=== PATIENT | male | born 1965 | race Caucasian/White ===

== ENCOUNTER 2023-06-15 02:50 | Inpatient (IN) | payer OTHER ==
[2023-06-15] VITALS (54 sets, daily range): BP systolic 73–254; BP diastolic 46–136; PULSE 71–124; RESP 12–26; TEMP 98.2–100.5; O2SAT 92–99
[~2023-06-15] VITALS: Ht 180.3 cm; Wt 79.7 kg
[2023-06-15 03:13] LABS: BASOPHILS # (AUTO) 0.16 K/uL (0.00-0.20); BASOPHILS % (AUTO) 0.9 % (0.0-5.0); HEMATOCRIT 40.1 % (42-54); IMMATURE GRANULOCYTE ABSOLUTE 0.13 K/uL (0-1); LYMPHOCYTES # (AUTO) 2.4 K/uL (1.0-4.8); LYMPHOCYTES % (AUTO) 13.2 % (21.0-51.0); MEAN CORPUSCULAR HEMOGLOBIN 22.5 pg (27.0-33.0); MEAN CORPUSCULAR HGB CONC 29.2 g/dL (32.0-36.0); MONOCYTES # (AUTO) 0.9 K/uL (0.1-1.0); MONOCYTES % (AUTO) 4.8 % (3.0-13.0); NEUTROPHILS # (AUTO) 14.5 K/uL (1.8-7.7); NEUTROPHILS % (AUTO) 80.4 % (40.0-77.0); NUCLEATED RED BLOOD CELLS 0.3 % (0.0-0.19); PLATELET COUNT (AUTO) 311 K/uL (130-400); RED BLOOD CELL COUNT(AUTO) 5.21 MIL/uL (4.50-6.20); RED CELL DISTRIBUTION WIDTH 20.5 % (11.0-15.5); WHITE BLOOD COUNT (AUTO) 18.1 K/uL (4.8-10.8)
[2023-06-15 03:22] LABS: CREATININE 2.2 mg/dL (0.5-1.5)
[2023-06-15 03:28] LABS: ALBUMIN 3.1 g/dL (3.5-5.0); BILIRUBIN,TOTAL 0.8 mg/dL (0.2-1.0); TOTAL PROTEIN, SERUM 6.7 g/dL (6.0-8.3)
[2023-06-15] MEDS ORDERED: MORPHINE 2 MG SYG IVP ONE (03:30)
[2023-06-15] MEDS ORDERED: LACTATED RINGERS 1000ML 1,000 ML IV ONE (03:30)
[2023-06-15] MEDS ORDERED: ONDANSETRON 4MG INJ IVP ONE (03:30)
[2023-06-15] MEDS ORDERED: HALOPERIDOL INJ 5 MG/ML VIAL ONE (03:38)
[2023-06-15] MEDS ORDERED: HYDROMORPHONE 1 MG INJ ONE ×2 (03:44→03:49)
[2023-06-15] MEDS ORDERED: IOHEXOL 350 MG/ML 100ML INFUS..BTL IV ONE (03:55)
[2023-06-15] MEDS ORDERED: KETOROLAC 30MG VIAL (30MG/ML) IVP ONE (04:00)
[2023-06-15] MEDS ORDERED: HALOPERIDOL INJ 5 MG/ML VIAL IV SCH (04:00)
[2023-06-15] MEDS ORDERED: NITROGLYCERIN 50MG/D5W 250ML 250 BOT IV PRN (04:00)
[2023-06-15] MEDS ORDERED: ASPIRIN 81MG CHEW TAB PO ONE (04:00)
[2023-06-15] MEDS ORDERED: HYDROMORPHONE 1 MG INJ IVP ONE ×2 (04:00)
[2023-06-15] MEDS ORDERED: HEPARIN 25,000 UNITS/250ML D5W 250 ML IV PRN (04:00)
[2023-06-15] MEDS ORDERED: NOREPINEPHRIN 4MG/NS 250ML 250 ML IV SCH (04:30)
[2023-06-15] MEDS ORDERED: NOREPINEPHRIN 4MG/NS 250ML 250 ML IV ONE (04:31)
[2023-06-15] MEDS ORDERED: VANCOMYCIN 1G/250ML KIT 250 ML IV ONE (04:47)
[2023-06-15] MEDS ORDERED: ZOSYN 3.375GM+NS 50ML 50 ML IVPB ONE (04:47)
[2023-06-15] MEDS ORDERED: SODIUM BICARB 50MEQ 50ML VIAL 50 ML ONE ×3 (04:56→11:24)
[2023-06-15] MEDS ORDERED: VANCOMYCIN KIT 1 GM/250 ML IV.KIT IV ONE (05:00)
[2023-06-15] MEDS ORDERED: ZOSYN 3.375GM +NS 50ML IVPB ONE (05:00)
[2023-06-15] MEDS ORDERED: DIATR MEGLU/DIATRIZOATE SODIUM 30 ML BOTTLE ONE (05:05)
[2023-06-15] MEDS: SODIUM BICARB 8.4% 50ML SYRINGE IVP SCH ×2 (05:08→12:36)
[2023-06-15 05:10] LABS: INR 0.94 (0.85-1.15); PROTHROMBIN TIME 10.9 SEC (9.6-11.6)
[2023-06-15 05:11] LABS: PARTIAL THROMBOPLASTIN TIME 24.2 SEC (26.3-35.5)
[2023-06-15 05:28] LABS: ABG HCO3 11.6 mmol/L (21.0-28.0); ABG OXYGEN SATURATION 94.8 % (95.0-99.0); ABG PCO2 33 mmHg (35-48); ABG PH 7.158 (7.35-7.450); PO2, ARTERIAL BG 91.7 mmHg (83.0-108.0); VENT MODE, BG NC (ROOM AIR)
[2023-06-15] MEDS ORDERED: SODIUM BICARB 50MEQ 50ML VIAL 150 ML ONE (05:31)
[2023-06-15] MEDS ORDERED: ONDANSETRON 4MG INJ IV PRN ×2 (06:00→16:00)
[2023-06-15] MEDS ORDERED: VANCOMYCIN PROTOCOL PER PHARMACY IV SCH (06:00)
[2023-06-15] MEDS ORDERED: SODIUM BICARB 8.4% 50ML SYRING 150 MEQ in DEXTROSE 5%-WATER 1,000 ML IVP SCH (06:00)
[2023-06-15] MEDS: ZOSYN 3.375GM +NS 50ML IVPB SCH ×3 (06:00→20:21)
[2023-06-15] MEDS ORDERED: LACTATED RINGERS 1000ML 2,000 ML IV SCH (07:00)
[2023-06-15] MEDS ORDERED: SODIUM BICARB 8.4% 50ML SYRINGE IVP SCH (07:00)
[2023-06-15 07:23] LABS: ABG BASE EXCESS -3.8 mmol/L (-2.0-3.0); ABG OXYGEN SATURATION 95.5 % (95.0-99.0); ABG PCO2 38 mmHg (35-48); ABG PH 7.363 (7.35-7.450); PO2, ARTERIAL BG 80.1 mmHg (83.0-108.0); VENT MODE, BG NC (ROOM AIR)
[2023-06-15] MEDS ORDERED: DEXAMETHASONE SOD PHOSPHATE 10MG/ML 1ML VIAL ONE (07:45)
[2023-06-15] MEDS ORDERED: FENTANYL CITRATE PF 50 MCG/1 ML 2ML VIAL ONE (07:45)
[2023-06-15] MEDS ORDERED: SUCCINYLCHOLINE CHLORIDE 20 MG/ML 10 ML VIAL ONE (07:45)
[2023-06-15] MEDS ORDERED: GLYCOPYRROLATE 1 MG/5 ML SYRINGE ONE (07:45)
[2023-06-15] MEDS ORDERED: LIDOCAINE PF 100MG/5ML (2%) SYRINGE 5ML ONE (07:45)
[2023-06-15] MEDS ORDERED: PROPOFOL 10 MG/ML 20ML VIAL IV ONE (07:45)
[2023-06-15] MEDS ORDERED: ONDANSETRON 4MG INJ ONE (07:45)
[2023-06-15] MEDS ORDERED: MIDAZOLAM HCL 1 MG/ML 2ML VIAL ONE (07:46)
[2023-06-15] MEDS ORDERED: NEOSTIGMINE 5MG/5ML SYR IV ONE (07:46)
[2023-06-15] MEDS ORDERED: ROCURONIUM 10MG/1ML SYR 10 MG/ML ML ONE ×3 (07:46→10:43)
[2023-06-15] MEDS ORDERED: KETAMINE 50MG/ML SYRINGE 50 MG/ML DISP.SYRIN ONE ×2 (07:49→10:43)
[2023-06-15] MEDS ORDERED: 0.9%NACL 50ML IV SCH (09:00)
[2023-06-15] MEDS ORDERED: FENTANYL CITRATE PF 50 MCG/1 ML 5ML AMP IV ONE ×2 (09:00→10:43)
[2023-06-15] MEDS ORDERED: FAMOTIDINE 20MG VIAL IV SCH (09:00)
[2023-06-15 09:08] LABS: ABG BASE EXCESS -2.2 mmol/L (-2.0-3.0); ABG HCO3 23.8 mmol/L (21.0-28.0); ABG OXYGEN SATURATION 92.1 % (95.0-99.0); ABG PCO2 46 mmHg (35-48); CARBON MONOXIDE 0.3; HHb 7.9; PO2, ARTERIAL BG 72.1 mmHg (83.0-108.0); VENT MODE, BG ANT VENT (ROOM AIR)
[2023-06-15] MEDS ORDERED: ROCURONIUM BROMIDE 10MG/1ML 5ML VL IV ONE (09:13)
[2023-06-15] MEDS ORDERED: ETOMIDATE 20MG VIAL IVP ONE (09:13)
[2023-06-15] MEDS ORDERED: CEFAZOLIN SODIUM 1 GM VIAL ONE (10:13)
[2023-06-15 11:21] LABS: ABG BASE EXCESS -7.2 mmol/L (-2.0-3.0); ABG HCO3 19.2 mmol/L (21.0-28.0); ABG OXYGEN SATURATION 98.8 % (95.0-99.0); ABG PCO2 43 mmHg (35-48); ABG PH 7.273 (7.35-7.450); HHb 1.2; VENT MODE, BG SIMV PS10 (ROOM AIR)
[2023-06-15] MEDS ORDERED: DEXTROSE 50%-WATER 50 ML DISP.SYRIN IV ONE (11:43)
[2023-06-15 11:49] LABS: HEMATOCRIT 31.9 % (42-54); MEAN CORPUSCULAR HEMOGLOBIN 22.5 pg (27.0-33.0); MEAN CORPUSCULAR HGB CONC 29.5 g/dL (32.0-36.0); MEAN CORPUSCULAR VOLUME 76.3 fL (79-99); NUCLEATED RED BLOOD CELLS 0.3 % (0.0-0.19); PLATELET COUNT (AUTO) 236 K/uL (130-400); RED BLOOD CELL COUNT(AUTO) 4.18 MIL/uL (4.50-6.20); RED CELL DISTRIBUTION WIDTH 19.9 % (11.0-15.5); WHITE BLOOD COUNT (AUTO) 9.2 K/uL (4.8-10.8)
[2023-06-15 11:58] LABS: CREATININE 1.8 mg/dL (0.5-1.5); INR 1.04 (0.85-1.15); MAGNESIUM 1.1 mg/dL (1.80-2.40); POTASSIUM 3.8 mmol/L (3.5-5.1)
[2023-06-15 12:00] LABS: PARTIAL THROMBOPLASTIN TIME 26.5 SEC (26.3-35.5)
[2023-06-15] MEDS ORDERED: DEXMEDETOMIDINE 400MCG/NS100ML IV ONE (12:20)
[2023-06-15] MEDS: DEXMEDETOMIDINE 400MCG/NS100ML IV SCH ×3 (12:35→20:21)
[2023-06-15] MEDS ORDERED: THIAMINE HCL 100 MG/ML 2ML VIAL IVP ONE (12:48)
[2023-06-15 13:04] LABS: ABG BASE EXCESS 1.8 mmol/L (-2.0-3.0); ABG HCO3 25.2 mmol/L (21.0-28.0); ABG OXYGEN SATURATION 99.2 % (95.0-99.0); ABG PCO2 35 mmHg (35-48); ABG PH 7.471 (7.35-7.450); CARBON MONOXIDE 0.9; HHb 0.8; VENT MODE, BG SIMV (ROOM AIR)
[2023-06-15 13:26] LABS: BAND NEUTROPHILS % (MANUAL) 44 % (0-2); LYMPHOCYTES % (MANUAL) 11 % (22-44); SEGMENTED NEUTROPHILS % 45 % (40-70); TOTAL CELLS COUNTED 100
[2023-06-15 13:27] LABS: MAN.DIFF COMMENT-IMPRESSION MANUAL DIFFERENTIAL; PLATELET MORPHOLOGY COMMENT ADEQUATE; WBC MORPHOLOGY CONSISTENT W/DIFF
[2023-06-15] MEDS ORDERED: THIAMINE HCL 300 MG in 0.9%NACL 50ML 50 ML IV SCH (14:00)
[2023-06-15] MEDS ORDERED: THIAMINE HCL 100 MG/ML 2ML VIAL IVP SCH (14:00)
[2023-06-15 16:00] LABS: ABG BASE EXCESS 5.6 mmol/L (-2.0-3.0); ABG HCO3 29.2 mmol/L (21.0-28.0); ABG OXYGEN SATURATION 97.5 % (95.0-99.0); ABG PCO2 39 mmHg (35-48); ABG PH 7.496 (7.35-7.450); CARBON MONOXIDE 1.1; HHb 2.5; PO2, ARTERIAL BG 99.7 mmHg (83.0-108.0); VENT MODE, BG AC (ROOM AIR)
[2023-06-15] MEDS ORDERED: CHLORDIAZEPOXIDE HCL 25 MG CAP PO PRN ×2 (16:00)
[2023-06-15] MEDS ORDERED: PHARMACY COMMUNICATION MISC PRN (16:00)
[2023-06-15] MEDS ORDERED: DIAZEPAM 5 MG/ML 2 ML SYG IVP ONE (16:30)
[2023-06-15] MEDS: DEXTROSE 5 % AND 0.9 % NACL 1,000 ML IV SCH (16:42)
[2023-06-15] MEDS: MAGNESIUM 2GM PREMIX 50ML 50 ML IV PRN (18:40)
[2023-06-15] MEDS: IPRATROPIUM/ALBUTEROL SULFATE 3 ML SOLUTION IH SCH (18:51)
[2023-06-15] MEDS: LORAZEPAM 2 MG/ML 1 ML VIAL IVP PRN (19:57)
[2023-06-15] MEDS: PANTOPRAZOLE 40 MG/VIAL IVP SCH (20:21)
[2023-06-15] MEDS ORDERED: CALCIUM GLUC 1GM/10ML VIAL ONE (20:28)
[2023-06-15] MEDS: CALCIUM GLUC 1GM 1 GM in 0.9%NACL 100ML 100 ML IV SCH ×2 (20:30→20:32)
[2023-06-15] MEDS: DIAZEPAM 5 MG/ML 2 ML SYG IVP SCH (23:29)
[2023-06-16] VITALS (96 sets, daily range): BP systolic 83–146; BP diastolic 59–176; PULSE 66–78; RESP 6–49; TEMP 97.7–100.3; O2SAT 92–100
[2023-06-16] MEDS: IPRATROPIUM/ALBUTEROL SULFATE 3 ML SOLUTION IH SCH ×4 (00:33→18:18)
[2023-06-16] MEDS: LORAZEPAM 2 MG/ML 1 ML VIAL IVP PRN ×4 (00:50→20:32)
[2023-06-16] MEDS: DEXMEDETOMIDINE 400MCG/NS100ML IV SCH ×7 (00:57→23:24)
[2023-06-16] MEDS: DEXTROSE 5 % AND 0.9 % NACL 1,000 ML IV SCH (01:47)
[2023-06-16 05:00] LABS: ABG BASE EXCESS 7.5 mmol/L (-2.0-3.0); ABG OXYGEN SATURATION 95.1 % (95.0-99.0); ABG PCO2 39 mmHg (35-48); ABG PH 7.514 (7.35-7.450); PO2, ARTERIAL BG 67.5 mmHg (83.0-108.0); VENT MODE, BG AC (ROOM AIR)
[2023-06-16 05:02] LABS: BASOPHILS # (AUTO) 0.05 K/uL (0.00-0.20); BASOPHILS % (AUTO) 0.3 % (0.0-5.0); EOSINOPHILS # (AUTO) 0.04 K/uL (0.00-0.70); EOSINOPHILS % (AUTO) 0.3 % (0.0-8.0); HEMATOCRIT 27.7 % (42-54); IMMATURE GRANULOCYTE ABSOLUTE 0.13 K/uL (0-1); LYMPHOCYTES # (AUTO) 0.5 K/uL (1.0-4.8); MEAN CORPUSCULAR HEMOGLOBIN 22.6 pg (27.0-33.0); MEAN CORPUSCULAR HGB CONC 29.6 g/dL (32.0-36.0); MEAN CORPUSCULAR VOLUME 76.3 fL (79-99); MONOCYTES # (AUTO) 0.6 K/uL (0.1-1.0); MONOCYTES % (AUTO) 3.7 % (3.0-13.0); NEUTROPHILS # (AUTO) 13.6 K/uL (1.8-7.7); NEUTROPHILS % (AUTO) 91.8 % (40.0-77.0); PLATELET COUNT (AUTO) 132 K/uL (130-400); RED BLOOD CELL COUNT(AUTO) 3.63 MIL/uL (4.50-6.20); RED CELL DISTRIBUTION WIDTH 19.9 % (11.0-15.5); WHITE BLOOD COUNT (AUTO) 14.9 K/uL (4.8-10.8)
[2023-06-16] MEDS: ZOSYN 3.375GM +NS 50ML IVPB SCH ×3 (05:26→23:23)
[2023-06-16] MEDS: DIAZEPAM 5 MG/ML 2 ML SYG IVP SCH (05:41)
[2023-06-16 05:50] LABS: ALBUMIN 1.8 g/dL (3.5-5.0); BILIRUBIN,TOTAL 0.8 mg/dL (0.2-1.0); POTASSIUM 3.9 mmol/L (3.5-5.1); TOTAL PROTEIN, SERUM 4.7 g/dL (6.0-8.3)
[2023-06-16] MEDS: PANTOPRAZOLE 40 MG/VIAL IVP SCH ×2 (08:04→20:24)
[2023-06-16] MEDS: ENOXAPARIN SODIUM 80 MG/0.8 ML SQ SCH (08:08)
[2023-06-16] MEDS: MAGNESIUM 2GM PREMIX 50ML 50 ML IV PRN (08:10)
[2023-06-16 08:26] LABS: ABG BASE EXCESS 7.1 mmol/L (-2.0-3.0); ABG HCO3 30.2 mmol/L (21.0-28.0); ABG OXYGEN SATURATION 94.9 % (95.0-99.0); ABG PCO2 38 mmHg (35-48); ABG PH 7.521 (7.35-7.450); DEVICE COMMENT RR; PO2, ARTERIAL BG 66.1 mmHg (83.0-108.0); VENT MODE, BG AC (ROOM AIR)
[2023-06-16] MEDS ORDERED: M.V.I. 10 ML, FOLIC ACID 1 MG, THIAMINE HCL 100 MG in 0.9%NACL 1000ML IV SCH (09:00)
[2023-06-16] MEDS ORDERED: FUROSEMIDE 20MG VIAL IV SCH (09:30)
[2023-06-16] MEDS: VANCOMYCIN 1.25 GM/250 ML BAG 250 ML IV SCH (09:35)
[2023-06-16] MEDS ORDERED: COMPOUND IV REFRIGERATED 1 EACH IVSOLN MISC PRN (10:00)
[2023-06-16 12:56] LABS: CHOLESTEROL 123 mg/dL (<200); HDL CHOLESTEROL 84 mg/dL (29-71); LDL DIRECT 23 mg/dL (0-99); TRIGLYCERIDES 88 mg/dL (30-200)
[2023-06-16] MEDS ORDERED: M V I IV ONE (13:00)
[2023-06-16] MEDS ORDERED: THIAMINE HCL IV ONE (13:00)
[2023-06-16] MEDS ORDERED: [UNRECOGNIZED DRUG - OTHER] IV ONE (13:00)
[2023-06-16] MEDS ORDERED: CLINIMIX E 5% IV ONE (13:00)
[2023-06-16] MEDS: FAT EMULSIONS 20% 250ML 250 ML IV SCH (13:43)
[2023-06-16] MEDS: DIAZEPAM 5 MG/ML 2 ML SYG IVP PRN ×2 (13:56→19:16)
[2023-06-16] MEDS: FLUCONAZOLE 400 MG/NS 200 ML 200 ML IV SCH (16:57)
[2023-06-16] MEDS: FUROSEMIDE 40MG VIAL IV SCH (20:24)
[2023-06-16] MEDS: INSULIN HUMULIN R 100 UNIT/ML 3ML SQ SCH (23:52)
[2023-06-17] VITALS (82 sets, daily range): BP systolic 91–176; BP diastolic 53–106; PULSE 66–74; RESP 12–54; TEMP 98–99.1; O2SAT 95–100
[2023-06-17] MEDS: LORAZEPAM 2 MG/ML 1 ML VIAL IVP PRN ×4 (01:18→21:40)
[2023-06-17] MEDS: IPRATROPIUM/ALBUTEROL SULFATE 3 ML SOLUTION IH SCH ×5 (01:22→23:30)
[2023-06-17] MEDS: DIAZEPAM 5 MG/ML 2 ML SYG IVP PRN ×3 (02:32→20:25)
[2023-06-17] MEDS: DEXMEDETOMIDINE 400MCG/NS100ML IV SCH ×7 (03:10→22:52)
[2023-06-17] MEDS: INSULIN HUMULIN R 100 UNIT/ML 3ML SQ SCH ×4 (06:00→22:56)
[2023-06-17] MEDS: ZOSYN 3.375GM +NS 50ML IVPB SCH ×3 (06:09→21:12)
[2023-06-17 06:24] LABS: BASOPHILS # (AUTO) 0.04 K/uL (0.00-0.20); BASOPHILS % (AUTO) 0.2 % (0.0-5.0); HEMATOCRIT 27.7 % (42-54); IMMATURE GRANULOCYTE ABSOLUTE 0.29 K/uL (0-1); LYMPHOCYTES # (AUTO) 0.9 K/uL (1.0-4.8); LYMPHOCYTES % (AUTO) 4.9 % (21.0-51.0); MEAN CORPUSCULAR HEMOGLOBIN 22.7 pg (27.0-33.0); MEAN CORPUSCULAR HGB CONC 28.9 g/dL (32.0-36.0); MEAN CORPUSCULAR VOLUME 78.5 fL (79-99); MONOCYTES # (AUTO) 0.5 K/uL (0.1-1.0); MONOCYTES % (AUTO) 2.5 % (3.0-13.0); NEUTROPHILS # (AUTO) 17.3 K/uL (1.8-7.7); NEUTROPHILS % (AUTO) 90.9 % (40.0-77.0); PLATELET COUNT (AUTO) 115 K/uL (130-400); RED BLOOD CELL COUNT(AUTO) 3.53 MIL/uL (4.50-6.20); RED CELL DISTRIBUTION WIDTH 20.2 % (11.0-15.5); WHITE BLOOD COUNT (AUTO) 19.1 K/uL (4.8-10.8)
[2023-06-17] MEDS ORDERED: POTASSIUM CHLORIDE 10% ELIXIR 20 MEQ/15 ML UDCUP ONE (06:58)
[2023-06-17] MEDS: PANTOPRAZOLE 40 MG/VIAL IVP SCH ×2 (08:37→20:24)
[2023-06-17] MEDS: ENOXAPARIN SODIUM 80 MG/0.8 ML SQ SCH (08:37)
[2023-06-17] MEDS: FUROSEMIDE 40MG VIAL IV SCH ×2 (08:37→20:24)
[2023-06-17 08:41] LABS: ALBUMIN 1.8 g/dL (3.5-5.0); BILIRUBIN,TOTAL 0.5 mg/dL (0.2-1.0); CREATININE 1.8 mg/dL (0.5-1.5); MAGNESIUM 1.6 mg/dL (1.80-2.40); PHOSPHORUS 2.3 mg/dL (2.5-4.9); POTASSIUM 3.2 mmol/L (3.5-5.1); TOTAL PROTEIN, SERUM 5.3 g/dL (6.0-8.3)
[2023-06-17] MEDS: POTASSIUM CHLORIDE 10MEQ/100ML 100 ML IV PRN ×3 (09:00→20:32)
[2023-06-17 09:16] LABS: ABG BASE EXCESS 6.7 mmol/L (-2.0-3.0); ABG HCO3 29.9 mmol/L (21.0-28.0); ABG OXYGEN SATURATION 91.6 % (95.0-99.0); ABG PCO2 37 mmHg (35-48); ABG PH 7.524 (7.35-7.450); CARBON MONOXIDE 0.5; DEVICE COMMENT RR SERGIO RN; HHb 8.3; PO2, ARTERIAL BG 61.2 mmHg (83.0-108.0); VENT MODE, BG AC-VC (ROOM AIR)
[2023-06-17] MEDS ORDERED: CALCIUM GLUC 1GM/10ML VIAL ONE ×2 (10:04→19:50)
[2023-06-17] MEDS: CALCIUM GLUC 1GM 1 GM in 0.9%NACL 100ML 100 ML IV SCH ×2 (10:30→19:52)
[2023-06-17] MEDS: VANCOMYCIN 1.25 GM/250 ML BAG 250 ML IV SCH (11:03)
[2023-06-17] MEDS ORDERED: COMPOUND IV REFRIGERATED 1 EACH IVSOLN MISC PRN (12:30)
[2023-06-17 12:41] LABS: INR 0.94 (0.85-1.15)
[2023-06-17] MEDS: MAGNESIUM 2GM PREMIX 50ML 50 ML IV PRN (13:56)
[2023-06-17] MEDS ORDERED: FENTANYL CITRATE PF 50 MCG/1 ML 2ML VIAL ONE (15:46)
[2023-06-17] MEDS: FAT EMULSIONS 20% 250ML 250 ML IV SCH (16:27)
[2023-06-17] MEDS ORDERED: FENTANYL CITRATE PF 50 MCG/1 ML 2ML VIAL IVP ONE (16:30)
[2023-06-17] MEDS: FLUCONAZOLE 400 MG/NS 200 ML 200 ML IV SCH (18:32)
[2023-06-17 18:46] LABS: POTASSIUM 3.3 mmol/L (3.5-5.1)
[2023-06-17] MEDS ORDERED: CLINIMIX E 5% IV SCH (19:00)
[2023-06-17] MEDS ORDERED: M V I IV SCH (19:00)
[2023-06-17] MEDS ORDERED: THIAMINE HCL IV SCH (19:00)
[2023-06-17] MEDS ORDERED: [UNRECOGNIZED DRUG - OTHER] IV SCH (19:00)
[2023-06-17] MEDS: FUROSEMIDE 20MG VIAL IV SCH (20:38)
[2023-06-17] MEDS: 0.9%NACL 10ML VIAL IV SCH (20:41)
[2023-06-18] VITALS (63 sets, daily range): BP systolic 88–133; BP diastolic 53–96; PULSE 61–73; RESP 14–29; TEMP 97–101.8; O2SAT 94–100
[2023-06-18] MEDS: DEXMEDETOMIDINE 400MCG/NS100ML IV SCH ×6 (03:19→23:25)
[2023-06-18] MEDS: DIAZEPAM 5 MG/ML 2 ML SYG IVP PRN (03:19)
[2023-06-18] MEDS: ACETAMINOPHEN 650 MG SUPPOSITORY RC PRN ×2 (03:53→18:26)
[2023-06-18 03:58] LABS: APPEARANCE,URINE CLEAR (CLEAR); BILIRUBIN,URINE NEGATIVE (NEGATIVE); COLOR,URINE LIGHT-YELLOW (YELLOW); GLUCOSE, URINE (UA) NEGATIVE (NEGATIVE); KETONES,URINE NEGATIVE (NEGATIVE); LEUKOCYTE ESTERASE ,URINE NEGATIVE Leu/uL (NEGATIVE); NITRATE,URINE NEGATIVE (NEGATIVE); PH,URINE 7.5 (5.0-8.0); PROTEIN,URINE 20 mg/dL (NEGATIVE); UROBILINOGEN,URINE 0.2 mg/dL (0.2-1.0)
[2023-06-18 04:01] LABS: BASOPHILS # (AUTO) 0.04 K/uL (0.00-0.20); BASOPHILS % (AUTO) 0.2 % (0.0-5.0); EOSINOPHILS # (AUTO) 0.02 K/uL (0.00-0.70); EOSINOPHILS % (AUTO) 0.1 % (0.0-8.0); HEMATOCRIT 30.7 % (42-54); IMMATURE GRANULOCYTE ABSOLUTE 0.19 K/uL (0-1); LYMPHOCYTES # (AUTO) 1.4 K/uL (1.0-4.8); LYMPHOCYTES % (AUTO) 8.8 % (21.0-51.0); MEAN CORPUSCULAR HEMOGLOBIN 22.4 pg (27.0-33.0); MEAN CORPUSCULAR HGB CONC 28.7 g/dL (32.0-36.0); MEAN CORPUSCULAR VOLUME 78.1 fL (79-99); MONOCYTES # (AUTO) 0.8 K/uL (0.1-1.0); MONOCYTES % (AUTO) 5.1 % (3.0-13.0); NEUTROPHILS # (AUTO) 13.9 K/uL (1.8-7.7); NEUTROPHILS % (AUTO) 84.6 % (40.0-77.0); NUCLEATED RED BLOOD CELLS 0.4 % (0.0-0.19); PLATELET COUNT (AUTO) 93 K/uL (130-400); RED BLOOD CELL COUNT(AUTO) 3.93 MIL/uL (4.50-6.20); RED CELL DISTRIBUTION WIDTH 20.7 % (11.0-15.5); WHITE BLOOD COUNT (AUTO) 16.4 K/uL (4.8-10.8)
[2023-06-18 04:01] LABS: ADD UA MICROSCOPIC NO; OCCULT BLOOD,URINE NEGATIVE (NEGATIVE)
[2023-06-18 04:13] LABS: ALBUMIN 1.8 g/dL (3.5-5.0); BILIRUBIN,TOTAL 0.7 mg/dL (0.2-1.0); CREATININE 2.1 mg/dL (0.5-1.5); MAGNESIUM 1.7 mg/dL (1.80-2.40); PHOSPHORUS 2.5 mg/dL (2.5-4.9); POTASSIUM 3.1 mmol/L (3.5-5.1)
[2023-06-18] MEDS: MAGNESIUM 2GM PREMIX 50ML 50 ML IV PRN (04:39)
[2023-06-18] MEDS: POTASSIUM CHLORIDE 10MEQ/100ML 100 ML IV PRN ×8 (04:39→21:52)
[2023-06-18] MEDS: INSULIN HUMULIN R 100 UNIT/ML 3ML SQ SCH ×4 (05:28→23:22)
[2023-06-18] MEDS: ZOSYN 3.375GM +NS 50ML IVPB SCH (05:51)
[2023-06-18] MEDS: IPRATROPIUM/ALBUTEROL SULFATE 3 ML SOLUTION IH SCH ×4 (07:13→23:05)
[2023-06-18] MEDS: VANCOMYCIN 1.25 GM/250 ML BAG 250 ML IV SCH (07:14)
[2023-06-18 08:10] LABS: ABG BASE EXCESS 5.1 mmol/L (-2.0-3.0); ABG HCO3 28.3 mmol/L (21.0-28.0); ABG OXYGEN SATURATION 94.2 % (95.0-99.0); ABG PCO2 36 mmHg (35-48); ABG PH 7.514 (7.35-7.450); CARBON MONOXIDE 1.4; DEVICE COMMENT RR SERGIO RN; HHb 5.7; PO2, ARTERIAL BG 70.9 mmHg (83.0-108.0); VENT MODE, BG AC-VC (ROOM AIR)
[2023-06-18] MEDS: FUROSEMIDE 20MG VIAL IV SCH ×2 (09:00→20:32)
[2023-06-18] MEDS ORDERED: THIAMINE HCL 100 MG/ML 2ML VIAL IVP SCH (09:00)
[2023-06-18] MEDS: PANTOPRAZOLE 40 MG/VIAL IVP SCH ×2 (09:44→20:31)
[2023-06-18] MEDS: FUROSEMIDE 40MG VIAL IV SCH (09:44)
[2023-06-18] MEDS: 0.9%NACL 10ML VIAL IV SCH ×2 (09:45→20:20)
[2023-06-18] MEDS: ENOXAPARIN SODIUM 80 MG/0.8 ML SQ SCH (09:45)
[2023-06-18 10:06] LABS: MAGNESIUM 2.1 mg/dL (1.80-2.40); POTASSIUM 3.3 mmol/L (3.5-5.1)
[2023-06-18 10:51] LABS: ABG BASE EXCESS 5.7 mmol/L (-2.0-3.0); ABG HCO3 29.2 mmol/L (21.0-28.0); ABG OXYGEN SATURATION 92.9 % (95.0-99.0); ABG PCO2 38 mmHg (35-48); ABG PH 7.504 (7.35-7.450); CPAP, BG 5 cm H2O; DEVICE COMMENT RR SERGIO RN; PO2, ARTERIAL BG 66.3 mmHg (83.0-108.0); VENT MODE, BG CPAP-PSV 10 (ROOM AIR)
[2023-06-18] MEDS ORDERED: CALCIUM GLUC 1GM/10ML VIAL ONE ×2 (11:41→20:16)
[2023-06-18] MEDS: CALCIUM GLUC 1GM 1 GM in 0.9%NACL 100ML 100 ML IV SCH ×2 (11:48→20:18)
[2023-06-18] MEDS: CEFEPIME HCL 1 GM VIAL IVPB SCH (14:51)
[2023-06-18] MEDS: DOXYCYCLINE 100MG+NS 250ML IV SCH (14:51)
[2023-06-18] MEDS ORDERED: M V I IV ONE (16:00)
[2023-06-18] MEDS ORDERED: [UNRECOGNIZED DRUG - OTHER] IV ONE (16:00)
[2023-06-18] MEDS ORDERED: THIAMINE HCL IV ONE (16:00)
[2023-06-18] MEDS ORDERED: CLINIMIX E 5% IV ONE (16:00)
[2023-06-18 17:07] LABS: POTASSIUM 3.4 mmol/L (3.5-5.1)
[2023-06-18] MEDS: ACETAZOLAMIDE SODIUM 500 MG VIAL IV SCH ×2 (17:17→23:09)
[2023-06-18] MEDS: FLUCONAZOLE 400 MG/NS 200 ML 200 ML IV SCH (17:19)
[2023-06-18 19:32] LABS: POTASSIUM 3.2 mmol/L (3.5-5.1)
[2023-06-18] MEDS: FAT EMULSIONS 20% 250ML 250 ML IV SCH (19:33)
[2023-06-18] MEDS: METRONIDAZOLE 500MG/100ML BAG 100 ML IVPB SCH (21:27)
[2023-06-18 22:37] LABS: SARS-CoV-2, RNA, NAAT NEGATIVE SARS CoV-2 (NEGATIVE)
[2023-06-18] MEDS: DIAZEPAM 5 MG/ML 2 ML SYG IVP SCH (23:26)
[2023-06-19] VITALS (72 sets, daily range): BP systolic 90–133; BP diastolic 52–92; PULSE 57–74; RESP 14–37; TEMP 98.9–100.5; O2SAT 97–100
[2023-06-19] MEDS: CEFEPIME HCL 1 GM VIAL IVPB SCH ×2 (01:05→13:02)
[2023-06-19] MEDS: DOXYCYCLINE 100MG+NS 250ML IV SCH ×2 (01:30→13:02)
[2023-06-19 04:17] LABS: BASOPHILS # (AUTO) 0.06 K/uL (0.00-0.20); BASOPHILS % (AUTO) 0.4 % (0.0-5.0); EOSINOPHILS # (AUTO) 0.08 K/uL (0.00-0.70); EOSINOPHILS % (AUTO) 0.5 % (0.0-8.0); HEMATOCRIT 26.5 % (42-54); LYMPHOCYTES # (AUTO) 1.2 K/uL (1.0-4.8); LYMPHOCYTES % (AUTO) 7.3 % (21.0-51.0); MEAN CORPUSCULAR HEMOGLOBIN 22.7 pg (27.0-33.0); MEAN CORPUSCULAR HGB CONC 28.3 g/dL (32.0-36.0); MEAN CORPUSCULAR VOLUME 80.3 fL (79-99); MONOCYTES # (AUTO) 1.7 K/uL (0.1-1.0); MONOCYTES % (AUTO) 10.4 % (3.0-13.0); NEUTROPHILS # (AUTO) 13.3 K/uL (1.8-7.7); NEUTROPHILS % (AUTO) 80.2 % (40.0-77.0); NUCLEATED RED BLOOD CELLS 0.2 % (0.0-0.19); PLATELET COUNT (AUTO) 79 K/uL (130-400); WHITE BLOOD COUNT (AUTO) 16.5 K/uL (4.8-10.8)
[2023-06-19 04:31] LABS: ALBUMIN 1.5 g/dL (3.5-5.0); BILIRUBIN,TOTAL 0.4 mg/dL (0.2-1.0); CREATININE 2.1 mg/dL (0.5-1.5); MAGNESIUM 1.7 mg/dL (1.80-2.40); PHOSPHORUS 3.3 mg/dL (2.5-4.9); POTASSIUM 3.1 mmol/L (3.5-5.1); TOTAL PROTEIN, SERUM 5.6 g/dL (6.0-8.3)
[2023-06-19] MEDS: DEXMEDETOMIDINE 400MCG/NS100ML IV SCH ×4 (04:37→21:37)
[2023-06-19] MEDS: POTASSIUM CHLORIDE 10MEQ/100ML 100 ML IV PRN ×4 (04:44→11:05)
[2023-06-19] MEDS: MAGNESIUM 2GM PREMIX 50ML 50 ML IV PRN (04:44)
[2023-06-19] MEDS: METRONIDAZOLE 500MG/100ML BAG 100 ML IVPB SCH ×3 (05:44→21:38)
[2023-06-19] MEDS: INSULIN HUMULIN R 100 UNIT/ML 3ML SQ SCH ×3 (05:44→17:12)
[2023-06-19] MEDS: DIAZEPAM 5 MG/ML 2 ML SYG IVP SCH ×2 (05:45→11:06)
[2023-06-19] MEDS: IPRATROPIUM/ALBUTEROL SULFATE 3 ML SOLUTION IH SCH ×4 (06:59→23:11)
[2023-06-19] MEDS: PANTOPRAZOLE 40 MG/VIAL IVP SCH ×2 (08:05→20:15)
[2023-06-19] MEDS: FUROSEMIDE 20MG VIAL IV SCH ×2 (08:05→20:14)
[2023-06-19] MEDS: 0.9%NACL 10ML VIAL IV SCH ×2 (08:05→20:15)
[2023-06-19] MEDS: ENOXAPARIN SODIUM 80 MG/0.8 ML SQ SCH (08:20)
[2023-06-19 14:36] LABS: MAGNESIUM 2.3 mg/dL (1.80-2.40); POTASSIUM 3.9 mmol/L (3.5-5.1)
[2023-06-19] MEDS ORDERED: THIAMINE HCL IV ONE (16:00)
[2023-06-19] MEDS ORDERED: M V I IV ONE (16:00)
[2023-06-19] MEDS ORDERED: [UNRECOGNIZED DRUG - OTHER] IV ONE (16:00)
[2023-06-19] MEDS ORDERED: CLINIMIX E 5% IV ONE (16:00)
[2023-06-19] MEDS ORDERED: HEPARIN 5,000 UNIT VIAL SQ SCH (16:30)
[2023-06-19] MEDS: ACETAMINOPHEN 650 MG SUPPOSITORY RC PRN (16:38)
[2023-06-19] MEDS: LORAZEPAM 2 MG/ML 1 ML VIAL IVP PRN (17:09)
[2023-06-19] MEDS: FLUCONAZOLE 400 MG/NS 200 ML 200 ML IV SCH (17:10)
[2023-06-19] MEDS: MORPHINE 2 MG SYG IVP PRN ×2 (17:35→20:59)
[2023-06-20] VITALS (76 sets, daily range): BP systolic 92–172; BP diastolic 51–120; PULSE 53–115; RESP 7–53; O2SAT 98–100
[2023-06-20] MEDS ORDERED: DIAZEPAM 5 MG/ML 2 ML SYG IVP SCH
[2023-06-20] MEDS: INSULIN HUMULIN R 100 UNIT/ML 3ML SQ SCH ×5 (01:00→23:24)
[2023-06-20] MEDS: DOXYCYCLINE 100MG+NS 250ML IV SCH (02:07)
[2023-06-20] MEDS: CEFEPIME HCL 1 GM VIAL IVPB SCH ×2 (02:07→14:14)
[2023-06-20] MEDS: MORPHINE 2 MG SYG IVP PRN (02:31)
[2023-06-20] MEDS: METRONIDAZOLE 500MG/100ML BAG 100 ML IVPB SCH ×3 (05:13→21:05)
[2023-06-20] MEDS: LORAZEPAM 2 MG/ML 1 ML VIAL IVP PRN ×2 (05:13→15:47)
[2023-06-20 06:36] LABS: BASOPHILS # (AUTO) 0.04 K/uL (0.00-0.20); BASOPHILS % (AUTO) 0.4 % (0.0-5.0); EOSINOPHILS # (AUTO) 0.12 K/uL (0.00-0.70); EOSINOPHILS % (AUTO) 1.2 % (0.0-8.0); HEMATOCRIT 22.4 % (42-54); IMMATURE GRANULOCYTE ABSOLUTE 0.21 K/uL (0-1); LYMPHOCYTES # (AUTO) 1.3 K/uL (1.0-4.8); LYMPHOCYTES % (AUTO) 13.4 % (21.0-51.0); MEAN CORPUSCULAR HEMOGLOBIN 22.4 pg (27.0-33.0); MEAN CORPUSCULAR HGB CONC 28.1 g/dL (32.0-36.0); MEAN CORPUSCULAR VOLUME 79.7 fL (79-99); MONOCYTES % (AUTO) 20.3 % (3.0-13.0); NEUTROPHILS # (AUTO) 6.2 K/uL (1.8-7.7); NEUTROPHILS % (AUTO) 62.6 % (40.0-77.0); PLATELET COUNT (AUTO) 92 K/uL (130-400); RED BLOOD CELL COUNT(AUTO) 2.81 MIL/uL (4.50-6.20); RED CELL DISTRIBUTION WIDTH 21.1 % (11.0-15.5); WHITE BLOOD COUNT (AUTO) 9.9 K/uL (4.8-10.8)
[2023-06-20] MEDS: DEXMEDETOMIDINE 400MCG/NS100ML IV SCH ×3 (06:39→20:28)
[2023-06-20] MEDS: IPRATROPIUM/ALBUTEROL SULFATE 3 ML SOLUTION IH SCH ×4 (06:43→22:31)
[2023-06-20 07:35] LABS: ALBUMIN 1.5 g/dL (3.5-5.0); BILIRUBIN,TOTAL 0.4 mg/dL (0.2-1.0); CREATININE 2.1 mg/dL (0.5-1.5); MAGNESIUM 1.9 mg/dL (1.80-2.40); PHOSPHORUS 3.4 mg/dL (2.5-4.9); POTASSIUM 3.5 mmol/L (3.5-5.1); TOTAL PROTEIN, SERUM 5.7 g/dL (6.0-8.3)
[2023-06-20 07:59] LABS: TOTAL IRON BINDING CAPACITY 123 mcg/dL (250-450)
[2023-06-20] MEDS: PANTOPRAZOLE 40 MG/VIAL IVP SCH ×2 (08:00→20:29)
[2023-06-20] MEDS: 0.9%NACL 10ML VIAL IV SCH ×2 (08:05→20:29)
[2023-06-20] MEDS: FUROSEMIDE 20MG VIAL IV SCH ×2 (08:06→20:32)
[2023-06-20] MEDS: HEPARIN 5,000 UNIT VIAL SQ SCH ×2 (08:07→20:31)
[2023-06-20 08:12] LABS: IRON, SERUM < 5 mcg/dL (65-175)
[2023-06-20] MEDS: MAGNESIUM 2GM PREMIX 50ML 50 ML IV PRN (08:57)
[2023-06-20 09:07] LABS: ABG BASE EXCESS -2.3 mmol/L (-2.0-3.0); ABG HCO3 21.5 mmol/L (21.0-28.0); ABG OXYGEN SATURATION 97.6 % (95.0-99.0); ABG PCO2 34 mmHg (35-48); ABG PH 7.414 (7.35-7.450); CPAP, BG 5 cm H2O; PO2, ARTERIAL BG 98.3 mmHg (83.0-108.0); VENT MODE, BG CPAP PS 10 (ROOM AIR)
[2023-06-20] MEDS: METOCLOPRAMIDE 10 MG/2 ML VIAL IVP SCH ×2 (10:36→16:51)
[2023-06-20] MEDS ORDERED: SODIUM BICARB 50MEQ 50ML VIAL IV SCH (11:00)
[2023-06-20] MEDS ORDERED: FUROSEMIDE 40MG VIAL IV ONE (14:30)
[2023-06-20] MEDS: DIAZEPAM 5 MG/ML 2 ML SYG IVP SCH ×2 (15:08→23:19)
[2023-06-20] MEDS ORDERED: M.V.I. IV [ADULT] 10 ML in CLINIMIX-E 5%AA /D15%W 2000ML 2,000 ML IV ONE (16:00)
[2023-06-20] MEDS: FLUCONAZOLE 400 MG/NS 200 ML 200 ML IV SCH (17:16)
[2023-06-20 18:25] LABS: MAGNESIUM 2.2 mg/dL (1.80-2.40); POTASSIUM 3.2 mmol/L (3.5-5.1)
[2023-06-20] MEDS: POTASSIUM CHLORIDE 10MEQ/100ML 100 ML IV PRN (18:39)
[2023-06-20] MEDS: NYSTATIN 15 GM POWDER TP SCH (20:29)
[2023-06-21] VITALS (81 sets, daily range): BP systolic 94–178; BP diastolic 46–117; PULSE 68–122; RESP 15–48; O2SAT 96–98
[2023-06-21] MEDS: CEFEPIME HCL 1 GM VIAL IVPB SCH ×2 (02:27→14:42)
[2023-06-21] MEDS: MORPHINE 2 MG SYG IVP PRN ×3 (02:29→19:56)
[2023-06-21] MEDS: DEXMEDETOMIDINE 400MCG/NS100ML IV SCH ×5 (02:30→22:48)
[2023-06-21] MEDS: IPRATROPIUM/ALBUTEROL SULFATE 3 ML SOLUTION IH SCH ×6 (03:06→22:23)
[2023-06-21 04:11] LABS: BASOPHILS # (AUTO) 0.05 K/uL (0.00-0.20); BASOPHILS % (AUTO) 0.4 % (0.0-5.0); EOSINOPHILS # (AUTO) 0.04 K/uL (0.00-0.70); EOSINOPHILS % (AUTO) 0.3 % (0.0-8.0); HEMATOCRIT 26.2 % (42-54); IMMATURE GRANULOCYTE ABSOLUTE 0.46 K/uL (0-1); LYMPHOCYTES # (AUTO) 1.4 K/uL (1.0-4.8); LYMPHOCYTES % (AUTO) 10.6 % (21.0-51.0); MEAN CORPUSCULAR HEMOGLOBIN 22.7 pg (27.0-33.0); MEAN CORPUSCULAR VOLUME 78.2 fL (79-99); MONOCYTES # (AUTO) 2.9 K/uL (0.1-1.0); MONOCYTES % (AUTO) 21.9 % (3.0-13.0); NEUTROPHILS # (AUTO) 8.5 K/uL (1.8-7.7); NEUTROPHILS % (AUTO) 63.4 % (40.0-77.0); PLATELET COUNT (AUTO) 152 K/uL (130-400); RED BLOOD CELL COUNT(AUTO) 3.35 MIL/uL (4.50-6.20); RED CELL DISTRIBUTION WIDTH 20.9 % (11.0-15.5); WHITE BLOOD COUNT (AUTO) 13.4 K/uL (4.8-10.8)
[2023-06-21 04:27] LABS: ALBUMIN 1.6 g/dL (3.5-5.0); BILIRUBIN,TOTAL 0.3 mg/dL (0.2-1.0); CREATININE 1.9 mg/dL (0.5-1.5); POTASSIUM 3.3 mmol/L (3.5-5.1); TOTAL PROTEIN, SERUM 6.2 g/dL (6.0-8.3)
[2023-06-21] MEDS: METRONIDAZOLE 500MG/100ML BAG 100 ML IVPB SCH ×3 (05:19→21:11)
[2023-06-21] MEDS: INSULIN HUMULIN R 100 UNIT/ML 3ML SQ SCH ×3 (05:20→17:49)
[2023-06-21] MEDS: POTASSIUM CHLORIDE 10MEQ/100ML 100 ML IV PRN (06:29)
[2023-06-21] MEDS: METOCLOPRAMIDE 10 MG/2 ML VIAL IVP SCH ×3 (07:24→16:33)
[2023-06-21] MEDS: FOLIC ACID 5 MG/ML VIAL IV SCH (07:25)
[2023-06-21] MEDS: DIAZEPAM 5 MG/ML 2 ML SYG IVP SCH ×2 (07:33→15:24)
[2023-06-21] MEDS: THIAMINE HCL 100 MG/ML 2ML VIAL IVP SCH (07:59)
[2023-06-21] MEDS: PANTOPRAZOLE 40 MG/VIAL IVP SCH ×2 (07:59→19:59)
[2023-06-21] MEDS: HEPARIN 5,000 UNIT VIAL SQ SCH ×2 (08:01→20:01)
[2023-06-21] MEDS: FUROSEMIDE 20MG VIAL IV SCH ×2 (08:01→19:59)
[2023-06-21] MEDS: 0.9%NACL 10ML VIAL IV SCH ×2 (08:01→19:57)
[2023-06-21] MEDS: NYSTATIN 15 GM POWDER TP SCH ×2 (08:01→20:09)
[2023-06-21] MEDS ORDERED: ALTEPLASE 2MG VIAL 2 MG/VIAL VIAL IVCATH ONE ×2 (13:30→14:00)
[2023-06-21] MEDS: LORAZEPAM 2 MG/ML 1 ML VIAL IVP PRN ×2 (16:34→21:10)
[2023-06-21] MEDS: FLUCONAZOLE 400 MG/NS 200 ML 200 ML IV SCH (17:29)
[2023-06-21] MEDS ORDERED: M.V.I. IV [ADULT] 10 ML in CLINIMIX-E 5%AA /D15%W 2000ML 2,000 ML IV ONE (18:30)
[2023-06-21] MEDS ORDERED: IPRATROPIUM/ALBUTEROL SULFATE 3 ML SOLUTION IH ONE (22:15)
[2023-06-22] VITALS (57 sets, daily range): BP systolic 91–159; BP diastolic 51–115; PULSE 75–115; RESP 16–54; O2SAT 95–98
[2023-06-22] MEDS: DIAZEPAM 5 MG/ML 2 ML SYG IVP SCH ×4 (00:01→19:07)
[2023-06-22] MEDS: CEFEPIME HCL 1 GM VIAL IVPB SCH ×2 (01:34→13:49)
[2023-06-22] MEDS: MORPHINE 2 MG SYG IVP PRN ×2 (01:34→15:23)
[2023-06-22] MEDS: IPRATROPIUM/ALBUTEROL SULFATE 3 ML SOLUTION IH SCH ×6 (02:46→22:11)
[2023-06-22] MEDS: DEXMEDETOMIDINE 400MCG/NS100ML IV SCH ×4 (04:10→19:17)
[2023-06-22 04:33] LABS: BASOPHILS # (AUTO) 0.07 K/uL (0.00-0.20); BASOPHILS % (AUTO) 0.7 % (0.0-5.0); EOSINOPHILS # (AUTO) 0.05 K/uL (0.00-0.70); EOSINOPHILS % (AUTO) 0.5 % (0.0-8.0); HEMATOCRIT 25.1 % (42-54); IMMATURE GRANULOCYTE ABSOLUTE 0.39 K/uL (0-1); LYMPHOCYTES % (AUTO) 9.6 % (21.0-51.0); MEAN CORPUSCULAR HEMOGLOBIN 22.6 pg (27.0-33.0); MEAN CORPUSCULAR HGB CONC 28.7 g/dL (32.0-36.0); MEAN CORPUSCULAR VOLUME 78.9 fL (79-99); MONOCYTES % (AUTO) 19.8 % (3.0-13.0); NEUTROPHILS # (AUTO) 6.5 K/uL (1.8-7.7); NEUTROPHILS % (AUTO) 65.5 % (40.0-77.0); PLATELET COUNT (AUTO) 238 K/uL (130-400); RED BLOOD CELL COUNT(AUTO) 3.18 MIL/uL (4.50-6.20); RED CELL DISTRIBUTION WIDTH 21.1 % (11.0-15.5); WHITE BLOOD COUNT (AUTO) 9.9 K/uL (4.8-10.8)
[2023-06-22 04:52] LABS: ALBUMIN 1.6 g/dL (3.5-5.0); BILIRUBIN,TOTAL 0.2 mg/dL (0.2-1.0); CREATININE 1.8 mg/dL (0.5-1.5); POTASSIUM 3.7 mmol/L (3.5-5.1)
[2023-06-22] MEDS: INSULIN HUMULIN R 100 UNIT/ML 3ML SQ SCH ×4 (05:52→17:14)
[2023-06-22] MEDS: METRONIDAZOLE 500MG/100ML BAG 100 ML IVPB SCH ×3 (06:36→21:17)
[2023-06-22] MEDS: METOCLOPRAMIDE 10 MG/2 ML VIAL IVP SCH ×3 (06:36→17:00)
[2023-06-22] MEDS: POTASSIUM CHLORIDE 10MEQ/100ML 100 ML IV PRN (07:34)
[2023-06-22] MEDS: PANTOPRAZOLE 40 MG/VIAL IVP SCH ×2 (08:10→20:38)
[2023-06-22] MEDS: THIAMINE HCL 100 MG/ML 2ML VIAL IVP SCH (08:10)
[2023-06-22] MEDS: FUROSEMIDE 20MG VIAL IV SCH ×2 (08:10→20:38)
[2023-06-22] MEDS: NYSTATIN 15 GM POWDER TP SCH ×2 (08:11→20:42)
[2023-06-22] MEDS: HEPARIN 5,000 UNIT VIAL SQ SCH ×2 (08:11→20:37)
[2023-06-22] MEDS: 0.9%NACL 10ML VIAL IV SCH ×2 (08:18→20:38)
[2023-06-22] MEDS: FOLIC ACID 5 MG/ML VIAL IV SCH (09:00)
[2023-06-22] MEDS: FLUCONAZOLE 400 MG/NS 200 ML 200 ML IV SCH (17:17)
[2023-06-22] MEDS ORDERED: M.V.I. IV [ADULT] 10 ML, MULTITRACE-4 ADULT 10ML VIAL 3 ML in CLINIMIX-E 5%AA /D15%W 2... IV ONE (18:30)
[2023-06-23] VITALS (56 sets, daily range): BP systolic 104–197; BP diastolic 56–119; PULSE 74–149; RESP 19–53; O2SAT 95–100
[2023-06-23] MEDS: DEXMEDETOMIDINE 400MCG/NS100ML IV SCH ×3 (00:20→10:33)
[2023-06-23] MEDS: DIAZEPAM 5 MG/ML 2 ML SYG IVP SCH ×3 (00:49→13:19)
[2023-06-23] MEDS: CEFEPIME HCL 1 GM VIAL IVPB SCH ×2 (00:49→15:14)
[2023-06-23] MEDS: IPRATROPIUM/ALBUTEROL SULFATE 3 ML SOLUTION IH SCH ×6 (02:15→22:21)
[2023-06-23] MEDS: METRONIDAZOLE 500MG/100ML BAG 100 ML IVPB SCH ×3 (05:45→22:27)
[2023-06-23] MEDS: INSULIN HUMULIN R 100 UNIT/ML 3ML SQ SCH ×5 (05:54→23:50)
[2023-06-23] MEDS: METOCLOPRAMIDE 10 MG/2 ML VIAL IVP SCH ×3 (06:21→16:57)
[2023-06-23 08:15] LABS: BASOPHILS # (AUTO) 0.08 K/uL (0.00-0.20); BASOPHILS % (AUTO) 0.6 % (0.0-5.0); EOSINOPHILS # (AUTO) 0.06 K/uL (0.00-0.70); EOSINOPHILS % (AUTO) 0.4 % (0.0-8.0); HEMATOCRIT 26.3 % (42-54); IMMATURE GRANULOCYTE ABSOLUTE 0.36 K/uL (0-1); LYMPHOCYTES # (AUTO) 1.2 K/uL (1.0-4.8); LYMPHOCYTES % (AUTO) 8.6 % (21.0-51.0); MEAN CORPUSCULAR HEMOGLOBIN 22.3 pg (27.0-33.0); MEAN CORPUSCULAR HGB CONC 27.8 g/dL (32.0-36.0); MEAN CORPUSCULAR VOLUME 80.2 fL (79-99); MONOCYTES # (AUTO) 2.6 K/uL (0.1-1.0); MONOCYTES % (AUTO) 18.9 % (3.0-13.0); NEUTROPHILS # (AUTO) 9.4 K/uL (1.8-7.7); NEUTROPHILS % (AUTO) 68.9 % (40.0-77.0); PLATELET COUNT (AUTO) 331 K/uL (130-400); RED BLOOD CELL COUNT(AUTO) 3.28 MIL/uL (4.50-6.20); RED CELL DISTRIBUTION WIDTH 21.4 % (11.0-15.5); WHITE BLOOD COUNT (AUTO) 13.6 K/uL (4.8-10.8)
[2023-06-23 08:27] LABS: ALBUMIN 1.6 g/dL (3.5-5.0); BILIRUBIN,TOTAL 0.3 mg/dL (0.2-1.0); CREATININE 1.7 mg/dL (0.5-1.5); MAGNESIUM 1.9 mg/dL (1.80-2.40); POTASSIUM 4.1 mmol/L (3.5-5.1); TOTAL PROTEIN, SERUM 6.1 g/dL (6.0-8.3)
[2023-06-23] MEDS: FUROSEMIDE 20MG VIAL IV SCH ×3 (09:00→20:46)
[2023-06-23] MEDS: PANTOPRAZOLE 40 MG/VIAL IVP SCH ×2 (09:19→20:46)
[2023-06-23] MEDS: 0.9%NACL 10ML VIAL IV SCH ×2 (09:19→20:45)
[2023-06-23] MEDS: THIAMINE HCL 100 MG/ML 2ML VIAL IVP SCH (09:20)
[2023-06-23] MEDS: HEPARIN 5,000 UNIT VIAL SQ SCH ×2 (09:25→21:08)
[2023-06-23] MEDS: NYSTATIN 15 GM POWDER TP SCH ×2 (10:23→20:46)
[2023-06-23] MEDS: DEXTROSE 5%-WATER 1,000 ML IV SCH (10:32)
[2023-06-23] MEDS: IRON SUCROSE COMPLEX 300 MG in 0.9% NACL 250ML 250 ML IV SCH (10:33)
[2023-06-23] MEDS: FOLIC ACID 5 MG/ML VIAL IV SCH (10:45)
[2023-06-23] MEDS ORDERED: M.V.I. IV [ADULT] 10 ML, MULTITRACE-4 ADULT 10ML VIAL 3 ML in CLINIMIX-E 5%AA /D15%W 2... IV ONE (12:30)
[2023-06-23 15:35] LABS: ABG BASE EXCESS -2.1 mmol/L (-2.0-3.0); ABG HCO3 21.1 mmol/L (21.0-28.0); ABG PCO2 32 mmHg (35-48); ABG PH 7.435 (7.35-7.450); DEVICE COMMENT RN LEO; PO2, ARTERIAL BG 77.9 mmHg (83.0-108.0); VENT MODE, BG BIPAP12 (ROOM AIR)
[2023-06-23] MEDS: LORAZEPAM 2 MG/ML 1 ML VIAL IVP PRN ×2 (16:56→21:18)
[2023-06-23] MEDS: FLUCONAZOLE 400 MG/NS 200 ML 200 ML IV SCH (16:58)
[2023-06-23] MEDS ORDERED: METOPROLOL TARTRATE 1 MG/ML 5ML VIAL IV SCH (18:00)
[2023-06-23] MEDS: NICARDIPINE 25MG INJ 100 MG in 0.9%NACL 100ML 60 ML IV SCH (20:19)
[2023-06-23] MEDS: METOPROLOL TARTRATE 1 MG/ML 5ML VIAL IV PRN (20:25)
[2023-06-23] MEDS ORDERED: HYDRALAZINE 20MG/ML VIAL ONE (20:44)
[2023-06-24] VITALS (68 sets, daily range): BP systolic 103–170; BP diastolic 50–116; PULSE 92–147; RESP 20–75; O2SAT 97–100
[2023-06-24] MEDS: CEFEPIME HCL 1 GM VIAL IVPB SCH ×2 (00:54→13:01)
[2023-06-24] MEDS: LORAZEPAM 2 MG/ML 1 ML VIAL IVP PRN ×5 (00:54→16:59)
[2023-06-24] MEDS: METOPROLOL TARTRATE 1 MG/ML 5ML VIAL IV PRN ×4 (02:03→21:22)
[2023-06-24] MEDS: IPRATROPIUM/ALBUTEROL SULFATE 3 ML SOLUTION IH SCH ×6 (02:26→21:31)
[2023-06-24 04:26] LABS: INR 1.17 (0.85-1.15); PROTHROMBIN TIME 13.4 SEC (9.6-11.6)
[2023-06-24 04:30] LABS: BASOPHILS # (AUTO) 0.13 K/uL (0.00-0.20); BASOPHILS % (AUTO) 0.6 % (0.0-5.0); EOSINOPHILS # (AUTO) 0.01 K/uL (0.00-0.70); HEMATOCRIT 27.4 % (42-54); IMMATURE GRANULOCYTE ABSOLUTE 0.98 K/uL (0-1); LYMPHOCYTES # (AUTO) 1.6 K/uL (1.0-4.8); LYMPHOCYTES % (AUTO) 6.7 % (21.0-51.0); MEAN CORPUSCULAR HEMOGLOBIN 22.6 pg (27.0-33.0); MEAN CORPUSCULAR HGB CONC 28.5 g/dL (32.0-36.0); MEAN CORPUSCULAR VOLUME 79.4 fL (79-99); MONOCYTES # (AUTO) 3.7 K/uL (0.1-1.0); MONOCYTES % (AUTO) 15.8 % (3.0-13.0); NEUTROPHILS # (AUTO) 16.9 K/uL (1.8-7.7); NEUTROPHILS % (AUTO) 72.7 % (40.0-77.0); NUCLEATED RED BLOOD CELLS 0.1 % (0.0-0.19); PLATELET COUNT (AUTO) 483 K/uL (130-400); RED BLOOD CELL COUNT(AUTO) 3.45 MIL/uL (4.50-6.20); RED CELL DISTRIBUTION WIDTH 21.6 % (11.0-15.5); WHITE BLOOD COUNT (AUTO) 23.2 K/uL (4.8-10.8)
[2023-06-24 04:40] LABS: ALBUMIN 1.7 g/dL (3.5-5.0); BILIRUBIN,TOTAL 0.2 mg/dL (0.2-1.0); POTASSIUM 3.9 mmol/L (3.5-5.1); TOTAL PROTEIN, SERUM 6.6 g/dL (6.0-8.3)
[2023-06-24] MEDS: HYDRALAZINE 20MG/ML VIAL IV PRN ×4 (05:03→23:27)
[2023-06-24] MEDS: METRONIDAZOLE 500MG/100ML BAG 100 ML IVPB SCH ×3 (05:03→21:21)
[2023-06-24] MEDS: INSULIN HUMULIN R 100 UNIT/ML 3ML SQ SCH ×4 (06:00→23:33)
[2023-06-24] MEDS: NICARDIPINE 25MG INJ 100 MG in 0.9%NACL 100ML 60 ML IV SCH (06:37)
[2023-06-24] MEDS: DEXTROSE 5%-WATER 1,000 ML IV SCH (06:40)
[2023-06-24] MEDS: METOCLOPRAMIDE 10 MG/2 ML VIAL IVP SCH ×3 (06:41→16:09)
[2023-06-24] MEDS: FUROSEMIDE 20MG VIAL IV SCH ×2 (08:31→19:59)
[2023-06-24] MEDS: 0.9%NACL 10ML VIAL IV SCH ×2 (08:31→20:00)
[2023-06-24] MEDS: PANTOPRAZOLE 40 MG/VIAL IVP SCH ×2 (08:31→20:00)
[2023-06-24] MEDS: THIAMINE HCL 100 MG/ML 2ML VIAL IVP SCH (08:31)
[2023-06-24] MEDS: NYSTATIN 15 GM POWDER TP SCH ×2 (08:32→20:00)
[2023-06-24] MEDS: HEPARIN 5,000 UNIT VIAL SQ SCH ×2 (08:32→20:00)
[2023-06-24] MEDS: FOLIC ACID 5 MG/ML VIAL IV SCH (08:40)
[2023-06-24] MEDS ORDERED: ALTEPLASE 2MG VIAL 2 MG/VIAL VIAL IVCATH SCH (09:00)
[2023-06-24] MEDS: IRON SUCROSE COMPLEX 300 MG in 0.9% NACL 250ML 250 ML IV SCH (09:32)
[2023-06-24 11:54] LABS: BASOPHILS # (AUTO) 0.15 K/uL (0.00-0.20); BASOPHILS % (AUTO) 0.7 % (0.0-5.0); HEMATOCRIT 30.4 % (42-54); IMMATURE GRANULOCYTE ABSOLUTE 0.82 K/uL (0-1); LYMPHOCYTES % (AUTO) 4.8 % (21.0-51.0); MEAN CORPUSCULAR HEMOGLOBIN 22.7 pg (27.0-33.0); MEAN CORPUSCULAR HGB CONC 28.6 g/dL (32.0-36.0); MEAN CORPUSCULAR VOLUME 79.2 fL (79-99); MONOCYTES # (AUTO) 2.6 K/uL (0.1-1.0); NEUTROPHILS # (AUTO) 17.1 K/uL (1.8-7.7); NEUTROPHILS % (AUTO) 78.7 % (40.0-77.0); NUCLEATED RED BLOOD CELLS 0.1 % (0.0-0.19); PLATELET COUNT (AUTO) 517 K/uL (130-400); RED BLOOD CELL COUNT(AUTO) 3.84 MIL/uL (4.50-6.20); RED CELL DISTRIBUTION WIDTH 22.1 % (11.0-15.5); WHITE BLOOD COUNT (AUTO) 21.7 K/uL (4.8-10.8)
[2023-06-24 12:32] LABS: THYROID STIMULATING HORMONE 1.78 uIU/mL (0.36-3.74)
[2023-06-24] MEDS ORDERED: M.V.I. IV [ADULT] 10 ML in CLINIMIX-E 5%AA /D15%W 2000ML 2,000 ML IV ONE (14:00)
[2023-06-24] MEDS ORDERED: FAT EMULSIONS 20% 250ML 250 ML IV ONE (15:00)
[2023-06-24] MEDS: FLUCONAZOLE 400 MG/NS 200 ML 200 ML IV SCH (17:06)
[2023-06-25] VITALS (97 sets, daily range): BP systolic 119–173; BP diastolic 46–112; PULSE 82–127; RESP 16–42; O2SAT 95–100
[2023-06-25] MEDS: CEFEPIME HCL 1 GM VIAL IVPB SCH (01:39)
[2023-06-25] MEDS: IPRATROPIUM/ALBUTEROL SULFATE 3 ML SOLUTION IH SCH ×6 (02:06→22:27)
[2023-06-25 04:30] LABS: BASOPHILS # (AUTO) 0.19 K/uL (0.00-0.20); BASOPHILS % (AUTO) 0.7 % (0.0-5.0); EOSINOPHILS # (AUTO) 0.01 K/uL (0.00-0.70); HEMATOCRIT 27.7 % (42-54); IMMATURE GRANULOCYTE ABSOLUTE 1.06 K/uL (0-1); LYMPHOCYTES # (AUTO) 1.2 K/uL (1.0-4.8); LYMPHOCYTES % (AUTO) 4.7 % (21.0-51.0); MEAN CORPUSCULAR HEMOGLOBIN 22.4 pg (27.0-33.0); MEAN CORPUSCULAR HGB CONC 28.5 g/dL (32.0-36.0); MEAN CORPUSCULAR VOLUME 78.7 fL (79-99); MONOCYTES # (AUTO) 2.9 K/uL (0.1-1.0); MONOCYTES % (AUTO) 11.2 % (3.0-13.0); NEUTROPHILS # (AUTO) 20.2 K/uL (1.8-7.7); NEUTROPHILS % (AUTO) 79.2 % (40.0-77.0); NUCLEATED RED BLOOD CELLS 0.1 % (0.0-0.19); PLATELET COUNT (AUTO) 591 K/uL (130-400); RED BLOOD CELL COUNT(AUTO) 3.52 MIL/uL (4.50-6.20); RED CELL DISTRIBUTION WIDTH 22.5 % (11.0-15.5); WHITE BLOOD COUNT (AUTO) 25.5 K/uL (4.8-10.8)
[2023-06-25 04:48] LABS: CREATININE 1.9 mg/dL (0.5-1.5); MAGNESIUM 1.9 mg/dL (1.80-2.40); PHOSPHORUS 4.1 mg/dL (2.5-4.9); POTASSIUM 3.7 mmol/L (3.5-5.1)
[2023-06-25] MEDS: INSULIN HUMULIN R 100 UNIT/ML 3ML SQ SCH ×3 (06:00→18:00)
[2023-06-25] MEDS: METRONIDAZOLE 500MG/100ML BAG 100 ML IVPB SCH ×3 (06:19→20:38)
[2023-06-25] MEDS: METOCLOPRAMIDE 10 MG/2 ML VIAL IVP SCH ×3 (06:20→16:50)
[2023-06-25] MEDS: HEPARIN 5,000 UNIT VIAL SQ SCH ×2 (09:00→20:37)
[2023-06-25] MEDS: THIAMINE HCL 100 MG/ML 2ML VIAL IVP SCH (09:08)
[2023-06-25] MEDS: PANTOPRAZOLE 40 MG/VIAL IVP SCH ×2 (09:08→20:36)
[2023-06-25] MEDS: METOPROLOL TARTRATE 1 MG/ML 5ML VIAL IV PRN ×2 (09:09→15:13)
[2023-06-25] MEDS: FUROSEMIDE 20MG VIAL IV SCH ×2 (09:09→20:36)
[2023-06-25] MEDS: NYSTATIN 15 GM POWDER TP SCH ×2 (09:10→20:41)
[2023-06-25 09:11] LABS: ABG OXYGEN SATURATION 95.1 % (95.0-99.0); ABG PCO2 32 mmHg (35-48); ABG PH 7.412 (7.35-7.450); CARBON MONOXIDE 0.2; DEVICE COMMENT ISAAC RN; HHb 4.9; PO2, ARTERIAL BG 80.9 mmHg (83.0-108.0); VENT MODE, BG BIPAP12,5 (ROOM AIR)
[2023-06-25] MEDS: NICARDIPINE 25MG INJ 100 MG in 0.9%NACL 100ML 60 ML IV SCH (09:15)
[2023-06-25] MEDS: IRON SUCROSE COMPLEX 300 MG in 0.9% NACL 250ML 250 ML IV SCH (09:15)
[2023-06-25] MEDS: MAGNESIUM 2GM PREMIX 50ML 50 ML IV PRN (09:27)
[2023-06-25] MEDS ORDERED: SODIUM BICARB 50MEQ 50ML VIAL IV ONE (10:30)
[2023-06-25] MEDS ORDERED: DIATR MEGLU/DIATRIZOATE SODIUM 30 ML BOTTLE ONE ×4 (11:18→12:28)
[2023-06-25] MEDS: FLUCONAZOLE 400 MG/NS 200 ML 200 ML IV SCH (16:50)
[2023-06-25] MEDS ORDERED: M.V.I. IV [ADULT] 10 ML, MULTITRACE-4 ADULT 10ML VIAL 3 ML in CLINIMIX-E 5%AA /D15%W 2... IV ONE (17:00)
[2023-06-25] MEDS: FOLIC ACID 5 MG/ML VIAL IV SCH (17:41)
[2023-06-25] MEDS: HYDRALAZINE 20MG/ML VIAL IV PRN (19:02)
[2023-06-25] MEDS: 0.9%NACL 10ML VIAL IV SCH ×2 (20:31→20:36)
[2023-06-26] VITALS (94 sets, daily range): BP systolic 99–183; BP diastolic 62–140; PULSE 91–130; RESP 6–34; O2SAT 92–100
[2023-06-26] MEDS: INSULIN HUMULIN R 100 UNIT/ML 3ML SQ SCH ×4 (00:45→18:00)
[2023-06-26] MEDS: POTASSIUM CHLORIDE 20MEQ/100ML 100 ML IV PRN (00:46)
[2023-06-26] MEDS: IPRATROPIUM/ALBUTEROL SULFATE 3 ML SOLUTION IH SCH ×5 (00:46→22:51)
[2023-06-26] MEDS: METRONIDAZOLE 500MG/100ML BAG 100 ML IVPB SCH ×3 (05:23→20:41)
[2023-06-26 05:27] LABS: BASOPHILS # (AUTO) 0.13 K/uL (0.00-0.20); BASOPHILS % (AUTO) 0.6 % (0.0-5.0); EOSINOPHILS # (AUTO) 0.03 K/uL (0.00-0.70); EOSINOPHILS % (AUTO) 0.1 % (0.0-8.0); HEMATOCRIT 25.6 % (42-54); IMMATURE GRANULOCYTE ABSOLUTE 0.94 K/uL (0-1); LYMPHOCYTES # (AUTO) 1.2 K/uL (1.0-4.8); LYMPHOCYTES % (AUTO) 5.5 % (21.0-51.0); MEAN CORPUSCULAR HEMOGLOBIN 22.8 pg (27.0-33.0); MEAN CORPUSCULAR HGB CONC 28.9 g/dL (32.0-36.0); MEAN CORPUSCULAR VOLUME 78.8 fL (79-99); MONOCYTES # (AUTO) 2.4 K/uL (0.1-1.0); MONOCYTES % (AUTO) 10.8 % (3.0-13.0); NEUTROPHILS # (AUTO) 17.4 K/uL (1.8-7.7); NEUTROPHILS % (AUTO) 78.7 % (40.0-77.0); NUCLEATED RED BLOOD CELLS 0.3 % (0.0-0.19); PLATELET COUNT (AUTO) 670 K/uL (130-400); RED BLOOD CELL COUNT(AUTO) 3.25 MIL/uL (4.50-6.20); RED CELL DISTRIBUTION WIDTH 22.2 % (11.0-15.5); WHITE BLOOD COUNT (AUTO) 22.1 K/uL (4.8-10.8)
[2023-06-26 05:42] LABS: ALBUMIN 1.7 g/dL (3.5-5.0); BILIRUBIN,TOTAL 0.2 mg/dL (0.2-1.0); CREATININE 1.7 mg/dL (0.5-1.5); MAGNESIUM 2.1 mg/dL (1.80-2.40); PHOSPHORUS 3.8 mg/dL (2.5-4.9); POTASSIUM 3.9 mmol/L (3.5-5.1); TOTAL PROTEIN, SERUM 6.3 g/dL (6.0-8.3)
[2023-06-26] MEDS: METOCLOPRAMIDE 10 MG/2 ML VIAL IVP SCH ×3 (06:49→17:54)
[2023-06-26] MEDS: FUROSEMIDE 20MG VIAL IV SCH ×2 (07:55→20:39)
[2023-06-26] MEDS: THIAMINE HCL 100 MG/ML 2ML VIAL IVP SCH (07:56)
[2023-06-26] MEDS: PANTOPRAZOLE 40 MG/VIAL IVP SCH ×2 (07:57→20:39)
[2023-06-26] MEDS: NYSTATIN 15 GM POWDER TP SCH ×2 (07:57→20:39)
[2023-06-26] MEDS: IRON SUCROSE COMPLEX 300 MG in 0.9% NACL 250ML 250 ML IV SCH (07:58)
[2023-06-26] MEDS: 0.9%NACL 10ML VIAL IV SCH ×2 (09:00→20:41)
[2023-06-26] MEDS: FOLIC ACID 5 MG/ML VIAL IV SCH (10:10)
[2023-06-26] MEDS: AMLODIPINE 5 MG TAB PO SCH ×2 (11:23→20:41)
[2023-06-26] MEDS: FAT EMULSIONS 20% 250ML 250 ML IV SCH (11:27)
[2023-06-26] MEDS: METOPROLOL TARTRATE 1 MG/ML 5ML VIAL IV PRN (13:46)
[2023-06-26] MEDS: HYDRALAZINE 20MG/ML VIAL IV PRN (15:37)
[2023-06-26] MEDS ORDERED: [UNRECOGNIZED DRUG - NUTRITION] IV ONE (17:00)
[2023-06-26] MEDS: HEPARIN 5,000 UNIT VIAL SQ SCH ×2 (17:53→20:40)
[2023-06-26] MEDS: FLUCONAZOLE 400 MG/NS 200 ML 200 ML IV SCH (18:08)
[2023-06-27] VITALS (100 sets, daily range): BP systolic 119–190; BP diastolic 46–109; PULSE 87–134; RESP 13–40; O2SAT 92–100
[2023-06-27] MEDS: IPRATROPIUM/ALBUTEROL SULFATE 3 ML SOLUTION IH SCH ×6 (02:03→22:31)
[2023-06-27] MEDS ORDERED: NICARDIPINE 25MG INJ IV ONE (03:08)
[2023-06-27] MEDS: NICARDIPINE 25MG INJ 100 MG in 0.9%NACL 100ML 60 ML IV SCH ×2 (03:20→17:12)
[2023-06-27 04:27] LABS: BASOPHILS # (AUTO) 0.22 K/uL (0.00-0.20); BASOPHILS % (AUTO) 1.2 % (0.0-5.0); EOSINOPHILS # (AUTO) 0.03 K/uL (0.00-0.70); EOSINOPHILS % (AUTO) 0.2 % (0.0-8.0); HEMATOCRIT 28.6 % (42-54); IMMATURE GRANULOCYTE ABSOLUTE 1.25 K/uL (0-1); LYMPHOCYTES # (AUTO) 1.5 K/uL (1.0-4.8); LYMPHOCYTES % (AUTO) 8.1 % (21.0-51.0); MEAN CORPUSCULAR HEMOGLOBIN 22.7 pg (27.0-33.0); MEAN CORPUSCULAR HGB CONC 28.7 g/dL (32.0-36.0); MONOCYTES # (AUTO) 2.1 K/uL (0.1-1.0); MONOCYTES % (AUTO) 11.1 % (3.0-13.0); NEUTROPHILS # (AUTO) 13.9 K/uL (1.8-7.7); NEUTROPHILS % (AUTO) 72.8 % (40.0-77.0); NUCLEATED RED BLOOD CELLS 0.6 % (0.0-0.19); RED BLOOD CELL COUNT(AUTO) 3.62 MIL/uL (4.50-6.20); RED CELL DISTRIBUTION WIDTH 23.3 % (11.0-15.5)
[2023-06-27 04:33] LABS: ALBUMIN 1.7 g/dL (3.5-5.0); BILIRUBIN,TOTAL 0.1 mg/dL (0.2-1.0); CREATININE 1.6 mg/dL (0.5-1.5); MAGNESIUM 1.7 mg/dL (1.80-2.40); PHOSPHORUS 3.4 mg/dL (2.5-4.9); PLATELET COUNT (AUTO) 755 K/uL (130-400); POTASSIUM 4.1 mmol/L (3.5-5.1); TOTAL PROTEIN, SERUM 6.4 g/dL (6.0-8.3)
[2023-06-27] MEDS: INSULIN HUMULIN R 100 UNIT/ML 3ML SQ SCH ×4 (06:00→17:54)
[2023-06-27] MEDS: METRONIDAZOLE 500MG/100ML BAG 100 ML IVPB SCH ×3 (06:26→21:53)
[2023-06-27] MEDS: METOCLOPRAMIDE 10 MG/2 ML VIAL IVP SCH ×3 (06:26→17:02)
[2023-06-27] MEDS: FOLIC ACID 5 MG/ML VIAL IV SCH (08:27)
[2023-06-27] MEDS: PANTOPRAZOLE 40 MG/VIAL IVP SCH ×2 (08:27→20:44)
[2023-06-27] MEDS: THIAMINE HCL 100 MG/ML 2ML VIAL IVP SCH (08:29)
[2023-06-27] MEDS: FUROSEMIDE 20MG VIAL IV SCH ×2 (08:29→20:45)
[2023-06-27] MEDS: 0.9%NACL 10ML VIAL IV SCH ×2 (08:30→20:46)
[2023-06-27] MEDS: MAGNESIUM 2GM PREMIX 50ML 50 ML IV PRN (08:31)
[2023-06-27] MEDS: AMLODIPINE 5 MG TAB PO SCH ×2 (08:31→20:43)
[2023-06-27] MEDS: HEPARIN 5,000 UNIT VIAL SQ SCH ×2 (08:56→20:45)
[2023-06-27] MEDS: LIDOCAINE HCL 1% 20 ML VIAL INJ SCH (09:00)
[2023-06-27] MEDS: DEXTROSE 5%-WATER 1,000 ML IV SCH (11:19)
[2023-06-27] MEDS: NYSTATIN 15 GM POWDER TP SCH ×2 (11:19→20:46)
[2023-06-27 16:11] LABS: ROCKY MT SPOTTED FEVER IGG <1:64 (Neg:<1:64); ROCKY MT SPOTTED FEVER IGM <1:64 (Neg:<1:64); TYPHUS FEVER AB IGG <1:64 (Neg:<1:64); TYPHUS FEVER AB IGM <1:64 (Neg:<1:64)
[2023-06-27] MEDS: FLUCONAZOLE 400 MG/NS 200 ML 200 ML IV SCH (17:02)
[2023-06-27] MEDS: METOPROLOL TARTRATE 1 MG/ML 5ML VIAL IV PRN (17:46)
[2023-06-27] MEDS ORDERED: [UNRECOGNIZED DRUG - NUTRITION] IV ONE (18:30)
[2023-06-28] VITALS (89 sets, daily range): BP systolic 112–179; BP diastolic 66–109; PULSE 84–121; RESP 12–49; O2SAT 6–100
[2023-06-28] MEDS: METOPROLOL TARTRATE 1 MG/ML 5ML VIAL IV PRN ×2 (00:49→18:30)
[2023-06-28] MEDS: IPRATROPIUM/ALBUTEROL SULFATE 3 ML SOLUTION IH SCH ×6 (02:16→21:33)
[2023-06-28 04:12] LABS: BASOPHILS % (AUTO) 1.2 % (0.0-5.0); EOSINOPHILS # (AUTO) 0.02 K/uL (0.00-0.70); EOSINOPHILS % (AUTO) 0.1 % (0.0-8.0); HEMATOCRIT 27.8 % (42-54); IMMATURE GRANULOCYTE ABSOLUTE 1.22 K/uL (0-1); LYMPHOCYTES # (AUTO) 1.6 K/uL (1.0-4.8); LYMPHOCYTES % (AUTO) 9.5 % (21.0-51.0); MEAN CORPUSCULAR HEMOGLOBIN 22.9 pg (27.0-33.0); MEAN CORPUSCULAR HGB CONC 28.4 g/dL (32.0-36.0); MEAN CORPUSCULAR VOLUME 80.6 fL (79-99); MONOCYTES # (AUTO) 1.9 K/uL (0.1-1.0); MONOCYTES % (AUTO) 11.4 % (3.0-13.0); NEUTROPHILS # (AUTO) 11.5 K/uL (1.8-7.7); NEUTROPHILS % (AUTO) 70.3 % (40.0-77.0); NUCLEATED RED BLOOD CELLS 0.4 % (0.0-0.19); RED BLOOD CELL COUNT(AUTO) 3.45 MIL/uL (4.50-6.20); RED CELL DISTRIBUTION WIDTH 23.8 % (11.0-15.5); WHITE BLOOD COUNT (AUTO) 16.4 K/uL (4.8-10.8)
[2023-06-28 04:19] LABS: PLATELET COUNT (AUTO) 762 K/uL (130-400)
[2023-06-28 04:27] LABS: ALBUMIN 1.7 g/dL (3.5-5.0); BILIRUBIN,TOTAL 0.2 mg/dL (0.2-1.0); CREATININE 1.5 mg/dL (0.5-1.5); MAGNESIUM 1.9 mg/dL (1.80-2.40); PHOSPHORUS 3.6 mg/dL (2.5-4.9); POTASSIUM 4.2 mmol/L (3.5-5.1); TOTAL PROTEIN, SERUM 6.3 g/dL (6.0-8.3)
[2023-06-28] MEDS: METRONIDAZOLE 500MG/100ML BAG 100 ML IVPB SCH ×3 (05:22→21:26)
[2023-06-28] MEDS: MAGNESIUM 2GM PREMIX 50ML 50 ML IV PRN (05:42)
[2023-06-28] MEDS: INSULIN HUMULIN R 100 UNIT/ML 3ML SQ SCH ×5 (06:00→23:59)
[2023-06-28] MEDS: DEXTROSE 5%-WATER 1,000 ML IV SCH ×2 (06:02→12:55)
[2023-06-28] MEDS: METOCLOPRAMIDE 10 MG/2 ML VIAL IVP SCH ×3 (06:39→17:03)
[2023-06-28] MEDS: LIDOCAINE HCL 1% 20 ML VIAL INJ SCH (07:18)
[2023-06-28] MEDS: AMLODIPINE 5 MG TAB PO SCH ×2 (08:33→21:27)
[2023-06-28] MEDS: FUROSEMIDE 20MG VIAL IV SCH ×2 (08:33→21:24)
[2023-06-28] MEDS: PANTOPRAZOLE 40 MG/VIAL IVP SCH ×2 (08:33→21:24)
[2023-06-28] MEDS: THIAMINE HCL 100 MG/ML 2ML VIAL IVP SCH (08:33)
[2023-06-28] MEDS: 0.9%NACL 10ML VIAL IV SCH ×2 (08:34→21:26)
[2023-06-28] MEDS: NYSTATIN 15 GM POWDER TP SCH ×2 (08:34→21:26)
[2023-06-28] MEDS: FOLIC ACID 5 MG/ML VIAL IV SCH (08:34)
[2023-06-28] MEDS: HEPARIN 5,000 UNIT VIAL SQ SCH ×2 (08:36→21:43)
[2023-06-28] MEDS: FAT EMULSIONS 20% 250ML 250 ML IV SCH (12:54)
[2023-06-28] MEDS: FLUCONAZOLE 400 MG/NS 200 ML 200 ML IV SCH (17:02)
[2023-06-28] MEDS ORDERED: [UNRECOGNIZED DRUG - NUTRITION] IV ONE (20:00)
[2023-06-29] VITALS (82 sets, daily range): BP systolic 80–176; BP diastolic 53–103; PULSE 78–113; RESP 17–62; O2SAT 6–99
[2023-06-29] MEDS: DEXTROSE 5%-WATER 1,000 ML IV SCH (01:30)
[2023-06-29] MEDS: IPRATROPIUM/ALBUTEROL SULFATE 3 ML SOLUTION IH SCH ×6 (01:45→22:23)
[2023-06-29] MEDS ORDERED: NICARDIPINE 25MG INJ IV ONE (02:53)
[2023-06-29 03:30] LABS: BASOPHILS # (AUTO) 0.19 K/uL (0.00-0.20); EOSINOPHILS # (AUTO) 0.01 K/uL (0.00-0.70); EOSINOPHILS % (AUTO) 0.1 % (0.0-8.0); IMMATURE GRANULOCYTE ABSOLUTE 0.91 K/uL (0-1); LYMPHOCYTES # (AUTO) 0.9 K/uL (1.0-4.8); LYMPHOCYTES % (AUTO) 4.8 % (21.0-51.0); MEAN CORPUSCULAR HEMOGLOBIN 23.3 pg (27.0-33.0); MEAN CORPUSCULAR HGB CONC 29.3 g/dL (32.0-36.0); MEAN CORPUSCULAR VOLUME 79.5 fL (79-99); MONOCYTES # (AUTO) 1.3 K/uL (0.1-1.0); MONOCYTES % (AUTO) 7.3 % (3.0-13.0); NEUTROPHILS # (AUTO) 14.9 K/uL (1.8-7.7); NEUTROPHILS % (AUTO) 81.8 % (40.0-77.0); NUCLEATED RED BLOOD CELLS 0.2 % (0.0-0.19); RED BLOOD CELL COUNT(AUTO) 3.65 MIL/uL (4.50-6.20); RED CELL DISTRIBUTION WIDTH 24.6 % (11.0-15.5); WHITE BLOOD COUNT (AUTO) 18.2 K/uL (4.8-10.8)
[2023-06-29 03:38] LABS: PLATELET COUNT (AUTO) 750 K/uL (130-400)
[2023-06-29 03:56] LABS: ALBUMIN 1.8 g/dL (3.5-5.0); BILIRUBIN,TOTAL 0.2 mg/dL (0.2-1.0); CREATININE 1.6 mg/dL (0.5-1.5); MAGNESIUM 1.7 mg/dL (1.80-2.40); PHOSPHORUS 3.7 mg/dL (2.5-4.9); POTASSIUM 4.2 mmol/L (3.5-5.1); TOTAL PROTEIN, SERUM 6.5 g/dL (6.0-8.3)
[2023-06-29] MEDS: METRONIDAZOLE 500MG/100ML BAG 100 ML IVPB SCH (05:28)
[2023-06-29] MEDS: INSULIN HUMULIN R 100 UNIT/ML 3ML SQ SCH ×3 (05:32→18:00)
[2023-06-29] MEDS: MAGNESIUM 2GM PREMIX 50ML 50 ML IV PRN (06:43)
[2023-06-29] MEDS: 0.9%NACL 10ML VIAL IV SCH ×2 (09:00→20:12)
[2023-06-29 09:11] LABS: ABG BASE EXCESS -0.6 mmol/L (-2.0-3.0); ABG HCO3 24.6 mmol/L (21.0-28.0); ABG OXYGEN SATURATION 77.3 % (95.0-99.0); ABG PCO2 43 mmHg (35-48); ABG PH 7.378 (7.35-7.450); CARBON MONOXIDE 0.4; DEVICE COMMENT RR ROSIE RN; HHb 22.5; PO2, ARTERIAL BG 46.1 mmHg (83.0-108.0); VENT MODE, BG BIPAP 12-6 (ROOM AIR)
[2023-06-29 09:20] LABS: ABG BASE EXCESS 0.7 mmol/L (-2.0-3.0); ABG HCO3 25.9 mmol/L (21.0-28.0); ABG PCO2 44 mmHg (35-48); ABG PH 7.386 (7.35-7.450); CARBON MONOXIDE 0.3; DEVICE COMMENT RR; HHb 25.8; PO2, ARTERIAL BG < 45.0 mmHg (83.0-108.0); VENT MODE, BG BIPAP12-5 RR18 (ROOM AIR)
[2023-06-29] MEDS: PANTOPRAZOLE 40 MG/VIAL IVP SCH ×2 (09:33→20:12)
[2023-06-29] MEDS: AMLODIPINE 5 MG TAB PO SCH ×2 (09:34→20:11)
[2023-06-29] MEDS: FUROSEMIDE 20MG VIAL IV SCH ×3 (09:34→20:13)
[2023-06-29] MEDS: NYSTATIN 15 GM POWDER TP SCH ×2 (09:34→20:13)
[2023-06-29] MEDS: HEPARIN 5,000 UNIT VIAL SQ SCH ×2 (09:38→20:12)
[2023-06-29] MEDS ORDERED: FUROSEMIDE 20MG VIAL IV ONE (10:00)
[2023-06-29] MEDS ORDERED: VANCOMYCIN KIT 1 GM/250 ML IV.KIT IV ONE (10:00)
[2023-06-29] MEDS ORDERED: RENAL DOSE IV PRN (10:00)
[2023-06-29] MEDS: DEXMEDETOMIDINE 400MCG/NS100ML IV SCH ×3 (10:00→20:50)
[2023-06-29] MEDS: METOCLOPRAMIDE 10 MG/2 ML VIAL IVP SCH ×3 (10:20→16:17)
[2023-06-29] MEDS ORDERED: FUROSEMIDE 40MG VIAL IV ONE (10:30)
[2023-06-29] MEDS: FOLIC ACID 5 MG/ML VIAL IV SCH (10:31)
[2023-06-29] MEDS: MEROPENEM 1 GM in 0.9%NACL 100ML IV SCH ×2 (10:49→22:05)
[2023-06-29 10:51] LABS: ABG HCO3 24.5 mmol/L (21.0-28.0); ABG OXYGEN SATURATION 94.7 % (95.0-99.0); ABG PCO2 39 mmHg (35-48); ABG PH 7.414 (7.35-7.450); CARBON MONOXIDE 0.4; DEVICE COMMENT RR; HHb 5.3; PO2, ARTERIAL BG 76.6 mmHg (83.0-108.0)
[2023-06-29] MEDS: THIAMINE HCL 100 MG/ML 2ML VIAL IVP SCH (10:53)
[2023-06-29] MEDS: VANCOMYCIN 1.75 GM/250 ML BAG 250 ML IV SCH (12:51)
[2023-06-29] MEDS ORDERED: ALTEPLASE 2MG VIAL 2 MG/VIAL VIAL IVCATH SCH (17:00)
[2023-06-29 17:38] LABS: ABG BASE EXCESS -3.1 mmol/L (-2.0-3.0); ABG HCO3 22.6 mmol/L (21.0-28.0); ABG OXYGEN SATURATION 90.4 % (95.0-99.0); ABG PCO2 44 mmHg (35-48); ABG PH 7.334 (7.35-7.450); CARBON MONOXIDE 0.1; DEVICE COMMENT LR ROSIE RN; HHb 9.6; PO2, ARTERIAL BG 67.8 mmHg (83.0-108.0); VENT MODE, BG BIPAP 14-5 (ROOM AIR)
[2023-06-29] MEDS: FLUCONAZOLE 400 MG/NS 200 ML 200 ML IV SCH (18:53)
[2023-06-29] MEDS ORDERED: M.V.I. IV [ADULT] 10 ML in CLINIMIX-E 5%AA /D15%W 2000ML 2,000 ML IV ONE (19:00)
[2023-06-30] VITALS (61 sets, daily range): BP systolic 74–136; BP diastolic 36–92; PULSE 76–98; RESP 20–38; O2SAT 94–100
[2023-06-30] MEDS: DEXMEDETOMIDINE 400MCG/NS100ML IV SCH ×2 (03:00→20:08)
[2023-06-30] MEDS: IPRATROPIUM/ALBUTEROL SULFATE 3 ML SOLUTION IH SCH ×6 (03:21→21:12)
[2023-06-30] MEDS: INSULIN HUMULIN R 100 UNIT/ML 3ML SQ SCH ×4 (06:00→18:00)
[2023-06-30 06:08] LABS: BASOPHILS # (AUTO) 0.08 K/uL (0.00-0.20); BASOPHILS % (AUTO) 0.4 % (0.0-5.0); IMMATURE GRANULOCYTE ABSOLUTE 0.73 K/uL (0-1); LYMPHOCYTES # (AUTO) 0.8 K/uL (1.0-4.8); LYMPHOCYTES % (AUTO) 4.4 % (21.0-51.0); MEAN CORPUSCULAR HEMOGLOBIN 23.5 pg (27.0-33.0); MEAN CORPUSCULAR HGB CONC 28.8 g/dL (32.0-36.0); MEAN CORPUSCULAR VOLUME 81.4 fL (79-99); MONOCYTES # (AUTO) 1.3 K/uL (0.1-1.0); MONOCYTES % (AUTO) 6.8 % (3.0-13.0); NEUTROPHILS # (AUTO) 16.1 K/uL (1.8-7.7); NEUTROPHILS % (AUTO) 84.6 % (40.0-77.0); NUCLEATED RED BLOOD CELLS 0.6 % (0.0-0.19); PLATELET COUNT (AUTO) 555 K/uL (130-400); RED BLOOD CELL COUNT(AUTO) 3.07 MIL/uL (4.50-6.20); RED CELL DISTRIBUTION WIDTH 25.2 % (11.0-15.5); WHITE BLOOD COUNT (AUTO) 19.1 K/uL (4.8-10.8)
[2023-06-30 06:30] LABS: ALBUMIN 1.5 g/dL (3.5-5.0); BILIRUBIN,TOTAL 0.3 mg/dL (0.2-1.0); CREATININE 1.8 mg/dL (0.5-1.5); MAGNESIUM 2.1 mg/dL (1.80-2.40); PHOSPHORUS 3.6 mg/dL (2.5-4.9); POTASSIUM 4.8 mmol/L (3.5-5.1)
[2023-06-30] MEDS: METOCLOPRAMIDE 10 MG/2 ML VIAL IVP SCH ×3 (07:54→18:03)
[2023-06-30] MEDS: FOLIC ACID 5 MG/ML VIAL IV SCH (08:46)
[2023-06-30] MEDS: FUROSEMIDE 20MG VIAL IV SCH (08:47)
[2023-06-30] MEDS: 0.9%NACL 10ML VIAL IV SCH ×2 (08:47→21:29)
[2023-06-30] MEDS: THIAMINE HCL 100 MG/ML 2ML VIAL IVP SCH (08:47)
[2023-06-30] MEDS: PANTOPRAZOLE 40 MG/VIAL IVP SCH ×2 (08:47→21:29)
[2023-06-30] MEDS: HEPARIN 5,000 UNIT VIAL SQ SCH ×2 (08:49→09:00)
[2023-06-30] MEDS: NYSTATIN 15 GM POWDER TP SCH ×2 (08:49→21:29)
[2023-06-30] MEDS: AMLODIPINE 5 MG TAB PO SCH ×2 (08:51→21:30)
[2023-06-30 09:42] LABS: ABG HCO3 25.3 mmol/L (21.0-28.0); ABG OXYGEN SATURATION 93.1 % (95.0-99.0); ABG PCO2 36 mmHg (35-48); ABG PH 7.471 (7.35-7.450); PO2, ARTERIAL BG 61.5 mmHg (83.0-108.0); VENT MODE, BG BIPAP 14-5 (ROOM AIR)
[2023-06-30] MEDS: MEROPENEM 1 GM in 0.9%NACL 100ML IV SCH ×2 (12:24→21:29)
[2023-06-30] MEDS: VANCOMYCIN 1.75 GM/250 ML BAG 250 ML IV SCH (13:50)
[2023-06-30] MEDS: FLUCONAZOLE 400 MG/NS 200 ML 200 ML IV SCH (18:03)
[2023-06-30] MEDS: M.V.I. IV [ADULT] 10 ML in CLINIMIX-E 5%AA /D15%W 2000ML 2,000 ML IV SCH (20:14)
[2023-07-01] VITALS (45 sets, daily range): BP systolic 115–172; BP diastolic 69–109; PULSE 70–101; RESP 15–35; O2SAT 94–100
[2023-07-01] MEDS: INSULIN HUMULIN R 100 UNIT/ML 3ML SQ SCH ×4 (06:00→18:00)
[2023-07-01] MEDS: METOCLOPRAMIDE 10 MG/2 ML VIAL IVP SCH ×4 (07:30→22:38)
[2023-07-01] MEDS: NYSTATIN 15 GM POWDER TP SCH ×2 (09:00→20:21)
[2023-07-01] MEDS: AMLODIPINE 5 MG TAB PO SCH ×2 (09:00→20:08)
[2023-07-01] MEDS: PANTOPRAZOLE 40 MG/VIAL IVP SCH ×2 (09:00→20:07)
[2023-07-01] MEDS: 0.9%NACL 10ML VIAL IV SCH ×2 (09:00→20:07)
[2023-07-01] MEDS: THIAMINE HCL 100 MG/ML 2ML VIAL IVP SCH (09:00)
[2023-07-01] MEDS: IPRATROPIUM/ALBUTEROL SULFATE 3 ML SOLUTION IH SCH ×4 (10:40→22:04)
[2023-07-01] MEDS: MEROPENEM 1 GM in 0.9%NACL 100ML IV SCH ×2 (10:42→22:36)
[2023-07-01] MEDS: VANCOMYCIN 1.75 GM/250 ML BAG 250 ML IV SCH (12:56)
[2023-07-01] MEDS: FAT EMULSIONS 20% 250ML 250 ML IV SCH (12:56)
[2023-07-01] MEDS: FOLIC ACID 5 MG/ML VIAL IV SCH (12:56)
[2023-07-01] MEDS ORDERED: [UNRECOGNIZED DRUG - NUTRITION] IV ONE (17:00)
[2023-07-01] MEDS: M.V.I. IV [ADULT] 10 ML in CLINIMIX-E 5%AA /D15%W 2000ML 2,000 ML IV SCH (17:11)
[2023-07-01] MEDS: FLUCONAZOLE 400 MG/NS 200 ML 200 ML IV SCH (17:11)
[2023-07-01] MEDS: METOPROLOL TARTRATE 1 MG/ML 5ML VIAL IV PRN (20:08)
[2023-07-01] MEDS: PROMETHAZINE HCL 25 MG TABLET PO PRN (20:08)
[2023-07-01] MEDS: HYDRALAZINE 20MG/ML VIAL IV PRN (22:40)
[2023-07-02] VITALS (55 sets, daily range): BP systolic 134–184; BP diastolic 69–114; PULSE 78–116; RESP 10–31; O2SAT 97–100
[2023-07-02] MEDS: PROMETHAZINE HCL 25 MG TABLET PO PRN ×2 (01:47→19:44)
[2023-07-02] MEDS: IPRATROPIUM/ALBUTEROL SULFATE 3 ML SOLUTION IH SCH ×6 (02:24→22:49)
[2023-07-02 04:14] LABS: BASOPHILS # (AUTO) 0.07 K/uL (0.00-0.20); BASOPHILS % (AUTO) 0.4 % (0.0-5.0); EOSINOPHILS % (AUTO) 0.6 % (0.0-8.0); IMMATURE GRANULOCYTE ABSOLUTE 2.27 K/uL (0-1); LYMPHOCYTES # (AUTO) 1.6 K/uL (1.0-4.8); LYMPHOCYTES % (AUTO) 9.1 % (21.0-51.0); MEAN CORPUSCULAR HEMOGLOBIN 23.5 pg (27.0-33.0); MEAN CORPUSCULAR HGB CONC 28.8 g/dL (32.0-36.0); MEAN CORPUSCULAR VOLUME 81.7 fL (79-99); MONOCYTES # (AUTO) 1.9 K/uL (0.1-1.0); MONOCYTES % (AUTO) 10.9 % (3.0-13.0); NEUTROPHILS # (AUTO) 11.3 K/uL (1.8-7.7); NEUTROPHILS % (AUTO) 65.8 % (40.0-77.0); NUCLEATED RED BLOOD CELLS 0.3 % (0.0-0.19); PLATELET COUNT (AUTO) 453 K/uL (130-400); RED BLOOD CELL COUNT(AUTO) 3.06 MIL/uL (4.50-6.20); RED CELL DISTRIBUTION WIDTH 25.2 % (11.0-15.5); WHITE BLOOD COUNT (AUTO) 17.2 K/uL (4.8-10.8)
[2023-07-02 04:30] LABS: ALBUMIN 1.5 g/dL (3.5-5.0); BILIRUBIN,TOTAL 0.2 mg/dL (0.2-1.0); CREATININE 1.2 mg/dL (0.5-1.5); MAGNESIUM 1.6 mg/dL (1.80-2.40); PHOSPHORUS 2.5 mg/dL (2.5-4.9); TOTAL PROTEIN, SERUM 6.1 g/dL (6.0-8.3)
[2023-07-02 04:43] LABS: B-TYPE NATRIURETIC PEPTIDE 849 pg/mL (0-100)
[2023-07-02] MEDS: HYDRALAZINE 20MG/ML VIAL IV PRN ×3 (05:23→21:25)
[2023-07-02] MEDS: METOCLOPRAMIDE 10 MG/2 ML VIAL IVP SCH ×3 (05:23→17:32)
[2023-07-02] MEDS: MAGNESIUM 2GM PREMIX 50ML 50 ML IV PRN (05:35)
[2023-07-02] MEDS: INSULIN HUMULIN R 100 UNIT/ML 3ML SQ SCH ×4 (06:00→18:00)
[2023-07-02 07:57] LABS: ABG BASE EXCESS 0.2 mmol/L (-2.0-3.0); ABG HCO3 23.3 mmol/L (21.0-28.0); ABG OXYGEN SATURATION 89.2 % (95.0-99.0); ABG PCO2 34 mmHg (35-48); ABG PH 7.458 (7.35-7.450); PO2, ARTERIAL BG 52.5 mmHg (83.0-108.0); VENT MODE, BG HFNC (ROOM AIR)
[2023-07-02] MEDS: FOLIC ACID 5 MG/ML VIAL IV SCH (08:34)
[2023-07-02] MEDS: 0.9%NACL 10ML VIAL IV SCH ×2 (08:34→20:10)
[2023-07-02] MEDS: NYSTATIN 15 GM POWDER TP SCH ×2 (08:34→20:11)
[2023-07-02] MEDS: THIAMINE HCL 100 MG/ML 2ML VIAL IVP SCH (08:35)
[2023-07-02] MEDS: PANTOPRAZOLE 40 MG/VIAL IVP SCH ×2 (08:35→19:45)
[2023-07-02] MEDS: AMLODIPINE 5 MG TAB PO SCH ×2 (08:35→19:44)
[2023-07-02] MEDS ORDERED: [UNRECOGNIZED DRUG - NUTRITION] IV SCH (09:00)
[2023-07-02] MEDS: METOPROLOL TARTRATE 1 MG/ML 5ML VIAL IV PRN ×2 (11:13→16:44)
[2023-07-02] MEDS: MEROPENEM 1 GM in 0.9%NACL 100ML IV SCH ×2 (11:19→22:10)
[2023-07-02] MEDS: VANCOMYCIN 1.5 GM/250 ML BAG 250 ML IV SCH (13:02)
[2023-07-02] MEDS: FLUCONAZOLE 400 MG/NS 200 ML 200 ML IV SCH (16:44)
[2023-07-02] MEDS: ACETAMINOPHEN 650 MG SUPPOSITORY RC PRN (16:47)
[2023-07-02] MEDS ORDERED: [UNRECOGNIZED DRUG - OTHER] IV ONE (17:00)
[2023-07-02] MEDS ORDERED: M V I IV ONE (17:00)
[2023-07-02] MEDS ORDERED: CALCIUM IV ONE (17:00)
[2023-07-02] MEDS ORDERED: LYTES IV ONE (17:00)
[2023-07-02] MEDS ORDERED: DEXT IV ONE (17:00)
[2023-07-02] MEDS ORDERED: CHLORDIAZEPOXIDE HCL 25 MG CAP PO ONE (22:00)
[2023-07-02] MEDS: LORAZEPAM 2 MG/ML 1 ML VIAL IVP PRN (22:10)
[2023-07-03] VITALS (49 sets, daily range): BP systolic 114–169; BP diastolic 90–117; PULSE 82–114; RESP 4–33; TEMP 98.8–99.4; O2SAT 93–100
[2023-07-03] MEDS: METOPROLOL TARTRATE 1 MG/ML 5ML VIAL IV PRN ×2 (00:01→13:09)
[2023-07-03] MEDS: METOCLOPRAMIDE 10 MG/2 ML VIAL IVP SCH ×5 (00:12→22:49)
[2023-07-03] MEDS: IPRATROPIUM/ALBUTEROL SULFATE 3 ML SOLUTION IH SCH ×6 (02:13→22:31)
[2023-07-03] MEDS: LORAZEPAM 2 MG/ML 1 ML VIAL IVP PRN (03:15)
[2023-07-03] MEDS: HYDRALAZINE 20MG/ML VIAL IV PRN ×3 (03:22→20:18)
[2023-07-03] MEDS: INSULIN HUMULIN R 100 UNIT/ML 3ML SQ SCH ×4 (05:07→18:00)
[2023-07-03] MEDS: THIAMINE HCL 100 MG/ML 2ML VIAL IVP SCH (08:44)
[2023-07-03] MEDS: AMLODIPINE 5 MG TAB PO SCH ×2 (08:44→20:18)
[2023-07-03] MEDS: PANTOPRAZOLE 40 MG/VIAL IVP SCH ×2 (08:44→20:17)
[2023-07-03] MEDS: 0.9%NACL 10ML VIAL IV SCH ×2 (08:44→20:00)
[2023-07-03] MEDS: FOLIC ACID 5 MG/ML VIAL IV SCH (08:45)
[2023-07-03] MEDS: FAT EMULSIONS 20% 250ML 250 ML IV SCH (08:45)
[2023-07-03] MEDS: NYSTATIN 15 GM POWDER TP SCH ×2 (09:11→21:14)
[2023-07-03] MEDS: MEROPENEM 1 GM in 0.9%NACL 100ML IV SCH ×2 (09:11→22:49)
[2023-07-03] MEDS: VANCOMYCIN 1.5 GM/250 ML BAG 250 ML IV SCH (11:52)
[2023-07-03] MEDS ORDERED: [UNRECOGNIZED DRUG - NUTRITION] IV ONE (17:00)
[2023-07-03] MEDS: FLUCONAZOLE 400 MG/NS 200 ML 200 ML IV SCH (18:46)
[2023-07-03] MEDS: PROMETHAZINE HCL 25 MG TABLET PO PRN (22:56)
[2023-07-04] VITALS (63 sets, daily range): BP systolic 91–178; BP diastolic 41–111; PULSE 75–111; RESP 17–33; O2SAT 96–100
[2023-07-04] MEDS: IPRATROPIUM/ALBUTEROL SULFATE 3 ML SOLUTION IH SCH ×6 (02:11→21:26)
[2023-07-04 04:00] LABS: BASOPHILS # (AUTO) 0.07 K/uL (0.00-0.20); BASOPHILS % (AUTO) 0.4 % (0.0-5.0); EOSINOPHILS # (AUTO) 0.16 K/uL (0.00-0.70); HEMATOCRIT 28.3 % (42-54); IMMATURE GRANULOCYTE ABSOLUTE 1.89 K/uL (0-1); LYMPHOCYTES # (AUTO) 1.6 K/uL (1.0-4.8); MEAN CORPUSCULAR HEMOGLOBIN 23.5 pg (27.0-33.0); MEAN CORPUSCULAR HGB CONC 28.6 g/dL (32.0-36.0); MEAN CORPUSCULAR VOLUME 82.3 fL (79-99); MONOCYTES % (AUTO) 12.1 % (3.0-13.0); NEUTROPHILS # (AUTO) 10.6 K/uL (1.8-7.7); NEUTROPHILS % (AUTO) 64.9 % (40.0-77.0); PLATELET COUNT (AUTO) 408 K/uL (130-400); RED BLOOD CELL COUNT(AUTO) 3.44 MIL/uL (4.50-6.20); RED CELL DISTRIBUTION WIDTH 24.7 % (11.0-15.5); WHITE BLOOD COUNT (AUTO) 16.3 K/uL (4.8-10.8)
[2023-07-04] MEDS: HYDRALAZINE 20MG/ML VIAL IV PRN ×2 (04:07→23:11)
[2023-07-04 04:16] LABS: CREATININE 1.1 mg/dL (0.5-1.5); MAGNESIUM 1.6 mg/dL (1.80-2.40); POTASSIUM 4.3 mmol/L (3.5-5.1)
[2023-07-04] MEDS: METOPROLOL TARTRATE 1 MG/ML 5ML VIAL IV PRN (04:54)
[2023-07-04] MEDS: INSULIN HUMULIN R 100 UNIT/ML 3ML SQ SCH ×5 (05:50→23:38)
[2023-07-04] MEDS: MAGNESIUM 2GM PREMIX 50ML 50 ML IV PRN (05:54)
[2023-07-04] MEDS: METOCLOPRAMIDE 10 MG/2 ML VIAL IVP SCH ×4 (05:54→23:11)
[2023-07-04] MEDS: FOLIC ACID 5 MG/ML VIAL IV SCH (08:29)
[2023-07-04] MEDS: THIAMINE HCL 100 MG/ML 2ML VIAL IVP SCH (08:29)
[2023-07-04] MEDS: PANTOPRAZOLE 40 MG/VIAL IVP SCH ×2 (08:29→19:57)
[2023-07-04] MEDS: 0.9%NACL 10ML VIAL IV SCH ×2 (08:30→19:57)
[2023-07-04] MEDS: AMLODIPINE 5 MG TAB PO SCH ×2 (08:30→19:57)
[2023-07-04] MEDS: NYSTATIN 15 GM POWDER TP SCH ×2 (08:30→19:58)
[2023-07-04] MEDS ORDERED: PHARMACY COMMUNICATION MISC SCH (08:30)
[2023-07-04] MEDS: MEROPENEM 1 GM in 0.9%NACL 100ML IV SCH ×2 (09:19→21:51)
[2023-07-04] MEDS: LOSARTAN 50 MG TABLET PO SCH (09:20)
[2023-07-04] MEDS: VANCOMYCIN 1.5 GM/250 ML BAG 250 ML IV SCH (12:06)
[2023-07-04] MEDS ORDERED: LACTULOSE 20 GM/30 ML UDCUP ONE (16:57)
[2023-07-04] MEDS ORDERED: POLYETHYLENE GLYCOL 3350 17 GM POWD.PACK GT PRN (17:00)
[2023-07-04] MEDS ORDERED: [UNRECOGNIZED DRUG - NUTRITION] IV SCH (17:00)
[2023-07-04] MEDS: FLUCONAZOLE 400 MG/NS 200 ML 200 ML IV SCH (17:00)
[2023-07-05] VITALS (57 sets, daily range): BP systolic 115–160; BP diastolic 55–109; PULSE 83–110; RESP 12–30; O2SAT 95–99
[2023-07-05] MEDS: IPRATROPIUM/ALBUTEROL SULFATE 3 ML SOLUTION IH SCH ×6 (03:30→23:45)
[2023-07-05 04:39] LABS: BASOPHILS # (AUTO) 0.19 K/uL (0.00-0.20); BASOPHILS % (AUTO) 1.2 % (0.0-5.0); EOSINOPHILS # (AUTO) 0.16 K/uL (0.00-0.70); IMMATURE GRANULOCYTE ABSOLUTE 1.55 K/uL (0-1); LYMPHOCYTES # (AUTO) 1.8 K/uL (1.0-4.8); LYMPHOCYTES % (AUTO) 11.5 % (21.0-51.0); MEAN CORPUSCULAR HEMOGLOBIN 23.4 pg (27.0-33.0); MEAN CORPUSCULAR HGB CONC 28.6 g/dL (32.0-36.0); MEAN CORPUSCULAR VOLUME 81.9 fL (79-99); MONOCYTES # (AUTO) 1.8 K/uL (0.1-1.0); MONOCYTES % (AUTO) 11.7 % (3.0-13.0); NEUTROPHILS # (AUTO) 9.8 K/uL (1.8-7.7); NEUTROPHILS % (AUTO) 64.4 % (40.0-77.0); PLATELET COUNT (AUTO) 339 K/uL (130-400); RED BLOOD CELL COUNT(AUTO) 3.42 MIL/uL (4.50-6.20); RED CELL DISTRIBUTION WIDTH 24.8 % (11.0-15.5); WHITE BLOOD COUNT (AUTO) 15.2 K/uL (4.8-10.8)
[2023-07-05 04:46] LABS: CREATININE 1.2 mg/dL (0.5-1.5); POTASSIUM 4.4 mmol/L (3.5-5.1)
[2023-07-05] MEDS: METOCLOPRAMIDE 10 MG/2 ML VIAL IVP SCH ×3 (05:43→17:00)
[2023-07-05] MEDS: INSULIN HUMULIN R 100 UNIT/ML 3ML SQ SCH ×3 (05:51→18:00)
[2023-07-05] MEDS: MAGNESIUM 2GM PREMIX 50ML 50 ML IV PRN (06:24)
[2023-07-05] MEDS: AMLODIPINE 5 MG TAB PO SCH ×2 (07:52→21:00)
[2023-07-05] MEDS: LOSARTAN 50 MG TABLET PO SCH (07:52)
[2023-07-05] MEDS: 0.9%NACL 10ML VIAL IV SCH ×2 (08:35→21:25)
[2023-07-05] MEDS: THIAMINE HCL 100 MG/ML 2ML VIAL IVP SCH (08:35)
[2023-07-05] MEDS: PANTOPRAZOLE 40 MG/VIAL IVP SCH ×2 (08:35→21:25)
[2023-07-05] MEDS: NYSTATIN 15 GM POWDER TP SCH ×2 (08:35→21:44)
[2023-07-05] MEDS: FOLIC ACID 5 MG/ML VIAL IV SCH (11:17)
[2023-07-05] MEDS: MEROPENEM 1 GM in 0.9%NACL 100ML IV SCH ×2 (11:17→22:00)
[2023-07-05 11:56] LABS: SARS-CoV-2, RNA, NAAT NEGATIVE SARS CoV-2 (NEGATIVE)
[2023-07-05] MEDS ORDERED: FAT EMULSIONS 20% 250ML 250 ML IV SCH (12:00)
[2023-07-05] MEDS ORDERED: BUPIVACAINE/PF 0.25% 30ML VIAL IJ ONE ×2 (15:17→17:15)
[2023-07-05] MEDS ORDERED: KETAMINE 50MG/ML SYRINGE 50 MG/ML DISP.SYRIN ONE (15:56)
[2023-07-05] MEDS ORDERED: LIDOCAINE PF 100MG/5ML (2%) SYRINGE 5ML ONE (16:02)
[2023-07-05] MEDS ORDERED: PROPOFOL 10 MG/ML 20ML VIAL IV ONE (16:02)
[2023-07-05] MEDS ORDERED: SUCCINYLCHOLINE CHLORIDE 20 MG/ML 10 ML VIAL ONE (16:02)
[2023-07-05] MEDS ORDERED: EPHEDRINE SULFATE 50 MG/ML AMPULE ONE ×2 (16:22→16:28)
[2023-07-05] MEDS ORDERED: ROCURONIUM 10MG/1ML SYR 10 MG/ML ML ONE (16:25)
[2023-07-05] MEDS ORDERED: VASOPRESSIN 20 UNITS/ML 1ML VIAL ONE (16:29)
[2023-07-05] MEDS ORDERED: NOREPINEPHRINE BITARTRATE 1 MG/1 ML ML IV ONE (16:33)
[2023-07-05] MEDS ORDERED: [UNRECOGNIZED DRUG - NUTRITION] IV SCH (17:00)
[2023-07-05 17:15] LABS: ABG BASE EXCESS -0.7 mmol/L (-2.0-3.0); ABG HCO3 25.3 mmol/L (21.0-28.0); ABG OXYGEN SATURATION 99.4 % (95.0-99.0); ABG PCO2 48 mmHg (35-48); ABG PH 7.336 (7.35-7.450); CARBON MONOXIDE 0.3; HHb 0.6; PO2, ARTERIAL BG 251.7 mmHg (83.0-108.0); VENT MODE, BG VENT (ROOM AIR)
[2023-07-05] MEDS ORDERED: GLYCOPYRROLATE 1 MG/5 ML SYRINGE ONE (17:18)
[2023-07-05] MEDS ORDERED: ONDANSETRON 4MG INJ ONE (17:18)
[2023-07-05] MEDS ORDERED: NEOSTIGMINE 5MG/5ML SYR IV ONE (17:18)
[2023-07-05] MEDS ORDERED: FENTANYL CITRATE PF 50 MCG/1 ML 2ML VIAL ONE (17:31)
[2023-07-05] MEDS ORDERED: SUGAMMADEX SODIUM 200 MG/2 ML VIAL IV ONE (17:35)
[2023-07-05] MEDS: FLUCONAZOLE 400 MG/NS 200 ML 200 ML IV SCH (21:25)
[2023-07-05] MEDS: ACETAMINOPHEN 650 MG SUPPOSITORY RC PRN (21:48)
[2023-07-05] MEDS: HYDRALAZINE 20MG/ML VIAL IV PRN (21:55)
[2023-07-06] VITALS (14 sets, daily range): BP systolic 137–149; BP diastolic 93–106; PULSE 92–110; RESP 17–20; O2SAT 97–98
[2023-07-06] MEDS: METOCLOPRAMIDE 10 MG/2 ML VIAL IVP SCH ×5 (00:50→23:11)
[2023-07-06] MEDS: ACETAMINOPHEN 650 MG SUPPOSITORY RC PRN (02:05)
[2023-07-06] MEDS: IPRATROPIUM/ALBUTEROL SULFATE 3 ML SOLUTION IH SCH ×6 (02:21→21:56)
[2023-07-06 03:54] LABS: BASOPHILS # (AUTO) 0.12 K/uL (0.00-0.20); BASOPHILS % (AUTO) 0.6 % (0.0-5.0); EOSINOPHILS # (AUTO) 0.12 K/uL (0.00-0.70); EOSINOPHILS % (AUTO) 0.6 % (0.0-8.0); HEMATOCRIT 27.1 % (42-54); IMMATURE GRANULOCYTE ABSOLUTE 1.11 K/uL (0-1); LYMPHOCYTES # (AUTO) 1.2 K/uL (1.0-4.8); LYMPHOCYTES % (AUTO) 6.2 % (21.0-51.0); MEAN CORPUSCULAR HEMOGLOBIN 23.3 pg (27.0-33.0); MEAN CORPUSCULAR HGB CONC 28.4 g/dL (32.0-36.0); MEAN CORPUSCULAR VOLUME 81.9 fL (79-99); MONOCYTES # (AUTO) 1.7 K/uL (0.1-1.0); MONOCYTES % (AUTO) 8.8 % (3.0-13.0); PLATELET COUNT (AUTO) 325 K/uL (130-400); RED BLOOD CELL COUNT(AUTO) 3.31 MIL/uL (4.50-6.20); RED CELL DISTRIBUTION WIDTH 24.6 % (11.0-15.5); WHITE BLOOD COUNT (AUTO) 19.3 K/uL (4.8-10.8)
[2023-07-06 04:04] LABS: CREATININE 1.5 mg/dL (0.5-1.5); POTASSIUM 4.7 mmol/L (3.5-5.1)
[2023-07-06] MEDS: INSULIN HUMULIN R 100 UNIT/ML 3ML SQ SCH ×4 (06:00→17:15)
[2023-07-06] MEDS: PANTOPRAZOLE 40 MG/VIAL IVP SCH ×2 (08:52→20:15)
[2023-07-06] MEDS: THIAMINE HCL 100 MG/ML 2ML VIAL IVP SCH (08:52)
[2023-07-06] MEDS: 0.9%NACL 10ML VIAL IV SCH ×2 (08:52→20:15)
[2023-07-06] MEDS: LOSARTAN 50 MG TABLET PO SCH (09:00)
[2023-07-06] MEDS: AMLODIPINE 5 MG TAB PO SCH ×2 (09:00→20:15)
[2023-07-06] MEDS: FOLIC ACID 5 MG/ML VIAL IV SCH (09:10)
[2023-07-06] MEDS: NYSTATIN 15 GM POWDER TP SCH ×2 (09:34→20:17)
[2023-07-06] MEDS: MEROPENEM 1 GM in 0.9%NACL 100ML IV SCH ×2 (10:08→21:00)
[2023-07-06] MEDS ORDERED: COMPOUND IV MISC 1 EACH IVSOLN MISC PRN (10:30)
[2023-07-06] MEDS: FLUCONAZOLE 400 MG/NS 200 ML 200 ML IV SCH (17:14)
[2023-07-07] VITALS (8 sets, daily range): BP systolic 151; BP diastolic 106; PULSE 74–114; RESP 16–22; O2SAT 97
[2023-07-07] MEDS: INSULIN HUMULIN R 100 UNIT/ML 3ML SQ SCH
[2023-07-07] MEDS: IPRATROPIUM/ALBUTEROL SULFATE 3 ML SOLUTION IH SCH (01:42)
[2023-07-07] MEDS: THIAMINE HCL 100 MG/ML 2ML VIAL IVP SCH (09:00)
[2023-07-07] MEDS: FOLIC ACID 5 MG/ML VIAL IV SCH (09:00)
[2023-07-07] MEDS: LOSARTAN 50 MG TABLET PO SCH (09:00)
[2023-07-07] MEDS: FLUCONAZOLE 400 MG/NS 200 ML 200 ML IV SCH (18:00)
[2023-07-07] MEDS: NYSTATIN 15 GM POWDER TP SCH (21:00)
[2023-07-07] MEDS: AMLODIPINE 5 MG TAB PO SCH (21:00)
[2023-07-07] MEDS: 0.9%NACL 10ML VIAL IV SCH (21:00)
[2023-07-07] MEDS: PANTOPRAZOLE 40 MG/VIAL IVP SCH (21:00)
[2023-07-07] MEDS: MEROPENEM 1 GM in 0.9%NACL 100ML IV SCH (22:00)
[2023-07-07] MEDS: METOCLOPRAMIDE 10 MG/2 ML VIAL IVP SCH (23:00)
[2023-07-08] VITALS (14 sets, daily range): BP systolic 109–132; BP diastolic 78–96; PULSE 100–116; RESP 16–28; O2SAT 94
[2023-07-08 00:35] LABS: CREATININE 1.8 mg/dL (0.5-1.5); POTASSIUM 4.6 mmol/L (3.5-5.1)
[2023-07-08] MEDS: IPRATROPIUM/ALBUTEROL SULFATE 3 ML SOLUTION IH SCH ×6 (02:22→23:58)
[2023-07-08] MEDS: ACETAMINOPHEN 650 MG SUPPOSITORY RC PRN (03:57)
[2023-07-08] MEDS: BISACODYL 10 MG SUPP.RECT RC PRN (05:39)
[2023-07-08] MEDS: METOCLOPRAMIDE 10 MG/2 ML VIAL IVP SCH ×4 (05:39→21:55)
[2023-07-08] MEDS: INSULIN HUMULIN R 100 UNIT/ML 3ML SQ SCH ×4 (05:49→17:02)
[2023-07-08 05:57] LABS: BASOPHILS # (AUTO) 0.15 K/uL (0.00-0.20); BASOPHILS % (AUTO) 1.3 % (0.0-5.0); EOSINOPHILS # (AUTO) 0.47 K/uL (0.00-0.70); EOSINOPHILS % (AUTO) 4.2 % (0.0-8.0); HEMATOCRIT 32.9 % (42-54); IMMATURE GRANULOCYTE ABSOLUTE 0.51 K/uL (0-1); LYMPHOCYTES % (AUTO) 17.6 % (21.0-51.0); MEAN CORPUSCULAR HEMOGLOBIN 23.8 pg (27.0-33.0); MEAN CORPUSCULAR HGB CONC 29.2 g/dL (32.0-36.0); MEAN CORPUSCULAR VOLUME 81.4 fL (79-99); MONOCYTES # (AUTO) 1.4 K/uL (0.1-1.0); MONOCYTES % (AUTO) 12.8 % (3.0-13.0); NEUTROPHILS # (AUTO) 6.7 K/uL (1.8-7.7); NEUTROPHILS % (AUTO) 59.6 % (40.0-77.0); NUCLEATED RED BLOOD CELLS 0.2 % (0.0-0.19); PLATELET COUNT (AUTO) 335 K/uL (130-400); RED BLOOD CELL COUNT(AUTO) 4.04 MIL/uL (4.50-6.20); RED CELL DISTRIBUTION WIDTH 24.4 % (11.0-15.5); WHITE BLOOD COUNT (AUTO) 11.2 K/uL (4.8-10.8)
[2023-07-08 06:12] LABS: ALBUMIN 1.9 g/dL (3.5-5.0); BILIRUBIN,TOTAL 0.4 mg/dL (0.2-1.0); CREATININE 2.7 mg/dL (0.5-1.5); MAGNESIUM 1.9 mg/dL (1.80-2.40); PHOSPHORUS 5.1 mg/dL (2.5-4.9); POTASSIUM 4.6 mmol/L (3.5-5.1); TOTAL PROTEIN, SERUM 7.3 g/dL (6.0-8.3)
[2023-07-08] MEDS: METOPROLOL TARTRATE 1 MG/ML 5ML VIAL IV PRN (07:28)
[2023-07-08] MEDS: AMLODIPINE 5 MG TAB PO SCH ×2 (09:42→21:49)
[2023-07-08] MEDS: LACTULOSE 20 GM/30 ML UDCUP NG PRN (09:42)
[2023-07-08] MEDS: PANTOPRAZOLE 40 MG/VIAL IVP SCH ×2 (09:42→21:35)
[2023-07-08] MEDS: LOSARTAN 50 MG TABLET PO SCH (09:43)
[2023-07-08] MEDS: THIAMINE HCL 100 MG/ML 2ML VIAL IVP SCH (09:44)
[2023-07-08] MEDS: NYSTATIN 15 GM POWDER TP SCH ×2 (09:44→21:50)
[2023-07-08] MEDS: 0.9%NACL 10ML VIAL IV SCH ×2 (09:44→21:35)
[2023-07-08] MEDS: MAGNESIUM 2GM PREMIX 50ML 50 ML IV PRN (10:49)
[2023-07-08] MEDS: MEROPENEM 1 GM in 0.9%NACL 100ML IV SCH ×2 (11:42→21:55)
[2023-07-08] MEDS: FLUCONAZOLE 400 MG/NS 200 ML 200 ML IV SCH (16:52)
[2023-07-08] MEDS: FOLIC ACID 5 MG/ML VIAL IV SCH (18:51)
[2023-07-08] MEDS ORDERED: LACTATED RINGERS 1000ML IV SCH (21:00)
[2023-07-08] MEDS: DEXTROSE 5%-WATER 1,000 ML IV SCH (21:33)
[2023-07-09] VITALS (12 sets, daily range): BP systolic 123–155; BP diastolic 92–105; PULSE 88–105; RESP 16–22; O2SAT 99
[2023-07-09] MEDS: IPRATROPIUM/ALBUTEROL SULFATE 3 ML SOLUTION IH SCH ×3 (02:37→18:10)
[2023-07-09] MEDS: LACTULOSE 20 GM/30 ML UDCUP NG PRN ×3 (03:17→13:26)
[2023-07-09 03:48] LABS: HEMATOCRIT 28.9 % (42-54); MEAN CORPUSCULAR HEMOGLOBIN 23.6 pg (27.0-33.0); MEAN CORPUSCULAR HGB CONC 29.1 g/dL (32.0-36.0); MEAN CORPUSCULAR VOLUME 81.2 fL (79-99); RED BLOOD CELL COUNT(AUTO) 3.56 MIL/uL (4.50-6.20); RED CELL DISTRIBUTION WIDTH 23.9 % (11.0-15.5); WHITE BLOOD COUNT (AUTO) 10.9 K/uL (4.8-10.8)
[2023-07-09 04:07] LABS: BILIRUBIN,TOTAL 0.3 mg/dL (0.2-1.0); CREATININE 2.7 mg/dL (0.5-1.5); MAGNESIUM 2.4 mg/dL (1.80-2.40); TOTAL PROTEIN, SERUM 7.6 g/dL (6.0-8.3)
[2023-07-09] MEDS: METOCLOPRAMIDE 10 MG/2 ML VIAL IVP SCH ×4 (04:51→22:21)
[2023-07-09] MEDS: INSULIN HUMULIN R 100 UNIT/ML 3ML SQ SCH ×4 (06:00→18:00)
[2023-07-09 07:44] LABS: HEMATOCRIT 29.8 % (42-54); MEAN CORPUSCULAR HEMOGLOBIN 23.4 pg (27.0-33.0); MEAN CORPUSCULAR HGB CONC 28.9 g/dL (32.0-36.0); RED BLOOD CELL COUNT(AUTO) 3.68 MIL/uL (4.50-6.20); WHITE BLOOD COUNT (AUTO) 12.9 K/uL (4.8-10.8)
[2023-07-09 07:45] LABS: BASOPHILS % (AUTO) 0.7 % (0.0-5.0); EOSINOPHILS # (AUTO) 0.09 K/uL (0.00-0.70); EOSINOPHILS % (AUTO) 0.7 % (0.0-8.0); IMMATURE GRANULOCYTE ABSOLUTE 0.62 K/uL (0-1); LYMPHOCYTES # (AUTO) 1.9 K/uL (1.0-4.8); MONOCYTES # (AUTO) 1.7 K/uL (0.1-1.0); MONOCYTES % (AUTO) 13.5 % (3.0-13.0); NEUTROPHILS # (AUTO) 8.4 K/uL (1.8-7.7); NEUTROPHILS % (AUTO) 65.3 % (40.0-77.0); PLATELET COUNT (AUTO) 311 K/uL (130-400); RED CELL DISTRIBUTION WIDTH 24.8 % (11.0-15.5)
[2023-07-09 07:46] LABS: BASOPHILS # (AUTO) 0.09 K/uL (0.00-0.20); NUCLEATED RED BLOOD CELLS 0.6 % (0.0-0.19)
[2023-07-09] MEDS: 0.9%NACL 10ML VIAL IV SCH ×2 (09:46→21:36)
[2023-07-09] MEDS: FOLIC ACID 5 MG/ML VIAL IV SCH (09:46)
[2023-07-09] MEDS: DEXTROSE 5%-WATER 1,000 ML IV SCH ×2 (09:47→17:47)
[2023-07-09] MEDS: PANTOPRAZOLE 40 MG/VIAL IVP SCH ×2 (09:47→21:35)
[2023-07-09] MEDS: THIAMINE HCL 100 MG/ML 2ML VIAL IVP SCH (09:47)
[2023-07-09] MEDS: AMLODIPINE 5 MG TAB PO SCH ×2 (09:49→21:34)
[2023-07-09] MEDS: NYSTATIN 15 GM POWDER TP SCH ×2 (09:49→21:51)
[2023-07-09] MEDS: LOSARTAN 50 MG TABLET PO SCH (09:49)
[2023-07-09] MEDS: MEROPENEM 1 GM in 0.9%NACL 100ML IV SCH ×2 (09:52→21:50)
[2023-07-09] MEDS ORDERED: IPRATROPIUM/ALBUTEROL SULFATE 3 ML SOLUTION IH ONE (10:54)
[2023-07-09] MEDS: HEPARIN 5,000 UNIT VIAL SQ SCH ×2 (10:57→21:34)
[2023-07-09] MEDS: FLUCONAZOLE 400 MG/NS 200 ML 200 ML IV SCH (17:47)
[2023-07-10] VITALS (11 sets, daily range): BP systolic 109–136; BP diastolic 72–95; PULSE 82–93; RESP 18–20; O2SAT 96–97
[2023-07-10 04:04] LABS: BASOPHILS # (AUTO) 0.08 K/uL (0.00-0.20); BASOPHILS % (AUTO) 0.9 % (0.0-5.0); EOSINOPHILS # (AUTO) 0.84 K/uL (0.00-0.70); EOSINOPHILS % (AUTO) 9.5 % (0.0-8.0); HEMATOCRIT 29.8 % (42-54); IMMATURE GRANULOCYTE ABSOLUTE 0.14 K/uL (0-1); LYMPHOCYTES # (AUTO) 1.7 K/uL (1.0-4.8); LYMPHOCYTES % (AUTO) 19.3 % (21.0-51.0); MEAN CORPUSCULAR HEMOGLOBIN 23.4 pg (27.0-33.0); MEAN CORPUSCULAR HGB CONC 28.9 g/dL (32.0-36.0); MEAN CORPUSCULAR VOLUME 81.2 fL (79-99); NEUTROPHILS # (AUTO) 5.1 K/uL (1.8-7.7); NEUTROPHILS % (AUTO) 57.7 % (40.0-77.0); PLATELET COUNT (AUTO) 271 K/uL (130-400); RED BLOOD CELL COUNT(AUTO) 3.67 MIL/uL (4.50-6.20); RED CELL DISTRIBUTION WIDTH 23.4 % (11.0-15.5); WHITE BLOOD COUNT (AUTO) 8.8 K/uL (4.8-10.8)
[2023-07-10 04:29] LABS: ALBUMIN 1.8 g/dL (3.5-5.0); BILIRUBIN,TOTAL 0.2 mg/dL (0.2-1.0); CREATININE 2.4 mg/dL (0.5-1.5); MAGNESIUM 1.7 mg/dL (1.80-2.40); POTASSIUM 3.7 mmol/L (3.5-5.1); TOTAL PROTEIN, SERUM 6.9 g/dL (6.0-8.3)
[2023-07-10] MEDS: METOCLOPRAMIDE 10 MG/2 ML VIAL IVP SCH ×3 (05:27→17:21)
[2023-07-10] MEDS: POTASSIUM CHLORIDE 20MEQ/100ML 100 ML IV PRN (05:27)
[2023-07-10] MEDS: MAGNESIUM 2GM PREMIX 50ML 50 ML IV PRN (05:27)
[2023-07-10] MEDS: INSULIN HUMULIN R 100 UNIT/ML 3ML SQ SCH ×4 (06:00→18:00)
[2023-07-10] MEDS: IPRATROPIUM/ALBUTEROL SULFATE 3 ML SOLUTION IH SCH ×3 (06:38→18:24)
[2023-07-10] MEDS ORDERED: PHARMACY COMMUNICATION MISC SCH (10:00)
[2023-07-10] MEDS: PANTOPRAZOLE 40 MG/VIAL IVP SCH ×2 (10:04→21:11)
[2023-07-10] MEDS: FOLIC ACID 5 MG/ML VIAL IV SCH (10:05)
[2023-07-10] MEDS: LOSARTAN 50 MG TABLET PO SCH (10:05)
[2023-07-10] MEDS: POLYETHYLENE GLYCOL 3350 17 GM POWD.PACK GT SCH (10:05)
[2023-07-10] MEDS: 0.9%NACL 10ML VIAL IV SCH ×2 (10:05→21:14)
[2023-07-10] MEDS: THIAMINE HCL 100 MG/ML 2ML VIAL IVP SCH (10:05)
[2023-07-10] MEDS: AMLODIPINE 5 MG TAB PO SCH ×2 (10:05→21:12)
[2023-07-10] MEDS: HEPARIN 5,000 UNIT VIAL SQ SCH ×2 (10:06→21:13)
[2023-07-10] MEDS: NYSTATIN 15 GM POWDER TP SCH ×2 (10:06→21:21)
[2023-07-10] MEDS ORDERED: PEG 3350/NA SULF,BICARB,CL/KCL 4000 ML SOLN PEG ONE (10:30)
[2023-07-10] MEDS: MEROPENEM 1 GM in 0.9%NACL 100ML IV SCH (10:40)
[2023-07-10] MEDS: DEXTROSE 5%-WATER 1,000 ML IV SCH (17:23)
[2023-07-11] VITALS (12 sets, daily range): BP systolic 115–146; BP diastolic 84–101; PULSE 75–95; RESP 18; O2SAT 94
[2023-07-11] MEDS: METOCLOPRAMIDE 10 MG/2 ML VIAL IVP SCH ×3 (02:03→16:53)
[2023-07-11] MEDS: DEXTROSE 5%-WATER 1,000 ML IV SCH ×2 (02:37→11:31)
[2023-07-11 04:04] LABS: HEMATOCRIT 30.4 % (42-54); MEAN CORPUSCULAR HEMOGLOBIN 23.6 pg (27.0-33.0); MEAN CORPUSCULAR HGB CONC 29.6 g/dL (32.0-36.0); MEAN CORPUSCULAR VOLUME 79.8 fL (79-99); RED BLOOD CELL COUNT(AUTO) 3.81 MIL/uL (4.50-6.20); RED CELL DISTRIBUTION WIDTH 22.9 % (11.0-15.5); WHITE BLOOD COUNT (AUTO) 6.4 K/uL (4.8-10.8)
[2023-07-11 04:27] LABS: ALBUMIN 1.7 g/dL (3.5-5.0); BILIRUBIN,TOTAL 0.3 mg/dL (0.2-1.0); CREATININE 2.2 mg/dL (0.5-1.5); MAGNESIUM 1.6 mg/dL (1.80-2.40); POTASSIUM 3.7 mmol/L (3.5-5.1); TOTAL PROTEIN, SERUM 6.4 g/dL (6.0-8.3)
[2023-07-11] MEDS: INSULIN HUMULIN R 100 UNIT/ML 3ML SQ SCH ×5 (06:00→23:45)
[2023-07-11] MEDS: IPRATROPIUM/ALBUTEROL SULFATE 3 ML SOLUTION IH SCH ×3 (06:39→18:32)
[2023-07-11] MEDS: MAGNESIUM 2GM PREMIX 50ML 50 ML IV PRN (07:20)
[2023-07-11] MEDS ORDERED: MAGNESIUM 2GM PREMIX 50ML 50 ML IV SCH (08:30)
[2023-07-11] MEDS: PANTOPRAZOLE 40 MG/VIAL IVP SCH ×2 (08:55→20:27)
[2023-07-11] MEDS: 0.9%NACL 10ML VIAL IV SCH ×2 (08:55→20:28)
[2023-07-11] MEDS: HEPARIN 5,000 UNIT VIAL SQ SCH ×2 (08:56→20:28)
[2023-07-11] MEDS: THIAMINE HCL 100 MG/ML 2ML VIAL IVP SCH (08:56)
[2023-07-11] MEDS: LOSARTAN 50 MG TABLET PO SCH (08:57)
[2023-07-11] MEDS: AMLODIPINE 5 MG TAB PO SCH ×2 (08:57→20:27)
[2023-07-11] MEDS: POLYETHYLENE GLYCOL 3350 17 GM POWD.PACK GT SCH (08:57)
[2023-07-11] MEDS: NYSTATIN 15 GM POWDER TP SCH ×2 (08:58→20:55)
[2023-07-11] MEDS: FOLIC ACID 5 MG/ML VIAL IV SCH (10:03)
[2023-07-11] MEDS: ACETAMINOPHEN 500 MG TABLET PO PRN (10:03)
[2023-07-11] MEDS: BISACODYL 10 MG SUPP.RECT RC PRN (16:53)
[2023-07-12] VITALS (10 sets, daily range): BP systolic 122–144; BP diastolic 37–108; PULSE 91–101; RESP 18–21; O2SAT 92–95
[2023-07-12] MEDS: METOCLOPRAMIDE 10 MG/2 ML VIAL IVP SCH ×3 (01:51→18:03)
[2023-07-12 05:35] LABS: MEAN CORPUSCULAR HEMOGLOBIN 23.8 pg (27.0-33.0); MEAN CORPUSCULAR VOLUME 79.4 fL (79-99); PLATELET COUNT (AUTO) 299 K/uL (130-400); RED BLOOD CELL COUNT(AUTO) 3.78 MIL/uL (4.50-6.20); RED CELL DISTRIBUTION WIDTH 22.6 % (11.0-15.5); WHITE BLOOD COUNT (AUTO) 8.1 K/uL (4.8-10.8)
[2023-07-12 05:57] LABS: BILIRUBIN,TOTAL 0.3 mg/dL (0.2-1.0); CREATININE 2.1 mg/dL (0.5-1.5); MAGNESIUM 1.9 mg/dL (1.80-2.40); TOTAL PROTEIN, SERUM 7.2 g/dL (6.0-8.3)
[2023-07-12] MEDS: INSULIN HUMULIN R 100 UNIT/ML 3ML SQ SCH ×3 (06:00→18:00)
[2023-07-12] MEDS: IPRATROPIUM/ALBUTEROL SULFATE 3 ML SOLUTION IH SCH ×3 (06:27→18:18)
[2023-07-12] MEDS: PANTOPRAZOLE 40 MG/VIAL IVP SCH ×2 (08:36→20:20)
[2023-07-12] MEDS: 0.9%NACL 10ML VIAL IV SCH ×2 (08:36→20:20)
[2023-07-12] MEDS: HEPARIN 5,000 UNIT VIAL SQ SCH ×2 (08:37→20:23)
[2023-07-12] MEDS: THIAMINE HCL 100 MG/ML 2ML VIAL IVP SCH (08:38)
[2023-07-12] MEDS: POLYETHYLENE GLYCOL 3350 17 GM POWD.PACK GT SCH (08:38)
[2023-07-12] MEDS: FOLIC ACID 5 MG/ML VIAL IV SCH (08:38)
[2023-07-12] MEDS: AMLODIPINE 5 MG TAB PO SCH ×2 (08:38→20:20)
[2023-07-12] MEDS: LOSARTAN 50 MG TABLET PO SCH (08:38)
[2023-07-12] MEDS: NYSTATIN 15 GM POWDER TP SCH ×2 (08:39→20:27)
[2023-07-12] MEDS: LACTATED RINGERS 1000ML 1,000 ML IV SCH ×2 (09:03→20:25)
[2023-07-12] MEDS ORDERED: MAGNESIUM HYDROXIDE 30 ML/UDCUP PO ONE (11:56)
[2023-07-12] MEDS: MAGNESIUM HYDROXIDE 30 ML/UDCUP PO SCH (20:22)
[2023-07-13] VITALS (11 sets, daily range): BP systolic 125–153; BP diastolic 78–110; PULSE 95–107; RESP 17–24; O2SAT 95–96
[2023-07-13] MEDS: METOCLOPRAMIDE 10 MG/2 ML VIAL IVP SCH ×3 (02:18→17:57)
[2023-07-13 04:45] LABS: HEMATOCRIT 32.3 % (42-54); MEAN CORPUSCULAR HEMOGLOBIN 23.6 pg (27.0-33.0); MEAN CORPUSCULAR HGB CONC 29.7 g/dL (32.0-36.0); MEAN CORPUSCULAR VOLUME 79.6 fL (79-99); RED BLOOD CELL COUNT(AUTO) 4.06 MIL/uL (4.50-6.20); RED CELL DISTRIBUTION WIDTH 22.4 % (11.0-15.5); WHITE BLOOD COUNT (AUTO) 10.1 K/uL (4.8-10.8)
[2023-07-13 05:04] LABS: ALBUMIN 2.1 g/dL (3.5-5.0); BILIRUBIN,TOTAL 0.4 mg/dL (0.2-1.0); CREATININE 1.7 mg/dL (0.5-1.5); MAGNESIUM 1.5 mg/dL (1.80-2.40); POTASSIUM 4.3 mmol/L (3.5-5.1); TOTAL PROTEIN, SERUM 7.4 g/dL (6.0-8.3)
[2023-07-13] MEDS: INSULIN HUMULIN R 100 UNIT/ML 3ML SQ SCH ×5 (06:00→23:32)
[2023-07-13] MEDS: IPRATROPIUM/ALBUTEROL SULFATE 3 ML SOLUTION IH SCH ×2 (07:42→18:37)
[2023-07-13] MEDS: THIAMINE HCL 100 MG/ML 2ML VIAL IVP SCH ×2 (08:18→08:46)
[2023-07-13] MEDS: PANTOPRAZOLE 40 MG/VIAL IVP SCH ×3 (08:18→21:27)
[2023-07-13] MEDS: 0.9%NACL 10ML VIAL IV SCH ×2 (08:18→21:00)
[2023-07-13] MEDS: HEPARIN 5,000 UNIT VIAL SQ SCH ×2 (08:19→21:30)
[2023-07-13] MEDS: LOSARTAN 50 MG TABLET PO SCH (08:20)
[2023-07-13] MEDS: MAGNESIUM HYDROXIDE 30 ML/UDCUP PO SCH (08:20)
[2023-07-13] MEDS: AMLODIPINE 5 MG TAB PO SCH ×2 (08:20→21:27)
[2023-07-13] MEDS: NYSTATIN 15 GM POWDER TP SCH ×2 (08:21→21:31)
[2023-07-13] MEDS: POLYETHYLENE GLYCOL 3350 17 GM POWD.PACK GT SCH (08:21)
[2023-07-13] MEDS: FOLIC ACID 5 MG/ML VIAL IV SCH ×2 (08:21→08:46)
[2023-07-13] MEDS ORDERED: MAGNESIUM HYDROXIDE 30 ML/UDCUP PO PRN (11:30)
[2023-07-13] MEDS ORDERED: MAGNESIUM 2GM PREMIX 50ML 50 ML IV SCH (12:00)
[2023-07-13] MEDS: MAGNESIUM 2GM PREMIX 50ML 50 ML IV PRN (12:07)
[2023-07-13] MEDS: ACETAMINOPHEN 500 MG TABLET PO PRN (21:58)
[2023-07-13] MEDS: LACTATED RINGERS 1000ML 1,000 ML IV SCH ×2 (23:10→23:29)
[2023-07-14] VITALS (11 sets, daily range): BP systolic 122–141; BP diastolic 83–116; PULSE 82–100; RESP 18–20; O2SAT 96–98
[2023-07-14] MEDS: METOCLOPRAMIDE 10 MG/2 ML VIAL IVP SCH ×3 (02:58→17:43)
[2023-07-14 04:57] LABS: BASOPHILS # (AUTO) 0.11 K/uL (0.00-0.20); EOSINOPHILS # (AUTO) 0.08 K/uL (0.00-0.70); EOSINOPHILS % (AUTO) 0.8 % (0.0-8.0); HEMATOCRIT 33.4 % (42-54); LYMPHOCYTES # (AUTO) 1.3 K/uL (1.0-4.8); LYMPHOCYTES % (AUTO) 11.7 % (21.0-51.0); MEAN CORPUSCULAR HEMOGLOBIN 23.8 pg (27.0-33.0); MEAN CORPUSCULAR HGB CONC 29.6 g/dL (32.0-36.0); MEAN CORPUSCULAR VOLUME 80.3 fL (79-99); MONOCYTES # (AUTO) 1.2 K/uL (0.1-1.0); MONOCYTES % (AUTO) 11.2 % (3.0-13.0); NEUTROPHILS # (AUTO) 7.9 K/uL (1.8-7.7); NEUTROPHILS % (AUTO) 74.4 % (40.0-77.0); PLATELET COUNT (AUTO) 289 K/uL (130-400); RED BLOOD CELL COUNT(AUTO) 4.16 MIL/uL (4.50-6.20); RED CELL DISTRIBUTION WIDTH 22.8 % (11.0-15.5); WHITE BLOOD COUNT (AUTO) 10.7 K/uL (4.8-10.8)
[2023-07-14 05:12] LABS: ALBUMIN 2.2 g/dL (3.5-5.0); BILIRUBIN,TOTAL 0.4 mg/dL (0.2-1.0); POTASSIUM 4.4 mmol/L (3.5-5.1); TOTAL PROTEIN, SERUM 7.6 g/dL (6.0-8.3)
[2023-07-14] MEDS: IPRATROPIUM/ALBUTEROL SULFATE 3 ML SOLUTION IH SCH ×4 (05:23→18:48)
[2023-07-14] MEDS: INSULIN HUMULIN R 100 UNIT/ML 3ML SQ SCH ×4 (06:00→21:51)
[2023-07-14] MEDS: 0.9%NACL 10ML VIAL IV SCH ×2 (09:00→20:31)
[2023-07-14] MEDS: THIAMINE HCL 100 MG/ML 2ML VIAL IVP SCH (09:33)
[2023-07-14] MEDS: AMLODIPINE 5 MG TAB PO SCH ×2 (09:33→20:31)
[2023-07-14] MEDS: POLYETHYLENE GLYCOL 3350 17 GM POWD.PACK GT SCH (09:33)
[2023-07-14] MEDS: PANTOPRAZOLE 40 MG/VIAL IVP SCH ×2 (09:33→20:31)
[2023-07-14] MEDS: LOSARTAN 50 MG TABLET PO SCH (09:33)
[2023-07-14] MEDS: HEPARIN 5,000 UNIT VIAL SQ SCH ×2 (09:38→20:35)
[2023-07-14] MEDS: FOLIC ACID 5 MG/ML VIAL IV SCH (09:39)
[2023-07-14] MEDS: NYSTATIN 15 GM POWDER TP SCH ×2 (09:39→20:32)
[2023-07-14] MEDS: PROMETHAZINE HCL 25 MG TABLET PO PRN (20:31)
[2023-07-14] MEDS: LACTATED RINGERS 1000ML 1,000 ML IV SCH (21:00)
[2023-07-15] VITALS (12 sets, daily range): BP systolic 114–141; BP diastolic 70–96; PULSE 83–115; RESP 18–20; O2SAT 92–96
[2023-07-15] MEDS: METOCLOPRAMIDE 10 MG/2 ML VIAL IVP SCH ×3 (01:22→16:11)
[2023-07-15 04:16] LABS: HEMATOCRIT 32.6 % (42-54); MEAN CORPUSCULAR HEMOGLOBIN 23.8 pg (27.0-33.0); MEAN CORPUSCULAR HGB CONC 29.8 g/dL (32.0-36.0); MEAN CORPUSCULAR VOLUME 79.9 fL (79-99); RED BLOOD CELL COUNT(AUTO) 4.08 MIL/uL (4.50-6.20); RED CELL DISTRIBUTION WIDTH 22.7 % (11.0-15.5); WHITE BLOOD COUNT (AUTO) 13.6 K/uL (4.8-10.8)
[2023-07-15 04:39] LABS: ALBUMIN 2.2 g/dL (3.5-5.0); BILIRUBIN,TOTAL 0.3 mg/dL (0.2-1.0); CREATININE 1.9 mg/dL (0.5-1.5); MAGNESIUM 1.8 mg/dL (1.80-2.40); POTASSIUM 4.4 mmol/L (3.5-5.1); TOTAL PROTEIN, SERUM 7.3 g/dL (6.0-8.3)
[2023-07-15] MEDS: INSULIN HUMULIN R 100 UNIT/ML 3ML SQ SCH ×3 (05:21→16:50)
[2023-07-15] MEDS: IPRATROPIUM/ALBUTEROL SULFATE 3 ML SOLUTION IH SCH ×3 (06:44→17:25)
[2023-07-15] MEDS: FOLIC ACID 5 MG/ML VIAL IV SCH (07:51)
[2023-07-15] MEDS: THIAMINE HCL 100 MG/ML 2ML VIAL IVP SCH (07:51)
[2023-07-15] MEDS: PANTOPRAZOLE 40 MG/VIAL IVP SCH (07:51)
[2023-07-15] MEDS: 0.9%NACL 10ML VIAL IV SCH ×2 (07:51→21:21)
[2023-07-15] MEDS: AMLODIPINE 5 MG TAB PO SCH ×2 (07:52→21:21)
[2023-07-15] MEDS: POLYETHYLENE GLYCOL 3350 17 GM POWD.PACK GT SCH (07:52)
[2023-07-15] MEDS: HEPARIN 5,000 UNIT VIAL SQ SCH ×2 (07:52→21:20)
[2023-07-15] MEDS: LOSARTAN 50 MG TABLET PO SCH (07:53)
[2023-07-15] MEDS: NYSTATIN 15 GM POWDER TP SCH ×2 (07:53→21:21)
[2023-07-15] MEDS: ACETAMINOPHEN 500 MG TABLET PO PRN (12:52)
[2023-07-15] MEDS: LACTATED RINGERS 1000ML 1,000 ML IV SCH (16:17)
[2023-07-16] VITALS (10 sets, daily range): BP systolic 111–134; BP diastolic 76–87; PULSE 86–97; RESP 18–20; O2SAT 93–98
[2023-07-16] MEDS: METOCLOPRAMIDE 10 MG/2 ML VIAL IVP SCH ×3 (02:28→18:13)
[2023-07-16 03:55] LABS: BILIRUBIN,TOTAL 0.3 mg/dL (0.2-1.0); CREATININE 2.2 mg/dL (0.5-1.5); POTASSIUM 4.5 mmol/L (3.5-5.1)
[2023-07-16] MEDS: INSULIN HUMULIN R 100 UNIT/ML 3ML SQ SCH ×4 (05:34→17:15)
[2023-07-16] MEDS: IPRATROPIUM/ALBUTEROL SULFATE 3 ML SOLUTION IH SCH ×3 (06:49→18:19)
[2023-07-16] MEDS: POLYETHYLENE GLYCOL 3350 17 GM POWD.PACK GT SCH (08:37)
[2023-07-16] MEDS: 0.9%NACL 10ML VIAL IV SCH ×2 (08:37→20:23)
[2023-07-16] MEDS: LOSARTAN 50 MG TABLET PO SCH (08:37)
[2023-07-16] MEDS: THIAMINE HCL 100 MG/ML 2ML VIAL IVP SCH (08:37)
[2023-07-16] MEDS: AMLODIPINE 5 MG TAB PO SCH ×2 (08:38→20:23)
[2023-07-16] MEDS: FOLIC ACID 5 MG/ML VIAL IV SCH (08:38)
[2023-07-16] MEDS: HEPARIN 5,000 UNIT VIAL SQ SCH ×2 (08:39→20:24)
[2023-07-16] MEDS: NYSTATIN 15 GM POWDER TP SCH ×2 (08:39→20:23)
[2023-07-16] MEDS: LACTATED RINGERS 1000ML 1,000 ML IV SCH (13:00)
[2023-07-16] MEDS: TRAMADOL HCL 50 MG TABLET PO PRN (20:24)
[2023-07-16] MEDS: ONDANSETRON 4MG INJ IVP PRN (23:25)
[2023-07-17] VITALS (16 sets, daily range): BP systolic 96–128; BP diastolic 58–88; PULSE 76–97; RESP 16–21; O2SAT 93–98
[2023-07-17] MEDS: INSULIN HUMULIN R 100 UNIT/ML 3ML SQ SCH
[2023-07-17 00:21] LABS: APPEARANCE,URINE CLEAR (CLEAR); BILIRUBIN,URINE NEGATIVE (NEGATIVE); COLOR,URINE LIGHT-YELLOW (YELLOW); GLUCOSE, URINE (UA) NEGATIVE (NEGATIVE); KETONES,URINE NEGATIVE (NEGATIVE); LEUKOCYTE ESTERASE ,URINE 75 Leu/uL (NEGATIVE); NITRATE,URINE NEGATIVE (NEGATIVE); OCCULT BLOOD,URINE NEGATIVE (NEGATIVE); PH,URINE 5.5 (5.0-8.0); PROTEIN,URINE NEGATIVE (NEGATIVE); UROBILINOGEN,URINE 0.2 mg/dL (0.2-1.0)
[2023-07-17 00:23] LABS: ADD UA MICROSCOPIC YES
[2023-07-17 00:26] LABS: RBC,URINE 0-1 /HPF (0-1); SQUAMOUS EPITHELIAL CELL,UR RARE /HPF (0-2)
[2023-07-17] MEDS: METOCLOPRAMIDE 10 MG/2 ML VIAL IVP SCH ×3 (01:47→18:08)
[2023-07-17 05:29] LABS: BASOPHILS # (AUTO) 0.11 K/uL (0.00-0.20); EOSINOPHILS # (AUTO) 0.04 K/uL (0.00-0.70); EOSINOPHILS % (AUTO) 0.4 % (0.0-8.0); HEMATOCRIT 29.4 % (42-54); LYMPHOCYTES # (AUTO) 1.5 K/uL (1.0-4.8); LYMPHOCYTES % (AUTO) 13.9 % (21.0-51.0); MEAN CORPUSCULAR HEMOGLOBIN 24.4 pg (27.0-33.0); MEAN CORPUSCULAR HGB CONC 29.9 g/dL (32.0-36.0); MEAN CORPUSCULAR VOLUME 81.4 fL (79-99); MONOCYTES # (AUTO) 1.2 K/uL (0.1-1.0); MONOCYTES % (AUTO) 11.1 % (3.0-13.0); NEUTROPHILS # (AUTO) 7.7 K/uL (1.8-7.7); NEUTROPHILS % (AUTO) 72.7 % (40.0-77.0); PLATELET COUNT (AUTO) 331 K/uL (130-400); RED BLOOD CELL COUNT(AUTO) 3.61 MIL/uL (4.50-6.20); RED CELL DISTRIBUTION WIDTH 22.9 % (11.0-15.5); WHITE BLOOD COUNT (AUTO) 10.6 K/uL (4.8-10.8)
[2023-07-17 06:01] LABS: ALBUMIN 2.2 g/dL (3.5-5.0); PHOSPHORUS 2.9 mg/dL (2.5-4.9); POTASSIUM 4.3 mmol/L (3.5-5.1)
[2023-07-17 06:03] LABS: BILIRUBIN,TOTAL 0.3 mg/dL (0.2-1.0); MAGNESIUM 1.5 mg/dL (1.80-2.40); TOTAL PROTEIN, SERUM 6.8 g/dL (6.0-8.3)
[2023-07-17] MEDS: IPRATROPIUM/ALBUTEROL SULFATE 3 ML SOLUTION IH SCH ×2 (06:36→11:29)
[2023-07-17] MEDS: LOSARTAN 50 MG TABLET PO SCH (09:00)
[2023-07-17] MEDS: AMLODIPINE 5 MG TAB PO SCH ×2 (09:00→20:30)
[2023-07-17] MEDS: LACTATED RINGERS 1000ML 1,000 ML IV SCH (09:00)
[2023-07-17] MEDS: POLYETHYLENE GLYCOL 3350 17 GM POWD.PACK GT SCH (09:05)
[2023-07-17] MEDS: Vitamin B Complex/Vit C/Folic Acid PO SCH (09:07)
[2023-07-17] MEDS: 0.9%NACL 10ML VIAL IV SCH (09:08)
[2023-07-17] MEDS: THIAMINE HCL 100 MG/ML 2ML VIAL IVP SCH (09:08)
[2023-07-17] MEDS: HEPARIN 5,000 UNIT VIAL SQ SCH ×2 (09:27→20:31)
[2023-07-17] MEDS: NYSTATIN 15 GM POWDER TP SCH ×2 (09:28→21:00)
[2023-07-17] MEDS: FOLIC ACID 5 MG/ML VIAL IV SCH (10:01)
[2023-07-17] MEDS: MAGNESIUM 2GM PREMIX 50ML 50 ML IV SCH (18:08)
[2023-07-17] MEDS: IPRATROPIUM/ALBUTEROL SULFATE 3 ML SOLUTION IH PRN ×2 (18:17→23:48)
[2023-07-17] MEDS: ONDANSETRON 4MG INJ IVP PRN (20:03)
[2023-07-18] VITALS (12 sets, daily range): BP systolic 96–129; BP diastolic 69–82; PULSE 91–110; RESP 16–20; O2SAT 94–95
[2023-07-18] MEDS: METOCLOPRAMIDE 10 MG/2 ML VIAL IVP SCH ×3 (02:45→17:20)
[2023-07-18 05:39] LABS: BASOPHILS # (AUTO) 0.11 K/uL (0.00-0.20); BASOPHILS % (AUTO) 0.8 % (0.0-5.0); EOSINOPHILS # (AUTO) 0.02 K/uL (0.00-0.70); EOSINOPHILS % (AUTO) 0.1 % (0.0-8.0); HEMATOCRIT 30.1 % (42-54); IMMATURE GRANULOCYTE ABSOLUTE 0.13 K/uL (0-1); LYMPHOCYTES # (AUTO) 0.8 K/uL (1.0-4.8); LYMPHOCYTES % (AUTO) 5.6 % (21.0-51.0); MEAN CORPUSCULAR HEMOGLOBIN 24.4 pg (27.0-33.0); MEAN CORPUSCULAR HGB CONC 29.9 g/dL (32.0-36.0); MEAN CORPUSCULAR VOLUME 81.6 fL (79-99); MONOCYTES # (AUTO) 1.5 K/uL (0.1-1.0); MONOCYTES % (AUTO) 11.2 % (3.0-13.0); NEUTROPHILS # (AUTO) 10.8 K/uL (1.8-7.7); NEUTROPHILS % (AUTO) 81.3 % (40.0-77.0); PLATELET COUNT (AUTO) 384 K/uL (130-400); RED BLOOD CELL COUNT(AUTO) 3.69 MIL/uL (4.50-6.20); RED CELL DISTRIBUTION WIDTH 22.9 % (11.0-15.5); WHITE BLOOD COUNT (AUTO) 13.4 K/uL (4.8-10.8)
[2023-07-18 06:05] LABS: CREATININE 2.3 mg/dL (0.5-1.5); PHOSPHORUS 2.9 mg/dL (2.5-4.9); POTASSIUM 4.1 mmol/L (3.5-5.1)
[2023-07-18] MEDS: IPRATROPIUM/ALBUTEROL SULFATE 3 ML SOLUTION IH PRN ×2 (06:14→11:23)
[2023-07-18] MEDS: POLYETHYLENE GLYCOL 3350 17 GM POWD.PACK GT SCH (08:29)
[2023-07-18] MEDS: AMLODIPINE 5 MG TAB PO SCH ×2 (08:30→22:10)
[2023-07-18] MEDS: Vitamin B Complex/Vit C/Folic Acid PO SCH (08:30)
[2023-07-18] MEDS: LOSARTAN 50 MG TABLET PO SCH (08:30)
[2023-07-18] MEDS: THIAMINE HCL 100 MG/ML 2ML VIAL IVP SCH (08:30)
[2023-07-18] MEDS: NYSTATIN 15 GM POWDER TP SCH ×2 (08:32→21:00)
[2023-07-18] MEDS: HEPARIN 5,000 UNIT VIAL SQ SCH ×2 (08:32→22:11)
[2023-07-18] MEDS ORDERED: COMPOUND IV REFRIGERATED 1 EACH IVSOLN MISC PRN (10:00)
[2023-07-18] MEDS: FOLIC ACID 5 MG/ML VIAL IV SCH (10:28)
[2023-07-18 12:41] LABS: OCCULT BLOOD,GASTRIC FLUID POSITIVE (NEGATIVE); PH, GASTRIC 4
[2023-07-18 14:01] LABS: HEMATOCRIT 27.5 % (42-54)
[2023-07-18] MEDS: SUCRALFATE 1 GM TABLET PO SCH ×2 (14:46→22:09)
[2023-07-18] MEDS ORDERED: 0.9%NACL 1000ML 1,000 ML IV SCH (15:30)
[2023-07-18] MEDS: 0.9%NACL 1000ML 1,000 ML IV SCH (16:55)
[2023-07-18] MEDS: PANTOPRAZOLE 40 MG/VIAL IVP SCH (22:09)
[2023-07-19] VITALS (9 sets, daily range): BP systolic 97–121; BP diastolic 68–83; PULSE 61–95; RESP 16–20; O2SAT 94–96
[2023-07-19] MEDS: 0.9%NACL 1000ML 1,000 ML IV SCH ×2 (00:53→19:29)
[2023-07-19 01:45] LABS: HEMATOCRIT 27.8 % (42-54)
[2023-07-19] MEDS: ONDANSETRON 4MG INJ IVP PRN (02:23)
[2023-07-19] MEDS: METOCLOPRAMIDE 10 MG/2 ML VIAL IVP SCH ×3 (02:23→19:22)
[2023-07-19 06:07] LABS: HEMATOCRIT 30.1 % (42-54); MEAN CORPUSCULAR HEMOGLOBIN 24.4 pg (27.0-33.0); MEAN CORPUSCULAR HGB CONC 29.9 g/dL (32.0-36.0); MEAN CORPUSCULAR VOLUME 81.6 fL (79-99); PLATELET COUNT (AUTO) 410 K/uL (130-400); RED BLOOD CELL COUNT(AUTO) 3.69 MIL/uL (4.50-6.20); RED CELL DISTRIBUTION WIDTH 22.8 % (11.0-15.5); WHITE BLOOD COUNT (AUTO) 9.5 K/uL (4.8-10.8)
[2023-07-19 06:29] LABS: BILIRUBIN,TOTAL 0.4 mg/dL (0.2-1.0); CREATININE 2.6 mg/dL (0.5-1.5); MAGNESIUM 1.9 mg/dL (1.80-2.40); PHOSPHORUS 3.9 mg/dL (2.5-4.9); POTASSIUM 4.2 mmol/L (3.5-5.1); TOTAL PROTEIN, SERUM 6.7 g/dL (6.0-8.3)
[2023-07-19] MEDS: SUCRALFATE 1 GM TABLET PO SCH ×4 (06:45→20:00)
[2023-07-19 07:00] LABS: BAND NEUTROPHILS % (MANUAL) 1 % (0-2); BASOPHILS % (MANUAL) 2 % (0-2); LYMPHOCYTES % (MANUAL) 21 % (22-44); MAN.DIFF COMMENT-IMPRESSION MANUAL DIFFERENTIAL; MONOCYTES % (MANUAL) 4 % (2-9); PLATELET MORPHOLOGY COMMENT ADEQUATE; SEGMENTED NEUTROPHILS % 72 % (40-70); TOTAL CELLS COUNTED 100; WBC MORPHOLOGY SLIDE REVIEWED
[2023-07-19] MEDS: IPRATROPIUM/ALBUTEROL SULFATE 3 ML SOLUTION IH PRN (07:24)
[2023-07-19] MEDS: POLYETHYLENE GLYCOL 3350 17 GM POWD.PACK GT SCH (08:08)
[2023-07-19] MEDS: AMLODIPINE 5 MG TAB PO SCH ×2 (08:09→20:34)
[2023-07-19] MEDS: Vitamin B Complex/Vit C/Folic Acid PO SCH (08:09)
[2023-07-19] MEDS: LOSARTAN 50 MG TABLET PO SCH (08:09)
[2023-07-19] MEDS: PANTOPRAZOLE 40 MG/VIAL IVP SCH ×2 (09:48→20:32)
[2023-07-19] MEDS: NYSTATIN 15 GM POWDER TP SCH ×2 (09:49→20:33)
[2023-07-19] MEDS: THIAMINE HCL 100 MG/ML 2ML VIAL IVP SCH (09:49)
[2023-07-19] MEDS: HEPARIN 5,000 UNIT VIAL SQ SCH ×2 (10:08→20:33)
[2023-07-19] MEDS: FOLIC ACID 5 MG/ML VIAL IV SCH (10:47)
[2023-07-19] MEDS: TRAMADOL HCL 50 MG TABLET PO PRN (10:48)
[2023-07-20] VITALS (12 sets, daily range): BP systolic 120–134; BP diastolic 81–95; PULSE 75–92; RESP 16–20; O2SAT 94–97
[2023-07-20] MEDS: ACETAMINOPHEN 650 MG SUPPOSITORY RC PRN (01:08)
[2023-07-20] MEDS: METOCLOPRAMIDE 10 MG/2 ML VIAL IVP SCH ×3 (01:08→18:52)
[2023-07-20 01:11] LABS: HEMATOCRIT 26.1 % (42-54)
[2023-07-20] MEDS: SUCRALFATE 1 GM TABLET PO SCH ×4 (01:31→21:26)
[2023-07-20] MEDS: IPRATROPIUM/ALBUTEROL SULFATE 3 ML SOLUTION IH PRN ×3 (04:02→21:11)
[2023-07-20 05:29] LABS: BASOPHILS # (AUTO) 0.08 K/uL (0.00-0.20); EOSINOPHILS # (AUTO) 0.05 K/uL (0.00-0.70); EOSINOPHILS % (AUTO) 0.6 % (0.0-8.0); HEMATOCRIT 27.5 % (42-54); IMMATURE GRANULOCYTE ABSOLUTE 0.18 K/uL (0-1); LYMPHOCYTES # (AUTO) 1.3 K/uL (1.0-4.8); LYMPHOCYTES % (AUTO) 15.8 % (21.0-51.0); MEAN CORPUSCULAR HEMOGLOBIN 24.2 pg (27.0-33.0); MEAN CORPUSCULAR HGB CONC 29.5 g/dL (32.0-36.0); MEAN CORPUSCULAR VOLUME 82.1 fL (79-99); MONOCYTES # (AUTO) 1.1 K/uL (0.1-1.0); MONOCYTES % (AUTO) 13.4 % (3.0-13.0); NEUTROPHILS # (AUTO) 5.6 K/uL (1.8-7.7); PLATELET COUNT (AUTO) 437 K/uL (130-400); RED BLOOD CELL COUNT(AUTO) 3.35 MIL/uL (4.50-6.20); RED CELL DISTRIBUTION WIDTH 22.6 % (11.0-15.5); WHITE BLOOD COUNT (AUTO) 8.3 K/uL (4.8-10.8)
[2023-07-20 05:45] LABS: CREATININE 2.3 mg/dL (0.5-1.5); MAGNESIUM 1.7 mg/dL (1.80-2.40); POTASSIUM 3.5 mmol/L (3.5-5.1)
[2023-07-20] MEDS: POLYETHYLENE GLYCOL 3350 17 GM POWD.PACK GT SCH (08:30)
[2023-07-20] MEDS: LOSARTAN 50 MG TABLET PO SCH (08:31)
[2023-07-20] MEDS: Vitamin B Complex/Vit C/Folic Acid PO SCH (08:31)
[2023-07-20] MEDS: AMLODIPINE 5 MG TAB PO SCH ×2 (08:31→21:26)
[2023-07-20] MEDS: THIAMINE HCL 100 MG/ML 2ML VIAL IVP SCH (09:00)
[2023-07-20] MEDS: FOLIC ACID 5 MG/ML VIAL IV SCH (09:00)
[2023-07-20] MEDS: PANTOPRAZOLE 40 MG/VIAL IVP SCH ×2 (09:00→21:27)
[2023-07-20] MEDS: NYSTATIN 15 GM POWDER TP SCH (10:44)
[2023-07-20] MEDS: TRAMADOL HCL 50 MG TABLET PO PRN ×2 (10:47→21:26)
[2023-07-20 17:08] LABS: HEMATOCRIT 24.5 % (42-54)
[2023-07-20] MEDS: ACETAMINOPHEN 325 MG TAB PO PRN (17:59)
[2023-07-21] VITALS (12 sets, daily range): BP systolic 115–136; BP diastolic 78–91; PULSE 84–110; RESP 16–19; O2SAT 95–96
[2023-07-21] MEDS: METOCLOPRAMIDE 10 MG/2 ML VIAL IVP SCH ×3 (02:12→18:00)
[2023-07-21] MEDS: SUCRALFATE 1 GM TABLET PO SCH ×4 (03:00→22:35)
[2023-07-21] MEDS: IPRATROPIUM/ALBUTEROL SULFATE 3 ML SOLUTION IH PRN ×3 (03:44→18:11)
[2023-07-21 05:47] LABS: BASOPHILS # (AUTO) 0.08 K/uL (0.00-0.20); BASOPHILS % (AUTO) 0.9 % (0.0-5.0); EOSINOPHILS # (AUTO) 0.09 K/uL (0.00-0.70); IMMATURE GRANULOCYTE ABSOLUTE 0.21 K/uL (0-1); LYMPHOCYTES % (AUTO) 11.1 % (21.0-51.0); MEAN CORPUSCULAR HEMOGLOBIN 24.2 pg (27.0-33.0); MEAN CORPUSCULAR HGB CONC 29.6 g/dL (32.0-36.0); MEAN CORPUSCULAR VOLUME 81.6 fL (79-99); MONOCYTES # (AUTO) 1.5 K/uL (0.1-1.0); MONOCYTES % (AUTO) 16.4 % (3.0-13.0); NEUTROPHILS % (AUTO) 68.2 % (40.0-77.0); PLATELET COUNT (AUTO) 420 K/uL (130-400); RED BLOOD CELL COUNT(AUTO) 3.43 MIL/uL (4.50-6.20); RED CELL DISTRIBUTION WIDTH 22.2 % (11.0-15.5); WHITE BLOOD COUNT (AUTO) 8.8 K/uL (4.8-10.8)
[2023-07-21 06:01] LABS: ALBUMIN 1.9 g/dL (3.5-5.0); BILIRUBIN,TOTAL 0.2 mg/dL (0.2-1.0); POTASSIUM 3.2 mmol/L (3.5-5.1); TOTAL PROTEIN, SERUM 6.2 g/dL (6.0-8.3)
[2023-07-21] MEDS ORDERED: POTASSIUM CHLORIDE 10% ELIXIR 20 MEQ/15 ML UDCUP PO PRN (08:30)
[2023-07-21] MEDS: AMLODIPINE 5 MG TAB PO SCH ×2 (08:32→22:35)
[2023-07-21] MEDS: Vitamin B Complex/Vit C/Folic Acid PO SCH (08:32)
[2023-07-21] MEDS: THIAMINE HCL 100 MG/ML 2ML VIAL IVP SCH (08:33)
[2023-07-21] MEDS: PANTOPRAZOLE 40 MG/VIAL IVP SCH ×2 (08:33→22:36)
[2023-07-21] MEDS: POLYETHYLENE GLYCOL 3350 17 GM POWD.PACK GT SCH (08:33)
[2023-07-21] MEDS: LOSARTAN 50 MG TABLET PO SCH (08:33)
[2023-07-21] MEDS: KCL 20 MEQ ERTAB PO PRN ×2 (08:33→12:03)
[2023-07-21] MEDS: FOLIC ACID 5 MG/ML VIAL IV SCH (08:34)
[2023-07-21] MEDS: TRAMADOL HCL 50 MG TABLET PO PRN (10:29)
[2023-07-21] MEDS: ACETAMINOPHEN 325 MG TAB PO PRN (22:36)
[2023-07-22] VITALS (14 sets, daily range): BP systolic 97–139; BP diastolic 62–92; PULSE 72–113; RESP 16–24; O2SAT 90–96
[2023-07-22] MEDS: IPRATROPIUM/ALBUTEROL SULFATE 3 ML SOLUTION IH PRN ×5 (00:26→23:32)
[2023-07-22] MEDS: SUCRALFATE 1 GM TABLET PO SCH ×4 (03:31→21:59)
[2023-07-22] MEDS: METOCLOPRAMIDE 10 MG/2 ML VIAL IVP SCH ×3 (03:31→18:37)
[2023-07-22 06:04] LABS: BASOPHILS # (AUTO) 0.07 K/uL (0.00-0.20); BASOPHILS % (AUTO) 0.6 % (0.0-5.0); EOSINOPHILS # (AUTO) 0.01 K/uL (0.00-0.70); EOSINOPHILS % (AUTO) 0.1 % (0.0-8.0); IMMATURE GRANULOCYTE ABSOLUTE 0.19 K/uL (0-1); LYMPHOCYTES # (AUTO) 0.8 K/uL (1.0-4.8); LYMPHOCYTES % (AUTO) 6.5 % (21.0-51.0); MEAN CORPUSCULAR HEMOGLOBIN 24.6 pg (27.0-33.0); MEAN CORPUSCULAR VOLUME 82.1 fL (79-99); MONOCYTES # (AUTO) 1.7 K/uL (0.1-1.0); MONOCYTES % (AUTO) 13.3 % (3.0-13.0); NEUTROPHILS # (AUTO) 9.9 K/uL (1.8-7.7); PLATELET COUNT (AUTO) 444 K/uL (130-400); RED BLOOD CELL COUNT(AUTO) 3.29 MIL/uL (4.50-6.20); RED CELL DISTRIBUTION WIDTH 22.2 % (11.0-15.5); WHITE BLOOD COUNT (AUTO) 12.6 K/uL (4.8-10.8)
[2023-07-22 06:24] LABS: BILIRUBIN,TOTAL 0.2 mg/dL (0.2-1.0); CREATININE 1.8 mg/dL (0.5-1.5); POTASSIUM 3.8 mmol/L (3.5-5.1); TOTAL PROTEIN, SERUM 5.9 g/dL (6.0-8.3)
[2023-07-22] MEDS ORDERED: POTASSIUM CHLORIDE 20 MEQ/100 ML BAG IV SCH (08:00)
[2023-07-22] MEDS: Vitamin B Complex/Vit C/Folic Acid PO SCH (09:00)
[2023-07-22] MEDS ORDERED: MAGNESIUM 2GM PREMIX 50ML 50 ML IV SCH (10:00)
[2023-07-22] MEDS: AMLODIPINE 5 MG TAB PO SCH ×2 (11:22→21:58)
[2023-07-22] MEDS: LOSARTAN 50 MG TABLET PO SCH (11:22)
[2023-07-22] MEDS: POLYETHYLENE GLYCOL 3350 17 GM POWD.PACK GT SCH (11:22)
[2023-07-22] MEDS: PANTOPRAZOLE 40 MG/VIAL IVP SCH ×2 (11:22→21:58)
[2023-07-22] MEDS: ZOSYN 3.375GM +NS 50ML IVPB SCH ×2 (11:27→18:38)
[2023-07-23] VITALS (15 sets, daily range): BP systolic 79–116; BP diastolic 51–79; PULSE 76–95; RESP 16–20; O2SAT 95–97
[2023-07-23] MEDS: ZOSYN 3.375GM +NS 50ML IVPB SCH ×4 (00:41→23:35)
[2023-07-23] MEDS: SUCRALFATE 1 GM TABLET PO SCH ×4 (02:13→20:25)
[2023-07-23] MEDS: METOCLOPRAMIDE 10 MG/2 ML VIAL IVP SCH ×3 (02:13→18:07)
[2023-07-23 06:35] LABS: BASOPHILS # (AUTO) 0.06 K/uL (0.00-0.20); BASOPHILS % (AUTO) 0.5 % (0.0-5.0); EOSINOPHILS % (AUTO) 0.9 % (0.0-8.0); HEMATOCRIT 25.6 % (42-54); IMMATURE GRANULOCYTE ABSOLUTE 0.29 K/uL (0-1); LYMPHOCYTES # (AUTO) 1.4 K/uL (1.0-4.8); LYMPHOCYTES % (AUTO) 11.8 % (21.0-51.0); MEAN CORPUSCULAR HEMOGLOBIN 24.4 pg (27.0-33.0); MEAN CORPUSCULAR HGB CONC 29.3 g/dL (32.0-36.0); MEAN CORPUSCULAR VOLUME 83.1 fL (79-99); MONOCYTES # (AUTO) 1.7 K/uL (0.1-1.0); MONOCYTES % (AUTO) 14.3 % (3.0-13.0); NEUTROPHILS # (AUTO) 8.1 K/uL (1.8-7.7); PLATELET COUNT (AUTO) 390 K/uL (130-400); RED BLOOD CELL COUNT(AUTO) 3.08 MIL/uL (4.50-6.20); WHITE BLOOD COUNT (AUTO) 11.5 K/uL (4.8-10.8)
[2023-07-23 07:00] LABS: ALBUMIN 1.8 g/dL (3.5-5.0); BILIRUBIN,TOTAL 0.2 mg/dL (0.2-1.0); MAGNESIUM 1.4 mg/dL (1.80-2.40); PHOSPHORUS 2.1 mg/dL (2.5-4.9); POTASSIUM 3.7 mmol/L (3.5-5.1); TOTAL PROTEIN, SERUM 5.8 g/dL (6.0-8.3)
[2023-07-23] MEDS: IPRATROPIUM/ALBUTEROL SULFATE 3 ML SOLUTION IH PRN ×4 (07:04→23:16)
[2023-07-23] MEDS ORDERED: MAGNESIUM 2GM PREMIX 50ML 50 ML IV SCH (08:30)
[2023-07-23] MEDS: Vitamin B Complex/Vit C/Folic Acid PO SCH (08:44)
[2023-07-23] MEDS: PANTOPRAZOLE 40 MG/VIAL IVP SCH ×2 (08:44→20:26)
[2023-07-23] MEDS: LOSARTAN 50 MG TABLET PO SCH (08:44)
[2023-07-23] MEDS: AMLODIPINE 5 MG TAB PO SCH ×2 (08:44→19:32)
[2023-07-23] MEDS: MAGNESIUM 2GM PREMIX 50ML 50 ML IV SCH (08:45)
[2023-07-23] MEDS: POLYETHYLENE GLYCOL 3350 17 GM POWD.PACK GT SCH (08:45)
[2023-07-23] MEDS: ACETAMINOPHEN 325 MG TAB PO PRN (16:20)
[2023-07-23] MEDS ORDERED: 0.9%NACL 100ML IV ONE (20:00)
[2023-07-24] VITALS (13 sets, daily range): BP systolic 97–120; BP diastolic 65–82; PULSE 81–105; RESP 18–20; O2SAT 97–100
[2023-07-24] MEDS: METOCLOPRAMIDE 10 MG/2 ML VIAL IVP SCH ×3 (01:19→19:45)
[2023-07-24] MEDS: SUCRALFATE 1 GM TABLET PO SCH ×4 (01:19→19:45)
[2023-07-24] MEDS: ACETAMINOPHEN 325 MG TAB PO PRN ×2 (01:26→16:15)
[2023-07-24 06:07] LABS: HEMATOCRIT 22.4 % (42-54); MEAN CORPUSCULAR HEMOGLOBIN 24.4 pg (27.0-33.0); MEAN CORPUSCULAR HGB CONC 29.5 g/dL (32.0-36.0); MEAN CORPUSCULAR VOLUME 82.7 fL (79-99); PLATELET COUNT (AUTO) 354 K/uL (130-400); RED BLOOD CELL COUNT(AUTO) 2.71 MIL/uL (4.50-6.20); RED CELL DISTRIBUTION WIDTH 21.9 % (11.0-15.5); WHITE BLOOD COUNT (AUTO) 9.1 K/uL (4.8-10.8)
[2023-07-24 06:29] LABS: BAND NEUTROPHILS % (MANUAL) 8 % (0-2); LYMPHOCYTES % (MANUAL) 18 % (22-44); MAN.DIFF COMMENT-IMPRESSION MANUAL DIFFERENTIAL; MONOCYTES % (MANUAL) 8 % (2-9); SEGMENTED NEUTROPHILS % 66 % (40-70); TOTAL CELLS COUNTED 50
[2023-07-24 06:30] LABS: PLATELET MORPHOLOGY COMMENT ADEQUATE; WBC MORPHOLOGY CONSISTENT W/DIFF
[2023-07-24 06:34] LABS: ALBUMIN 1.7 g/dL (3.5-5.0); BILIRUBIN,TOTAL 0.1 mg/dL (0.2-1.0); MAGNESIUM 1.7 mg/dL (1.80-2.40); PHOSPHORUS 1.5 mg/dL (2.5-4.9); POTASSIUM 3.7 mmol/L (3.5-5.1); TOTAL PROTEIN, SERUM 5.2 g/dL (6.0-8.3)
[2023-07-24] MEDS: IPRATROPIUM/ALBUTEROL SULFATE 3 ML SOLUTION IH PRN ×4 (06:41→23:26)
[2023-07-24] MEDS: ZOSYN 3.375GM +NS 50ML IVPB SCH ×2 (08:51→16:00)
[2023-07-24] MEDS: PANTOPRAZOLE 40 MG/VIAL IVP SCH ×2 (08:52→19:45)
[2023-07-24] MEDS: POLYETHYLENE GLYCOL 3350 17 GM POWD.PACK GT SCH (08:54)
[2023-07-24] MEDS: Vitamin B Complex/Vit C/Folic Acid PO SCH (08:58)
[2023-07-24] MEDS: AMLODIPINE 5 MG TAB PO SCH ×2 (08:58→19:46)
[2023-07-24] MEDS: LOSARTAN 50 MG TABLET PO SCH (08:59)
[2023-07-24] MEDS ORDERED: MAGNESIUM 2GM PREMIX 50ML 50 ML IV SCH (12:00)
[2023-07-25] VITALS (13 sets, daily range): BP systolic 108–133; BP diastolic 68–96; PULSE 88–100; RESP 18–20; O2SAT 97–99
[2023-07-25] MEDS: ZOSYN 3.375GM +NS 50ML IVPB SCH ×3 (00:11→16:00)
[2023-07-25] MEDS: SUCRALFATE 1 GM TABLET PO SCH ×4 (01:43→20:05)
[2023-07-25] MEDS: METOCLOPRAMIDE 10 MG/2 ML VIAL IVP SCH ×3 (01:43→18:00)
[2023-07-25] MEDS: IPRATROPIUM/ALBUTEROL SULFATE 3 ML SOLUTION IH PRN ×2 (04:56→11:18)
[2023-07-25 06:50] LABS: MEAN CORPUSCULAR HEMOGLOBIN 24.7 pg (27.0-33.0); MEAN CORPUSCULAR VOLUME 82.3 fL (79-99); RED BLOOD CELL COUNT(AUTO) 3.28 MIL/uL (4.50-6.20); RED CELL DISTRIBUTION WIDTH 20.8 % (11.0-15.5); WHITE BLOOD COUNT (AUTO) 10.3 K/uL (4.8-10.8)
[2023-07-25 07:03] LABS: ALBUMIN 1.9 g/dL (3.5-5.0); BILIRUBIN,TOTAL 0.2 mg/dL (0.2-1.0); CREATININE 1.9 mg/dL (0.5-1.5); MAGNESIUM 1.4 mg/dL (1.80-2.40); POTASSIUM 4.1 mmol/L (3.5-5.1); TOTAL PROTEIN, SERUM 5.9 g/dL (6.0-8.3)
[2023-07-25] MEDS: POLYETHYLENE GLYCOL 3350 17 GM POWD.PACK GT SCH (09:00)
[2023-07-25] MEDS: AMLODIPINE 5 MG TAB PO SCH ×2 (09:57→20:05)
[2023-07-25] MEDS: Vitamin B Complex/Vit C/Folic Acid PO SCH (09:57)
[2023-07-25] MEDS: LOSARTAN 50 MG TABLET PO SCH (09:58)
[2023-07-25] MEDS: PANTOPRAZOLE 40 MG/VIAL IVP SCH ×2 (09:58→20:05)
[2023-07-25] MEDS ORDERED: MAGNESIUM 2GM PREMIX 50ML 50 ML IV SCH (15:00)
[2023-07-26] VITALS (16 sets, daily range): BP systolic 123–136; BP diastolic 82–100; PULSE 86–109; RESP 17–20; TEMP 98.2; O2SAT 95–98
[2023-07-26] MEDS: METOCLOPRAMIDE 10 MG/2 ML VIAL IVP SCH ×2 (00:34→09:36)
[2023-07-26] MEDS: SUCRALFATE 1 GM TABLET PO SCH ×4 (02:00→20:00)
[2023-07-26 05:56] LABS: HEMATOCRIT 29.7 % (42-54); MEAN CORPUSCULAR HEMOGLOBIN 24.9 pg (27.0-33.0); MEAN CORPUSCULAR HGB CONC 30.3 g/dL (32.0-36.0); MEAN CORPUSCULAR VOLUME 82.3 fL (79-99); RED BLOOD CELL COUNT(AUTO) 3.61 MIL/uL (4.50-6.20); RED CELL DISTRIBUTION WIDTH 20.7 % (11.0-15.5); WHITE BLOOD COUNT (AUTO) 11.1 K/uL (4.8-10.8)
[2023-07-26 06:16] LABS: ALBUMIN 2.1 g/dL (3.5-5.0); BILIRUBIN,TOTAL 0.2 mg/dL (0.2-1.0); CREATININE 1.5 mg/dL (0.5-1.5); MAGNESIUM 1.2 mg/dL (1.80-2.40); TOTAL PROTEIN, SERUM 6.4 g/dL (6.0-8.3)
[2023-07-26] MEDS: IPRATROPIUM/ALBUTEROL SULFATE 3 ML SOLUTION IH PRN ×5 (06:30→23:43)
[2023-07-26] MEDS ORDERED: MAGNESIUM 2GM PREMIX 50ML 50 ML IV SCH (08:00)
[2023-07-26] MEDS: ZOSYN 3.375GM +NS 50ML IVPB SCH ×2 (08:00)
[2023-07-26] MEDS: POLYETHYLENE GLYCOL 3350 17 GM POWD.PACK GT SCH (09:00)
[2023-07-26] MEDS ORDERED: MAGNESIUM OXIDE 400 MG TABLET PO SCH (09:00)
[2023-07-26] MEDS: ONDANSETRON 4MG INJ IVP PRN ×2 (09:26→15:05)
[2023-07-26] MEDS: PANTOPRAZOLE 40 MG/VIAL IVP SCH (09:28)
[2023-07-26] MEDS: LOSARTAN 50 MG TABLET PO SCH (09:33)
[2023-07-26] MEDS: Vitamin B Complex/Vit C/Folic Acid PO SCH (09:33)
[2023-07-26] MEDS: AMLODIPINE 5 MG TAB PO SCH (09:33)
[2023-07-26] MEDS: AMOX/CLAV 875/125MG TAB PO SCH ×2 (15:08→23:01)
[2023-07-26] MEDS: ACETAMINOPHEN 325 MG TAB PO PRN ×2 (15:15→23:02)
[2023-07-26] MEDS ORDERED: MAGNESIUM 2GM PREMIX 50ML 50 ML IV PRN (17:30)
[2023-07-26] MEDS ORDERED: MAGNESIUM 4GM PREMIX 100ML 100 ML IV PRN (19:00)
[2023-07-27] VITALS (9 sets, daily range): BP systolic 120–138; BP diastolic 80–97; PULSE 82–98; RESP 18–20; O2SAT 96–98
[2023-07-27] MEDS: SUCRALFATE 1 GM TABLET PO SCH ×3 (02:00→13:49)
[2023-07-27] MEDS: IPRATROPIUM/ALBUTEROL SULFATE 3 ML SOLUTION IH PRN ×3 (06:52→18:23)
[2023-07-27 07:00] LABS: HEMATOCRIT 29.3 % (42-54); MEAN CORPUSCULAR HEMOGLOBIN 24.7 pg (27.0-33.0); MEAN CORPUSCULAR HGB CONC 30.4 g/dL (32.0-36.0); MEAN CORPUSCULAR VOLUME 81.4 fL (79-99); RED BLOOD CELL COUNT(AUTO) 3.6 MIL/uL (4.50-6.20); RED CELL DISTRIBUTION WIDTH 20.6 % (11.0-15.5); WHITE BLOOD COUNT (AUTO) 13.4 K/uL (4.8-10.8)
[2023-07-27 07:29] LABS: ALBUMIN 2.2 g/dL (3.5-5.0); BILIRUBIN,TOTAL 0.2 mg/dL (0.2-1.0); CREATININE 1.5 mg/dL (0.5-1.5); MAGNESIUM 2.1 mg/dL (1.80-2.40); POTASSIUM 3.6 mmol/L (3.5-5.1); TOTAL PROTEIN, SERUM 6.5 g/dL (6.0-8.3)
[2023-07-27] MEDS ORDERED: PANTOPRAZOLE 40 MG TAB DR PO SCH (09:00)
[2023-07-27] MEDS: POLYETHYLENE GLYCOL 3350 17 GM POWD.PACK GT SCH (09:49)
[2023-07-27] MEDS: Vitamin B Complex/Vit C/Folic Acid PO SCH (09:49)
[2023-07-27] MEDS: LOSARTAN 50 MG TABLET PO SCH (09:49)
[2023-07-27] MEDS ORDERED: LOSA-418 PO (10:58)
[2023-07-27] MEDS ORDERED: AMOX1TAB16 PO (10:58)
[2023-07-27] MEDS: AMOX/CLAV 875/125MG TAB PO SCH (11:24)
== END 2023-07-27 19:00 | disposition home or self-care (01) | DRG 853 ==
LOC: EDH 02:50 → EDHIP 02:51 → 2CV 11:40 → 2BH 06-20 15:07 → 2AH 07-05 17:49 → 3AH 07-16 10:25
PROVIDERS: ADMIT Hospitalist; ATTEND Hospitalist
PROC: 5A1955Z Respiratory Ventilation, Greater than 96 Consecutive Hours (ICD-10-PCS; 2023-06-15)
PROC: 0BH17EZ Insertion of Endotracheal Airway into Trachea, Via Natural or Artificial Opening (ICD-10-PCS; 2023-06-15)
PROC: 0DQ30ZZ Repair Lower Esophagus, Open Approach (ICD-10-PCS; principal; 2023-06-15 07:52)
PROC: 02HV33Z Insertion of Infusion Device into Superior Vena Cava, Percutaneous Approach (ICD-10-PCS; 2023-06-17)
PROC: 0B21XEZ Change Endotracheal Airway in Trachea, External Approach (ICD-10-PCS; 2023-06-17)
PROC: 5A09357 Assistance with Respiratory Ventilation, Less than 24 Consecutive Hours, Continuous Positive Airway Pressure (ICD-10-PCS; 2023-06-20)
PROC: 5A09357 Assistance with Respiratory Ventilation, Less than 24 Consecutive Hours, Continuous Positive Airway Pressure (ICD-10-PCS; 2023-06-23)
PROC: 5A09357 Assistance with Respiratory Ventilation, Less than 24 Consecutive Hours, Continuous Positive Airway Pressure (ICD-10-PCS; 2023-06-25)
PROC: 5A09357 Assistance with Respiratory Ventilation, Less than 24 Consecutive Hours, Continuous Positive Airway Pressure (ICD-10-PCS; 2023-06-26)
PROC: 5A09357 Assistance with Respiratory Ventilation, Less than 24 Consecutive Hours, Continuous Positive Airway Pressure (ICD-10-PCS; 2023-06-27)
PROC: 5A09357 Assistance with Respiratory Ventilation, Less than 24 Consecutive Hours, Continuous Positive Airway Pressure (ICD-10-PCS; 2023-06-28)
PROC: 5A09357 Assistance with Respiratory Ventilation, Less than 24 Consecutive Hours, Continuous Positive Airway Pressure (ICD-10-PCS; 2023-06-29)
PROC: 5A09357 Assistance with Respiratory Ventilation, Less than 24 Consecutive Hours, Continuous Positive Airway Pressure (ICD-10-PCS; 2023-06-30)
PROC: 5A09357 Assistance with Respiratory Ventilation, Less than 24 Consecutive Hours, Continuous Positive Airway Pressure (ICD-10-PCS; 2023-07-01)
PROC: 0DH60UZ Insertion of Feeding Device into Stomach, Open Approach (ICD-10-PCS; 2023-07-05)
PROC: 30233N1 Transfusion of Nonautologous Red Blood Cells into Peripheral Vein, Percutaneous Approach (ICD-10-PCS; 2023-07-24)
PROC: 5A09357 Assistance with Respiratory Ventilation, Less than 24 Consecutive Hours, Continuous Positive Airway Pressure (ICD-10-PCS; 2023-07-25)
DX: A41.9 Sepsis, unspecified organism (principal); G93.41 Metabolic encephalopathy; I21.4 Non-ST elevation (NSTEMI) myocardial infarction; K22.3 Perforation of esophagus; R65.21 Severe sepsis with septic shock; J69.0 Pneumonitis due to inhalation of food and vomit; J96.01 Acute respiratory failure with hypoxia; J95.1 Acute pulmonary insufficiency following thoracic surgery; J98.51 Mediastinitis; Z20.822 Contact with and (suspected) exposure to COVID-19; N17.9 Acute kidney failure, unspecified; E87.4 Mixed disorder of acid-base balance; F10.231 Alcohol dependence with withdrawal delirium; G72.81 Critical illness myopathy; I13.0 Hypertensive heart and chronic kidney disease with heart failure and stage 1 through stage 4 chronic kidney disease, or unspecified chronic kidney disease; I50.20 Unspecified systolic (congestive) heart failure; R64 Cachexia; D50.9 Iron deficiency anemia, unspecified; D69.6 Thrombocytopenia, unspecified; E78.00 Pure hypercholesterolemia, unspecified; E83.52 Hypercalcemia; E86.9 Volume depletion, unspecified; F10.229 Alcohol dependence with intoxication, unspecified; K44.9 Diaphragmatic hernia without obstruction or gangrene; K57.30 Diverticulosis of large intestine without perforation or abscess without bleeding; N18.9 Chronic kidney disease, unspecified; R62.7 Adult failure to thrive; Z53.20 Procedure and treatment not carried out because of patient's decision for unspecified reasons; Z79.899 Other long term (current) drug therapy; Z68.24 Body mass index [BMI] 24.0-24.9, adult
CPT/HCPCS: 31500; 31720; 36415; 36430; 36600; 70450; 71045; 71250; 71275; 74018; 74174; 74176; 74220; 76604; 76770; 80048; 80053; 80061; 80202; 81001; 81003; 82140; 82150; 82271; 82306; 82330; 82435; 82803; 82947; 82948; 83540; 83550; 83605; 83690; 83735; 83880; 83970; 84100; 84132; 84145; 84207; 84295; 84443; 84484; 85014; 85018; 85025; 85027; 85610; 85730; 86334; 86757; 86850; 86900; 86901; 86923; 87040; 87070; 87071; 87076; 87077; 87088; 87116; 87186; 87205; 87206; 87635; 87641; 92610; 93005; 93306; 93356; 94002; 94003; 94640; 94660; 94664; 94667; 94668; 97039; 99291; 99292; A4357; A6250; A7048; C1729; C1751; C1894; C9113; G0378; J0330; J0360; J0610; J0690; J0692; J1100; J1120; J1170; J1450; J1630; J1644; J1650; J1756; J1815; J1885; J1940; J2001; J2060; J2185; J2250; J2270; J2405; J2543; J2704; J2710; J2765; J2997; J3010; J3360; J3370; J3411; J3475; J3480; J3490; J7030; J7042; J7050; J7070; J7120; P9016; Q0169; Q9963; Q9967; 3370; A4222; A4223; A4452; A4649; A4657; A5113; A6213; A6219; A7040; A9900; B4088; C1713

== ENCOUNTER 2023-11-14 12:01 | Inpatient (IN) | payer OTHER ==
[~2023-11-14] VITALS: Ht 177.8 cm; Wt 75.4 kg
[~2023-11-14 12:01] MED LIST: CEPH500B PO; LOSA-418 PO
[2023-11-14] MEDS ORDERED: ONDANSETRON 4MG INJ IVP ONE (12:30)
[2023-11-14 12:46] LABS: HEMATOCRIT 25.1 % (42-54); MEAN CORPUSCULAR HEMOGLOBIN 22.7 pg (27.0-33.0); MEAN CORPUSCULAR HGB CONC 29.9 g/dL (32.0-36.0); MEAN CORPUSCULAR VOLUME 76.1 fL (79-99); PLATELET COUNT (AUTO) 373 K/uL (130-400); RED CELL DISTRIBUTION WIDTH 17.9 % (11.0-15.5); WHITE BLOOD COUNT (AUTO) 10.3 K/uL (4.8-10.8)
[2023-11-14 12:59] LABS: ALBUMIN 2.4 g/dL (3.5-5.0); BILIRUBIN,TOTAL 0.3 mg/dL (0.2-1.0); CREATININE 1.5 mg/dL (0.5-1.5); POTASSIUM 3.3 mmol/L (3.5-5.1); TOTAL PROTEIN, SERUM 6.4 g/dL (6.0-8.3)
[2023-11-14] MEDS ORDERED: PANTOPRAZOLE 40 MG/VIAL IVP ONE (13:00)
[2023-11-14] MEDS ORDERED: MAG/ALUM/SIMETH 30 ML UDCUP PO ONE (14:30)
[2023-11-14] MEDS ORDERED: LIDOCAINE HCL 2% VISCOUS 15 ML UDCUP PO ONE (14:30)
[2023-11-14] MEDS ORDERED: DICYCLOMINE HCL 10 MG/5 ML ML PO ONE (14:30)
[2023-11-14] MEDS ORDERED: DEXTROSE 5 % AND 0.9 % NACL 1,000 ML IV SCH (17:30)
[2023-11-14] MEDS ORDERED: 0.9%NACL 1000ML 1,000 ML IV SCH ×2 (17:30)
[2023-11-14] MEDS ORDERED: ACETAMINOPHEN 325 MG TAB PO PRN ×2 (17:30)
[2023-11-14] MEDS: MORPHINE 2 MG SYG IV PRN ×2 (17:33→21:34)
[2023-11-14 17:43] LABS: APPEARANCE,URINE CLEAR (CLEAR); BILIRUBIN,URINE NEGATIVE (NEGATIVE); COLOR,URINE LIGHT-YELLOW (YELLOW); GLUCOSE, URINE (UA) NEGATIVE (NEGATIVE); KETONES,URINE NEGATIVE (NEGATIVE); LEUKOCYTE ESTERASE ,URINE NEGATIVE Leu/uL (NEGATIVE); NITRATE,URINE NEGATIVE (NEGATIVE); OCCULT BLOOD,URINE NEGATIVE (NEGATIVE); PH,URINE 7.5 (5.0-8.0); PROTEIN,URINE NEGATIVE (NEGATIVE); UROBILINOGEN,URINE 0.2 mg/dL (0.2-1.0)
[2023-11-14 17:49] LABS: AMPHET/METH SCREEN,URINE NEGATIVE (NEGATIVE); BARBITURATE SCREEN, URINE NEGATIVE (NEGATIVE); BENZODIAZEPINES SCREEN,URINE POSITIVE (NEGATIVE); CANNABINOID SCREEN,URINE NEGATIVE (NEGATIVE); COCAINE SCREEN,URINE NEGATIVE (NEGATIVE); OPIATE SCREEN,URINE NEGATIVE (NEGATIVE); PHENCYCLIDINE SCREEN,URINE NEGATIVE (NEGATIVE)
[2023-11-14 18:04] LABS: ADD UA MICROSCOPIC YES
[2023-11-14 18:09] LABS: RBC,URINE 0-1 /HPF (0-1); SQUAMOUS EPITHELIAL CELL,UR RARE /HPF (0-2)
[2023-11-14] MEDS: CEFTRIAXONE 1G VIAL IVPB SCH ×2 (18:42→21:34)
[2023-11-14] MEDS: PANTOPRAZOLE 40MG INJ 80 MG in 0.9%NACL 100ML 100 ML IV SCH (20:21)
[2023-11-14] MEDS: ONDANSETRON 4MG INJ IV PRN (20:23)
[2023-11-14 21:20] VITALS: BP 129/85; PULSE 73; RESP 18; O2SAT 97
[2023-11-14] MEDS ORDERED: POTASSIUM CHLORIDE 10MEQ/100ML 100 ML IV PRN (23:00)
[2023-11-14] MEDS ORDERED: KCL 20 MEQ ERTAB PO PRN (23:00)
[2023-11-14] MEDS ORDERED: POTASSIUM CHLORIDE 10% ELIXIR 20 MEQ/15 ML UDCUP PO PRN (23:00)
[2023-11-15] VITALS (13 sets, daily range): BP systolic 129–154; BP diastolic 82–96; PULSE 61–87; RESP 15–18; O2SAT 100
[2023-11-15] MEDS ORDERED: MAGNESIUM 2GM PREMIX 50ML 50 ML IV PRN (01:00)
[2023-11-15] MEDS: MORPHINE 2 MG SYG IV PRN ×3 (01:46→11:02)
[2023-11-15] MEDS: ONDANSETRON 4MG INJ IV PRN (02:40)
[2023-11-15 04:53] LABS: BASOPHILS # (AUTO) 0.06 K/uL (0.00-0.20); EOSINOPHILS # (AUTO) 0.11 K/uL (0.00-0.70); EOSINOPHILS % (AUTO) 1.7 % (0.0-8.0); HEMATOCRIT 22.3 % (42-54); IMMATURE GRANULOCYTE ABSOLUTE 0.04 K/uL (0-1); LYMPHOCYTES # (AUTO) 1.3 K/uL (1.0-4.8); LYMPHOCYTES % (AUTO) 21.3 % (21.0-51.0); MEAN CORPUSCULAR HEMOGLOBIN 22.8 pg (27.0-33.0); MEAN CORPUSCULAR VOLUME 75.9 fL (79-99); NEUTROPHILS # (AUTO) 3.7 K/uL (1.8-7.7); NEUTROPHILS % (AUTO) 59.4 % (40.0-77.0); PLATELET COUNT (AUTO) 291 K/uL (130-400); RED BLOOD CELL COUNT(AUTO) 2.94 MIL/uL (4.50-6.20); WHITE BLOOD COUNT (AUTO) 6.3 K/uL (4.8-10.8)
[2023-11-15 05:10] LABS: INR 1.51 (0.85-1.15); PROTHROMBIN TIME 17.1 SEC (9.6-11.6)
[2023-11-15 05:12] LABS: PARTIAL THROMBOPLASTIN TIME 49.2 SEC (26.3-35.5)
[2023-11-15 05:19] LABS: ALBUMIN 2.2 g/dL (3.5-5.0); BILIRUBIN,TOTAL 0.2 mg/dL (0.2-1.0); CREATININE 1.6 mg/dL (0.5-1.5); MAGNESIUM 1.8 mg/dL (1.80-2.40); POTASSIUM 3.8 mmol/L (3.5-5.1); TOTAL PROTEIN, SERUM 5.7 g/dL (6.0-8.3)
[2023-11-15 05:30] LABS: WBC MORPHOLOGY CONSISTENT W/DIFF
[2023-11-15] MEDS: PANTOPRAZOLE 40MG INJ 80 MG in 0.9%NACL 100ML 100 ML IV SCH (09:26)
[2023-11-15 09:54] LABS: BASOPHILS # (AUTO) 0.05 K/uL (0.00-0.20); BASOPHILS % (AUTO) 0.8 % (0.0-5.0); EOSINOPHILS # (AUTO) 0.07 K/uL (0.00-0.70); EOSINOPHILS % (AUTO) 1.1 % (0.0-8.0); HEMATOCRIT 27.1 % (42-54); IMMATURE GRANULOCYTE ABSOLUTE 0.04 K/uL (0-1); LYMPHOCYTES # (AUTO) 0.9 K/uL (1.0-4.8); LYMPHOCYTES % (AUTO) 13.6 % (21.0-51.0); MEAN CORPUSCULAR HEMOGLOBIN 23.7 pg (27.0-33.0); MEAN CORPUSCULAR HGB CONC 29.9 g/dL (32.0-36.0); MEAN CORPUSCULAR VOLUME 79.2 fL (79-99); MONOCYTES # (AUTO) 1.1 K/uL (0.1-1.0); MONOCYTES % (AUTO) 17.2 % (3.0-13.0); NEUTROPHILS # (AUTO) 4.2 K/uL (1.8-7.7); NEUTROPHILS % (AUTO) 66.7 % (40.0-77.0); PLATELET COUNT (AUTO) 264 K/uL (130-400); RED BLOOD CELL COUNT(AUTO) 3.42 MIL/uL (4.50-6.20); WHITE BLOOD COUNT (AUTO) 6.3 K/uL (4.8-10.8)
[2023-11-15] MEDS ORDERED: COMPOUND IV REFRIGERATED 1 EACH IVSOLN MISC PRN (11:30)
[2023-11-15] MEDS ORDERED: SUCCINYLCHOLINE CHLORIDE 20 MG/ML 10 ML VIAL ONE (11:39)
[2023-11-15] MEDS ORDERED: CHLORDIAZEPOXIDE HCL 25 MG CAP PO PRN (13:00)
[2023-11-15] MEDS ORDERED: PHARMACY COMMUNICATION MISC PRN (13:00)
[2023-11-15] MEDS ORDERED: LORAZEPAM 2 MG/ML 1 ML VIAL IVP PRN (13:00)
[2023-11-15] MEDS ORDERED: THIAMINE HCL 100 MG, FOLIC ACID 1 MG, M.V.I. IV [ADULT] 10 ML in 0.9%NACL 1000ML 1,000 ML IV SCH (13:00)
[2023-11-15] MEDS ORDERED: LIDOCAINE PF 100MG/5ML (2%) SYRINGE 5ML ONE (13:25)
[2023-11-15] MEDS ORDERED: PROPOFOL 10 MG/ML 20ML VIAL IV ONE (13:25)
[2023-11-15] MEDS ORDERED: MIDAZOLAM HCL 1 MG/ML 2ML VIAL ONE (13:28)
[2023-11-15] MEDS ORDERED: FENTANYL CITRATE PF 50 MCG/1 ML 2ML VIAL ONE (13:28)
[2023-11-15] MEDS ORDERED: PANTOPRAZOLE 40 MG/VIAL IVP SCH (21:00)
[2023-11-16] MEDS ORDERED: LOSARTAN 50 MG TABLET PO SCH (09:00)
== END 2023-11-15 16:00 | disposition left against medical advice (07) | DRG 369 ==
LOC: EDH 12:01 → EDHIP 12:02 → UNDOADMIN 12:03 → EDHIP 17:06 → UNDOADMIN 17:06 → EDHIP 19:50 → 3DH 19:50
PROVIDERS: ADMIT Internal Medicine; ATTEND Internal Medicine
PROC: 0DB58ZX Excision of Esophagus, Via Natural or Artificial Opening Endoscopic, Diagnostic (ICD-10-PCS; principal; 2023-11-15)
PROC: 0DB68ZX Excision of Stomach, Via Natural or Artificial Opening Endoscopic, Diagnostic (ICD-10-PCS; 2023-11-15)
PROC: 30233N1 Transfusion of Nonautologous Red Blood Cells into Peripheral Vein, Percutaneous Approach (ICD-10-PCS; 2023-11-15)
DX: K21.01 Gastro-esophageal reflux disease with esophagitis, with bleeding (principal); D62 Acute posthemorrhagic anemia; N17.9 Acute kidney failure, unspecified; F10.10 Alcohol abuse, uncomplicated; E16.2 Hypoglycemia, unspecified; E87.6 Hypokalemia; I10 Essential (primary) hypertension; K31.89 Other diseases of stomach and duodenum
CPT/HCPCS: 36415; 43239; 71045; 74176; 80053; 80305; 81001; 82948; 83690; 83735; 84145; 85025; 85027; 85610; 85651; 85730; 86850; 86900; 86901; 86923; C9113; G0378; J0330; J0696; J2001; J2250; J2270; J2405; J2704; J3010; J3411; J3490; J7030; P9016; A4215; A4216; A4222; A4223; A4620; A7002

== ENCOUNTER 2023-11-20 19:29 | Emergency (ER) | payer OTHER ==
[~2023-11-20] VITALS: Ht 177.8 cm; Wt 76.2 kg
[~2023-11-20 19:29] MED LIST changes: -CEPH500B PO
[2023-11-20 19:37] VITALS: BP 128/82; PULSE 77; RESP 18; O2SAT 100
[2023-11-20 20:20] LABS: BASOPHILS % (AUTO) 1.7 % (0.0-5.0); EOSINOPHILS # (AUTO) 0.04 K/uL (0.00-0.70); EOSINOPHILS % (AUTO) 0.7 % (0.0-8.0); IMMATURE GRANULOCYTE ABSOLUTE 0.03 K/uL (0-1); LYMPHOCYTES # (AUTO) 2.2 K/uL (1.0-4.8); LYMPHOCYTES % (AUTO) 37.7 % (21.0-51.0); MEAN CORPUSCULAR HEMOGLOBIN 23.1 pg (27.0-33.0); MEAN CORPUSCULAR HGB CONC 30.6 g/dL (32.0-36.0); MEAN CORPUSCULAR VOLUME 75.4 fL (79-99); MONOCYTES # (AUTO) 0.8 K/uL (0.1-1.0); MONOCYTES % (AUTO) 13.7 % (3.0-13.0); NEUTROPHILS # (AUTO) 2.7 K/uL (1.8-7.7); NEUTROPHILS % (AUTO) 45.7 % (40.0-77.0); PLATELET COUNT (AUTO) 365 K/uL (130-400); RED BLOOD CELL COUNT(AUTO) 4.11 MIL/uL (4.50-6.20); RED CELL DISTRIBUTION WIDTH 18.9 % (11.0-15.5); WHITE BLOOD COUNT (AUTO) 5.8 K/uL (4.8-10.8)
[2023-11-20] MEDS ORDERED: MAG/ALUM/SIMETH 30 ML UDCUP PO ONE (20:30)
[2023-11-20] MEDS ORDERED: HALOPERIDOL INJ 5 MG/ML VIAL IV SCH (20:30)
[2023-11-20 20:47] LABS: ALBUMIN 2.5 g/dL (3.5-5.0); BILIRUBIN,TOTAL 0.2 mg/dL (0.2-1.0); CREATININE 1.3 mg/dL (0.5-1.5); TOTAL PROTEIN, SERUM 6.6 g/dL (6.0-8.3)
[2023-11-20] MEDS ORDERED: POTASSIUM BICARB/CIT AC 25 MEQ TABLET.EFF PO ONE (21:30)
[2023-11-20] MEDS ORDERED: OMEP40CA21 PO (21:31)
[2023-11-20] MEDS ORDERED: ONDANSETRON 4MG INJ ONE (23:50)
[2023-11-21] MEDS ORDERED: ONDANSETRON 4MG INJ IVP ONE
== END 2023-11-21 00:16 | disposition home or self-care (01) ==
LOC: EDH 19:29
DX: F10.129 Alcohol abuse with intoxication, unspecified (principal); E87.6 Hypokalemia; D64.9 Anemia, unspecified; I10 Essential (primary) hypertension; Z79.899 Other long term (current) drug therapy; Z98.890 Other specified postprocedural states
CPT/HCPCS: 99284; 96374; 71045; 84484; 80053; 85025; 83605 ×2; 36415; 96375; J1630; J2405

== ENCOUNTER 2023-11-21 01:08 | Inpatient (IN) | payer OTHER ==
[2023-11-21] VITALS (8 sets, daily range): BP systolic 154–179; BP diastolic 94–114; PULSE 66–95; RESP 16–20; O2SAT 97–99
[~2023-11-21] VITALS: Ht 177.8 cm; Wt 74.4 kg
[~2023-11-21 01:08] MED LIST changes: +OMEP40CA21 PO
[2023-11-21] MEDS ORDERED: ONDANSETRON 4MG INJ IVP ONE (02:00)
[2023-11-21] MEDS ORDERED: PANTOPRAZOLE 40 MG/VIAL IVP ONE (02:00)
[2023-11-21 02:14] LABS: BASOPHILS # (AUTO) 0.11 K/uL (0.00-0.20); BASOPHILS % (AUTO) 1.5 % (0.0-5.0); EOSINOPHILS # (AUTO) 0.04 K/uL (0.00-0.70); EOSINOPHILS % (AUTO) 0.5 % (0.0-8.0); HEMATOCRIT 29.5 % (42-54); IMMATURE GRANULOCYTE ABSOLUTE 0.03 K/uL (0-1); LYMPHOCYTES # (AUTO) 2.1 K/uL (1.0-4.8); LYMPHOCYTES % (AUTO) 28.2 % (21.0-51.0); MEAN CORPUSCULAR HEMOGLOBIN 22.8 pg (27.0-33.0); MEAN CORPUSCULAR HGB CONC 30.8 g/dL (32.0-36.0); MEAN CORPUSCULAR VOLUME 73.9 fL (79-99); MONOCYTES # (AUTO) 1.2 K/uL (0.1-1.0); MONOCYTES % (AUTO) 16.3 % (3.0-13.0); NEUTROPHILS # (AUTO) 3.9 K/uL (1.8-7.7); NEUTROPHILS % (AUTO) 53.1 % (40.0-77.0); PLATELET COUNT (AUTO) 326 K/uL (130-400); RED BLOOD CELL COUNT(AUTO) 3.99 MIL/uL (4.50-6.20); WHITE BLOOD COUNT (AUTO) 7.3 K/uL (4.8-10.8)
[2023-11-21 02:26] LABS: ALBUMIN 2.5 g/dL (3.5-5.0); BILIRUBIN,TOTAL 0.2 mg/dL (0.2-1.0); CREATININE 1.3 mg/dL (0.5-1.5); POTASSIUM 3.1 mmol/L (3.5-5.1); TOTAL PROTEIN, SERUM 6.4 g/dL (6.0-8.3)
[2023-11-21] MEDS ORDERED: ACETAMINOPHEN 325 MG TAB PO PRN ×2 (02:30)
[2023-11-21] MEDS ORDERED: [UNRECOGNIZED DRUG - OTHER] IV PRN (02:30)
[2023-11-21] MEDS ORDERED: OCTREOTIDE ACETATE 100 MCG/ML AMP IV ONE (02:30)
[2023-11-21] MEDS ORDERED: OCTREOTIDE ACETATE 1,250 MCG in 0.9% NACL 250ML 250 ML IV PRN (02:30)
[2023-11-21] MEDS ORDERED: POTASSIUM CHLORIDE 10% ELIXIR 20 MEQ/15 ML UDCUP PO PRN (02:30)
[2023-11-21] MEDS ORDERED: OCTREOTIDE ACETATE IV PRN (02:30)
[2023-11-21] MEDS ORDERED: THIAMINE HCL 100 MG, FOLIC ACID 1 MG, M.V.I. IV [ADULT] 10 ML in 0.9%NACL 1000ML 1,000 ML IV SCH ×2 (02:30→06:00)
[2023-11-21] MEDS ORDERED: OCTREOTIDE ACETATE 1,250 MCG in 0.9% NACL 250ML 250 ML IV SCH (02:30)
[2023-11-21] MEDS ORDERED: PHARMACY COMMUNICATION MISC PRN (02:30)
[2023-11-21] MEDS ORDERED: LORAZEPAM 2 MG/ML 1 ML VIAL IVP PRN (02:30)
[2023-11-21] MEDS: CHLORDIAZEPOXIDE HCL 25 MG CAP PO SCH ×3 (02:36→17:04)
[2023-11-21 02:42] LABS: MAGNESIUM 1.8 mg/dL (1.80-2.40); PHOSPHORUS 4.1 mg/dL (2.5-4.9)
[2023-11-21 02:43] LABS: PROTHROMBIN TIME 11.6 SEC (9.6-11.6)
[2023-11-21 02:44] LABS: PARTIAL THROMBOPLASTIN TIME 23.1 SEC (26.3-35.5)
[2023-11-21 02:47] LABS: RETICULOCYTE % (AUTO) 1.25 % (0.42-2.23)
[2023-11-21 03:01] LABS: % IRON SATURATION 4.1 % (30-44)
[2023-11-21] MEDS ORDERED: IOHEXOL 350 MG/ML 100ML INFUS..BTL IV ONE (03:03)
[2023-11-21] MEDS: MAGNESIUM 2GM PREMIX 50ML 50 ML IV PRN (04:09)
[2023-11-21] MEDS: KCL 20 MEQ ERTAB PO PRN ×2 (04:09→09:45)
[2023-11-21] MEDS: POTASSIUM CHLORIDE 20MEQ/100ML 100 ML IV PRN ×2 (06:07→08:20)
[2023-11-21] MEDS ORDERED: M.V.I. IV [ADULT] 10 ML, FOLIC ACID 1 MG, THIAMINE HCL 100 MG in 0.9%NACL 1000ML 1,000 ML IV SCH (06:30)
[2023-11-21 06:34] LABS: HEMATOCRIT 28.7 % (42-54)
[2023-11-21] MEDS: ONDANSETRON 4MG INJ IV PRN ×2 (08:13→22:23)
[2023-11-21] MEDS ORDERED: PANTOPRAZOLE 40 MG/VIAL IVP SCH (09:00)
[2023-11-21] MEDS: MORPHINE 2 MG SYG IVP PRN ×4 (09:45→22:24)
[2023-11-21] MEDS: SUCRALFATE 1 GM TABLET PO SCH ×3 (11:26→22:23)
[2023-11-21 16:17] LABS: HEMATOCRIT 26.5 % (42-54)
[2023-11-21] MEDS: PANTOPRAZOLE 40 MG TAB DR PO SCH (20:01)
[2023-11-21] MEDS: HYDRALAZINE 20MG/ML VIAL IV PRN (21:29)
[2023-11-21 22:48] LABS: HEMATOCRIT 26.5 % (42-54)
[2023-11-22] VITALS (11 sets, daily range): BP systolic 131–161; BP diastolic 93–105; PULSE 66–103; RESP 16–20; O2SAT 95–98
[2023-11-22] MEDS: CHLORDIAZEPOXIDE HCL 25 MG CAP PO SCH ×3 (02:15→18:04)
[2023-11-22] MEDS: MORPHINE 2 MG SYG IVP PRN ×6 (02:31→22:04)
[2023-11-22] MEDS: SUCRALFATE 1 GM TABLET PO SCH ×4 (04:35→22:02)
[2023-11-22 06:19] LABS: BASOPHILS # (AUTO) 0.08 K/uL (0.00-0.20); BASOPHILS % (AUTO) 1.4 % (0.0-5.0); EOSINOPHILS # (AUTO) 0.07 K/uL (0.00-0.70); EOSINOPHILS % (AUTO) 1.2 % (0.0-8.0); HEMATOCRIT 25.6 % (42-54); IMMATURE GRANULOCYTE ABSOLUTE 0.03 K/uL (0-1); LYMPHOCYTES # (AUTO) 1.3 K/uL (1.0-4.8); LYMPHOCYTES % (AUTO) 22.5 % (21.0-51.0); MEAN CORPUSCULAR HEMOGLOBIN 23.7 pg (27.0-33.0); MEAN CORPUSCULAR HGB CONC 30.9 g/dL (32.0-36.0); MEAN CORPUSCULAR VOLUME 76.9 fL (79-99); MONOCYTES # (AUTO) 0.8 K/uL (0.1-1.0); MONOCYTES % (AUTO) 14.1 % (3.0-13.0); NEUTROPHILS # (AUTO) 3.5 K/uL (1.8-7.7); NEUTROPHILS % (AUTO) 60.3 % (40.0-77.0); PLATELET COUNT (AUTO) 311 K/uL (130-400); RED BLOOD CELL COUNT(AUTO) 3.33 MIL/uL (4.50-6.20); RED CELL DISTRIBUTION WIDTH 19.8 % (11.0-15.5); WHITE BLOOD COUNT (AUTO) 5.8 K/uL (4.8-10.8)
[2023-11-22] MEDS: ONDANSETRON 4MG INJ IV PRN ×2 (06:32→19:07)
[2023-11-22 06:36] LABS: ALBUMIN 2.2 g/dL (3.5-5.0); BILIRUBIN,DIRECT 0.1 mg/dL (0.0-0.3); BILIRUBIN,TOTAL 0.5 mg/dL (0.2-1.0); CREATININE 1.6 mg/dL (0.5-1.5); MAGNESIUM 1.9 mg/dL (1.80-2.40); POTASSIUM 4.8 mmol/L (3.5-5.1); TOTAL PROTEIN, SERUM 5.6 g/dL (6.0-8.3)
[2023-11-22] MEDS: MAGNESIUM 2GM PREMIX 50ML 50 ML IV PRN (06:41)
[2023-11-22] MEDS: PANTOPRAZOLE 40 MG TAB DR PO SCH ×2 (08:15→21:54)
[2023-11-22] MEDS: M.V.I. IV [ADULT] 10 ML, FOLIC ACID 1 MG, THIAMINE HCL 100 MG in 0.9%NACL 1000ML 1,000 ML IV SCH (09:09)
[2023-11-22 12:24] LABS: HEMATOCRIT 28.5 % (42-54)
[2023-11-22] MEDS: HYDRALAZINE 20MG/ML VIAL IV PRN (16:00)
[2023-11-22 18:08] LABS: HEMATOCRIT 28.2 % (42-54)
[2023-11-23] VITALS (7 sets, daily range): BP systolic 133–146; BP diastolic 90–100; PULSE 76–91; RESP 18–20; O2SAT 98
[2023-11-23] MEDS: ONDANSETRON 4MG INJ IV PRN (01:39)
[2023-11-23] MEDS: CHLORDIAZEPOXIDE HCL 25 MG CAP PO SCH ×3 (01:39→17:58)
[2023-11-23] MEDS: MORPHINE 2 MG SYG IVP PRN ×2 (03:01→06:54)
[2023-11-23] MEDS: SUCRALFATE 1 GM TABLET PO SCH ×4 (05:12→23:07)
[2023-11-23 06:04] LABS: BASOPHILS # (AUTO) 0.07 K/uL (0.00-0.20); BASOPHILS % (AUTO) 0.8 % (0.0-5.0); EOSINOPHILS # (AUTO) 0.05 K/uL (0.00-0.70); EOSINOPHILS % (AUTO) 0.6 % (0.0-8.0); IMMATURE GRANULOCYTE ABSOLUTE 0.06 K/uL (0-1); LYMPHOCYTES # (AUTO) 0.9 K/uL (1.0-4.8); MEAN CORPUSCULAR HEMOGLOBIN 22.8 pg (27.0-33.0); MEAN CORPUSCULAR VOLUME 76.1 fL (79-99); MONOCYTES # (AUTO) 0.9 K/uL (0.1-1.0); NEUTROPHILS % (AUTO) 77.9 % (40.0-77.0); PLATELET COUNT (AUTO) 332 K/uL (130-400); RED BLOOD CELL COUNT(AUTO) 3.68 MIL/uL (4.50-6.20); RED CELL DISTRIBUTION WIDTH 19.9 % (11.0-15.5)
[2023-11-23 06:39] LABS: ALBUMIN 2.5 g/dL (3.5-5.0); BILIRUBIN,TOTAL 0.4 mg/dL (0.2-1.0); CREATININE 1.8 mg/dL (0.5-1.5); POTASSIUM 4.1 mmol/L (3.5-5.1); TOTAL PROTEIN, SERUM 6.3 g/dL (6.0-8.3)
[2023-11-23] MEDS ORDERED: SUCR1TAB PO (08:25)
[2023-11-23] MEDS ORDERED: AMLO5TAB4 PO (08:25)
[2023-11-23] MEDS ORDERED: PANT40TA PO (08:25)
[2023-11-23] MEDS: PANTOPRAZOLE 40 MG TAB DR PO SCH ×2 (09:05→20:17)
[2023-11-23] MEDS: AMLODIPINE 5 MG TAB PO SCH (09:05)
[2023-11-23] MEDS: 0.9% NACL 500ML IV.SOLN 500 ML IV SCH ×3 (09:57→20:22)
[2023-11-23] MEDS ORDERED: PREDNISONE 20 MG TABLET PO ONE (11:30)
[2023-11-23] MEDS: HYDROCODONE/ACETAMINOPHEN 5/325 MG TAB PO PRN ×3 (12:05→20:18)
[2023-11-23] MEDS: M.V.I. IV [ADULT] 10 ML, FOLIC ACID 1 MG, THIAMINE HCL 100 MG in 0.9%NACL 1000ML 1,000 ML IV SCH (12:10)
[2023-11-24] VITALS: BP 148/95; PULSE 84; RESP 20
[2023-11-24] MEDS: ONDANSETRON 4MG INJ IV PRN (00:47)
[2023-11-24] MEDS: HYDROCODONE/ACETAMINOPHEN 5/325 MG TAB PO PRN ×3 (00:47→09:05)
[2023-11-24 01:34] LABS: AMPHET/METH SCREEN,URINE NEGATIVE (NEGATIVE); BARBITURATE SCREEN, URINE NEGATIVE (NEGATIVE); BENZODIAZEPINES SCREEN,URINE POSITIVE (NEGATIVE); CANNABINOID SCREEN,URINE NEGATIVE (NEGATIVE); COCAINE SCREEN,URINE NEGATIVE (NEGATIVE); OPIATE SCREEN,URINE POSITIVE (NEGATIVE); PHENCYCLIDINE SCREEN,URINE NEGATIVE (NEGATIVE)
[2023-11-24] MEDS: CHLORDIAZEPOXIDE HCL 25 MG CAP PO SCH ×2 (02:29→10:30)
[2023-11-24 04:00] VITALS: BP 135/99; PULSE 82; RESP 18
[2023-11-24] MEDS: 0.9% NACL 500ML IV.SOLN 500 ML IV SCH (04:30)
[2023-11-24] MEDS: SUCRALFATE 1 GM TABLET PO SCH ×2 (04:57→12:42)
[2023-11-24 05:25] LABS: BASOPHILS # (AUTO) 0.05 K/uL (0.00-0.20); BASOPHILS % (AUTO) 0.4 % (0.0-5.0); EOSINOPHILS # (AUTO) 0.01 K/uL (0.00-0.70); EOSINOPHILS % (AUTO) 0.1 % (0.0-8.0); IMMATURE GRANULOCYTE ABSOLUTE 0.09 K/uL (0-1); LYMPHOCYTES % (AUTO) 7.4 % (21.0-51.0); MEAN CORPUSCULAR HEMOGLOBIN 23.1 pg (27.0-33.0); MEAN CORPUSCULAR HGB CONC 29.6 g/dL (32.0-36.0); MONOCYTES # (AUTO) 1.2 K/uL (0.1-1.0); MONOCYTES % (AUTO) 9.4 % (3.0-13.0); NEUTROPHILS # (AUTO) 10.7 K/uL (1.8-7.7); PLATELET COUNT (AUTO) 300 K/uL (130-400); RED BLOOD CELL COUNT(AUTO) 3.46 MIL/uL (4.50-6.20); RED CELL DISTRIBUTION WIDTH 19.9 % (11.0-15.5)
[2023-11-24 05:53] LABS: ALBUMIN 2.5 g/dL (3.5-5.0); BILIRUBIN,TOTAL 0.3 mg/dL (0.2-1.0); CREATININE 1.7 mg/dL (0.5-1.5); POTASSIUM 4.7 mmol/L (3.5-5.1); TOTAL PROTEIN, SERUM 6.4 g/dL (6.0-8.3)
[2023-11-24 08:00] VITALS: BP 141/95; PULSE 77; RESP 18
[2023-11-24 08:03] VITALS: O2SAT 99
[2023-11-24] MEDS: AMLODIPINE 5 MG TAB PO SCH (09:05)
[2023-11-24] MEDS: PANTOPRAZOLE 40 MG TAB DR PO SCH (09:05)
[2023-11-24 12:00] VITALS: BP 153/103; PULSE 66; RESP 20
== END 2023-11-24 13:55 | disposition home or self-care (01) | DRG 379 ==
LOC: EDH 01:08 → EDHIP 01:09 → 3CH 03:48
PROVIDERS: ADMIT Internal Medicine; ATTEND Internal Medicine
DX: K29.21 Alcoholic gastritis with bleeding (principal); F10.229 Alcohol dependence with intoxication, unspecified; E87.6 Hypokalemia; D50.9 Iron deficiency anemia, unspecified; I10 Essential (primary) hypertension; F39 Unspecified mood [affective] disorder; F41.1 Generalized anxiety disorder; F43.20 Adjustment disorder, unspecified; K20.90 Esophagitis, unspecified without bleeding; E11.9 Type 2 diabetes mellitus without complications; Z51.5 Encounter for palliative care; Z75.3 Unavailability and inaccessibility of health-care facilities; Z79.899 Other long term (current) drug therapy; Z86.718 Personal history of other venous thrombosis and embolism; Z87.11 Personal history of peptic ulcer disease; Z59.7 Insufficient social insurance and welfare support; Z91.199 Patient's noncompliance with other medical treatment and regimen due to unspecified reason
CPT/HCPCS: 36415; 74177; 80048; 80053; 80076; 80305; 83540; 83550; 83735; 83880; 84100; 84132; 84484; 84550; 85014; 85018; 85025; 85045; 85610; 85730; 86850; 86900; 86901; 93005; 99291; C9113; G0378; J0360; J2270; J2354; J2405; J3411; J3475; J3480; J3490; J7030; J7040; Q9967

== ENCOUNTER 2024-03-12 10:41 | Emergency (ER) | payer OTHER ==
[~2024-03-12] VITALS: Ht 180.3 cm; Wt 83.9 kg
[~2024-03-12 10:41] MED LIST changes: +AMLO5TAB4 PO; -LOSA-418 PO; -OMEP40CA21 PO; +PANT40TA PO; +SUCR1TAB PO
[2024-03-12 10:43] VITALS: BP 139/87; PULSE 85; RESP 18
== END 2024-03-12 12:09 | disposition home or self-care (01) ==
LOC: EDH 10:41
DX: S01.511D Laceration without foreign body of lip, subsequent encounter (principal); I10 Essential (primary) hypertension; Z79.899 Other long term (current) drug therapy; Z98.890 Other specified postprocedural states; Z88.8 Allergy status to other drugs, medicaments and biological substances; X58.XXXD Exposure to other specified factors, subsequent encounter
CPT/HCPCS: 99281

== ENCOUNTER 2024-03-15 08:18 | Inpatient (IN) | payer OTHER ==
[~2024-03-15] VITALS: Ht 180.3 cm; Wt 72.1 kg
[2024-03-15] MEDS: ONDANSETRON 4MG INJ IVP ONE (08:54)
[2024-03-15] MEDS: LABETALOL 20MG VIAL IV ONE (08:54)
[2024-03-15] MEDS ORDERED: OCTREOTIDE ACETATE 1,000 MCG in DEXTROSE 5%-WATER 195 ML IV SCH (09:00)
[2024-03-15] MEDS: PANTOPRAZOLE 40MG INJ 80 MG in 0.9%NACL 100ML 100 ML IV SCH (09:00)
[2024-03-15 09:10] LABS: BASOPHILS # (AUTO) 0.08 K/uL (0.00-0.20); BASOPHILS % (AUTO) 0.8 % (0.0-5.0); HEMATOCRIT 29.2 % (42-54); IMMATURE GRANULOCYTE ABSOLUTE 0.06 K/uL (0-1); LYMPHOCYTES # (AUTO) 0.7 K/uL (1.0-4.8); LYMPHOCYTES % (AUTO) 7.1 % (21.0-51.0); MEAN CORPUSCULAR HEMOGLOBIN 22.2 pg (27.0-33.0); MEAN CORPUSCULAR HGB CONC 30.8 g/dL (32.0-36.0); MEAN CORPUSCULAR VOLUME 72.1 fL (79-99); MONOCYTES # (AUTO) 1.5 K/uL (0.1-1.0); MONOCYTES % (AUTO) 14.5 % (3.0-13.0); PLATELET COUNT (AUTO) 266 K/uL (130-400); RED BLOOD CELL COUNT(AUTO) 4.05 MIL/uL (4.50-6.20); RED CELL DISTRIBUTION WIDTH 18.1 % (11.0-15.5); WHITE BLOOD COUNT (AUTO) 10.4 K/uL (4.8-10.8)
[2024-03-15] MEDS: PANTOPRAZOLE 40 MG/VIAL IVP ONE (09:17)
[2024-03-15] MEDS: OCTREOTIDE ACETATE 100 MCG/ML AMP IVP ONE (09:17)
[2024-03-15] MEDS: MORPHINE 4 MG SYG IVP ONE ×2 (09:17→11:11)
[2024-03-15 09:21] LABS: CREATININE 1.6 mg/dL (0.5-1.3); INR 0.99 (0.85-1.15); POTASSIUM 3.8 mmol/L (3.5-5.1); PROTHROMBIN TIME 11.7 SEC (9.6-11.6)
[2024-03-15 09:22] LABS: PARTIAL THROMBOPLASTIN TIME 21.9 SEC (26.3-35.5)
[2024-03-15 09:26] LABS: ALBUMIN 2.5 g/dL (3.5-5.0); BILIRUBIN,TOTAL 0.5 mg/dL (0.2-1.0); TOTAL PROTEIN, SERUM 6.4 g/dL (6.0-8.3)
[2024-03-15] MEDS: OCTREOTIDE 1,250 MCG /NS 250ML (DRIP) IV SCH (09:46)
[2024-03-15] MEDS ORDERED: LORAZEPAM 2 MG/ML 1 ML VIAL IVP PRN (12:00)
[2024-03-15] MEDS ORDERED: PHARMACY COMMUNICATION MISC PRN (12:00)
[2024-03-15] MEDS ORDERED: CHLORDIAZEPOXIDE HCL 25 MG CAP PO PRN (12:00)
[2024-03-15] MEDS ORDERED: ACETAMINOPHEN 500 MG TABLET PO PRN (12:00)
[2024-03-15 12:22] LABS: HEMATOCRIT 28.3 % (42-54)
[2024-03-15] MEDS ORDERED: HYDRALAZINE 20MG/ML VIAL IV PRN (12:30)
[2024-03-15] MEDS: 0.9%NACL 1000ML 1,000 ML IV SCH (12:56)
[2024-03-15] MEDS ORDERED: 0.9%NACL 50ML IV SCH (13:05)
[2024-03-15] MEDS: AMLODIPINE 5 MG TAB PO ONE (13:24)
[2024-03-15] MEDS: ZOSYN 3.375GM +NS 50ML IVPB SCH (13:24)
[2024-03-15 13:45] VITALS: BP 155/114; PULSE 69; RESP 20
[2024-03-15] MEDS: SUCRALFATE 1 GM TABLET PO SCH (14:39)
[2024-03-15 14:53] VITALS: O2SAT 97
[2024-03-15 15:50] LABS: APPEARANCE,URINE CLEAR (CLEAR); BILIRUBIN,URINE NEGATIVE (NEGATIVE); COLOR,URINE LIGHT-YELLOW (YELLOW); GLUCOSE, URINE (UA) NEGATIVE (NEGATIVE); KETONES,URINE NEGATIVE (NEGATIVE); LEUKOCYTE ESTERASE ,URINE NEGATIVE Leu/uL (NEGATIVE); NITRATE,URINE NEGATIVE (NEGATIVE); OCCULT BLOOD,URINE NEGATIVE (NEGATIVE); PH,URINE 7.5 (5.0-8.0); PROTEIN,URINE 30 mg/dL (NEGATIVE); UROBILINOGEN,URINE 0.2 mg/dL (0.2-1.0)
[2024-03-15 15:51] LABS: ADD UA MICROSCOPIC YES
[2024-03-15 15:53] LABS: CREATININE,URINE RANDOM 82.11 mg/dL (30-135); RBC,URINE 0-1 /HPF (0-1); WBC,URINE 0-1 /HPF (0-1)
[2024-03-15 16:00] VITALS: BP 156/109; PULSE 73; RESP 20
[2024-03-15] MEDS: MORPHINE 2 MG SYG IVP PRN (17:00)
[2024-03-15] MEDS: ONDANSETRON 4MG INJ IVP PRN (17:08)
[2024-03-15 19:49] VITALS: BP 153/98; PULSE 62; RESP 18
[2024-03-15 20:00] VITALS: O2SAT 97
[2024-03-15 21:11] LABS: HEMATOCRIT 25.7 % (42-54)
[2024-03-15 23:14] LABS: AMPHET/METH SCREEN,URINE NEGATIVE (NEGATIVE); BARBITURATE SCREEN, URINE NEGATIVE (NEGATIVE); BENZODIAZEPINES SCREEN,URINE NEGATIVE (NEGATIVE); CANNABINOID SCREEN,URINE NEGATIVE (NEGATIVE); COCAINE SCREEN,URINE POSITIVE (NEGATIVE); OPIATE SCREEN,URINE POSITIVE (NEGATIVE); PHENCYCLIDINE SCREEN,URINE NEGATIVE (NEGATIVE)
[2024-03-15 23:19] VITALS: BP 142/97; PULSE 66; RESP 18
[2024-03-16] VITALS (8 sets, daily range): BP systolic 146–173; BP diastolic 93–109; PULSE 52–68; RESP 14–20; O2SAT 97
[2024-03-16 03:47] LABS: BASOPHILS # (AUTO) 0.06 K/uL (0.00-0.20); EOSINOPHILS # (AUTO) 0.03 K/uL (0.00-0.70); EOSINOPHILS % (AUTO) 0.5 % (0.0-8.0); HEMATOCRIT 25.3 % (42-54); IMMATURE GRANULOCYTE ABSOLUTE 0.03 K/uL (0-1); LYMPHOCYTES # (AUTO) 1.2 K/uL (1.0-4.8); LYMPHOCYTES % (AUTO) 20.7 % (21.0-51.0); MEAN CORPUSCULAR HEMOGLOBIN 22.6 pg (27.0-33.0); MEAN CORPUSCULAR VOLUME 75.1 fL (79-99); MONOCYTES % (AUTO) 17.6 % (3.0-13.0); NEUTROPHILS # (AUTO) 3.5 K/uL (1.8-7.7); NEUTROPHILS % (AUTO) 59.7 % (40.0-77.0); PLATELET COUNT (AUTO) 211 K/uL (130-400); RED BLOOD CELL COUNT(AUTO) 3.37 MIL/uL (4.50-6.20); RED CELL DISTRIBUTION WIDTH 17.7 % (11.0-15.5); WHITE BLOOD COUNT (AUTO) 5.9 K/uL (4.8-10.8)
[2024-03-16 04:13] LABS: ALBUMIN 2.1 g/dL (3.5-5.0); BILIRUBIN,TOTAL 0.4 mg/dL (0.2-1.0); CREATININE 1.7 mg/dL (0.5-1.3); POTASSIUM 3.9 mmol/L (3.5-5.1); TOTAL PROTEIN, SERUM 5.5 g/dL (6.0-8.3)
[2024-03-16] MEDS ORDERED: PROPOFOL 10 MG/ML 20ML VIAL IV ONE ×2 (07:57)
[2024-03-16] MEDS: FOLIC ACID 5 MG/ML VIAL IV SCH ×2 (09:00→09:37)
[2024-03-16] MEDS ORDERED: AMLODIPINE 5 MG TAB PO SCH (09:00)
[2024-03-16] MEDS: THIAMINE HCL 100 MG/ML 2ML VIAL IVP SCH (09:37)
[2024-03-16] MEDS: AMLODIPINE 5 MG TAB PO SCH (09:37)
[2024-03-16 09:51] LABS: HEMATOCRIT 27.9 % (42-54)
[2024-03-16] MEDS: BENZOCAINE/MENTH/CETYLPYRD CL 1 EACH LOZENGE MM PRN (14:08)
[2024-03-16 15:33] LABS: HEMATOCRIT 25.4 % (42-54)
[2024-03-16] MEDS ORDERED: PANTOPRAZOLE 40MG INJ 80 MG in 0.9%NACL 100ML 100 ML IVP SCH (16:00)
[2024-03-16] MEDS ORDERED: OCTREOTIDE ACETATE 1,250 MCG in 0.9% NACL 250ML 250 ML IV SCH (16:00)
[2024-03-16] MEDS ORDERED: COMPOUND IV REFRIGERATED 1 EACH IVSOLN MISC PRN (16:30)
[2024-03-16] MEDS: PEG 3350/NA SULF,BICARB,CL/KCL 4000 ML SOLN PO ONE (18:09)
[2024-03-16] MEDS: PANTOPRAZOLE 40 MG/VIAL IVP SCH (21:58)
[2024-03-17] VITALS (15 sets, daily range): BP systolic 134–160; BP diastolic 89–114; PULSE 50–83; RESP 15–22; O2SAT 96
[2024-03-17 01:30] LABS: BASOPHILS # (AUTO) 0.05 K/uL (0.00-0.20); BASOPHILS % (AUTO) 0.7 % (0.0-5.0); EOSINOPHILS # (AUTO) 0.06 K/uL (0.00-0.70); EOSINOPHILS % (AUTO) 0.8 % (0.0-8.0); HEMATOCRIT 25.6 % (42-54); IMMATURE GRANULOCYTE ABSOLUTE 0.04 K/uL (0-1); LYMPHOCYTES # (AUTO) 1.1 K/uL (1.0-4.8); LYMPHOCYTES % (AUTO) 14.7 % (21.0-51.0); MEAN CORPUSCULAR HEMOGLOBIN 22.3 pg (27.0-33.0); MEAN CORPUSCULAR HGB CONC 30.5 g/dL (32.0-36.0); MEAN CORPUSCULAR VOLUME 73.4 fL (79-99); MONOCYTES % (AUTO) 13.9 % (3.0-13.0); NEUTROPHILS % (AUTO) 69.3 % (40.0-77.0); PLATELET COUNT (AUTO) 201 K/uL (130-400); RED BLOOD CELL COUNT(AUTO) 3.49 MIL/uL (4.50-6.20); RED CELL DISTRIBUTION WIDTH 17.7 % (11.0-15.5); WHITE BLOOD COUNT (AUTO) 7.1 K/uL (4.8-10.8)
[2024-03-17 01:47] LABS: ALBUMIN 2.2 g/dL (3.5-5.0); BILIRUBIN,TOTAL 0.4 mg/dL (0.2-1.0); CREATININE 1.5 mg/dL (0.5-1.3); POTASSIUM 3.9 mmol/L (3.5-5.1); TOTAL PROTEIN, SERUM 5.6 g/dL (6.0-8.3)
[2024-03-17 08:20] LABS: HEMATOCRIT 26.8 % (42-54)
[2024-03-17] MEDS: MORPHINE 2 MG SYG IVP PRN (11:19)
[2024-03-17] MEDS ORDERED: PROPOFOL 10 MG/ML 20ML VIAL IV ONE (12:24)
[2024-03-17] MEDS ORDERED: LIDOCAINE HCL 1% 20 ML VIAL ONE (12:24)
[2024-03-17] MEDS: PEG 3350/NA SULF,BICARB,CL/KCL 4000 ML SOLN PO ONE (14:50)
[2024-03-18] VITALS (19 sets, daily range): BP systolic 126–163; BP diastolic 84–105; PULSE 51–81; RESP 14–20; O2SAT 95–96
[2024-03-18 03:56] LABS: BASOPHILS # (AUTO) 0.04 K/uL (0.00-0.20); BASOPHILS % (AUTO) 0.6 % (0.0-5.0); EOSINOPHILS # (AUTO) 0.05 K/uL (0.00-0.70); EOSINOPHILS % (AUTO) 0.8 % (0.0-8.0); HEMATOCRIT 27.5 % (42-54); IMMATURE GRANULOCYTE ABSOLUTE 0.05 K/uL (0-1); LYMPHOCYTES # (AUTO) 1.1 K/uL (1.0-4.8); MEAN CORPUSCULAR HEMOGLOBIN 22.5 pg (27.0-33.0); MEAN CORPUSCULAR HGB CONC 30.2 g/dL (32.0-36.0); MEAN CORPUSCULAR VOLUME 74.5 fL (79-99); MONOCYTES # (AUTO) 0.8 K/uL (0.1-1.0); MONOCYTES % (AUTO) 13.1 % (3.0-13.0); NEUTROPHILS # (AUTO) 4.4 K/uL (1.8-7.7); NEUTROPHILS % (AUTO) 67.7 % (40.0-77.0); PLATELET COUNT (AUTO) 208 K/uL (130-400); RED BLOOD CELL COUNT(AUTO) 3.69 MIL/uL (4.50-6.20); RED CELL DISTRIBUTION WIDTH 17.4 % (11.0-15.5); WHITE BLOOD COUNT (AUTO) 6.4 K/uL (4.8-10.8)
[2024-03-18 04:25] LABS: ALBUMIN 2.2 g/dL (3.5-5.0); BILIRUBIN,TOTAL 1.2 mg/dL (0.2-1.0); CREATININE 1.4 mg/dL (0.5-1.3); MAGNESIUM 1.4 mg/dL (1.80-2.40); POTASSIUM 3.5 mmol/L (3.5-5.1); TOTAL PROTEIN, SERUM 5.8 g/dL (6.0-8.3)
[2024-03-18] MEDS ORDERED: POTASSIUM CHLORIDE 20MEQ/100ML 100 ML IV PRN (05:00)
[2024-03-18] MEDS: MAGNESIUM 2GM PREMIX 50ML 50 ML IV ONE (05:04)
[2024-03-18] MEDS: POTASSIUM CHLORIDE 10% ELIXIR 20 MEQ/15 ML UDCUP PO PRN (05:07)
[2024-03-18] MEDS: POTASSIUM CHLORIDE 20MEQ/100ML 0 ML IV ONE (05:08)
[2024-03-18] MEDS: MAGNESIUM 2GM PREMIX 50ML 50 ML IV PRN (05:09)
[2024-03-18] MEDS ORDERED: LIDOCAINE HCL 1% 20 ML VIAL ONE (11:45)
[2024-03-18] MEDS ORDERED: PROPOFOL 10 MG/ML 20ML VIAL IV ONE (11:45)
[2024-03-18] MEDS ORDERED: SIMETHICONE 40 MG/0.6 ML ML ONE (12:01)
[2024-03-18] MEDS: ONDANSETRON 4MG INJ ONE (12:30)
[2024-03-18 17:02] LABS: MAGNESIUM 1.7 mg/dL (1.80-2.40); POTASSIUM 3.3 mmol/L (3.5-5.1)
[2024-03-18] MEDS: MAGNESIUM 2GM PREMIX 50ML 50 ML IV SCH (17:09)
[2024-03-18] MEDS: KCL 20 MEQ ERTAB PO PRN (17:09)
[2024-03-18] MEDS: POTASSIUM CHLORIDE 20MEQ/100ML 100 ML IV ONE (17:12)
[2024-03-19] VITALS (8 sets, daily range): BP systolic 115–157; BP diastolic 73–96; PULSE 60–71; RESP 16–20; O2SAT 94–98
[2024-03-19 03:55] LABS: HEMATOCRIT 27.2 % (42-54); MEAN CORPUSCULAR HEMOGLOBIN 22.8 pg (27.0-33.0); MEAN CORPUSCULAR HGB CONC 31.3 g/dL (32.0-36.0); MEAN CORPUSCULAR VOLUME 72.9 fL (79-99); RED BLOOD CELL COUNT(AUTO) 3.73 MIL/uL (4.50-6.20); RED CELL DISTRIBUTION WIDTH 17.5 % (11.0-15.5); WHITE BLOOD COUNT (AUTO) 19.6 K/uL (4.8-10.8)
[2024-03-19 04:32] LABS: ALBUMIN 2.1 g/dL (3.5-5.0); BILIRUBIN,TOTAL 1.3 mg/dL (0.2-1.0); CREATININE 1.4 mg/dL (0.5-1.3); POTASSIUM 3.7 mmol/L (3.5-5.1); TOTAL PROTEIN, SERUM 5.7 g/dL (6.0-8.3)
[2024-03-20] VITALS (8 sets, daily range): BP systolic 138–153; BP diastolic 89–100; PULSE 60–76; RESP 16–19; O2SAT 97–100
[2024-03-20 05:05] LABS: HEMATOCRIT 26.2 % (42-54); MEAN CORPUSCULAR HEMOGLOBIN 22.3 pg (27.0-33.0); MEAN CORPUSCULAR HGB CONC 30.5 g/dL (32.0-36.0); MEAN CORPUSCULAR VOLUME 73.2 fL (79-99); RED BLOOD CELL COUNT(AUTO) 3.58 MIL/uL (4.50-6.20); RED CELL DISTRIBUTION WIDTH 17.5 % (11.0-15.5)
[2024-03-20 05:34] LABS: ALBUMIN 2.1 g/dL (3.5-5.0); BILIRUBIN,TOTAL 0.6 mg/dL (0.2-1.0); CREATININE 1.3 mg/dL (0.5-1.3); MAGNESIUM 1.6 mg/dL (1.80-2.40); TOTAL PROTEIN, SERUM 5.9 g/dL (6.0-8.3)
[2024-03-20] MEDS: PANTOPRAZOLE 40 MG TAB DR PO SCH (09:00)
[2024-03-20] MEDS ORDERED: FOLI0.4T6 PO (15:09)
[2024-03-20] MEDS ORDERED: THIA100T91 PO (15:09)
[2024-03-20] MEDS ORDERED: METR-172 PO (15:09)
[2024-03-20] MEDS ORDERED: CIPR-278 PO (15:09)
[2024-03-20] MEDS ORDERED: MAGNESIUM 2GM PREMIX 50ML 50 ML IV SCH (15:30)
[2024-03-21 00:06] VITALS: BP 132/84; PULSE 76; RESP 18
[2024-03-21 04:25] VITALS: BP 158/71; PULSE 71; RESP 17
[2024-03-21 08:00] VITALS: BP 146/92; PULSE 73; RESP 18; O2SAT 99
[2024-03-21 12:00] VITALS: BP 122/82; PULSE 78; RESP 18
[2024-03-21 16:00] VITALS: BP_SYST 124; BP_SYST 143; BP_DIAS 84; BP_DIAS 88; PULSE 18; PULSE 62; RESP 18
== END 2024-03-21 16:40 | disposition home or self-care (01) | DRG 377 ==
LOC: EDH 08:18 → EDHIP 11:54 → 2DH 12:56 → 4AH 03-19 16:10
PROVIDERS: ADMIT Internal Medicine; ATTEND Internal Medicine
PROC: 0DB58ZX Excision of Esophagus, Via Natural or Artificial Opening Endoscopic, Diagnostic (ICD-10-PCS; principal; 2024-03-16)
PROC: 0DJD8ZZ Inspection of Lower Intestinal Tract, Via Natural or Artificial Opening Endoscopic (ICD-10-PCS; 2024-03-17)
DX: K92.0 Hematemesis (principal); K20.91 Esophagitis, unspecified with bleeding; K35.80 Unspecified acute appendicitis; D62 Acute posthemorrhagic anemia; N17.9 Acute kidney failure, unspecified; K57.31 Diverticulosis of large intestine without perforation or abscess with bleeding; I85.00 Esophageal varices without bleeding; K63.5 Polyp of colon; N18.9 Chronic kidney disease, unspecified; I12.9 Hypertensive chronic kidney disease with stage 1 through stage 4 chronic kidney disease, or unspecified chronic kidney disease; D50.9 Iron deficiency anemia, unspecified; F10.10 Alcohol abuse, uncomplicated; Z91.199 Patient's noncompliance with other medical treatment and regimen due to unspecified reason; Z79.899 Other long term (current) drug therapy; Z86.718 Personal history of other venous thrombosis and embolism; Z93.1 Gastrostomy status
CPT/HCPCS: 36415; 43239; 45378; 45385; 71045; 74176; 76770; 80053; 80305; 81001; 82570; 82948; 83690; 83735; 84132; 84300; 85014; 85018; 85025; 85027; 85610; 85730; 86850; 86900; 86901; 86923; A4606; C9113; G0378; J2270; J2354; J2405; J2543; J2704; J3411; J3475; J3480; J3490; J7030; J7050; A4215; A4221; A4222; A4223; A4620; A4657; A4663; A7002

== ENCOUNTER 2024-03-30 15:27 | Emergency (ER) | payer OTHER ==
[~2024-03-30] VITALS: Ht 177.8 cm; Wt 77.1 kg
[~2024-03-30 15:27] MED LIST changes: +CIPR-278 PO; +FOLI0.4T6 PO; +METR-172 PO; +THIA100T91 PO
[2024-03-30] MEDS: ONDANSETRON 4MG INJ IVP ONE ×2 (16:22→20:20)
[2024-03-30] MEDS: 0.9%NACL 1000ML 1,000 ML IV ONE (16:22)
[2024-03-30 16:25] LABS: BASOPHILS # (AUTO) 0.13 K/uL (0.00-0.20); BASOPHILS % (AUTO) 1.2 % (0.0-5.0); EOSINOPHILS # (AUTO) 0.03 K/uL (0.00-0.70); EOSINOPHILS % (AUTO) 0.3 % (0.0-8.0); HEMATOCRIT 35.3 % (42-54); IMMATURE GRANULOCYTE ABSOLUTE 0.07 K/uL (0-1); LYMPHOCYTES # (AUTO) 1.8 K/uL (1.0-4.8); LYMPHOCYTES % (AUTO) 16.7 % (21.0-51.0); MEAN CORPUSCULAR HEMOGLOBIN 22.1 pg (27.0-33.0); MEAN CORPUSCULAR HGB CONC 30.3 g/dL (32.0-36.0); MEAN CORPUSCULAR VOLUME 72.8 fL (79-99); MONOCYTES # (AUTO) 0.7 K/uL (0.1-1.0); MONOCYTES % (AUTO) 6.8 % (3.0-13.0); NEUTROPHILS % (AUTO) 74.4 % (40.0-77.0); PLATELET COUNT (AUTO) 511 K/uL (130-400); RED BLOOD CELL COUNT(AUTO) 4.85 MIL/uL (4.50-6.20); WHITE BLOOD COUNT (AUTO) 10.8 K/uL (4.8-10.8)
[2024-03-30 16:45] LABS: ALBUMIN 3.3 g/dL (3.5-5.0); BILIRUBIN,DIRECT 0.1 mg/dL (0.0-0.3); BILIRUBIN,TOTAL 0.4 mg/dL (0.2-1.0); CREATININE 2.3 mg/dL (0.5-1.3); TOTAL PROTEIN, SERUM 8.2 g/dL (6.0-8.3)
[2024-03-30 16:47] LABS: POTASSIUM 2.9 mmol/L (3.5-5.1)
[2024-03-30 18:14] VITALS: PULSE 80; O2SAT 98
[2024-03-30] MEDS: NAPROXEN 500 MG TABLET PO ONE (20:20)
[2024-03-30] MEDS: LACTATED RINGERS 1000ML 1,000 ML IV ONE (20:21)
[2024-03-30] MEDS: POTASSIUM BICARB/CIT AC 25 MEQ TABLET.EFF PO ONE ×2 (20:21→23:10)
[2024-03-30 20:53] LABS: CREATININE 2.3 mg/dL (0.5-1.3)
[2024-03-30 20:58] LABS: POTASSIUM 2.7 mmol/L (3.5-5.1)
[2024-03-30 21:02] LABS: APPEARANCE,URINE CLEAR (CLEAR); BILIRUBIN,URINE NEGATIVE (NEGATIVE); COLOR,URINE YELLOW (YELLOW); GLUCOSE, URINE (UA) NEGATIVE (NEGATIVE); KETONES,URINE NEGATIVE (NEGATIVE); LEUKOCYTE ESTERASE ,URINE NEGATIVE Leu/uL (NEGATIVE); NITRATE,URINE NEGATIVE (NEGATIVE); OCCULT BLOOD,URINE NEGATIVE (NEGATIVE); PH,URINE 8.5 (5.0-8.0); PROTEIN,URINE NEGATIVE (NEGATIVE); UROBILINOGEN,URINE 0.2 mg/dL (0.2-1.0)
[2024-03-30 21:06] LABS: ADD UA MICROSCOPIC NO
[2024-03-30 21:20] VITALS: BP 129/83; RESP 18
[2024-03-30 22:38] LABS: MAGNESIUM 1.7 mg/dL (1.80-2.40); POTASSIUM 3.2 mmol/L (3.5-5.1)
[2024-03-30] MEDS ORDERED: POTA-187 PO (22:42)
[2024-03-30] MEDS: MAGNESIUM OXIDE 400 MG TABLET PO ONE (23:11)
== END 2024-03-30 23:25 | disposition home or self-care (01) ==
LOC: EDH 15:27
DX: I12.9 Hypertensive chronic kidney disease with stage 1 through stage 4 chronic kidney disease, or unspecified chronic kidney disease (principal); N18.9 Chronic kidney disease, unspecified; E87.6 Hypokalemia
CPT/HCPCS: 99285; 70450; 96374; 96361; 80076; 83735; 84484; 80048 ×2; 85025; 81003; 36415; 74150; 72125; 96376; 93005; 84132; J7120; J7030; J2405 ×2

== ENCOUNTER 2024-04-20 07:58 | Inpatient (IN) | payer OTHER ==
[~2024-04-20] VITALS: Ht 180.3 cm; Wt 66.8 kg
[~2024-04-20 07:58] MED LIST changes: +POTA-187 PO
[2024-04-20 08:33] LABS: BASOPHILS # (AUTO) 0.08 K/uL (0.00-0.20); BASOPHILS % (AUTO) 0.6 % (0.0-5.0); EOSINOPHILS # (AUTO) 0.06 K/uL (0.00-0.70); EOSINOPHILS % (AUTO) 0.4 % (0.0-8.0); HEMATOCRIT 30.6 % (42-54); IMMATURE GRANULOCYTE ABSOLUTE 0.06 K/uL (0-1); LYMPHOCYTES % (AUTO) 7.7 % (21.0-51.0); MEAN CORPUSCULAR HGB CONC 30.1 g/dL (32.0-36.0); MEAN CORPUSCULAR VOLUME 66.7 fL (79-99); MONOCYTES # (AUTO) 1.5 K/uL (0.1-1.0); MONOCYTES % (AUTO) 11.3 % (3.0-13.0); NEUTROPHILS # (AUTO) 10.7 K/uL (1.8-7.7); NEUTROPHILS % (AUTO) 79.6 % (40.0-77.0); PLATELET COUNT (AUTO) 396 K/uL (130-400); RED BLOOD CELL COUNT(AUTO) 4.59 MIL/uL (4.50-6.20); RED CELL DISTRIBUTION WIDTH 17.3 % (11.0-15.5); WHITE BLOOD COUNT (AUTO) 13.5 K/uL (4.8-10.8)
[2024-04-20 08:42] LABS: CREATININE 5.1 mg/dL (0.5-1.3); MAGNESIUM 3.4 mg/dL (1.80-2.40)
[2024-04-20 08:44] LABS: POTASSIUM 2.5 mmol/L (3.5-5.1)
[2024-04-20] MEDS: 0.9%NACL 1000ML 1,000 ML IV ONE (09:09)
[2024-04-20] MEDS: ONDANSETRON 4MG INJ IVP ONE (09:10)
[2024-04-20] MEDS: POTASSIUM CHLORIDE 10MEQ/100ML 100 ML IV ONE (09:10)
[2024-04-20] MEDS: POTASSIUM BICARB/CIT AC 25 MEQ TABLET.EFF PO ONE (09:10)
[2024-04-20] MEDS: FAMOTIDINE 20MG VIAL IV ONE (09:53)
[2024-04-20 10:30] VITALS: O2SAT 95
[2024-04-20 10:42] VITALS: BP 153/98; PULSE 71; RESP 18
[2024-04-20] MEDS: ACETAMINOPHEN 325 MG TAB PO PRN (11:47)
[2024-04-20 11:55] LABS: CHLORIDE,URINE RANDOM 39 mmol/L (110-250); POTASSIUM,URINE RANDOM 23 mmol/L (25-125); SODIUM,URINE RANDOM 57 mmol/l (40-220)
[2024-04-20] MEDS ORDERED: 0.9%NACL 1000ML 1,000 ML IV SCH ×2 (12:30→14:30)
[2024-04-20 12:45] LABS: INR 0.95 (0.85-1.15); PROTHROMBIN TIME 11.2 SEC (9.6-11.6)
[2024-04-20 14:54] LABS: ADD UA MICROSCOPIC YES; APPEARANCE,URINE CLEAR (CLEAR); BILIRUBIN,URINE NEGATIVE (NEGATIVE); COLOR,URINE COLORLESS (YELLOW); GLUCOSE, URINE (UA) NEGATIVE (NEGATIVE); KETONES,URINE NEGATIVE (NEGATIVE); LEUKOCYTE ESTERASE ,URINE NEGATIVE Leu/uL (NEGATIVE); NITRATE,URINE NEGATIVE (NEGATIVE); OCCULT BLOOD,URINE NEGATIVE (NEGATIVE); PROTEIN,URINE 20 mg/dL (NEGATIVE); UROBILINOGEN,URINE 0.2 mg/dL (0.2-1.0)
[2024-04-20 14:55] LABS: RBC,URINE 0-1 /HPF (0-1)
[2024-04-20] MEDS: 0.9%NACL 1000ML 1,000 ML IV SCH (16:14)
[2024-04-20] MEDS: CEFTRIAXONE 1G VIAL IVPB SCH (16:14)
[2024-04-20 16:28] VITALS: BP 147/79; PULSE 75; RESP 18
[2024-04-20] MEDS: ONDANSETRON 4MG INJ IVP PRN (17:45)
[2024-04-20] MEDS: POTASSIUM CHLORIDE 20MEQ/100ML 100 ML IV PRN (18:13)
[2024-04-20] MEDS: KCL 20 MEQ ERTAB PO PRN (18:13)
[2024-04-20 20:00] VITALS: BP 150/75; PULSE 69; RESP 20
[2024-04-20 20:20] VITALS: O2SAT 93
[2024-04-20] MEDS: FAMOTIDINE 20MG VIAL IV SCH (20:20)
[2024-04-20] MEDS ORDERED: FAMOTIDINE 20MG VIAL IV SCH (21:00)
[2024-04-21] VITALS (12 sets, daily range): BP systolic 135–151; BP diastolic 64–101; PULSE 60–81; RESP 16–20; O2SAT 98–100
[2024-04-21] MEDS: 0.9%NACL 1000ML 1,000 ML IV SCH (03:44)
[2024-04-21 05:21] LABS: BASOPHILS # (AUTO) 0.05 K/uL (0.00-0.20); BASOPHILS % (AUTO) 0.5 % (0.0-5.0); EOSINOPHILS # (AUTO) 0.08 K/uL (0.00-0.70); EOSINOPHILS % (AUTO) 0.8 % (0.0-8.0); HEMATOCRIT 26.5 % (42-54); IMMATURE GRANULOCYTE ABSOLUTE 0.06 K/uL (0-1); LYMPHOCYTES # (AUTO) 0.6 K/uL (1.0-4.8); LYMPHOCYTES % (AUTO) 5.7 % (21.0-51.0); MEAN CORPUSCULAR HEMOGLOBIN 20.5 pg (27.0-33.0); MEAN CORPUSCULAR HGB CONC 29.8 g/dL (32.0-36.0); MEAN CORPUSCULAR VOLUME 68.8 fL (79-99); MONOCYTES # (AUTO) 1.1 K/uL (0.1-1.0); MONOCYTES % (AUTO) 11.3 % (3.0-13.0); NEUTROPHILS # (AUTO) 7.9 K/uL (1.8-7.7); NEUTROPHILS % (AUTO) 81.1 % (40.0-77.0); PLATELET COUNT (AUTO) 305 K/uL (130-400); RED BLOOD CELL COUNT(AUTO) 3.85 MIL/uL (4.50-6.20); RED CELL DISTRIBUTION WIDTH 16.9 % (11.0-15.5); WHITE BLOOD COUNT (AUTO) 9.7 K/uL (4.8-10.8)
[2024-04-21 05:35] LABS: CREATININE 4.6 mg/dL (0.5-1.3); POTASSIUM 3.1 mmol/L (3.5-5.1)
[2024-04-21 05:48] LABS: % IRON SATURATION 4.6 % (30-44)
[2024-04-21] MEDS ORDERED: FOLIC ACID 5 MG/ML VIAL IV SCH (09:00)
[2024-04-21] MEDS ORDERED: THIAMINE HCL 100 MG/ML 2ML VIAL IM SCH (09:00)
[2024-04-21] MEDS: FOLIC ACID 1 MG TABLET PO SCH (09:03)
[2024-04-21] MEDS: THIAMINE HCL 100 MG TABLET PO SCH (09:03)
[2024-04-21] MEDS ORDERED: COMPOUND IV MISC 1 EACH IVSOLN MISC PRN (09:30)
[2024-04-21] MEDS: IRON SUCROSE COMPLEX 300 MG in 0.9% NACL 250ML IV ONE (10:37)
[2024-04-21 10:50] LABS: RETICULOCYTE % (AUTO) 1.16 % (0.42-2.23)
[2024-04-21 11:14] LABS: % IRON SATURATION 3.9 % (30-44)
[2024-04-21] MEDS ORDERED: COMPOUND IV REFRIGERATED 1 EACH IVSOLN MISC PRN (12:00)
[2024-04-21] MEDS: MORPHINE 2 MG SYG IVP PRN (12:03)
[2024-04-21] MEDS: PANTOPRAZOLE 40 MG/VIAL IVP SCH ×2 (12:12→20:12)
[2024-04-21] MEDS: POTASSIUM CHLORIDE 10% ELIXIR 20 MEQ/15 ML UDCUP PO PRN (17:59)
[2024-04-22] VITALS (13 sets, daily range): BP systolic 111–147; BP diastolic 67–101; PULSE 56–100; RESP 16–20; O2SAT 94–100
[2024-04-22 10:44] LABS: BASOPHILS # (AUTO) 0.06 K/uL (0.00-0.20); BASOPHILS % (AUTO) 0.6 % (0.0-5.0); EOSINOPHILS # (AUTO) 0.23 K/uL (0.00-0.70); EOSINOPHILS % (AUTO) 2.5 % (0.0-8.0); HEMATOCRIT 27.4 % (42-54); IMMATURE GRANULOCYTE ABSOLUTE 0.05 K/uL (0-1); LYMPHOCYTES % (AUTO) 10.3 % (21.0-51.0); MEAN CORPUSCULAR HEMOGLOBIN 20.7 pg (27.0-33.0); MEAN CORPUSCULAR HGB CONC 29.2 g/dL (32.0-36.0); MEAN CORPUSCULAR VOLUME 70.8 fL (79-99); MONOCYTES # (AUTO) 1.4 K/uL (0.1-1.0); MONOCYTES % (AUTO) 14.4 % (3.0-13.0); NEUTROPHILS # (AUTO) 6.7 K/uL (1.8-7.7); NEUTROPHILS % (AUTO) 71.7 % (40.0-77.0); PLATELET COUNT (AUTO) 334 K/uL (130-400); RED BLOOD CELL COUNT(AUTO) 3.87 MIL/uL (4.50-6.20); RED CELL DISTRIBUTION WIDTH 17.7 % (11.0-15.5); WHITE BLOOD COUNT (AUTO) 9.4 K/uL (4.8-10.8)
[2024-04-22 10:59] LABS: CREATININE 3.2 mg/dL (0.5-1.3); POTASSIUM 3.6 mmol/L (3.5-5.1)
[2024-04-22 11:55] LABS: INR 0.97 (0.85-1.15); PROTHROMBIN TIME 11.5 SEC (9.6-11.6)
[2024-04-22 11:56] LABS: PARTIAL THROMBOPLASTIN TIME 27.6 SEC (26.3-35.5)
[2024-04-22] MEDS ORDERED: COMPOUND IV MISC 1 EACH IVSOLN MISC PRN (12:30)
[2024-04-22] MEDS: IRON SUCROSE COMPLEX 300 MG in 0.9% NACL 250ML IV ONE (20:41)
[2024-04-23 03:40] VITALS: BP 128/81; PULSE 74; RESP 16
[2024-04-23 04:34] LABS: CREATININE 2.5 mg/dL (0.5-1.3); POTASSIUM 3.5 mmol/L (3.5-5.1)
[2024-04-23 08:30] VITALS: O2SAT 95
[2024-04-23 08:50] VITALS: BP 143/79; PULSE 61; RESP 17
[2024-04-23 11:49] VITALS: BP 141/94; PULSE 61; RESP 17
[2024-04-23 16:36] VITALS: BP 152/99; PULSE 62; RESP 17
[2024-04-23 20:00] VITALS: BP 157/97; PULSE 65; RESP 19; O2SAT 100
[2024-04-23] MEDS: IRON SUCROSE COMPLEX 300 MG in 0.9% NACL 250ML 250 ML IV ONE (20:12)
[2024-04-24] VITALS (8 sets, daily range): BP systolic 132–152; BP diastolic 77–95; PULSE 55–63; RESP 15–18; O2SAT 100
[2024-04-24 03:52] LABS: BASOPHILS # (AUTO) 0.05 K/uL (0.00-0.20); BASOPHILS % (AUTO) 0.6 % (0.0-5.0); EOSINOPHILS # (AUTO) 0.37 K/uL (0.00-0.70); EOSINOPHILS % (AUTO) 4.6 % (0.0-8.0); HEMATOCRIT 24.9 % (42-54); IMMATURE GRANULOCYTE ABSOLUTE 0.08 K/uL (0-1); LYMPHOCYTES # (AUTO) 1.2 K/uL (1.0-4.8); LYMPHOCYTES % (AUTO) 15.3 % (21.0-51.0); MEAN CORPUSCULAR HEMOGLOBIN 19.8 pg (27.0-33.0); MEAN CORPUSCULAR HGB CONC 29.3 g/dL (32.0-36.0); MEAN CORPUSCULAR VOLUME 67.7 fL (79-99); MONOCYTES # (AUTO) 1.2 K/uL (0.1-1.0); MONOCYTES % (AUTO) 14.8 % (3.0-13.0); NEUTROPHILS # (AUTO) 5.1 K/uL (1.8-7.7); NEUTROPHILS % (AUTO) 63.7 % (40.0-77.0); PLATELET COUNT (AUTO) 278 K/uL (130-400); RED BLOOD CELL COUNT(AUTO) 3.68 MIL/uL (4.50-6.20); RED CELL DISTRIBUTION WIDTH 17.7 % (11.0-15.5)
[2024-04-24 04:17] LABS: POTASSIUM 3.9 mmol/L (3.5-5.1)
[2024-04-25] VITALS (7 sets, daily range): BP systolic 139–149; BP diastolic 86–102; PULSE 58–78; RESP 17–18; O2SAT 100
[2024-04-25 11:08] LABS: BASOPHILS # (AUTO) 0.06 K/uL (0.00-0.20); BASOPHILS % (AUTO) 0.6 % (0.0-5.0); EOSINOPHILS # (AUTO) 0.27 K/uL (0.00-0.70); EOSINOPHILS % (AUTO) 2.7 % (0.0-8.0); HEMATOCRIT 27.4 % (42-54); IMMATURE GRANULOCYTE ABSOLUTE 0.13 K/uL (0-1); LYMPHOCYTES # (AUTO) 1.1 K/uL (1.0-4.8); MEAN CORPUSCULAR HEMOGLOBIN 20.5 pg (27.0-33.0); MEAN CORPUSCULAR HGB CONC 29.2 g/dL (32.0-36.0); MEAN CORPUSCULAR VOLUME 70.3 fL (79-99); MONOCYTES % (AUTO) 9.9 % (3.0-13.0); NEUTROPHILS # (AUTO) 7.5 K/uL (1.8-7.7); NEUTROPHILS % (AUTO) 74.5 % (40.0-77.0); PLATELET COUNT (AUTO) 297 K/uL (130-400); RED CELL DISTRIBUTION WIDTH 18.6 % (11.0-15.5); WHITE BLOOD COUNT (AUTO) 10.1 K/uL (4.8-10.8)
[2024-04-25] MEDS: LACTULOSE 20 GM/30 ML UDCUP PO ONE (13:14)
[2024-04-25] MEDS: ONDANSETRON 4MG INJ IVP ONE (14:22)
[2024-04-25] MEDS: BISACODYL 10 MG SUPP.RECT RC PRN (20:14)
[2024-04-26] VITALS (9 sets, daily range): BP systolic 137–151; BP diastolic 79–95; PULSE 58–70; RESP 16–19; O2SAT 98–100
[2024-04-26 04:41] LABS: HEMATOCRIT 23.7 % (42-54); MEAN CORPUSCULAR HEMOGLOBIN 20.6 pg (27.0-33.0); MEAN CORPUSCULAR VOLUME 68.9 fL (79-99); RED BLOOD CELL COUNT(AUTO) 3.44 MIL/uL (4.50-6.20); RED CELL DISTRIBUTION WIDTH 18.8 % (11.0-15.5); WHITE BLOOD COUNT (AUTO) 7.3 K/uL (4.8-10.8)
[2024-04-26 05:10] LABS: ALBUMIN 2.2 g/dL (3.5-5.0); ASPARTATE AMINOTRANSFERASE 10 U/L (10-37); BILIRUBIN,TOTAL 0.2 mg/dL (0.2-1.0); CARBON DIOXIDE 22 mmol/L (21-32); CHLORIDE 108 mmol/L (101-111); CREATININE 1.6 mg/dL (0.5-1.3); GLOMERULAR FILTR. RATE CALC 50 mL/min (>90); GLUCOSE,RANDOM 90 mg/dL (70-105); POTASSIUM 3.9 mmol/L (3.5-5.1); SODIUM SERUM 138 mmol/L (136-145); TOTAL PROTEIN, SERUM 5.8 g/dL (6.0-8.3); UREA NITROGEN, BLOOD 13 mg/dL (7-18)
[2024-04-26 05:15] LABS: ALANINE AMINOTRANSFERASE < 6 U/L (12-78)
[2024-04-26 10:58] LABS: HEMATOCRIT 24.6 % (42-54); MEAN CORPUSCULAR HEMOGLOBIN 20.6 pg (27.0-33.0); MEAN CORPUSCULAR HGB CONC 29.7 g/dL (32.0-36.0); MEAN CORPUSCULAR VOLUME 69.3 fL (79-99); RED BLOOD CELL COUNT(AUTO) 3.55 MIL/uL (4.50-6.20); RED CELL DISTRIBUTION WIDTH 19.2 % (11.0-15.5); WHITE BLOOD COUNT (AUTO) 7.8 K/uL (4.8-10.8)
[2024-04-26] MEDS: MORPHINE 2 MG SYG IVP PRN (15:46)
[2024-04-26] MEDS: MAGNESIUM 2GM PREMIX 50ML 50 ML IV SCH (20:30)
[2024-04-27] VITALS (7 sets, daily range): BP systolic 136–153; BP diastolic 79–97; PULSE 51–68; RESP 16–20; O2SAT 99–100
[2024-04-27 04:01] LABS: MEAN CORPUSCULAR VOLUME 73.4 fL (79-99); RED BLOOD CELL COUNT(AUTO) 3.68 MIL/uL (4.50-6.20); RED CELL DISTRIBUTION WIDTH 20.2 % (11.0-15.5); WHITE BLOOD COUNT (AUTO) 9.5 K/uL (4.8-10.8)
[2024-04-27 04:25] LABS: ALBUMIN 2.1 g/dL (3.5-5.0); BILIRUBIN,TOTAL 0.2 mg/dL (0.2-1.0); CREATININE 1.5 mg/dL (0.5-1.3); MAGNESIUM 1.8 mg/dL (1.80-2.40); POTASSIUM 4.3 mmol/L (3.5-5.1); TOTAL PROTEIN, SERUM 5.8 g/dL (6.0-8.3)
[2024-04-28] VITALS (20 sets, daily range): BP systolic 122–161; BP diastolic 66–105; PULSE 51–71; RESP 14–20; O2SAT 99
[2024-04-28 05:25] LABS: HEMATOCRIT 25.7 % (42-54); MEAN CORPUSCULAR HEMOGLOBIN 21.7 pg (27.0-33.0); MEAN CORPUSCULAR HGB CONC 29.6 g/dL (32.0-36.0); MEAN CORPUSCULAR VOLUME 73.4 fL (79-99); PLATELET COUNT (AUTO) 271 K/uL (130-400); RED CELL DISTRIBUTION WIDTH 21.2 % (11.0-15.5); WHITE BLOOD COUNT (AUTO) 8.6 K/uL (4.8-10.8)
[2024-04-28 06:04] LABS: BILIRUBIN,TOTAL 0.2 mg/dL (0.2-1.0); CREATININE 1.3 mg/dL (0.5-1.3); POTASSIUM 4.1 mmol/L (3.5-5.1); TOTAL PROTEIN, SERUM 5.3 g/dL (6.0-8.3)
[2024-04-28] MEDS ORDERED: PROPOFOL 10 MG/ML 20ML VIAL IV ONE (11:40)
[2024-04-29] VITALS (9 sets, daily range): BP systolic 118–159; BP diastolic 71–95; PULSE 47–93; RESP 18–19; O2SAT 97–100
[2024-04-29 04:54] LABS: BASOPHILS # (AUTO) 0.09 K/uL (0.00-0.20); BASOPHILS % (AUTO) 1.4 % (0.0-5.0); EOSINOPHILS % (AUTO) 4.6 % (0.0-8.0); IMMATURE GRANULOCYTE ABSOLUTE 0.13 K/uL (0-1); LYMPHOCYTES # (AUTO) 1.6 K/uL (1.0-4.8); LYMPHOCYTES % (AUTO) 24.6 % (21.0-51.0); MEAN CORPUSCULAR HEMOGLOBIN 21.4 pg (27.0-33.0); MEAN CORPUSCULAR VOLUME 71.4 fL (79-99); MONOCYTES # (AUTO) 0.7 K/uL (0.1-1.0); MONOCYTES % (AUTO) 10.2 % (3.0-13.0); NEUTROPHILS # (AUTO) 3.7 K/uL (1.8-7.7); NEUTROPHILS % (AUTO) 57.2 % (40.0-77.0); PLATELET COUNT (AUTO) 308 K/uL (130-400); RED BLOOD CELL COUNT(AUTO) 3.78 MIL/uL (4.50-6.20); RED CELL DISTRIBUTION WIDTH 22.5 % (11.0-15.5); WHITE BLOOD COUNT (AUTO) 6.5 K/uL (4.8-10.8)
[2024-04-29 05:24] LABS: ALBUMIN 2.3 g/dL (3.5-5.0); BILIRUBIN,TOTAL 0.1 mg/dL (0.2-1.0); CREATININE 1.2 mg/dL (0.5-1.3); MAGNESIUM 1.4 mg/dL (1.80-2.40); POTASSIUM 4.3 mmol/L (3.5-5.1); TOTAL PROTEIN, SERUM 5.9 g/dL (6.0-8.3)
[2024-04-29] MEDS ORDERED: MAGNESIUM 2GM PREMIX 50ML 50 ML IV PRN ×2 (11:30→16:00)
[2024-04-30] VITALS (7 sets, daily range): BP systolic 138–160; BP diastolic 77–116; PULSE 48–100; RESP 16–19; O2SAT 97–100
[2024-04-30 04:19] LABS: BASOPHILS # (AUTO) 0.09 K/uL (0.00-0.20); BASOPHILS % (AUTO) 1.4 % (0.0-5.0); EOSINOPHILS # (AUTO) 0.23 K/uL (0.00-0.70); EOSINOPHILS % (AUTO) 3.6 % (0.0-8.0); HEMATOCRIT 28.8 % (42-54); IMMATURE GRANULOCYTE ABSOLUTE 0.11 K/uL (0-1); LYMPHOCYTES # (AUTO) 1.5 K/uL (1.0-4.8); LYMPHOCYTES % (AUTO) 23.9 % (21.0-51.0); MEAN CORPUSCULAR HEMOGLOBIN 22.1 pg (27.0-33.0); MEAN CORPUSCULAR HGB CONC 29.9 g/dL (32.0-36.0); MEAN CORPUSCULAR VOLUME 73.8 fL (79-99); MONOCYTES # (AUTO) 0.7 K/uL (0.1-1.0); MONOCYTES % (AUTO) 10.3 % (3.0-13.0); NEUTROPHILS # (AUTO) 3.8 K/uL (1.8-7.7); NEUTROPHILS % (AUTO) 59.1 % (40.0-77.0); PLATELET COUNT (AUTO) 320 K/uL (130-400); RED CELL DISTRIBUTION WIDTH 23.3 % (11.0-15.5); WHITE BLOOD COUNT (AUTO) 6.4 K/uL (4.8-10.8)
[2024-04-30 04:33] LABS: ALBUMIN 2.4 g/dL (3.5-5.0); BILIRUBIN,TOTAL 0.2 mg/dL (0.2-1.0); MAGNESIUM 1.8 mg/dL (1.80-2.40); POTASSIUM 4.1 mmol/L (3.5-5.1); TOTAL PROTEIN, SERUM 6.1 g/dL (6.0-8.3)
[2024-04-30 04:43] LABS: CREATININE 1.1 mg/dL (0.5-1.3)
[2024-05-01] VITALS (25 sets, daily range): BP systolic 126–173; BP diastolic 79–102; PULSE 45–72; RESP 11–20; O2SAT 97–100
[2024-05-01 05:25] LABS: BASOPHILS % (AUTO) 1.8 % (0.0-5.0); EOSINOPHILS # (AUTO) 0.16 K/uL (0.00-0.70); EOSINOPHILS % (AUTO) 2.9 % (0.0-8.0); IMMATURE GRANULOCYTE ABSOLUTE 0.07 K/uL (0-1); LYMPHOCYTES # (AUTO) 1.2 K/uL (1.0-4.8); LYMPHOCYTES % (AUTO) 20.8 % (21.0-51.0); MEAN CORPUSCULAR HEMOGLOBIN 22.2 pg (27.0-33.0); MONOCYTES # (AUTO) 0.6 K/uL (0.1-1.0); MONOCYTES % (AUTO) 10.5 % (3.0-13.0); NEUTROPHILS # (AUTO) 3.5 K/uL (1.8-7.7); NEUTROPHILS % (AUTO) 62.7 % (40.0-77.0); PLATELET COUNT (AUTO) 320 K/uL (130-400); RED BLOOD CELL COUNT(AUTO) 3.65 MIL/uL (4.50-6.20); RED CELL DISTRIBUTION WIDTH 24.3 % (11.0-15.5); WHITE BLOOD COUNT (AUTO) 5.5 K/uL (4.8-10.8)
[2024-05-01 05:54] LABS: ALBUMIN 2.3 g/dL (3.5-5.0); BILIRUBIN,TOTAL 0.2 mg/dL (0.2-1.0); CREATININE 1.2 mg/dL (0.5-1.3); MAGNESIUM 1.9 mg/dL (1.80-2.40); TOTAL PROTEIN, SERUM 5.5 g/dL (6.0-8.3)
[2024-05-01] MEDS ORDERED: MIDAZOLAM HCL 1 MG/ML 2ML VIAL ONE (11:54)
[2024-05-01] MEDS ORDERED: PROPOFOL 10 MG/ML 20ML VIAL IV ONE (11:54)
[2024-05-01] MEDS ORDERED: LIDOCAINE PF 100MG/5ML (2%) SYRINGE 5ML ONE (11:54)
[2024-05-01] MEDS ORDERED: GLYCOPYRROLATE 0.2 MG/ML 5 ML VIAL ONE (11:56)
[2024-05-01] MEDS: IPRATROPIUM/ALBUTEROL SULFATE 3 ML SOLUTION IH ONE ×2 (12:37)
[2024-05-02] VITALS (8 sets, daily range): BP systolic 115–142; BP diastolic 73–88; PULSE 51–76; RESP 18–20; O2SAT 96
[2024-05-02 04:18] LABS: BASOPHILS # (AUTO) 0.12 K/uL (0.00-0.20); BASOPHILS % (AUTO) 0.6 % (0.0-5.0); EOSINOPHILS # (AUTO) 0.02 K/uL (0.00-0.70); EOSINOPHILS % (AUTO) 0.1 % (0.0-8.0); HEMATOCRIT 27.9 % (42-54); LYMPHOCYTES # (AUTO) 1.2 K/uL (1.0-4.8); LYMPHOCYTES % (AUTO) 5.9 % (21.0-51.0); MEAN CORPUSCULAR HEMOGLOBIN 22.8 pg (27.0-33.0); MEAN CORPUSCULAR HGB CONC 30.8 g/dL (32.0-36.0); MEAN CORPUSCULAR VOLUME 73.8 fL (79-99); MONOCYTES # (AUTO) 1.1 K/uL (0.1-1.0); MONOCYTES % (AUTO) 5.1 % (3.0-13.0); NEUTROPHILS % (AUTO) 87.8 % (40.0-77.0); PLATELET COUNT (AUTO) 309 K/uL (130-400); RED BLOOD CELL COUNT(AUTO) 3.78 MIL/uL (4.50-6.20); RED CELL DISTRIBUTION WIDTH 24.9 % (11.0-15.5); WHITE BLOOD COUNT (AUTO) 20.5 K/uL (4.8-10.8)
[2024-05-02 04:39] LABS: ALBUMIN 2.2 g/dL (3.5-5.0); BILIRUBIN,TOTAL 0.5 mg/dL (0.2-1.0); CREATININE 1.2 mg/dL (0.5-1.3); MAGNESIUM 1.5 mg/dL (1.80-2.40); POTASSIUM 4.1 mmol/L (3.5-5.1); TOTAL PROTEIN, SERUM 5.4 g/dL (6.0-8.3); WBC MORPHOLOGY CONSISTENT W/DIFF
[2024-05-02] MEDS ORDERED: MAGNESIUM 2GM PREMIX 50ML 50 ML IV SCH (10:30)
[2024-05-03] VITALS (9 sets, daily range): BP systolic 140–152; BP diastolic 69–94; PULSE 48–56; RESP 17–19; O2SAT 98–99
[2024-05-03 04:34] LABS: HEMATOCRIT 28.3 % (42-54); MEAN CORPUSCULAR HEMOGLOBIN 22.9 pg (27.0-33.0); MEAN CORPUSCULAR HGB CONC 30.7 g/dL (32.0-36.0); MEAN CORPUSCULAR VOLUME 74.5 fL (79-99); RED BLOOD CELL COUNT(AUTO) 3.8 MIL/uL (4.50-6.20); RED CELL DISTRIBUTION WIDTH 25.6 % (11.0-15.5); WHITE BLOOD COUNT (AUTO) 9.3 K/uL (4.8-10.8)
[2024-05-03 04:58] LABS: ALBUMIN 2.3 g/dL (3.5-5.0); BILIRUBIN,TOTAL 0.3 mg/dL (0.2-1.0); CREATININE 1.2 mg/dL (0.5-1.3); MAGNESIUM 1.5 mg/dL (1.80-2.40); POTASSIUM 4.3 mmol/L (3.5-5.1); TOTAL PROTEIN, SERUM 5.7 g/dL (6.0-8.3)
[2024-05-03] MEDS ORDERED: MAGNESIUM 2GM PREMIX 50ML 50 ML IV SCH (12:30)
[2024-05-03] MEDS: MORPHINE 2 MG SYG IVP PRN (17:42)
[2024-05-04] VITALS (8 sets, daily range): BP systolic 140–152; BP diastolic 81–108; PULSE 50–62; RESP 17–18; O2SAT 99
[2024-05-04 04:46] LABS: HEMATOCRIT 29.2 % (42-54); MEAN CORPUSCULAR HEMOGLOBIN 22.6 pg (27.0-33.0); MEAN CORPUSCULAR HGB CONC 30.8 g/dL (32.0-36.0); MEAN CORPUSCULAR VOLUME 73.4 fL (79-99); RED BLOOD CELL COUNT(AUTO) 3.98 MIL/uL (4.50-6.20); RED CELL DISTRIBUTION WIDTH 26.2 % (11.0-15.5); WHITE BLOOD COUNT (AUTO) 8.1 K/uL (4.8-10.8)
[2024-05-04 05:04] LABS: ALBUMIN 2.5 g/dL (3.5-5.0); BILIRUBIN,TOTAL 0.3 mg/dL (0.2-1.0); CREATININE 1.2 mg/dL (0.5-1.3); MAGNESIUM 1.4 mg/dL (1.80-2.40); POTASSIUM 4.3 mmol/L (3.5-5.1); TOTAL PROTEIN, SERUM 6.3 g/dL (6.0-8.3)
[2024-05-05] VITALS (44 sets, daily range): BP systolic 115–175; BP diastolic 75–117; PULSE 54–128; RESP 18–41; TEMP 101; O2SAT 90–97
[2024-05-05 05:25] LABS: HEMATOCRIT 29.5 % (42-54); MEAN CORPUSCULAR HEMOGLOBIN 22.9 pg (27.0-33.0); MEAN CORPUSCULAR HGB CONC 30.5 g/dL (32.0-36.0); MEAN CORPUSCULAR VOLUME 75.1 fL (79-99); PLATELET COUNT (AUTO) 327 K/uL (130-400); RED BLOOD CELL COUNT(AUTO) 3.93 MIL/uL (4.50-6.20); RED CELL DISTRIBUTION WIDTH 25.8 % (11.0-15.5); WHITE BLOOD COUNT (AUTO) 7.3 K/uL (4.8-10.8)
[2024-05-05 05:26] LABS: POTASSIUM 3.9 mmol/L (3.5-5.1)
[2024-05-05] MEDS ORDERED: PROPOFOL 10 MG/ML 20ML VIAL IV ONE (09:45)
[2024-05-05] MEDS: ONDANSETRON 4MG INJ ONE (11:14)
[2024-05-05] MEDS: PROMETHAZINE HCL 25 MG/ML 1ML AMPULE IM ONE ×2 (11:15→14:08)
[2024-05-05] MEDS: ZOSYN 3.375GM +NS 50ML IV SCH (11:15)
[2024-05-05] MEDS: IPRATROPIUM/ALBUTEROL SULFATE 3 ML SOLUTION IH ONE ×2 (12:32→14:16)
[2024-05-05] MEDS: SOLU-MEDROL 125MG VIAL IVP ONE (12:36)
[2024-05-05 12:43] LABS: ABG HCO3 20.2 mmol/L (21.0-28.0); ABG OXYGEN SATURATION 85.4 % (95.0-99.0); ABG PCO2 38 mmHg (35-48); ABG PH 7.346 (7.35-7.450); CARBON MONOXIDE 0.8; HHb 14.5; PO2, ARTERIAL BG 52.8 mmHg (83.0-108.0); VENT MODE, BG HFNC (ROOM AIR)
[2024-05-05] MEDS ORDERED: DEXMEDETOMIDINE 400MCG/NS100ML IV SCH (13:30)
[2024-05-05] MEDS ORDERED: METRONIDAZOLE 500MG/100ML BAG 100 ML IVPB SCH (14:00)
[2024-05-05] MEDS: FUROSEMIDE 20MG VIAL IV ONE (14:04)
[2024-05-05] MEDS: METOCLOPRAMIDE 10 MG/2 ML VIAL IM ONE (14:05)
[2024-05-05] MEDS: ONDANSETRON 4MG INJ IVP ONE (14:06)
[2024-05-05] MEDS: ZOSYN 3.375GM+NS 50ML 50 ML ONE (14:08)
[2024-05-05 14:20] LABS: HEMATOCRIT 39.3 % (42-54)
[2024-05-05 15:27] LABS: ABG BASE EXCESS -3.7 mmol/L (-2.0-3.0); ABG HCO3 19.6 mmol/L (21.0-28.0); ABG PCO2 30 mmHg (35-48); ABG PH 7.435 (7.35-7.450); CARBON MONOXIDE 0.6; HHb 4.9; PO2, ARTERIAL BG 70.2 mmHg (83.0-108.0)
[2024-05-05] MEDS ORDERED: LORAZEPAM 2 MG/ML 1 ML VIAL IVP PRN (16:00)
[2024-05-05] MEDS ORDERED: PHARMACY COMMUNICATION MISC PRN (16:00)
[2024-05-05] MEDS ORDERED: IOHEXOL-350 75 ML VIAL IV ONE (16:27)
[2024-05-05] MEDS: DEXTROSE 5 % AND 0.9 % NACL 1,000 ML IV SCH (17:09)
[2024-05-05] MEDS ORDERED: MAGNESIUM 2GM PREMIX 50ML 50 ML IV PRN (18:00)
[2024-05-05 18:56] LABS: HEMATOCRIT 34.5 % (42-54)
[2024-05-05] MEDS: LORAZEPAM 2 MG/ML 1 ML VIAL IVP PRN (20:48)
[2024-05-06] VITALS (27 sets, daily range): BP systolic 100–138; BP diastolic 60–92; PULSE 62–83; RESP 22–40; O2SAT 95–98
[2024-05-06 01:20] LABS: COVID19 (SARS ANTIGEN RAPID) PRESUMPTIVE NEGATIVE (NEGATIVE); INFLUENZA TYPE A Negative For Type A (NEGATIVE); INFLUENZA TYPE B Negative For Type B (NEGATIVE)
[2024-05-06 04:05] LABS: BASOPHILS # (AUTO) 0.06 K/uL (0.00-0.20); BASOPHILS % (AUTO) 0.3 % (0.0-5.0); EOSINOPHILS # (AUTO) 0.09 K/uL (0.00-0.70); EOSINOPHILS % (AUTO) 0.5 % (0.0-8.0); HEMATOCRIT 30.7 % (42-54); IMMATURE GRANULOCYTE ABSOLUTE 0.22 K/uL (0-1); LYMPHOCYTES # (AUTO) 0.3 K/uL (1.0-4.8); LYMPHOCYTES % (AUTO) 1.4 % (21.0-51.0); MEAN CORPUSCULAR HEMOGLOBIN 22.6 pg (27.0-33.0); MEAN CORPUSCULAR HGB CONC 30.9 g/dL (32.0-36.0); MEAN CORPUSCULAR VOLUME 73.1 fL (79-99); MONOCYTES # (AUTO) 0.8 K/uL (0.1-1.0); MONOCYTES % (AUTO) 4.3 % (3.0-13.0); NEUTROPHILS # (AUTO) 17.8 K/uL (1.8-7.7); NEUTROPHILS % (AUTO) 92.4 % (40.0-77.0); PLATELET COUNT (AUTO) 315 K/uL (130-400); RED CELL DISTRIBUTION WIDTH 25.7 % (11.0-15.5); WHITE BLOOD COUNT (AUTO) 19.2 K/uL (4.8-10.8)
[2024-05-06 04:24] LABS: CREATININE 1.5 mg/dL (0.5-1.3); PHOSPHORUS 3.8 mg/dL (2.5-4.9); POTASSIUM 4.2 mmol/L (3.5-5.1)
[2024-05-06 07:47] LABS: ABG BASE EXCESS -1.5 mmol/L (-2.0-3.0); ABG HCO3 21.8 mmol/L (21.0-28.0); ABG OXYGEN SATURATION 93.2 % (95.0-99.0); ABG PCO2 33 mmHg (35-48); ABG PH 7.436 (7.35-7.450); PO2, ARTERIAL BG 63.4 mmHg (83.0-108.0); VENT MODE, BG NC (ROOM AIR)
[2024-05-06] MEDS: CEFEPIME HCL 2 GM VIAL IVPB SCH (08:21)
[2024-05-06] MEDS ORDERED: VANCOMYCIN PROTOCOL PER PHARMACY IV SCH (08:30)
[2024-05-06] MEDS: VANCOMYCIN 1.75 GM/250 ML BAG 250 ML IV ONE (09:19)
[2024-05-06] MEDS: LACTATED RINGERS 500 ML IV ONE (09:29)
[2024-05-06] MEDS: VANCOMYCIN 750MG VIAL IVPB SCH (20:58)
[2024-05-06] MEDS ORDERED: ACETAMINOPHEN 650 MG SUPPOSITORY RC PRN (22:00)
[2024-05-06] MEDS: ACETAMINOPHEN 650 MG SUPPOSITORY RC PRN (22:07)
[2024-05-07] VITALS (16 sets, daily range): BP systolic 125–180; BP diastolic 78–109; PULSE 45–72; RESP 18–37; O2SAT 96–99
[2024-05-07 03:46] LABS: BASOPHILS # (AUTO) 0.09 K/uL (0.00-0.20); BASOPHILS % (AUTO) 0.5 % (0.0-5.0); EOSINOPHILS # (AUTO) 0.03 K/uL (0.00-0.70); EOSINOPHILS % (AUTO) 0.2 % (0.0-8.0); HEMATOCRIT 31.4 % (42-54); IMMATURE GRANULOCYTE ABSOLUTE 0.57 K/uL (0-1); LYMPHOCYTES # (AUTO) 0.6 K/uL (1.0-4.8); LYMPHOCYTES % (AUTO) 3.2 % (21.0-51.0); MEAN CORPUSCULAR HEMOGLOBIN 22.9 pg (27.0-33.0); MEAN CORPUSCULAR HGB CONC 30.6 g/dL (32.0-36.0); MEAN CORPUSCULAR VOLUME 74.8 fL (79-99); MONOCYTES # (AUTO) 0.7 K/uL (0.1-1.0); MONOCYTES % (AUTO) 3.9 % (3.0-13.0); NEUTROPHILS # (AUTO) 16.9 K/uL (1.8-7.7); NEUTROPHILS % (AUTO) 89.2 % (40.0-77.0); PLATELET COUNT (AUTO) 268 K/uL (130-400); RED CELL DISTRIBUTION WIDTH 26.3 % (11.0-15.5); WHITE BLOOD COUNT (AUTO) 18.9 K/uL (4.8-10.8)
[2024-05-07 03:58] LABS: CREATININE 1.4 mg/dL (0.5-1.3); POTASSIUM 4.2 mmol/L (3.5-5.1)
[2024-05-07 07:56] LABS: ABG BASE EXCESS -3.5 mmol/L (-2.0-3.0); ABG HCO3 19.9 mmol/L (21.0-28.0); ABG OXYGEN SATURATION 91.8 % (95.0-99.0); ABG PCO2 31 mmHg (35-48); ABG PH 7.419 (7.35-7.450); PO2, ARTERIAL BG 60.2 mmHg (83.0-108.0); VENT MODE, BG NC (ROOM AIR)
[2024-05-07] MEDS: DEXAMETHASONE SOD PHOSPHATE 4 MG/ML 1ML VIAL IVP SCH (08:12)
[2024-05-07] MEDS: ACETAMINOPHEN 1,000 MG/100 ML VIAL IV PRN (11:19)
[2024-05-08] VITALS (25 sets, daily range): BP systolic 133–176; BP diastolic 75–96; PULSE 38–97; RESP 14–26; O2SAT 96–99
[2024-05-08] MEDS: HYDRALAZINE 20MG/ML VIAL IV ONE (00:19)
[2024-05-08 04:40] LABS: BASOPHILS # (AUTO) 0.01 K/uL (0.00-0.20); BASOPHILS % (AUTO) 0.1 % (0.0-5.0); HEMATOCRIT 30.1 % (42-54); IMMATURE GRANULOCYTE ABSOLUTE 0.48 K/uL (0-1); LYMPHOCYTES # (AUTO) 0.4 K/uL (1.0-4.8); LYMPHOCYTES % (AUTO) 3.1 % (21.0-51.0); MEAN CORPUSCULAR HEMOGLOBIN 22.5 pg (27.0-33.0); MEAN CORPUSCULAR HGB CONC 30.9 g/dL (32.0-36.0); MEAN CORPUSCULAR VOLUME 72.9 fL (79-99); MONOCYTES # (AUTO) 0.2 K/uL (0.1-1.0); MONOCYTES % (AUTO) 1.5 % (3.0-13.0); NEUTROPHILS # (AUTO) 10.8 K/uL (1.8-7.7); NEUTROPHILS % (AUTO) 91.3 % (40.0-77.0); PLATELET COUNT (AUTO) 290 K/uL (130-400); RED BLOOD CELL COUNT(AUTO) 4.13 MIL/uL (4.50-6.20); RED CELL DISTRIBUTION WIDTH 25.7 % (11.0-15.5); WHITE BLOOD COUNT (AUTO) 11.9 K/uL (4.8-10.8)
[2024-05-08 05:06] LABS: CREATININE 1.2 mg/dL (0.5-1.3); POTASSIUM 4.6 mmol/L (3.5-5.1)
[2024-05-08] MEDS: LIDOCAINE 5% TOPICAL PATCH TP ONE (05:24)
[2024-05-08] MEDS: ATROPINE 1MG SYG IVP ONE (10:02)
[2024-05-08] MEDS ORDERED: FENTANYL CITRATE PF 50 MCG/1 ML 2ML VIAL ONE ×3 (13:53→15:31)
[2024-05-08] MEDS ORDERED: PROPOFOL 10 MG/ML 20ML VIAL IV ONE (13:53)
[2024-05-08] MEDS ORDERED: LIDOCAINE PF 100MG/5ML (2%) SYRINGE 5ML ONE (13:53)
[2024-05-08] MEDS ORDERED: ROCURONIUM BROMIDE 10MG/1ML 5ML VL ONE (13:54)
[2024-05-08] MEDS ORDERED: MIDAZOLAM HCL 1 MG/ML 2ML VIAL ONE (13:54)
[2024-05-08] MEDS ORDERED: GLYCOPYRROLATE 0.2 MG/ML 5 ML VIAL ONE (13:54)
[2024-05-08] MEDS ORDERED: NEOSTIGMINE METHYLSULFATE 1MG/ML IV ONE (13:54)
[2024-05-08] MEDS: LACTATED RINGERS 1000ML 1,000 ML IV ONE (13:55)
[2024-05-08] MEDS: METOCLOPRAMIDE 10 MG/2 ML VIAL ONE (13:55)
[2024-05-08] MEDS ORDERED: DEXAMETHASONE SOD PHOSPHATE 10MG/ML 1ML VIAL ONE (13:56)
[2024-05-08] MEDS ORDERED: ONDANSETRON 4MG INJ ONE (13:56)
[2024-05-08] MEDS ORDERED: SUCCINYLCHOLINE CHLORIDE 20 MG/ML 10 ML VIAL ONE (14:03)
[2024-05-08] MEDS ORDERED: BUPIVACAINE/PF 0.25% 30ML VIAL IJ ONE (14:35)
[2024-05-08] MEDS ORDERED: EPHEDRINE SULFATE 50 MG/ML AMPULE ONE (14:42)
[2024-05-08] MEDS: BUPIVACAINE/PF 0.25% 30ML VIAL IJ ONE (15:27)
[2024-05-08] MEDS ORDERED: DIATR MEGLU/DIATRIZOATE SODIUM 30 ML BOTTLE ONE (16:20)
[2024-05-08] MEDS: SOLU-MEDROL 40MG VIAL IVP SCH (17:42)
[2024-05-08] MEDS: MORPHINE 2 MG SYG IVP PRN (21:24)
[2024-05-08] MEDS ORDERED: KETOROLAC 15MG/ML VIAL (15MG/ML) IM PRN (21:30)
[2024-05-09] VITALS (70 sets, daily range): BP systolic 127–178; BP diastolic 69–118; PULSE 36–64; RESP 14–86; O2SAT 94–98
[2024-05-09 05:22] LABS: BASOPHILS # (AUTO) 0.03 K/uL (0.00-0.20); BASOPHILS % (AUTO) 0.1 % (0.0-5.0); HEMATOCRIT 31.4 % (42-54); IMMATURE GRANULOCYTE ABSOLUTE 0.14 K/uL (0-1); LYMPHOCYTES # (AUTO) 0.5 K/uL (1.0-4.8); LYMPHOCYTES % (AUTO) 2.1 % (21.0-51.0); MEAN CORPUSCULAR HEMOGLOBIN 22.7 pg (27.0-33.0); MEAN CORPUSCULAR HGB CONC 30.9 g/dL (32.0-36.0); MEAN CORPUSCULAR VOLUME 73.5 fL (79-99); MONOCYTES # (AUTO) 0.7 K/uL (0.1-1.0); MONOCYTES % (AUTO) 3.1 % (3.0-13.0); NEUTROPHILS # (AUTO) 20.6 K/uL (1.8-7.7); NEUTROPHILS % (AUTO) 94.1 % (40.0-77.0); PLATELET COUNT (AUTO) 297 K/uL (130-400); RED BLOOD CELL COUNT(AUTO) 4.27 MIL/uL (4.50-6.20); RED CELL DISTRIBUTION WIDTH 25.7 % (11.0-15.5); WHITE BLOOD COUNT (AUTO) 21.9 K/uL (4.8-10.8)
[2024-05-09 05:39] LABS: CREATININE 1.2 mg/dL (0.5-1.3); POTASSIUM 5.2 mmol/L (3.5-5.1)
[2024-05-09] MEDS: DIAZEPAM 5 MG/ML 2 ML SYG IV PRN (09:55)
[2024-05-09] MEDS: VANCOMYCIN 500MG+NS 100ML 100 ML IV SCH (21:33)
[2024-05-09] MEDS: HYDRALAZINE 20MG/ML VIAL IV PRN (22:35)
[2024-05-10] VITALS (56 sets, daily range): BP systolic 118–182; BP diastolic 55–112; PULSE 32–67; RESP 13–60; O2SAT 96–100
[2024-05-10 04:59] LABS: BASOPHILS # (AUTO) 0.02 K/uL (0.00-0.20); BASOPHILS % (AUTO) 0.1 % (0.0-5.0); HEMATOCRIT 30.4 % (42-54); IMMATURE GRANULOCYTE ABSOLUTE 0.19 K/uL (0-1); LYMPHOCYTES # (AUTO) 0.7 K/uL (1.0-4.8); LYMPHOCYTES % (AUTO) 5.2 % (21.0-51.0); MEAN CORPUSCULAR HEMOGLOBIN 22.7 pg (27.0-33.0); MEAN CORPUSCULAR HGB CONC 30.6 g/dL (32.0-36.0); MEAN CORPUSCULAR VOLUME 74.1 fL (79-99); MONOCYTES # (AUTO) 0.9 K/uL (0.1-1.0); MONOCYTES % (AUTO) 6.7 % (3.0-13.0); NEUTROPHILS % (AUTO) 86.6 % (40.0-77.0); PLATELET COUNT (AUTO) 282 K/uL (130-400); RED CELL DISTRIBUTION WIDTH 25.3 % (11.0-15.5); WHITE BLOOD COUNT (AUTO) 13.8 K/uL (4.8-10.8)
[2024-05-10] MEDS ORDERED: POTASSIUM CHLORIDE 10MEQ/100ML 100 ML IV PRN (06:00)
[2024-05-10] MEDS ORDERED: SODIUM ZIRCONIUM CYCLOSILICATE 5 GM POWD.PACK PO ONE (06:00)
[2024-05-10] MEDS ORDERED: POTASSIUM CHLORIDE 10% ELIXIR 20 MEQ/15 ML UDCUP PO PRN (06:00)
[2024-05-10] MEDS ORDERED: POTASSIUM CHLORIDE 10MEQ SR TAB PO PRN (06:00)
[2024-05-10] MEDS: ALBUTEROL 0.083% 2.5 MG/3 ML INH IH SCH (06:21)
[2024-05-10] MEDS ORDERED: NA ZIRCON CYCLOSIL(LOKELMA 10GM) PO ONE (06:30)
[2024-05-10 06:54] LABS: POTASSIUM 4.2 mmol/L (3.5-5.1)
[2024-05-10] MEDS: MORPHINE 2 MG SYG IVP PRN (08:01)
[2024-05-10] MEDS: SOLU-MEDROL 40MG VIAL IVP SCH (08:16)
[2024-05-10] MEDS ORDERED: LORAZEPAM 2 MG/ML 1 ML VIAL IVP PRN (09:00)
[2024-05-10] MEDS: KETOROLAC 15MG/ML VIAL (15MG/ML) IV PRN (11:44)
[2024-05-11] VITALS (30 sets, daily range): BP systolic 109–158; BP diastolic 61–96; PULSE 43–90; RESP 12–25; O2SAT 96–99
[2024-05-11 03:42] LABS: BASOPHILS # (AUTO) 0.02 K/uL (0.00-0.20); BASOPHILS % (AUTO) 0.2 % (0.0-5.0); HEMATOCRIT 30.4 % (42-54); IMMATURE GRANULOCYTE ABSOLUTE 0.38 K/uL (0-1); LYMPHOCYTES # (AUTO) 0.6 K/uL (1.0-4.8); LYMPHOCYTES % (AUTO) 5.7 % (21.0-51.0); MEAN CORPUSCULAR HEMOGLOBIN 22.4 pg (27.0-33.0); MEAN CORPUSCULAR HGB CONC 30.3 g/dL (32.0-36.0); MEAN CORPUSCULAR VOLUME 74.1 fL (79-99); MONOCYTES # (AUTO) 0.9 K/uL (0.1-1.0); MONOCYTES % (AUTO) 8.2 % (3.0-13.0); NEUTROPHILS # (AUTO) 9.3 K/uL (1.8-7.7); NEUTROPHILS % (AUTO) 82.5 % (40.0-77.0); PLATELET COUNT (AUTO) 273 K/uL (130-400); RED CELL DISTRIBUTION WIDTH 25.6 % (11.0-15.5); WHITE BLOOD COUNT (AUTO) 11.2 K/uL (4.8-10.8)
[2024-05-11 04:18] LABS: CREATININE 1.1 mg/dL (0.5-1.3); POTASSIUM 3.8 mmol/L (3.5-5.1); THYROID STIMULATING HORMONE 1.43 uIU/mL (0.36-3.74)
[2024-05-11] MEDS: POTASSIUM CHLORIDE 10MEQ/100ML 100 ML IV PRN (06:49)
[2024-05-12] VITALS (13 sets, daily range): BP systolic 141–160; BP diastolic 72–110; PULSE 53–72; RESP 18; O2SAT 98–100
[2024-05-12 07:52] LABS: BASOPHILS # (AUTO) 0.04 K/uL (0.00-0.20); BASOPHILS % (AUTO) 0.3 % (0.0-5.0); EOSINOPHILS # (AUTO) 0.06 K/uL (0.00-0.70); EOSINOPHILS % (AUTO) 0.5 % (0.0-8.0); HEMATOCRIT 35.6 % (42-54); IMMATURE GRANULOCYTE ABSOLUTE 0.76 K/uL (0-1); LYMPHOCYTES # (AUTO) 0.9 K/uL (1.0-4.8); LYMPHOCYTES % (AUTO) 7.4 % (21.0-51.0); MEAN CORPUSCULAR HEMOGLOBIN 23.2 pg (27.0-33.0); MEAN CORPUSCULAR HGB CONC 30.9 g/dL (32.0-36.0); MEAN CORPUSCULAR VOLUME 75.1 fL (79-99); MONOCYTES # (AUTO) 1.1 K/uL (0.1-1.0); MONOCYTES % (AUTO) 9.4 % (3.0-13.0); PLATELET COUNT (AUTO) 290 K/uL (130-400); RED BLOOD CELL COUNT(AUTO) 4.74 MIL/uL (4.50-6.20); RED CELL DISTRIBUTION WIDTH 26.1 % (11.0-15.5); WHITE BLOOD COUNT (AUTO) 11.8 K/uL (4.8-10.8)
[2024-05-12 08:16] LABS: ALBUMIN 2.9 g/dL (3.5-5.0); BILIRUBIN,TOTAL 0.4 mg/dL (0.2-1.0); CREATININE 1.3 mg/dL (0.5-1.3); MAGNESIUM 1.6 mg/dL (1.80-2.40); POTASSIUM 3.7 mmol/L (3.5-5.1); TOTAL PROTEIN, SERUM 6.8 g/dL (6.0-8.3); VANCOMYCIN TROUGH 14.6 UG/ML (10.0-20.0)
[2024-05-12] MEDS ORDERED: DEXAMETHASONE SOD PHOSPHATE 4 MG/ML 1ML VIAL IVP SCH (09:00)
== END 2024-05-12 19:50 | disposition left against medical advice (07) | DRG 682 ==
LOC: EDH 07:58 → EDHIP 07:59 → UNDOADMIN 09:23 → EDHIP 09:23 → 4BH 10:11 → 4CH 04-25 20:50 → 2CH 05-05 14:20 → 2AH 05-07 13:23 → 2CH 05-08 14:45 → 3CH 05-11 11:50
PROVIDERS: ADMIT Hospitalist; ATTEND Hospitalist
PROC: 30233N1 Transfusion of Nonautologous Red Blood Cells into Peripheral Vein, Percutaneous Approach (ICD-10-PCS; 2024-04-26)
PROC: 0DB58ZX Excision of Esophagus, Via Natural or Artificial Opening Endoscopic, Diagnostic (ICD-10-PCS; 2024-04-28)
PROC: 0DJ08ZZ Inspection of Upper Intestinal Tract, Via Natural or Artificial Opening Endoscopic (ICD-10-PCS; 2024-05-01)
PROC: 0DJ08ZZ Inspection of Upper Intestinal Tract, Via Natural or Artificial Opening Endoscopic (ICD-10-PCS; 2024-05-05)
PROC: 5A0935A Assistance with Respiratory Ventilation, Less than 24 Consecutive Hours, High Flow/Velocity Cannula (ICD-10-PCS; 2024-05-05)
PROC: 0DHA0UZ Insertion of Feeding Device into Jejunum, Open Approach (ICD-10-PCS; principal; 2024-05-08 15:30)
DX: N17.9 Acute kidney failure, unspecified (principal); A41.9 Sepsis, unspecified organism; E43 Unspecified severe protein-calorie malnutrition; K85.90 Acute pancreatitis without necrosis or infection, unspecified; I50.31 Acute diastolic (congestive) heart failure; J96.01 Acute respiratory failure with hypoxia; J69.0 Pneumonitis due to inhalation of food and vomit; J15.9 Unspecified bacterial pneumonia; K22.3 Perforation of esophagus; R65.20 Severe sepsis without septic shock; I13.0 Hypertensive heart and chronic kidney disease with heart failure and stage 1 through stage 4 chronic kidney disease, or unspecified chronic kidney disease; K56.50 Intestinal adhesions [bands], unspecified as to partial versus complete obstruction; Z20.822 Contact with and (suspected) exposure to COVID-19; E86.0 Dehydration; F31.9 Bipolar disorder, unspecified; F10.20 Alcohol dependence, uncomplicated; E87.8 Other disorders of electrolyte and fluid balance, not elsewhere classified; D64.9 Anemia, unspecified; K21.00 Gastro-esophageal reflux disease with esophagitis, without bleeding; E11.22 Type 2 diabetes mellitus with diabetic chronic kidney disease; E83.42 Hypomagnesemia; I25.10 Atherosclerotic heart disease of native coronary artery without angina pectoris; K22.2 Esophageal obstruction; K40.90 Unilateral inguinal hernia, without obstruction or gangrene, not specified as recurrent; K57.30 Diverticulosis of large intestine without perforation or abscess without bleeding; N18.9 Chronic kidney disease, unspecified; N28.1 Cyst of kidney, acquired; R62.7 Adult failure to thrive; Z87.19 Personal history of other diseases of the digestive system; Z87.11 Personal history of peptic ulcer disease; Z68.20 Body mass index [BMI] 20.0-20.9, adult
CPT/HCPCS: 36415; 36600; 43200; 43202; 43235; 43752; 70450; 71045; 71270; 73565; 74176; 74240; 76770; 80048; 80051; 80053; 80202; 81001; 82270; 82306; 82435; 82607; 82728; 82803; 82947; 82948; 83540; 83550; 83605; 83690; 83735; 83880; 84100; 84132; 84145; 84295; 84439; 84443; 84481; 84484; 85014; 85018; 85025; 85027; 85378; 85610; 85730; 86850; 86900; 86901; 86923; 87040; 87071; 87077; 87088; 87186; 87205; 87426; 87641; 87804; 88305; 93005; 93306; 93970; 94640; 94664; 99291; A4344; A4606; C1894; C9113; G0378; J0330; J0360; J0461; J0692; J0696; J1100; J1756; J1885; J1940; J2001; J2060; J2250; J2270; J2405; J2543; J2550; J2704; J2710; J2765; J2919; J2920; J3010; J3360; J3370; J3475; J3480; J3490; J7030; J7050; J7120; P9016; Q9963; Q9967; 73560; A4215; A4216; A4222; A4223; A4452; A4600; A4620; A4649; A4657; B4087; C1750; J0665

== ENCOUNTER 2024-05-13 16:44 | Inpatient (IN) | payer OTHER ==
[~2024-05-13] VITALS: Ht 180.3 cm; Wt 69.7 kg
[2024-05-13] MEDS: ONDANSETRON 4MG INJ IVP ONE ×2 (17:07→17:10)
[2024-05-13] MEDS: KETOROLAC 30MG VIAL (30MG/ML) IVP ONE (17:10)
[2024-05-13 17:24] LABS: BASOPHILS # (AUTO) 0.05 K/uL (0.00-0.20); BASOPHILS % (AUTO) 0.3 % (0.0-5.0); EOSINOPHILS # (AUTO) 0.51 K/uL (0.00-0.70); EOSINOPHILS % (AUTO) 3.4 % (0.0-8.0); IMMATURE GRANULOCYTE ABSOLUTE 0.73 K/uL (0-1); LYMPHOCYTES # (AUTO) 1.2 K/uL (1.0-4.8); LYMPHOCYTES % (AUTO) 8.4 % (21.0-51.0); MEAN CORPUSCULAR HEMOGLOBIN 22.7 pg (27.0-33.0); MEAN CORPUSCULAR HGB CONC 30.8 g/dL (32.0-36.0); MEAN CORPUSCULAR VOLUME 73.9 fL (79-99); MONOCYTES # (AUTO) 1.4 K/uL (0.1-1.0); MONOCYTES % (AUTO) 9.3 % (3.0-13.0); NEUTROPHILS # (AUTO) 10.9 K/uL (1.8-7.7); NEUTROPHILS % (AUTO) 73.7 % (40.0-77.0); PLATELET COUNT (AUTO) 412 K/uL (130-400); RED BLOOD CELL COUNT(AUTO) 5.28 MIL/uL (4.50-6.20); RED CELL DISTRIBUTION WIDTH 26.9 % (11.0-15.5); WHITE BLOOD COUNT (AUTO) 14.8 K/uL (4.8-10.8)
[2024-05-13 17:38] LABS: ALBUMIN 3.1 g/dL (3.5-5.0); BILIRUBIN,TOTAL 0.4 mg/dL (0.2-1.0); CREATININE 1.4 mg/dL (0.5-1.3); POTASSIUM 3.8 mmol/L (3.5-5.1); TOTAL PROTEIN, SERUM 6.7 g/dL (6.0-8.3)
[2024-05-13] MEDS: DEXTROSE 50%-WATER 50 ML DISP.SYRIN IV ONE ×2 (17:41→17:42)
[2024-05-13] MEDS: 0.9%NACL 1000ML 1,000 ML IV ONE ×2 (17:41→19:28)
[2024-05-13] MEDS ORDERED: IOHEXOL 350 MG/ML 100ML INFUS..BTL IV ONE (17:49)
[2024-05-13] MEDS: MORPHINE 2 MG SYG IVP ONE (18:34)
[2024-05-13] MEDS: HALOPERIDOL INJ 5 MG/ML VIAL IV SCH (19:52)
[2024-05-13 21:59] LABS: APPEARANCE,URINE CLEAR (CLEAR); BILIRUBIN,URINE NEGATIVE (NEGATIVE); COLOR,URINE LIGHT-YELLOW (YELLOW); GLUCOSE, URINE (UA) NEGATIVE (NEGATIVE); KETONES,URINE NEGATIVE (NEGATIVE); LEUKOCYTE ESTERASE ,URINE NEGATIVE Leu/uL (NEGATIVE); NITRATE,URINE NEGATIVE (NEGATIVE); OCCULT BLOOD,URINE NEGATIVE (NEGATIVE); PROTEIN,URINE 30 mg/dL (NEGATIVE); UROBILINOGEN,URINE 0.2 mg/dL (0.2-1.0)
[2024-05-13 22:00] LABS: ADD UA MICROSCOPIC YES; MUCUS,URINE RARE LPF (None Seen)
[2024-05-13 22:06] LABS: AMPHET/METH SCREEN,URINE NEGATIVE (NEGATIVE); BARBITURATE SCREEN, URINE NEGATIVE (NEGATIVE); BENZODIAZEPINES SCREEN,URINE POSITIVE (NEGATIVE); CANNABINOID SCREEN,URINE NEGATIVE (NEGATIVE); COCAINE SCREEN,URINE NEGATIVE (NEGATIVE); OPIATE SCREEN,URINE NEGATIVE (NEGATIVE); PHENCYCLIDINE SCREEN,URINE NEGATIVE (NEGATIVE)
[2024-05-13] MEDS ORDERED: GLUCAGON 1MG KIT 1 MG ML IM PRN (22:30)
[2024-05-13] MEDS ORDERED: DEXTROSE 50%-WATER 50 ML DISP.SYRIN IV PRN (22:30)
[2024-05-13] MEDS: LEVOFLOXACIN 500 MG/D5W 100 ML 100 ML IV SCH (23:06)
[2024-05-13 23:13] VITALS: BP 131/85; PULSE 56; RESP 20
[2024-05-13] MEDS: MORPHINE 2 MG SYG IVP PRN (23:25)
[2024-05-14 04:00] VITALS: BP 136/87; PULSE 63; RESP 20
[2024-05-14] MEDS: LACTATED RINGERS 1000ML 1,000 ML IV SCH (04:27)
[2024-05-14 04:53] LABS: BASOPHILS # (AUTO) 0.02 K/uL (0.00-0.20); BASOPHILS % (AUTO) 0.2 % (0.0-5.0); EOSINOPHILS % (AUTO) 5.8 % (0.0-8.0); HEMATOCRIT 29.8 % (42-54); IMMATURE GRANULOCYTE ABSOLUTE 0.46 K/uL (0-1); LYMPHOCYTES % (AUTO) 8.5 % (21.0-51.0); MEAN CORPUSCULAR HEMOGLOBIN 23.1 pg (27.0-33.0); MEAN CORPUSCULAR HGB CONC 30.5 g/dL (32.0-36.0); MEAN CORPUSCULAR VOLUME 75.6 fL (79-99); MONOCYTES # (AUTO) 0.7 K/uL (0.1-1.0); MONOCYTES % (AUTO) 5.8 % (3.0-13.0); NEUTROPHILS # (AUTO) 9.3 K/uL (1.8-7.7); NEUTROPHILS % (AUTO) 75.9 % (40.0-77.0); PLATELET COUNT (AUTO) 282 K/uL (130-400); RED BLOOD CELL COUNT(AUTO) 3.94 MIL/uL (4.50-6.20); RED CELL DISTRIBUTION WIDTH 26.5 % (11.0-15.5); WHITE BLOOD COUNT (AUTO) 12.2 K/uL (4.8-10.8)
[2024-05-14 05:06] LABS: HEMOGLOBIN A1C 4.9 % (4.0-6.0)
[2024-05-14 05:16] LABS: ALBUMIN 2.2 g/dL (3.5-5.0); BILIRUBIN,TOTAL 0.4 mg/dL (0.2-1.0); CREATININE 1.3 mg/dL (0.5-1.3); MAGNESIUM 1.6 mg/dL (1.80-2.40); POTASSIUM 3.6 mmol/L (3.5-5.1); THYROID STIMULATING HORMONE 5.24 uIU/mL (0.36-3.74); TOTAL PROTEIN, SERUM 5.3 g/dL (6.0-8.3)
[2024-05-14 08:00] VITALS: BP 116/75; PULSE 62; RESP 18; O2SAT 96
[2024-05-14] MEDS: FAMOTIDINE 20MG VIAL IV SCH (09:56)
[2024-05-14 12:00] VITALS: BP 120/82; PULSE 68; RESP 18
[2024-05-14 16:00] VITALS: BP 141/96; PULSE 63; RESP 18
[2024-05-14 19:00] VITALS: BP 153/86; PULSE 52; RESP 16
[2024-05-14] MEDS ORDERED: POTASSIUM CHLORIDE 20MEQ/100ML 100 ML IV PRN ×2 (20:00)
[2024-05-14] MEDS ORDERED: KCL 20 MEQ ERTAB PO PRN (20:00)
[2024-05-14 22:54] VITALS: O2SAT 98
[2024-05-15] VITALS (23 sets, daily range): BP systolic 115–148; BP diastolic 70–97; PULSE 54–90; RESP 14–20; O2SAT 99
[2024-05-15] MEDS: DIAZEPAM 2 MG TAB PO PRN (00:04)
[2024-05-15] MEDS: MAGNESIUM 2GM PREMIX 50ML 50 ML IV SCH (01:21)
[2024-05-15 05:44] LABS: BASOPHILS # (AUTO) 0.03 K/uL (0.00-0.20); BASOPHILS % (AUTO) 0.3 % (0.0-5.0); EOSINOPHILS # (AUTO) 0.61 K/uL (0.00-0.70); EOSINOPHILS % (AUTO) 5.8 % (0.0-8.0); HEMATOCRIT 29.8 % (42-54); IMMATURE GRANULOCYTE ABSOLUTE 0.46 K/uL (0-1); LYMPHOCYTES # (AUTO) 1.2 K/uL (1.0-4.8); LYMPHOCYTES % (AUTO) 11.1 % (21.0-51.0); MEAN CORPUSCULAR HEMOGLOBIN 23.3 pg (27.0-33.0); MEAN CORPUSCULAR HGB CONC 30.5 g/dL (32.0-36.0); MEAN CORPUSCULAR VOLUME 76.2 fL (79-99); MONOCYTES # (AUTO) 0.7 K/uL (0.1-1.0); MONOCYTES % (AUTO) 7.1 % (3.0-13.0); NEUTROPHILS # (AUTO) 7.5 K/uL (1.8-7.7); NEUTROPHILS % (AUTO) 71.3 % (40.0-77.0); PLATELET COUNT (AUTO) 257 K/uL (130-400); RED BLOOD CELL COUNT(AUTO) 3.91 MIL/uL (4.50-6.20); RED CELL DISTRIBUTION WIDTH 26.4 % (11.0-15.5); WHITE BLOOD COUNT (AUTO) 10.5 K/uL (4.8-10.8)
[2024-05-15 06:13] LABS: ALBUMIN 2.1 g/dL (3.5-5.0); BILIRUBIN,TOTAL 0.5 mg/dL (0.2-1.0); CREATININE 1.1 mg/dL (0.5-1.3); MAGNESIUM 1.5 mg/dL (1.80-2.40); POTASSIUM 3.6 mmol/L (3.5-5.1); TOTAL PROTEIN, SERUM 5.2 g/dL (6.0-8.3)
[2024-05-15] MEDS ORDERED: LIDOCAINE PF 100MG/5ML (2%) SYRINGE 5ML ONE (09:09)
[2024-05-15] MEDS ORDERED: SUCCINYLCHOLINE CHLORIDE 20 MG/ML 10 ML VIAL ONE (09:09)
[2024-05-15] MEDS ORDERED: PROPOFOL 10 MG/ML 20ML VIAL IV ONE ×2 (09:09)
[2024-05-15] MEDS ORDERED: MIDAZOLAM HCL 1 MG/ML 2ML VIAL ONE (09:16)
[2024-05-15] MEDS ORDERED: FENTANYL CITRATE PF 50 MCG/1 ML 2ML VIAL ONE (09:16)
[2024-05-15] MEDS: CLINIMIX-E4.25%AA/D5+LYT2000ML 2,000 ML IV ONE (13:45)
[2024-05-15] MEDS: SUCRALFATE 1 GM/10 ML PO SCH (21:00)
[2024-05-15] MEDS: PANTOPRAZOLE 40 MG/VIAL IVP SCH (23:50)
[2024-05-16 04:00] VITALS: BP 107/63; PULSE 71; RESP 20
[2024-05-16 07:35] VITALS: BP 134/84; PULSE 61; RESP 18
[2024-05-16 08:00] VITALS: O2SAT 99
[2024-05-16 11:35] VITALS: BP 117/71; PULSE 54; RESP 18
[2024-05-16 20:00] VITALS: BP 141/88; PULSE 55; RESP 19
[2024-05-16] MEDS: 0.9%NACL 10ML VIAL IV SCH (20:52)
[2024-05-16 23:00] VITALS: O2SAT 99
[2024-05-17] VITALS (7 sets, daily range): BP systolic 133–150; BP diastolic 77–96; PULSE 53–71; RESP 17–20; O2SAT 99
[2024-05-17 04:27] LABS: BASOPHILS # (AUTO) 0.03 K/uL (0.00-0.20); BASOPHILS % (AUTO) 0.4 % (0.0-5.0); EOSINOPHILS # (AUTO) 0.25 K/uL (0.00-0.70); EOSINOPHILS % (AUTO) 3.4 % (0.0-8.0); HEMATOCRIT 27.4 % (42-54); IMMATURE GRANULOCYTE ABSOLUTE 0.14 K/uL (0-1); LYMPHOCYTES # (AUTO) 1.4 K/uL (1.0-4.8); LYMPHOCYTES % (AUTO) 18.8 % (21.0-51.0); MEAN CORPUSCULAR HEMOGLOBIN 23.3 pg (27.0-33.0); MEAN CORPUSCULAR VOLUME 75.1 fL (79-99); MONOCYTES # (AUTO) 0.9 K/uL (0.1-1.0); MONOCYTES % (AUTO) 12.5 % (3.0-13.0); NEUTROPHILS # (AUTO) 4.7 K/uL (1.8-7.7); PLATELET COUNT (AUTO) 286 K/uL (130-400); RED BLOOD CELL COUNT(AUTO) 3.65 MIL/uL (4.50-6.20); WHITE BLOOD COUNT (AUTO) 7.5 K/uL (4.8-10.8)
[2024-05-17 04:53] LABS: ALBUMIN 2.2 g/dL (3.5-5.0); BILIRUBIN,TOTAL 0.2 mg/dL (0.2-1.0); CREATININE 1.1 mg/dL (0.5-1.3); MAGNESIUM 1.4 mg/dL (1.80-2.40); POTASSIUM 3.3 mmol/L (3.5-5.1); TOTAL PROTEIN, SERUM 5.3 g/dL (6.0-8.3)
[2024-05-17] MEDS: POTASSIUM CHLORIDE 10% ELIXIR 20 MEQ/15 ML UDCUP PO PRN (06:31)
[2024-05-17] MEDS: ONDANSETRON 4MG INJ IVP PRN (11:50)
[2024-05-18] VITALS (7 sets, daily range): BP systolic 127–148; BP diastolic 56–96; PULSE 60–81; RESP 16–19; O2SAT 100
[2024-05-18 05:17] LABS: BASOPHILS # (AUTO) 0.03 K/uL (0.00-0.20); BASOPHILS % (AUTO) 0.3 % (0.0-5.0); EOSINOPHILS % (AUTO) 2.2 % (0.0-8.0); HEMATOCRIT 28.3 % (42-54); IMMATURE GRANULOCYTE ABSOLUTE 0.09 K/uL (0-1); LYMPHOCYTES # (AUTO) 1.2 K/uL (1.0-4.8); LYMPHOCYTES % (AUTO) 13.5 % (21.0-51.0); MEAN CORPUSCULAR HGB CONC 31.1 g/dL (32.0-36.0); MEAN CORPUSCULAR VOLUME 73.9 fL (79-99); MONOCYTES # (AUTO) 1.3 K/uL (0.1-1.0); MONOCYTES % (AUTO) 14.4 % (3.0-13.0); NEUTROPHILS # (AUTO) 6.1 K/uL (1.8-7.7); NEUTROPHILS % (AUTO) 68.6 % (40.0-77.0); PLATELET COUNT (AUTO) 295 K/uL (130-400); RED BLOOD CELL COUNT(AUTO) 3.83 MIL/uL (4.50-6.20); RED CELL DISTRIBUTION WIDTH 27.4 % (11.0-15.5); WHITE BLOOD COUNT (AUTO) 8.9 K/uL (4.8-10.8)
[2024-05-18 05:32] LABS: ALBUMIN 2.3 g/dL (3.5-5.0); BILIRUBIN,TOTAL 0.3 mg/dL (0.2-1.0); CREATININE 1.1 mg/dL (0.5-1.3); MAGNESIUM 1.3 mg/dL (1.80-2.40); TOTAL PROTEIN, SERUM 5.7 g/dL (6.0-8.3)
[2024-05-19 00:02] VITALS: BP 116/82; PULSE 71; RESP 18
[2024-05-19] MEDS: MORPHINE 2 MG SYG IVP PRN (03:49)
[2024-05-19 04:03] VITALS: BP 108/76; PULSE 68; RESP 18
[2024-05-19 05:39] LABS: BASOPHILS # (AUTO) 0.05 K/uL (0.00-0.20); BASOPHILS % (AUTO) 0.6 % (0.0-5.0); EOSINOPHILS # (AUTO) 0.15 K/uL (0.00-0.70); EOSINOPHILS % (AUTO) 1.7 % (0.0-8.0); HEMATOCRIT 28.3 % (42-54); IMMATURE GRANULOCYTE ABSOLUTE 0.12 K/uL (0-1); LYMPHOCYTES # (AUTO) 1.3 K/uL (1.0-4.8); MEAN CORPUSCULAR HEMOGLOBIN 23.5 pg (27.0-33.0); MEAN CORPUSCULAR HGB CONC 30.7 g/dL (32.0-36.0); MEAN CORPUSCULAR VOLUME 76.5 fL (79-99); MONOCYTES # (AUTO) 1.5 K/uL (0.1-1.0); MONOCYTES % (AUTO) 16.7 % (3.0-13.0); NEUTROPHILS % (AUTO) 65.7 % (40.0-77.0); PLATELET COUNT (AUTO) 314 K/uL (130-400); RED CELL DISTRIBUTION WIDTH 27.7 % (11.0-15.5); WHITE BLOOD COUNT (AUTO) 9.1 K/uL (4.8-10.8)
[2024-05-19 06:18] LABS: ALBUMIN 2.3 g/dL (3.5-5.0); BILIRUBIN,TOTAL 0.3 mg/dL (0.2-1.0); CREATININE 1.4 mg/dL (0.5-1.3); MAGNESIUM 1.3 mg/dL (1.80-2.40); POTASSIUM 4.1 mmol/L (3.5-5.1); TOTAL PROTEIN, SERUM 5.7 g/dL (6.0-8.3)
[2024-05-19 08:00] VITALS: BP 136/104; PULSE 63; RESP 16; O2SAT 100
[2024-05-19 12:00] VITALS: BP 98/38; PULSE 67; RESP 17
[2024-05-19 16:00] VITALS: BP 128/81; PULSE 74; RESP 14
[2024-05-19 20:00] VITALS: BP 132/83; PULSE 77; RESP 18; O2SAT 100
[2024-05-20] VITALS (7 sets, daily range): BP systolic 105–148; BP diastolic 61–84; PULSE 60–73; RESP 17–20; O2SAT 98–100
[2024-05-20 06:04] LABS: BASOPHILS # (AUTO) 0.07 K/uL (0.00-0.20); BASOPHILS % (AUTO) 0.8 % (0.0-5.0); EOSINOPHILS # (AUTO) 0.15 K/uL (0.00-0.70); EOSINOPHILS % (AUTO) 1.8 % (0.0-8.0); HEMATOCRIT 26.8 % (42-54); IMMATURE GRANULOCYTE ABSOLUTE 0.08 K/uL (0-1); LYMPHOCYTES # (AUTO) 1.3 K/uL (1.0-4.8); LYMPHOCYTES % (AUTO) 15.7 % (21.0-51.0); MEAN CORPUSCULAR HEMOGLOBIN 23.2 pg (27.0-33.0); MEAN CORPUSCULAR HGB CONC 31.3 g/dL (32.0-36.0); MONOCYTES # (AUTO) 1.5 K/uL (0.1-1.0); MONOCYTES % (AUTO) 18.1 % (3.0-13.0); NEUTROPHILS # (AUTO) 5.3 K/uL (1.8-7.7); NEUTROPHILS % (AUTO) 62.7 % (40.0-77.0); PLATELET COUNT (AUTO) 296 K/uL (130-400); RED BLOOD CELL COUNT(AUTO) 3.62 MIL/uL (4.50-6.20); RED CELL DISTRIBUTION WIDTH 27.9 % (11.0-15.5); WHITE BLOOD COUNT (AUTO) 8.5 K/uL (4.8-10.8)
[2024-05-20 06:47] LABS: ALBUMIN 2.4 g/dL (3.5-5.0); BILIRUBIN,TOTAL 0.3 mg/dL (0.2-1.0); CREATININE 1.4 mg/dL (0.5-1.3); MAGNESIUM 1.4 mg/dL (1.80-2.40); POTASSIUM 4.3 mmol/L (3.5-5.1); TOTAL PROTEIN, SERUM 5.9 g/dL (6.0-8.3)
[2024-05-20] MEDS: ACETAMINOPHEN WITH CODEINE 1 TAB TAB PO PRN (15:28)
[2024-05-20] MEDS ORDERED: LACTULOSE 20 GM/30 ML UDCUP PO PRN (15:30)
[2024-05-20] MEDS: ONDANSETRON 4MG TABLET PO PRN (18:10)
[2024-05-20] MEDS: MAGNESIUM OXIDE 400 MG TABLET PO ONE (18:11)
[2024-05-21 00:23] VITALS: BP 116/80; PULSE 68; RESP 20
[2024-05-21 04:30] LABS: ALBUMIN 2.4 g/dL (3.5-5.0); BILIRUBIN,TOTAL 0.4 mg/dL (0.2-1.0); CREATININE 1.4 mg/dL (0.5-1.3); MAGNESIUM 1.5 mg/dL (1.80-2.40); POTASSIUM 4.3 mmol/L (3.5-5.1); TOTAL PROTEIN, SERUM 5.8 g/dL (6.0-8.3)
[2024-05-21 04:43] VITALS: BP 123/87; PULSE 74; RESP 18
[2024-05-21 07:56] VITALS: BP 108/72; PULSE 66; RESP 16
[2024-05-21 08:00] VITALS: O2SAT 98
[2024-05-21] MEDS: MAGNESIUM OXIDE 400 MG TABLET PO SCH (08:21)
[2024-05-21 11:32] VITALS: BP 117/79; PULSE 63; RESP 16
[2024-05-21] MEDS ORDERED: SUCR1ORA15 PO (12:51)
[2024-05-21] MEDS ORDERED: FAMO40SU3 PO (12:51)
[2024-05-21] MEDS ORDERED: AMOX-426 PO (22:53)
== END 2024-05-21 13:27 | disposition home or self-care (01) | DRG 391 ==
LOC: EDH 16:44 → OBSVTOIN 16:45 → EDHIP 16:45 → 4DH 23:13
PROVIDERS: ADMIT Hospitalist; ATTEND Hospitalist
PROC: 0DB58ZX Excision of Esophagus, Via Natural or Artificial Opening Endoscopic, Diagnostic (ICD-10-PCS; principal; 2024-05-15)
DX: K22.2 Esophageal obstruction (principal); K85.90 Acute pancreatitis without necrosis or infection, unspecified; N17.9 Acute kidney failure, unspecified; E87.20 Acidosis, unspecified; D75.839 Thrombocytosis, unspecified; E16.2 Hypoglycemia, unspecified; D64.9 Anemia, unspecified; E86.0 Dehydration; F31.9 Bipolar disorder, unspecified; I10 Essential (primary) hypertension; K40.90 Unilateral inguinal hernia, without obstruction or gangrene, not specified as recurrent; K57.30 Diverticulosis of large intestine without perforation or abscess without bleeding; N20.0 Calculus of kidney; K21.00 Gastro-esophageal reflux disease with esophagitis, without bleeding; K59.00 Constipation, unspecified; Z53.29 Procedure and treatment not carried out because of patient's decision for other reasons; Z87.11 Personal history of peptic ulcer disease; Z91.199 Patient's noncompliance with other medical treatment and regimen due to unspecified reason
CPT/HCPCS: 36415; 43202; 71045; 74018; 74177; 80053; 80305; 81001; 82948; 83036; 83605; 83690; 83735; 84145; 84443; 84478; 85025; 88305; 88312; 96365; 96366; 96375; C1894; C9113; G0378; J0330; J1630; J1885; J1956; J2001; J2250; J2270; J2405; J2704; J3010; J3475; J3480; J3490; J7030; J7070; Q0162; Q9967; A4215; A4222; A4223; A4657; C1750; G8980-CI; G8983-CI

== ENCOUNTER 2024-05-21 17:22 | Emergency (ER) | payer OTHER ==
[~2024-05-21] VITALS: Ht 180.3 cm; Wt 64.4 kg
[~2024-05-21 17:22] MED LIST changes: -AMLO5TAB4 PO; -CIPR-278 PO; +FAMO40SU3 PO; -FOLI0.4T6 PO; -METR-172 PO; -PANT40TA PO; -POTA-187 PO; +SUCR1ORA15 PO; -SUCR1TAB PO; -THIA100T91 PO
[2024-05-21] MEDS: 0.9%NACL 1000ML 1,000 ML IV ONE (20:57)
[2024-05-21] MEDS: MAG/ALUM/SIMETH 30 ML UDCUP PO ONE (20:57)
[2024-05-21] MEDS: ONDANSETRON 4MG INJ IVP STA ×2 (20:57→22:56)
[2024-05-21 21:08] LABS: BASOPHILS # (AUTO) 0.11 K/uL (0.00-0.20); BASOPHILS % (AUTO) 0.8 % (0.0-5.0); EOSINOPHILS # (AUTO) 0.06 K/uL (0.00-0.70); EOSINOPHILS % (AUTO) 0.4 % (0.0-8.0); HEMATOCRIT 34.9 % (42-54); IMMATURE GRANULOCYTE ABSOLUTE 0.08 K/uL (0-1); LYMPHOCYTES # (AUTO) 1.2 K/uL (1.0-4.8); LYMPHOCYTES % (AUTO) 8.7 % (21.0-51.0); MEAN CORPUSCULAR HEMOGLOBIN 23.5 pg (27.0-33.0); MEAN CORPUSCULAR HGB CONC 30.7 g/dL (32.0-36.0); MEAN CORPUSCULAR VOLUME 76.5 fL (79-99); MONOCYTES # (AUTO) 1.9 K/uL (0.1-1.0); MONOCYTES % (AUTO) 13.9 % (3.0-13.0); NEUTROPHILS # (AUTO) 10.4 K/uL (1.8-7.7); NEUTROPHILS % (AUTO) 75.6 % (40.0-77.0); PLATELET COUNT (AUTO) 331 K/uL (130-400); RED BLOOD CELL COUNT(AUTO) 4.56 MIL/uL (4.50-6.20); RED CELL DISTRIBUTION WIDTH 28.4 % (11.0-15.5); WHITE BLOOD COUNT (AUTO) 13.7 K/uL (4.8-10.8)
[2024-05-21 21:14] LABS: CREATININE 2.3 mg/dL (0.5-1.3); POTASSIUM 4.7 mmol/L (3.5-5.1)
[2024-05-21 21:23] LABS: ALBUMIN 3.1 g/dL (3.5-5.0); BILIRUBIN,TOTAL 0.3 mg/dL (0.2-1.0); TOTAL PROTEIN, SERUM 7.7 g/dL (6.0-8.3)
[2024-05-21 21:56] VITALS: BP 126/92; PULSE 79; RESP 16; O2SAT 96
[2024-05-21] MEDS ORDERED: MORPHINE 2 MG SYG IVP SCH (22:00)
[2024-05-21] MEDS ORDERED: AMOX-426 PO (22:53)
[2024-05-21] MEDS: LACTULOSE 20 GM/30 ML UDCUP PO STA (22:56)
[2024-05-21] MEDS: MAGNESIUM CITRATE 296 ML SOLUTION PO ONE (22:57)
== END 2024-05-21 23:06 | disposition home or self-care (01) ==
LOC: EDH 17:22
DX: N20.0 Calculus of kidney (principal); K57.90 Diverticulosis of intestine, part unspecified, without perforation or abscess without bleeding; K40.90 Unilateral inguinal hernia, without obstruction or gangrene, not specified as recurrent; R10.84 Generalized abdominal pain; J18.9 Pneumonia, unspecified organism; I10 Essential (primary) hypertension; Z88.8 Allergy status to other drugs, medicaments and biological substances; Z79.899 Other long term (current) drug therapy; Z79.2 Long term (current) use of antibiotics; Z98.890 Other specified postprocedural states; Z93.1 Gastrostomy status
CPT/HCPCS: 99285; 74176; 96374; 84484; 80053; 83690; 85025; 36415; 93005; J7030; J2405

== ENCOUNTER 2024-05-22 19:23 | Inpatient (IN) | payer OTHER ==
[~2024-05-22] VITALS: Ht 180.3 cm; Wt 67.6 kg
[~2024-05-22 19:23] MED LIST changes: +AMOX-426 PO
[2024-05-22 19:42] LABS: BASOPHILS # (AUTO) 0.08 K/uL (0.00-0.20); BASOPHILS % (AUTO) 0.5 % (0.0-5.0); EOSINOPHILS # (AUTO) 0.01 K/uL (0.00-0.70); EOSINOPHILS % (AUTO) 0.1 % (0.0-8.0); HEMATOCRIT 33.2 % (42-54); IMMATURE GRANULOCYTE ABSOLUTE 0.06 K/uL (0-1); LYMPHOCYTES # (AUTO) 0.9 K/uL (1.0-4.8); LYMPHOCYTES % (AUTO) 4.9 % (21.0-51.0); MEAN CORPUSCULAR HEMOGLOBIN 23.6 pg (27.0-33.0); MEAN CORPUSCULAR HGB CONC 32.2 g/dL (32.0-36.0); MEAN CORPUSCULAR VOLUME 73.1 fL (79-99); MONOCYTES # (AUTO) 1.6 K/uL (0.1-1.0); MONOCYTES % (AUTO) 9.3 % (3.0-13.0); NEUTROPHILS # (AUTO) 14.6 K/uL (1.8-7.7); NEUTROPHILS % (AUTO) 84.9 % (40.0-77.0); PLATELET COUNT (AUTO) 348 K/uL (130-400); RED BLOOD CELL COUNT(AUTO) 4.54 MIL/uL (4.50-6.20); WHITE BLOOD COUNT (AUTO) 17.2 K/uL (4.8-10.8)
[2024-05-22 19:52] LABS: CREATININE 2.2 mg/dL (0.5-1.3); POTASSIUM 4.9 mmol/L (3.5-5.1)
[2024-05-22] MEDS: ONDANSETRON 4MG INJ IVP ONE (19:53)
[2024-05-22] MEDS: PANTOPRAZOLE 40 MG/VIAL IVP ONE (20:58)
[2024-05-22] MEDS: HALOPERIDOL INJ 5 MG/ML VIAL IV STA (22:44)
[2024-05-22 23:08] LABS: APPEARANCE,URINE CLEAR (CLEAR); BILIRUBIN,URINE NEGATIVE (NEGATIVE); COLOR,URINE LIGHT-YELLOW (YELLOW); GLUCOSE, URINE (UA) NEGATIVE (NEGATIVE); KETONES,URINE NEGATIVE (NEGATIVE); LEUKOCYTE ESTERASE ,URINE NEGATIVE Leu/uL (NEGATIVE); NITRATE,URINE NEGATIVE (NEGATIVE); OCCULT BLOOD,URINE NEGATIVE (NEGATIVE); PH,URINE 8.5 (5.0-8.0); PROTEIN,URINE 20 mg/dL (NEGATIVE); UROBILINOGEN,URINE 0.2 mg/dL (0.2-1.0)
[2024-05-22 23:09] LABS: ADD UA MICROSCOPIC YES
[2024-05-22 23:26] LABS: RBC,URINE 0-1 /HPF (0-1)
[2024-05-22] MEDS ORDERED: GLUCAGON 1MG KIT 1 MG ML IM PRN (23:30)
[2024-05-22] MEDS ORDERED: DEXTROSE 50%-WATER 50 ML DISP.SYRIN IV PRN (23:30)
[2024-05-22] MEDS ORDERED: MAGNESIUM 2GM PREMIX 50ML 50 ML IV PRN (23:30)
[2024-05-23] VITALS (7 sets, daily range): BP systolic 100–131; BP diastolic 61–88; PULSE 69–100; RESP 17–18; O2SAT 96
[2024-05-23] MEDS ORDERED: NITROGLYCERIN 0.4 MG SL TAB SL PRN
[2024-05-23] MEDS ORDERED: MAG/ALUM/SIMETH 30 ML UDCUP PO PRN
[2024-05-23] MEDS ORDERED: HYDRALAZINE 20MG/ML VIAL IV PRN
[2024-05-23] MEDS ORDERED: ACETAMINOPHEN 325 MG TAB PO PRN ×3
[2024-05-23] MEDS ORDERED: GUAIFENESIN-DM 200/20 MG 10 ML PO PRN
[2024-05-23] MEDS ORDERED: LACTULOSE 20 GM/30 ML UDCUP PO PRN
[2024-05-23] MEDS ORDERED: FAMOTIDINE 20MG VIAL IV PRN
[2024-05-23] MEDS: PANTOPRAZOLE 40MG INJ 80 MG in 0.9%NACL 100ML 100 ML IVP SCH (00:08)
[2024-05-23] MEDS: LACTATED RINGERS 1000ML 1,000 ML IV SCH (00:08)
[2024-05-23] MEDS: CEFTRIAXONE 1G VIAL 2 GM in 0.9%NACL 100ML 100 ML IV SCH (00:45)
[2024-05-23] MEDS: KETOROLAC 15MG/ML VIAL (15MG/ML) IV PRN (03:47)
[2024-05-23 05:39] LABS: BASOPHILS # (AUTO) 0.07 K/uL (0.00-0.20); BASOPHILS % (AUTO) 0.6 % (0.0-5.0); EOSINOPHILS # (AUTO) 0.04 K/uL (0.00-0.70); EOSINOPHILS % (AUTO) 0.3 % (0.0-8.0); HEMATOCRIT 28.7 % (42-54); IMMATURE GRANULOCYTE ABSOLUTE 0.05 K/uL (0-1); LYMPHOCYTES # (AUTO) 0.9 K/uL (1.0-4.8); LYMPHOCYTES % (AUTO) 7.7 % (21.0-51.0); MEAN CORPUSCULAR HEMOGLOBIN 23.3 pg (27.0-33.0); MEAN CORPUSCULAR VOLUME 75.1 fL (79-99); MONOCYTES # (AUTO) 1.7 K/uL (0.1-1.0); MONOCYTES % (AUTO) 14.8 % (3.0-13.0); NEUTROPHILS # (AUTO) 8.8 K/uL (1.8-7.7); NEUTROPHILS % (AUTO) 76.2 % (40.0-77.0); PLATELET COUNT (AUTO) 285 K/uL (130-400); RED BLOOD CELL COUNT(AUTO) 3.82 MIL/uL (4.50-6.20); WHITE BLOOD COUNT (AUTO) 11.5 K/uL (4.8-10.8)
[2024-05-23 05:58] LABS: ALBUMIN 2.3 g/dL (3.5-5.0); BILIRUBIN,DIRECT 0.1 mg/dL (0.0-0.3); BILIRUBIN,TOTAL 0.4 mg/dL (0.2-1.0); CREATININE 2.1 mg/dL (0.5-1.3); MAGNESIUM 1.8 mg/dL (1.80-2.40); POTASSIUM 4.4 mmol/L (3.5-5.1); TOTAL PROTEIN, SERUM 6.1 g/dL (6.0-8.3)
[2024-05-23] MEDS: INSULIN HUMULIN R 100 UNIT/ML 3ML SQ SCH (07:30)
[2024-05-23] MEDS: FAMOTIDINE 20MG VIAL IV SCH (08:28)
[2024-05-23] MEDS ORDERED: PHARMACY COMMUNICATION MISC SCH (11:30)
[2024-05-23] MEDS ORDERED: COMPOUND IV REFRIGERATED 1 EACH IVSOLN MISC PRN (11:30)
[2024-05-23 12:40] LABS: HEMATOCRIT 30.3 % (42-54)
[2024-05-23] MEDS: ONDANSETRON 4MG INJ IV PRN (13:31)
[2024-05-23 18:55] LABS: HEMATOCRIT 28.2 % (42-54)
[2024-05-23] MEDS: CEFTRIAXONE 2GM VIAL IVPB SCH (21:25)
[2024-05-24] VITALS (8 sets, daily range): BP systolic 119–152; BP diastolic 78–95; PULSE 61–73; RESP 18; O2SAT 96
[2024-05-24] MEDS: KETOROLAC 15MG/ML VIAL (15MG/ML) IV PRN (00:20)
[2024-05-24 00:52] LABS: HEMATOCRIT 27.1 % (42-54)
[2024-05-24 06:09] LABS: HEMATOCRIT 25.4 % (42-54)
[2024-05-24 06:47] LABS: BILIRUBIN,TOTAL 0.2 mg/dL (0.2-1.0); CREATININE 2.2 mg/dL (0.5-1.3); MAGNESIUM 1.9 mg/dL (1.80-2.40); POTASSIUM 4.5 mmol/L (3.5-5.1)
[2024-05-24 07:11] LABS: TOTAL PROTEIN, SERUM 5.5 g/dL (6.0-8.3)
[2024-05-24 12:12] LABS: HEMATOCRIT 28.5 % (42-54)
[2024-05-24] MEDS: BISACODYL 10 MG SUPP.RECT RC PRN (13:36)
[2024-05-24] MEDS ORDERED: DIATR MEGLU/DIATRIZOATE SODIUM 30 ML BOTTLE ONE (13:57)
[2024-05-24 18:11] LABS: HEMATOCRIT 26.6 % (42-54)
[2024-05-24] MEDS: DiphenhydrAMINE HCL 50 MG/ML VIAL IV PRN (21:51)
[2024-05-25] VITALS (9 sets, daily range): BP systolic 132–145; BP diastolic 72–99; PULSE 57–84; RESP 17–19; O2SAT 96–100
[2024-05-25 04:16] LABS: BASOPHILS % (AUTO) 1.6 % (0.0-5.0); EOSINOPHILS # (AUTO) 0.22 K/uL (0.00-0.70); EOSINOPHILS % (AUTO) 3.5 % (0.0-8.0); HEMATOCRIT 23.6 % (42-54); IMMATURE GRANULOCYTE ABSOLUTE 0.03 K/uL (0-1); LYMPHOCYTES # (AUTO) 1.2 K/uL (1.0-4.8); LYMPHOCYTES % (AUTO) 18.6 % (21.0-51.0); MEAN CORPUSCULAR HEMOGLOBIN 23.4 pg (27.0-33.0); MEAN CORPUSCULAR HGB CONC 30.1 g/dL (32.0-36.0); MEAN CORPUSCULAR VOLUME 77.9 fL (79-99); MONOCYTES # (AUTO) 0.8 K/uL (0.1-1.0); MONOCYTES % (AUTO) 12.6 % (3.0-13.0); NEUTROPHILS % (AUTO) 63.2 % (40.0-77.0); PLATELET COUNT (AUTO) 266 K/uL (130-400); RED BLOOD CELL COUNT(AUTO) 3.03 MIL/uL (4.50-6.20); WHITE BLOOD COUNT (AUTO) 6.4 K/uL (4.8-10.8)
[2024-05-25 04:45] LABS: ALBUMIN 2.1 g/dL (3.5-5.0); BILIRUBIN,TOTAL 0.2 mg/dL (0.2-1.0); MAGNESIUM 1.8 mg/dL (1.80-2.40); POTASSIUM 4.5 mmol/L (3.5-5.1); TOTAL PROTEIN, SERUM 5.5 g/dL (6.0-8.3)
[2024-05-25 10:22] LABS: HEMATOCRIT 26.9 % (42-54)
[2024-05-25] MEDS ORDERED: DIATR MEGLU/DIATRIZOATE SODIUM 30 ML BOTTLE ONE (10:51)
[2024-05-25] MEDS: PANTOPRAZOLE 40MG INJ 80 MG in 0.9%NACL 100ML 100 ML IVP SCH (13:13)
[2024-05-25 16:15] LABS: HEMATOCRIT 26.7 % (42-54)
[2024-05-25] MEDS: ZOLPIDEM TARTRATE 5 MG TAB PO PRN (22:12)
[2024-05-26] VITALS (8 sets, daily range): BP systolic 146–154; BP diastolic 80–105; PULSE 51–62; RESP 17–18; O2SAT 96–100
[2024-05-26 09:37] LABS: ALBUMIN 2.7 g/dL (3.5-5.0); BILIRUBIN,TOTAL 0.2 mg/dL (0.2-1.0); CREATININE 1.9 mg/dL (0.5-1.3); POTASSIUM 3.7 mmol/L (3.5-5.1); TOTAL PROTEIN, SERUM 6.6 g/dL (6.0-8.3)
[2024-05-26] MEDS: PANTOPRAZOLE 40 MG/VIAL IVP SCH (10:07)
[2024-05-27] VITALS (8 sets, daily range): BP systolic 123–142; BP diastolic 78–91; PULSE 60–83; RESP 16–19; O2SAT 96–98
[2024-05-27 03:53] LABS: BASOPHILS # (AUTO) 0.06 K/uL (0.00-0.20); BASOPHILS % (AUTO) 1.2 % (0.0-5.0); EOSINOPHILS # (AUTO) 0.22 K/uL (0.00-0.70); EOSINOPHILS % (AUTO) 4.3 % (0.0-8.0); HEMATOCRIT 25.5 % (42-54); IMMATURE GRANULOCYTE ABSOLUTE 0.05 K/uL (0-1); LYMPHOCYTES # (AUTO) 1.3 K/uL (1.0-4.8); LYMPHOCYTES % (AUTO) 26.2 % (21.0-51.0); MEAN CORPUSCULAR VOLUME 74.1 fL (79-99); MONOCYTES # (AUTO) 0.6 K/uL (0.1-1.0); MONOCYTES % (AUTO) 11.9 % (3.0-13.0); NEUTROPHILS # (AUTO) 2.8 K/uL (1.8-7.7); NEUTROPHILS % (AUTO) 55.4 % (40.0-77.0); PLATELET COUNT (AUTO) 276 K/uL (130-400); RED BLOOD CELL COUNT(AUTO) 3.44 MIL/uL (4.50-6.20); RED CELL DISTRIBUTION WIDTH 26.5 % (11.0-15.5); WHITE BLOOD COUNT (AUTO) 5.1 K/uL (4.8-10.8)
[2024-05-27 04:11] LABS: ALBUMIN 2.3 g/dL (3.5-5.0); BILIRUBIN,TOTAL 0.1 mg/dL (0.2-1.0); CREATININE 1.8 mg/dL (0.5-1.3); MAGNESIUM 1.9 mg/dL (1.80-2.40); POTASSIUM 3.8 mmol/L (3.5-5.1); TOTAL PROTEIN, SERUM 5.6 g/dL (6.0-8.3)
[2024-05-27] MEDS: HYDROCODONE/ACETAMINOPHEN 5/325 MG TAB PO SCH (05:24)
[2024-05-27] MEDS ORDERED: IOHEXOL 350 MG/ML 100ML INFUS..BTL IV ONE (10:46)
[2024-05-28] VITALS: BP 150/98; PULSE 64; RESP 18
[2024-05-28 04:00] VITALS: BP 129/88; PULSE 71; RESP 19
[2024-05-28 04:49] LABS: BASOPHILS # (AUTO) 0.06 K/uL (0.00-0.20); BASOPHILS % (AUTO) 0.7 % (0.0-5.0); EOSINOPHILS # (AUTO) 0.17 K/uL (0.00-0.70); EOSINOPHILS % (AUTO) 2.1 % (0.0-8.0); HEMATOCRIT 26.1 % (42-54); IMMATURE GRANULOCYTE ABSOLUTE 0.07 K/uL (0-1); LYMPHOCYTES # (AUTO) 1.4 K/uL (1.0-4.8); LYMPHOCYTES % (AUTO) 16.3 % (21.0-51.0); MEAN CORPUSCULAR HEMOGLOBIN 23.2 pg (27.0-33.0); MEAN CORPUSCULAR HGB CONC 31.4 g/dL (32.0-36.0); MEAN CORPUSCULAR VOLUME 73.7 fL (79-99); MONOCYTES # (AUTO) 0.6 K/uL (0.1-1.0); MONOCYTES % (AUTO) 7.7 % (3.0-13.0); NEUTROPHILS % (AUTO) 72.4 % (40.0-77.0); NUCLEATED RED BLOOD CELLS 0.2 % (0.0-0.19); PLATELET COUNT (AUTO) 289 K/uL (130-400); RED BLOOD CELL COUNT(AUTO) 3.54 MIL/uL (4.50-6.20); RED CELL DISTRIBUTION WIDTH 26.2 % (11.0-15.5); WHITE BLOOD COUNT (AUTO) 8.3 K/uL (4.8-10.8)
[2024-05-28 05:12] LABS: ALBUMIN 2.3 g/dL (3.5-5.0); BILIRUBIN,TOTAL 0.1 mg/dL (0.2-1.0); CREATININE 1.5 mg/dL (0.5-1.3); MAGNESIUM 1.9 mg/dL (1.80-2.40); POTASSIUM 4.5 mmol/L (3.5-5.1); TOTAL PROTEIN, SERUM 5.7 g/dL (6.0-8.3)
[2024-05-28 07:29] VITALS: O2SAT 98
[2024-05-28 07:54] VITALS: BP 131/72; PULSE 71; RESP 18
[2024-05-28 11:35] VITALS: BP 132/84; PULSE 65; RESP 16
== END 2024-05-28 12:32 | disposition home or self-care (01) | DRG 393 ==
LOC: EDH 19:23 → EDHIP 19:24 → 4DH 05-23 01:19
PROVIDERS: ADMIT Hospitalist; ATTEND Hospitalist
DX: K94.12 Enterostomy infection (principal); K85.90 Acute pancreatitis without necrosis or infection, unspecified; K92.0 Hematemesis; N17.9 Acute kidney failure, unspecified; K22.2 Esophageal obstruction; D75.839 Thrombocytosis, unspecified; F31.9 Bipolar disorder, unspecified; I10 Essential (primary) hypertension; J98.2 Interstitial emphysema; D64.9 Anemia, unspecified; E11.649 Type 2 diabetes mellitus with hypoglycemia without coma; Z88.8 Allergy status to other drugs, medicaments and biological substances; Z79.899 Other long term (current) drug therapy; Z87.11 Personal history of peptic ulcer disease; Z87.442 Personal history of urinary calculi; Z91.199 Patient's noncompliance with other medical treatment and regimen due to unspecified reason; Y83.8 Other surgical procedures as the cause of abnormal reaction of the patient, or of later complication, without mention of misadventure at the time of the procedure; Y73.2 Prosthetic and other implants, materials and accessory gastroenterology and urology devices associated with adverse incidents
CPT/HCPCS: 36415; 71250; 71270; 74018; 74176; 74220; 80048; 80053; 80076; 81001; 82140; 82306; 82550; 82948; 83036; 83605; 83690; 83735; 83880; 84145; 84484; 85014; 85018; 85025; 86850; 86900; 86901; 93005; 99291; C9113; G0378; J0696; J1200; J1630; J1815; J1885; J2405; J3475; J3490; J7120; Q9963; Q9967

== ENCOUNTER 2024-06-04 16:57 | Inpatient (IN) | payer SELFPAY ==
[~2024-06-04] VITALS: Ht 180.3 cm; Wt 67.0 kg
[2024-06-04] MEDS ORDERED: MORPHINE 2 MG SYG IVP ONE (17:30)
[2024-06-04] MEDS ORDERED: 0.9%NACL 1000ML 1,000 ML IV ONE (17:30)
[2024-06-04] MEDS ORDERED: ONDANSETRON 4MG INJ IVP ONE (17:30)
[2024-06-04 18:46] LABS: BASOPHILS # (AUTO) 0.08 K/uL (0.00-0.20); BASOPHILS % (AUTO) 0.7 % (0.0-5.0); EOSINOPHILS # (AUTO) 0.01 K/uL (0.00-0.70); EOSINOPHILS % (AUTO) 0.1 % (0.0-8.0); HEMATOCRIT 35.5 % (42-54); IMMATURE GRANULOCYTE ABSOLUTE 0.05 K/uL (0-1); LYMPHOCYTES # (AUTO) 1.3 K/uL (1.0-4.8); MEAN CORPUSCULAR HEMOGLOBIN 23.9 pg (27.0-33.0); MEAN CORPUSCULAR HGB CONC 30.1 g/dL (32.0-36.0); MEAN CORPUSCULAR VOLUME 79.2 fL (79-99); MONOCYTES # (AUTO) 1.2 K/uL (0.1-1.0); MONOCYTES % (AUTO) 10.3 % (3.0-13.0); NEUTROPHILS # (AUTO) 9.2 K/uL (1.8-7.7); NEUTROPHILS % (AUTO) 77.5 % (40.0-77.0); PLATELET COUNT (AUTO) 451 K/uL (130-400); RED BLOOD CELL COUNT(AUTO) 4.48 MIL/uL (4.50-6.20); RED CELL DISTRIBUTION WIDTH 26.4 % (11.0-15.5); WHITE BLOOD COUNT (AUTO) 11.9 K/uL (4.8-10.8)
[2024-06-04 19:08] LABS: ALBUMIN 3.1 g/dL (3.5-5.0); BILIRUBIN,TOTAL 0.4 mg/dL (0.2-1.0); CREATININE 4.4 mg/dL (0.5-1.3); POTASSIUM 3.9 mmol/L (3.5-5.1); TOTAL PROTEIN, SERUM 7.2 g/dL (6.0-8.3)
[2024-06-04] MEDS: ONDANSETRON ODT 4MG TAB SL ONE (19:25)
[2024-06-04] MEDS: MORPHINE 2 MG SYG IM ONE (19:25)
[2024-06-04] MEDS: CEFTRIAXONE 2GM VIAL IVPB ONE (19:26)
[2024-06-04] MEDS: 0.9%NACL 1000ML 2,259 ML IV ONE (20:00)
[2024-06-04] MEDS: FAMOTIDINE 20MG VIAL IV ONE (20:47)
[2024-06-04] MEDS ORDERED: acetaMINOPHEN 325 MG TAB PO PRN ×2 (21:30)
[2024-06-04] MEDS: LACTATED RINGERS 1000ML 1,000 ML IV SCH (22:35)
[2024-06-04] MEDS: MORPHINE 4 MG SYG IV PRN (23:07)
[2024-06-04 23:11] LABS: APPEARANCE,URINE CLEAR (CLEAR); BILIRUBIN,URINE NEGATIVE (NEGATIVE); COLOR,URINE LIGHT-YELLOW (YELLOW); GLUCOSE, URINE (UA) NEGATIVE (NEGATIVE); KETONES,URINE NEGATIVE (NEGATIVE); LEUKOCYTE ESTERASE ,URINE NEGATIVE Leu/uL (NEGATIVE); NITRATE,URINE NEGATIVE (NEGATIVE); OCCULT BLOOD,URINE NEGATIVE (NEGATIVE); PH,URINE 8.5 (5.0-8.0); PROTEIN,URINE 30 mg/dL (NEGATIVE); UROBILINOGEN,URINE 0.2 mg/dL (0.2-1.0)
[2024-06-04 23:13] LABS: ADD UA MICROSCOPIC YES
[2024-06-04 23:16] LABS: BACTERIA,URINE RARE /HPF (None Seen); RBC,URINE 0-1 /HPF (0-1); SQUAMOUS EPITHELIAL CELL,UR RARE /HPF (0-2)
[2024-06-04 23:35] LABS: CREATININE,URINE RANDOM 56.88 mg/dL (30-135)
[2024-06-04] MEDS: ONDANSETRON 4MG INJ IV PRN (23:35)
[2024-06-05] VITALS (8 sets, daily range): BP systolic 102–127; BP diastolic 61–95; PULSE 68–78; RESP 18–19; O2SAT 94–97
[2024-06-05] MEDS: MORPHINE 2 MG SYG IVP PRN (02:59)
[2024-06-05 06:29] LABS: BASOPHILS # (AUTO) 0.08 K/uL (0.00-0.20); BASOPHILS % (AUTO) 0.9 % (0.0-5.0); EOSINOPHILS # (AUTO) 0.07 K/uL (0.00-0.70); EOSINOPHILS % (AUTO) 0.8 % (0.0-8.0); HEMATOCRIT 32.5 % (42-54); IMMATURE GRANULOCYTE ABSOLUTE 0.04 K/uL (0-1); LYMPHOCYTES # (AUTO) 1.1 K/uL (1.0-4.8); LYMPHOCYTES % (AUTO) 12.2 % (21.0-51.0); MEAN CORPUSCULAR HEMOGLOBIN 23.8 pg (27.0-33.0); MEAN CORPUSCULAR HGB CONC 30.8 g/dL (32.0-36.0); MEAN CORPUSCULAR VOLUME 77.2 fL (79-99); MONOCYTES # (AUTO) 0.9 K/uL (0.1-1.0); MONOCYTES % (AUTO) 9.2 % (3.0-13.0); NEUTROPHILS % (AUTO) 76.5 % (40.0-77.0); PLATELET COUNT (AUTO) 450 K/uL (130-400); RED BLOOD CELL COUNT(AUTO) 4.21 MIL/uL (4.50-6.20); RED CELL DISTRIBUTION WIDTH 26.1 % (11.0-15.5); WHITE BLOOD COUNT (AUTO) 9.2 K/uL (4.8-10.8)
[2024-06-05 06:44] LABS: CREATININE 4.6 mg/dL (0.5-1.3); PHOSPHORUS 4.9 mg/dL (2.5-4.9); POTASSIUM 3.7 mmol/L (3.5-5.1)
[2024-06-05 06:57] LABS: MAGNESIUM 4.8 mg/dL (1.80-2.40)
[2024-06-05] MEDS: PANTOPRAZOLE 40 MG TAB DR PO SCH (09:08)
[2024-06-05] MEDS: HEPARIN 5,000 UNIT VIAL SQ SCH (09:10)
[2024-06-05] MEDS: 0.9%NACL 1000ML 1,000 ML IV SCH (12:34)
[2024-06-05] MEDS: SUCRALFATE 1 GM/10 ML PO SCH (13:00)
[2024-06-05] MEDS: FAMOTIDINE 20MG VIAL IV SCH (21:11)
[2024-06-06 04:00] VITALS: BP 160/110; PULSE 61; RESP 20
[2024-06-06 08:00] VITALS: O2SAT 94
[2024-06-06 08:15] LABS: BASOPHILS # (AUTO) 0.04 K/uL (0.00-0.20); BASOPHILS % (AUTO) 0.3 % (0.0-5.0); EOSINOPHILS # (AUTO) 0.11 K/uL (0.00-0.70); EOSINOPHILS % (AUTO) 0.7 % (0.0-8.0); HEMATOCRIT 32.4 % (42-54); IMMATURE GRANULOCYTE ABSOLUTE 0.08 K/uL (0-1); LYMPHOCYTES # (AUTO) 0.8 K/uL (1.0-4.8); MEAN CORPUSCULAR HEMOGLOBIN 23.8 pg (27.0-33.0); MEAN CORPUSCULAR HGB CONC 30.9 g/dL (32.0-36.0); MEAN CORPUSCULAR VOLUME 77.1 fL (79-99); MONOCYTES # (AUTO) 1.5 K/uL (0.1-1.0); MONOCYTES % (AUTO) 9.6 % (3.0-13.0); NEUTROPHILS # (AUTO) 12.8 K/uL (1.8-7.7); NEUTROPHILS % (AUTO) 83.9 % (40.0-77.0); PLATELET COUNT (AUTO) 331 K/uL (130-400); RED CELL DISTRIBUTION WIDTH 25.3 % (11.0-15.5); WHITE BLOOD COUNT (AUTO) 15.3 K/uL (4.8-10.8)
[2024-06-06 08:40] LABS: INR 1.05 (0.85-1.15); PROTHROMBIN TIME 11.3 SEC (9.6-11.6)
[2024-06-06 08:41] LABS: PARTIAL THROMBOPLASTIN TIME 25.7 SEC (26.3-35.5)
[2024-06-06 08:43] LABS: % IRON SATURATION 6.4 % (30-44); ALBUMIN 2.4 g/dL (3.5-5.0); BILIRUBIN,TOTAL 0.4 mg/dL (0.2-1.0); CREATININE 4.4 mg/dL (0.5-1.3); PHOSPHORUS 5.5 mg/dL (2.5-4.9); POTASSIUM 4.1 mmol/L (3.5-5.1); TOTAL PROTEIN, SERUM 5.9 g/dL (6.0-8.3)
[2024-06-06] MEDS: CYANOCOBALAMIN (VITAMIN B-12) 1,000 MCG TABLET PO SCH (09:00)
[2024-06-06] MEDS ORDERED: FAMOTIDINE 40MG/5ML ORAL SOL PO SCH (09:00)
[2024-06-06 09:18] LABS: MAGNESIUM 4.4 mg/dL (1.80-2.40)
[2024-06-06] MEDS ORDERED: COMPOUND IV REFRIGERATED 1 EACH IVSOLN MISC PRN (09:30)
[2024-06-06] MEDS: PANTOPRAZOLE 40 MG/VIAL IVP SCH (09:32)
[2024-06-06] MEDS: FOLIC ACID 5 MG/ML VIAL IV SCH (09:37)
[2024-06-06 11:34] VITALS: BP 133/84; PULSE 69; RESP 18
[2024-06-06] MEDS ORDERED: COMPOUND IV MISC 1 EACH IVSOLN MISC PRN (12:30)
[2024-06-06 19:20] VITALS: O2SAT 98
[2024-06-06 20:00] VITALS: BP 166/97; PULSE 63; RESP 17
[2024-06-06] MEDS: IRON SUCROSE COMPLEX 300 MG in 0.9% NACL 250ML 250 ML IV ONE (21:15)
[2024-06-06] MEDS: SUCRALFATE 1 GM/10 ML PEG SCH (21:15)
[2024-06-06] MEDS ORDERED: acetaMINOPHEN 325 MG TAB PEG PRN (21:30)
[2024-06-07] VITALS: BP_SYST 135; BP_SYST 142; BP_DIAS 92; BP_DIAS 95; PULSE 61; PULSE 68; RESP 16; RESP 20
[2024-06-07] MEDS: acetaMINOPHEN 325 MG TAB PEG PRN (00:28)
[2024-06-07] MEDS ORDERED: 0.9%NACL 50ML IV SCH (00:30)
[2024-06-07] MEDS: ZOSYN 3.375GM +NS 50ML IVPB SCH (01:42)
[2024-06-07 04:00] VITALS: BP 132/96; PULSE 61; RESP 16
[2024-06-07 05:01] LABS: BASOPHILS # (AUTO) 0.04 K/uL (0.00-0.20); BASOPHILS % (AUTO) 0.4 % (0.0-5.0); EOSINOPHILS # (AUTO) 0.22 K/uL (0.00-0.70); EOSINOPHILS % (AUTO) 1.9 % (0.0-8.0); HEMATOCRIT 28.3 % (42-54); IMMATURE GRANULOCYTE ABSOLUTE 0.06 K/uL (0-1); LYMPHOCYTES # (AUTO) 0.8 K/uL (1.0-4.8); MEAN CORPUSCULAR HEMOGLOBIN 23.3 pg (27.0-33.0); MEAN CORPUSCULAR VOLUME 77.5 fL (79-99); MONOCYTES # (AUTO) 1.1 K/uL (0.1-1.0); MONOCYTES % (AUTO) 9.4 % (3.0-13.0); NEUTROPHILS # (AUTO) 9.2 K/uL (1.8-7.7); NEUTROPHILS % (AUTO) 80.8 % (40.0-77.0); PLATELET COUNT (AUTO) 285 K/uL (130-400); RED BLOOD CELL COUNT(AUTO) 3.65 MIL/uL (4.50-6.20); RED CELL DISTRIBUTION WIDTH 25.2 % (11.0-15.5); WHITE BLOOD COUNT (AUTO) 11.4 K/uL (4.8-10.8)
[2024-06-07 05:17] LABS: CREATININE 3.9 mg/dL (0.5-1.3); PHOSPHORUS 3.4 mg/dL (2.5-4.9); POTASSIUM 3.8 mmol/L (3.5-5.1)
[2024-06-07 07:37] VITALS: BP 144/98; PULSE 63; RESP 16
[2024-06-07] MEDS: CYANOCOBALAMIN (VITAMIN B-12) 1,000 MCG TABLET PEG SCH (10:49)
[2024-06-07 11:39] VITALS: BP 146/90; PULSE 56; RESP 16
[2024-06-07 15:15] VITALS: BP 134/77; PULSE 84; RESP 16
[2024-06-07 20:00] VITALS: BP 146/103; PULSE 81; RESP 20
[2024-06-07] MEDS: IRON SUCROSE COMPLEX 300 MG in 0.9% NACL 250ML 250 ML IV ONE (21:12)
[2024-06-08] VITALS (7 sets, daily range): BP systolic 133–169; BP diastolic 78–106; PULSE 57–96; RESP 16–20; O2SAT 97
[2024-06-08 05:22] LABS: BASOPHILS # (AUTO) 0.03 K/uL (0.00-0.20); BASOPHILS % (AUTO) 0.4 % (0.0-5.0); EOSINOPHILS # (AUTO) 0.14 K/uL (0.00-0.70); EOSINOPHILS % (AUTO) 1.8 % (0.0-8.0); HEMATOCRIT 31.6 % (42-54); IMMATURE GRANULOCYTE ABSOLUTE 0.05 K/uL (0-1); LYMPHOCYTES % (AUTO) 12.9 % (21.0-51.0); MEAN CORPUSCULAR HEMOGLOBIN 23.9 pg (27.0-33.0); MEAN CORPUSCULAR HGB CONC 29.4 g/dL (32.0-36.0); MEAN CORPUSCULAR VOLUME 81.2 fL (79-99); MONOCYTES # (AUTO) 0.9 K/uL (0.1-1.0); NEUTROPHILS # (AUTO) 5.5 K/uL (1.8-7.7); NEUTROPHILS % (AUTO) 72.2 % (40.0-77.0); PLATELET COUNT (AUTO) 283 K/uL (130-400); RED BLOOD CELL COUNT(AUTO) 3.89 MIL/uL (4.50-6.20); WHITE BLOOD COUNT (AUTO) 7.7 K/uL (4.8-10.8)
[2024-06-08 05:51] LABS: POTASSIUM 3.3 mmol/L (3.5-5.1)
[2024-06-08 05:52] LABS: ALBUMIN 2.1 g/dL (3.5-5.0); BILIRUBIN,TOTAL 0.3 mg/dL (0.2-1.0); CREATININE 3.1 mg/dL (0.5-1.3); MAGNESIUM 2.9 mg/dL (1.80-2.40); TOTAL PROTEIN, SERUM 5.8 g/dL (6.0-8.3)
[2024-06-09 00:19] VITALS: BP 135/87; PULSE 80; RESP 20
[2024-06-09 04:14] VITALS: BP 123/80; PULSE 76; RESP 18
[2024-06-09 08:00] VITALS: BP 124/83; PULSE 75; RESP 16; O2SAT 97
[2024-06-09 12:00] VITALS: BP 111/81; PULSE 85; RESP 16
[2024-06-09 16:00] VITALS: BP 130/88; PULSE 77; RESP 16
[2024-06-09] MEDS: acetaMINOPHEN WITH coDEINE 1 TAB TAB PO PRN (16:32)
[2024-06-09 20:00] VITALS: BP 139/83; PULSE 68; RESP 20; O2SAT 97
[2024-06-10 04:03] VITALS: BP 121/81; PULSE 66; RESP 18
[2024-06-10 05:50] LABS: CREATININE 2.3 mg/dL (0.5-1.3); POTASSIUM 3.1 mmol/L (3.5-5.1)
[2024-06-10] MEDS: POTASSIUM CHLORIDE 10% ELIXIR 20 MEQ/15 ML UDCUP PO ONE ×3 (06:24→17:25)
[2024-06-10 07:45] VITALS: BP 133/86; PULSE 63; RESP 17
[2024-06-10 08:00] VITALS: O2SAT 97
[2024-06-10 12:00] VITALS: BP 119/80; PULSE 68; RESP 19
[2024-06-10 16:00] VITALS: BP 115/80; PULSE 76; RESP 19
[2024-06-10 20:00] VITALS: BP 113/75; PULSE 62; RESP 19; O2SAT 96
[2024-06-11] VITALS: BP 119/59; PULSE 83; RESP 16
[2024-06-11 04:00] VITALS: BP 117/81; PULSE 67; RESP 18
[2024-06-11 04:47] LABS: BASOPHILS # (AUTO) 0.04 K/uL (0.00-0.20); BASOPHILS % (AUTO) 0.4 % (0.0-5.0); EOSINOPHILS # (AUTO) 0.21 K/uL (0.00-0.70); EOSINOPHILS % (AUTO) 2.3 % (0.0-8.0); IMMATURE GRANULOCYTE ABSOLUTE 0.08 K/uL (0-1); LYMPHOCYTES # (AUTO) 1.6 K/uL (1.0-4.8); LYMPHOCYTES % (AUTO) 17.2 % (21.0-51.0); MEAN CORPUSCULAR HEMOGLOBIN 23.8 pg (27.0-33.0); MEAN CORPUSCULAR HGB CONC 30.3 g/dL (32.0-36.0); MEAN CORPUSCULAR VOLUME 78.4 fL (79-99); MONOCYTES # (AUTO) 1.1 K/uL (0.1-1.0); MONOCYTES % (AUTO) 11.5 % (3.0-13.0); NEUTROPHILS # (AUTO) 6.3 K/uL (1.8-7.7); NEUTROPHILS % (AUTO) 67.7 % (40.0-77.0); PLATELET COUNT (AUTO) 285 K/uL (130-400); RED CELL DISTRIBUTION WIDTH 25.8 % (11.0-15.5); WHITE BLOOD COUNT (AUTO) 9.2 K/uL (4.8-10.8)
[2024-06-11 05:06] LABS: B-TYPE NATRIURETIC PEPTIDE 182 pg/mL (0-100)
[2024-06-11 08:00] VITALS: BP 118/66; PULSE 67; RESP 18; O2SAT 97
[2024-06-11 11:55] VITALS: BP 121/85; PULSE 60; RESP 18
[2024-06-11 16:00] VITALS: BP 118/73; PULSE 64; RESP 17
[2024-06-11] MEDS: POTASSIUM CHLORIDE 20MEQ/100ML 100 ML IV PRN (18:43)
[2024-06-11 20:00] VITALS: BP 147/97; PULSE 70; RESP 18; O2SAT 97
[2024-06-11] MEDS: MAGNESIUM 2GM PREMIX 50ML 50 ML IV PRN (20:32)
[2024-06-11] MEDS: POTASSIUM CHLORIDE 10% ELIXIR 20 MEQ/15 ML UDCUP PO ONE (20:33)
[2024-06-11] MEDS: MELATONIN 5 MG TABLET PO PRN (20:36)
[2024-06-12] VITALS: BP 140/89; PULSE 68; RESP 18
[2024-06-12 04:00] VITALS: BP 126/71; PULSE 64; RESP 16
[2024-06-12 06:05] LABS: CREATININE 2.4 mg/dL (0.5-1.3); POTASSIUM 4.6 mmol/L (3.5-5.1)
[2024-06-12 08:00] VITALS: BP 107/73; PULSE 63; RESP 17; O2SAT 94
[2024-06-12 12:00] VITALS: BP 108/73; PULSE 75; RESP 17
[2024-06-12] MEDS: ONDANSETRON 4MG INJ IV PRN (14:35)
[2024-06-12 16:00] VITALS: BP 117/79; PULSE 71; RESP 18
[2024-06-12 20:00] VITALS: BP 151/84; PULSE 78; RESP 22
[2024-06-13] VITALS (7 sets, daily range): BP systolic 111–141; BP diastolic 59–84; PULSE 66–78; RESP 18–20; O2SAT 96–99
[2024-06-13] MEDS: DEXTROSE 5%-LACTATED RINGERS 1,000 ML IV SCH (12:39)
[2024-06-13] MEDS: CLINIMIX-E4.25%AA/D5+LYT2000ML 2,000 ML IV ONE (14:24)
[2024-06-13] MEDS: MORPHINE 2 MG SYG IVP PRN (14:50)
[2024-06-14] VITALS (8 sets, daily range): BP systolic 109–159; BP diastolic 75–84; PULSE 58–70; RESP 16–20; O2SAT 96–100
[2024-06-14 04:49] LABS: BASOPHILS # (AUTO) 0.05 K/uL (0.00-0.20); BASOPHILS % (AUTO) 0.4 % (0.0-5.0); EOSINOPHILS % (AUTO) 0.8 % (0.0-8.0); HEMATOCRIT 28.4 % (42-54); IMMATURE GRANULOCYTE ABSOLUTE 0.12 K/uL (0-1); LYMPHOCYTES # (AUTO) 1.2 K/uL (1.0-4.8); LYMPHOCYTES % (AUTO) 9.1 % (21.0-51.0); MEAN CORPUSCULAR HEMOGLOBIN 24.6 pg (27.0-33.0); MEAN CORPUSCULAR VOLUME 79.6 fL (79-99); MONOCYTES # (AUTO) 1.7 K/uL (0.1-1.0); MONOCYTES % (AUTO) 12.6 % (3.0-13.0); NEUTROPHILS # (AUTO) 10.1 K/uL (1.8-7.7); NEUTROPHILS % (AUTO) 76.2 % (40.0-77.0); PLATELET COUNT (AUTO) 244 K/uL (130-400); RED BLOOD CELL COUNT(AUTO) 3.57 MIL/uL (4.50-6.20); RED CELL DISTRIBUTION WIDTH 26.1 % (11.0-15.5); WHITE BLOOD COUNT (AUTO) 13.2 K/uL (4.8-10.8)
[2024-06-14 05:14] LABS: CREATININE 1.8 mg/dL (0.5-1.3); MAGNESIUM 1.6 mg/dL (1.80-2.40); POTASSIUM 4.7 mmol/L (3.5-5.1)
[2024-06-14 06:17] LABS: INR 1.08 (0.85-1.15); PROTHROMBIN TIME 11.6 SEC (9.6-11.6)
[2024-06-14] MEDS: CLINIMIX-E4.25%AA/D5+LYT2000ML 2,000 ML IV ONE (21:05)
[2024-06-15] VITALS (7 sets, daily range): BP systolic 128–160; BP diastolic 67–94; PULSE 57–68; RESP 17–20; O2SAT 97
[2024-06-16] VITALS (7 sets, daily range): BP systolic 135–152; BP diastolic 73–95; PULSE 59–70; RESP 18; O2SAT 97
[2024-06-16 08:57] LABS: CREATININE 1.4 mg/dL (0.5-1.3); MAGNESIUM 1.4 mg/dL (1.80-2.40); POTASSIUM 4.1 mmol/L (3.5-5.1)
[2024-06-16] MEDS ORDERED: LIDOCAINE HCL 400MG/20ML VIAL ONE (13:00)
[2024-06-16] MEDS ORDERED: IOHEXOL-350 50ML VIAL IV ONE (13:02)
[2024-06-16] MEDS ORDERED: FENTANYL CITRATE PF 50 MCG/1 ML 2ML VIAL ONE (13:15)
[2024-06-16] MEDS ORDERED: MIDAZOLAM HCL 1 MG/ML 2ML VIAL ONE (13:15)
[2024-06-17] VITALS: BP 136/98; PULSE 57; RESP 17
[2024-06-17 04:00] VITALS: BP 158/99; PULSE 66; RESP 20
[2024-06-17 08:00] VITALS: BP 153/105; PULSE 65; RESP 19; O2SAT 97
[2024-06-17] MEDS: FOLIC ACID 1 MG TABLET PO SCH (09:00)
[2024-06-17 12:00] VITALS: BP 149/81; PULSE 68; RESP 17
[2024-06-17] MEDS: BisaCODYL 10 MG SUPP.RECT RC PRN (13:27)
[2024-06-17 16:00] VITALS: BP 149/105; PULSE 57; RESP 19
[2024-06-17 20:00] VITALS: BP 137/99; PULSE 70; RESP 18; O2SAT 99
[2024-06-18] VITALS: BP 145/92; PULSE 61; RESP 18
[2024-06-18 04:00] VITALS: BP 154/104; PULSE 79; RESP 19
[2024-06-18 08:00] VITALS: BP 145/100; PULSE 68; RESP 18; O2SAT 97
[2024-06-18 11:36] VITALS: BP 149/102; PULSE 70; RESP 18
[2024-06-18] MEDS: MORPHINE 2 MG SYG IVP PRN (13:40)
[2024-06-18] MEDS ORDERED: CLINIMIX-E4.25%AA/D5+LYT2000ML 2,000 ML IV ONE (17:00)
[2024-06-18] MEDS: amLODIPine 5 MG TAB PO SCH (18:19)
[2024-06-18 20:00] VITALS: BP 143/97; PULSE 66; RESP 19; O2SAT 99
[2024-06-18 23:41] VITALS: BP 144/96; PULSE 59; RESP 19
[2024-06-19] VITALS (7 sets, daily range): BP systolic 118–130; BP diastolic 73–91; PULSE 52–64; RESP 14–19; O2SAT 96
[2024-06-19 04:38] LABS: BASOPHILS # (AUTO) 0.07 K/uL (0.00-0.20); BASOPHILS % (AUTO) 0.7 % (0.0-5.0); EOSINOPHILS # (AUTO) 0.06 K/uL (0.00-0.70); EOSINOPHILS % (AUTO) 0.6 % (0.0-8.0); HEMATOCRIT 28.9 % (42-54); IMMATURE GRANULOCYTE ABSOLUTE 0.14 K/uL (0-1); LYMPHOCYTES # (AUTO) 1.3 K/uL (1.0-4.8); LYMPHOCYTES % (AUTO) 13.1 % (21.0-51.0); MEAN CORPUSCULAR HEMOGLOBIN 24.3 pg (27.0-33.0); MEAN CORPUSCULAR HGB CONC 32.2 g/dL (32.0-36.0); MEAN CORPUSCULAR VOLUME 75.7 fL (79-99); MONOCYTES # (AUTO) 1.1 K/uL (0.1-1.0); MONOCYTES % (AUTO) 11.1 % (3.0-13.0); NEUTROPHILS # (AUTO) 7.2 K/uL (1.8-7.7); NEUTROPHILS % (AUTO) 73.1 % (40.0-77.0); PLATELET COUNT (AUTO) 309 K/uL (130-400); RED BLOOD CELL COUNT(AUTO) 3.82 MIL/uL (4.50-6.20); RED CELL DISTRIBUTION WIDTH 24.5 % (11.0-15.5); WHITE BLOOD COUNT (AUTO) 9.9 K/uL (4.8-10.8)
[2024-06-19 04:59] LABS: CREATININE 1.4 mg/dL (0.5-1.3); PHOSPHORUS 2.3 mg/dL (2.5-4.9); POTASSIUM 3.8 mmol/L (3.5-5.1)
[2024-06-20] VITALS (7 sets, daily range): BP systolic 109–167; BP diastolic 72–85; PULSE 62–72; RESP 14–18; O2SAT 93
[2024-06-21] VITALS: BP 117/75; PULSE 77; RESP 16
[2024-06-21 04:00] VITALS: BP 110/79; PULSE 77; RESP 16
[2024-06-21 05:19] LABS: BASOPHILS % (AUTO) 0.7 % (0.0-5.0); EOSINOPHILS # (AUTO) 0.15 K/uL (0.00-0.70); EOSINOPHILS % (AUTO) 1.1 % (0.0-8.0); HEMATOCRIT 30.3 % (42-54); IMMATURE GRANULOCYTE ABSOLUTE 0.14 K/uL (0-1); LYMPHOCYTES # (AUTO) 1.2 K/uL (1.0-4.8); LYMPHOCYTES % (AUTO) 8.7 % (21.0-51.0); MEAN CORPUSCULAR HEMOGLOBIN 24.7 pg (27.0-33.0); MEAN CORPUSCULAR HGB CONC 31.7 g/dL (32.0-36.0); MEAN CORPUSCULAR VOLUME 78.1 fL (79-99); MONOCYTES # (AUTO) 1.1 K/uL (0.1-1.0); MONOCYTES % (AUTO) 7.8 % (3.0-13.0); NEUTROPHILS # (AUTO) 10.9 K/uL (1.8-7.7); NEUTROPHILS % (AUTO) 80.7 % (40.0-77.0); PLATELET COUNT (AUTO) 181 K/uL (130-400); RED BLOOD CELL COUNT(AUTO) 3.88 MIL/uL (4.50-6.20); WHITE BLOOD COUNT (AUTO) 13.5 K/uL (4.8-10.8)
[2024-06-21 05:28] LABS: ALBUMIN 2.1 g/dL (3.5-5.0); BILIRUBIN,TOTAL 0.1 mg/dL (0.2-1.0); CREATININE 1.8 mg/dL (0.5-1.3); MAGNESIUM 1.6 mg/dL (1.80-2.40); PHOSPHORUS 2.7 mg/dL (2.5-4.9); POTASSIUM 4.3 mmol/L (3.5-5.1); TOTAL PROTEIN, SERUM 6.1 g/dL (6.0-8.3)
[2024-06-21 08:00] VITALS: BP 114/75; PULSE 81; RESP 18; O2SAT 96
[2024-06-21 11:43] VITALS: BP 116/74; PULSE 73; RESP 18
[2024-06-21] MEDS: PANTOPRAZOLE 40 MG/VIAL IVP SCH (12:55)
[2024-06-21] MEDS: 0.9%NACL 1000ML 1,000 ML IV SCH (12:55)
[2024-06-21 16:00] VITALS: BP 106/78; PULSE 84; RESP 18
[2024-06-21 16:14] LABS: INR 1.08 (0.85-1.15); PROTHROMBIN TIME 11.6 SEC (9.6-11.6)
[2024-06-21 16:15] LABS: PARTIAL THROMBOPLASTIN TIME 26.4 SEC (26.3-35.5)
[2024-06-21 20:00] VITALS: BP 125/86; PULSE 92; RESP 20; O2SAT 98
[2024-06-22] VITALS (7 sets, daily range): BP systolic 101–115; BP diastolic 68–79; PULSE 60–98; RESP 17–20; O2SAT 98–99
[2024-06-22 04:17] LABS: BASOPHILS # (AUTO) 0.12 K/uL (0.00-0.20); BASOPHILS % (AUTO) 0.6 % (0.0-5.0); EOSINOPHILS # (AUTO) 0.03 K/uL (0.00-0.70); EOSINOPHILS % (AUTO) 0.2 % (0.0-8.0); HEMATOCRIT 27.2 % (42-54); IMMATURE GRANULOCYTE ABSOLUTE 0.22 K/uL (0-1); LYMPHOCYTES # (AUTO) 1.7 K/uL (1.0-4.8); LYMPHOCYTES % (AUTO) 8.9 % (21.0-51.0); MEAN CORPUSCULAR HEMOGLOBIN 24.6 pg (27.0-33.0); MEAN CORPUSCULAR HGB CONC 31.6 g/dL (32.0-36.0); MEAN CORPUSCULAR VOLUME 77.7 fL (79-99); MONOCYTES # (AUTO) 1.5 K/uL (0.1-1.0); MONOCYTES % (AUTO) 7.8 % (3.0-13.0); NEUTROPHILS # (AUTO) 15.7 K/uL (1.8-7.7); NEUTROPHILS % (AUTO) 81.4 % (40.0-77.0); PLATELET COUNT (AUTO) 352 K/uL (130-400); RED CELL DISTRIBUTION WIDTH 25.1 % (11.0-15.5); WHITE BLOOD COUNT (AUTO) 19.3 K/uL (4.8-10.8)
[2024-06-22] MEDS ORDERED: DIATR MEGLU/DIATRIZOATE SODIUM 30 ML BOTTLE ONE (09:59)
[2024-06-22 17:20] LABS: HEMATOCRIT 25.7 % (42-54)
[2024-06-22 21:15] LABS: HEMATOCRIT 25.5 % (42-54)
[2024-06-22] MEDS: CLINIMIX-E4.25%AA/D5+LYT2000ML 2,000 ML IV ONE (21:18)
[2024-06-23] VITALS (7 sets, daily range): BP systolic 100–124; BP diastolic 66–76; PULSE 63–71; RESP 16–20; O2SAT 96–100
[2024-06-23 11:22] LABS: HEMATOCRIT 26.2 % (42-54)
[2024-06-23 15:29] LABS: HEMATOCRIT 25.8 % (42-54)
[2024-06-23] MEDS: CLINIMIX-E4.25%AA/D5+LYT2000ML 2,000 ML IV ONE (21:00)
[2024-06-24] VITALS (14 sets, daily range): BP systolic 118–152; BP diastolic 73–95; PULSE 56–98; RESP 16–20; O2SAT 97–100
[2024-06-24 05:41] LABS: ALBUMIN 2.1 g/dL (3.5-5.0); BILIRUBIN,TOTAL 0.1 mg/dL (0.2-1.0); CREATININE 1.8 mg/dL (0.5-1.3); MAGNESIUM 1.8 mg/dL (1.80-2.40); POTASSIUM 4.5 mmol/L (3.5-5.1); TOTAL PROTEIN, SERUM 5.8 g/dL (6.0-8.3)
[2024-06-24 06:01] LABS: BASOPHILS # (AUTO) 0.08 K/uL (0.00-0.20); BASOPHILS % (AUTO) 0.6 % (0.0-5.0); EOSINOPHILS # (AUTO) 0.12 K/uL (0.00-0.70); HEMATOCRIT 22.7 % (42-54); IMMATURE GRANULOCYTE ABSOLUTE 0.13 K/uL (0-1); LYMPHOCYTES # (AUTO) 1.2 K/uL (1.0-4.8); LYMPHOCYTES % (AUTO) 9.4 % (21.0-51.0); MEAN CORPUSCULAR HEMOGLOBIN 24.3 pg (27.0-33.0); MEAN CORPUSCULAR HGB CONC 30.8 g/dL (32.0-36.0); MEAN CORPUSCULAR VOLUME 78.8 fL (79-99); MONOCYTES # (AUTO) 0.9 K/uL (0.1-1.0); MONOCYTES % (AUTO) 6.9 % (3.0-13.0); NEUTROPHILS # (AUTO) 10.1 K/uL (1.8-7.7); NEUTROPHILS % (AUTO) 81.1 % (40.0-77.0); PLATELET COUNT (AUTO) 406 K/uL (130-400); RED BLOOD CELL COUNT(AUTO) 2.88 MIL/uL (4.50-6.20); RED CELL DISTRIBUTION WIDTH 24.7 % (11.0-15.5); WHITE BLOOD COUNT (AUTO) 12.5 K/uL (4.8-10.8)
[2024-06-24 06:35] LABS: INR 1.03 (0.85-1.15); PROTHROMBIN TIME 11.1 SEC (9.6-11.6)
[2024-06-24] MEDS ORDERED: MIDAZOLAM HCL 1 MG/ML 2ML VIAL ONE (07:47)
[2024-06-24] MEDS ORDERED: IODIXANOL 320 MG/ML 100 ML VIAL ONE (07:47)
[2024-06-24] MEDS ORDERED: LIDOCAINE HCL 1% MDV 50ML VIAL ONE (07:47)
[2024-06-24] MEDS ORDERED: FENTANYL CITRATE PF 50 MCG/1 ML 2ML VIAL ONE (07:47)
[2024-06-24] MEDS ORDERED: ONDANSETRON 4MG INJ ONE (08:41)
[2024-06-24] MEDS: MORPHINE 2 MG SYG IVP PRN (14:37)
[2024-06-24 21:11] LABS: HEMATOCRIT 26.4 % (42-54)
[2024-06-24] MEDS: HYDROXYZINE 50MG VIAL 50 MG/ML VIAL IM PRN (21:20)
[2024-06-25] VITALS (15 sets, daily range): BP systolic 114–148; BP diastolic 78–90; PULSE 58–85; RESP 15–20; O2SAT 97
[2024-06-25 06:07] LABS: BASOPHILS # (AUTO) 0.07 K/uL (0.00-0.20); BASOPHILS % (AUTO) 0.6 % (0.0-5.0); EOSINOPHILS # (AUTO) 0.09 K/uL (0.00-0.70); EOSINOPHILS % (AUTO) 0.8 % (0.0-8.0); HEMATOCRIT 23.1 % (42-54); IMMATURE GRANULOCYTE ABSOLUTE 0.12 K/uL (0-1); LYMPHOCYTES # (AUTO) 1.2 K/uL (1.0-4.8); LYMPHOCYTES % (AUTO) 10.6 % (21.0-51.0); MEAN CORPUSCULAR HEMOGLOBIN 25.7 pg (27.0-33.0); MEAN CORPUSCULAR VOLUME 80.2 fL (79-99); MONOCYTES % (AUTO) 8.2 % (3.0-13.0); NEUTROPHILS # (AUTO) 9.2 K/uL (1.8-7.7); NEUTROPHILS % (AUTO) 78.8 % (40.0-77.0); PLATELET COUNT (AUTO) 376 K/uL (130-400); RED BLOOD CELL COUNT(AUTO) 2.88 MIL/uL (4.50-6.20); RED CELL DISTRIBUTION WIDTH 22.4 % (11.0-15.5); WHITE BLOOD COUNT (AUTO) 11.6 K/uL (4.8-10.8)
[2024-06-25 06:34] LABS: ALBUMIN 2.1 g/dL (3.5-5.0); BILIRUBIN,TOTAL 0.2 mg/dL (0.2-1.0); CREATININE 1.6 mg/dL (0.5-1.3); MAGNESIUM 1.6 mg/dL (1.80-2.40); POTASSIUM 4.7 mmol/L (3.5-5.1)
[2024-06-25] MEDS ORDERED: ONDANSETRON 4MG INJ ONE (12:57)
[2024-06-25] MEDS ORDERED: PROPOFOL 10 MG/ML 20ML VIAL IV ONE (13:14)
[2024-06-25] MEDS: CLINIMIX-E4.25%AA/D5+LYT2000ML 2,000 ML IV NR (18:57)
[2024-06-26 04:00] VITALS: BP 133/94; PULSE 70; RESP 20
[2024-06-26 07:40] VITALS: BP 116/80; PULSE 75; RESP 20
[2024-06-26 08:00] VITALS: O2SAT 97
[2024-06-26 10:29] LABS: HEMATOCRIT 27.2 % (42-54); MEAN CORPUSCULAR HEMOGLOBIN 25.1 pg (27.0-33.0); MEAN CORPUSCULAR HGB CONC 31.6 g/dL (32.0-36.0); MEAN CORPUSCULAR VOLUME 79.5 fL (79-99); RED BLOOD CELL COUNT(AUTO) 3.42 MIL/uL (4.50-6.20); RED CELL DISTRIBUTION WIDTH 22.3 % (11.0-15.5); WHITE BLOOD COUNT (AUTO) 10.4 K/uL (4.8-10.8)
[2024-06-26 10:49] LABS: CREATININE 1.8 mg/dL (0.5-1.3); POTASSIUM 4.8 mmol/L (3.5-5.1)
[2024-06-26 11:41] VITALS: BP 121/88; PULSE 85; RESP 20
[2024-06-26 15:25] VITALS: BP 117/87; PULSE 87; RESP 20
[2024-06-26 20:00] VITALS: BP 116/78; PULSE 76; RESP 20; O2SAT 99
[2024-06-27] VITALS: BP 120/77; PULSE 69; RESP 20
[2024-06-27 04:00] VITALS: BP 123/80; PULSE 70; RESP 18
[2024-06-27 04:37] LABS: MEAN CORPUSCULAR HEMOGLOBIN 25.9 pg (27.0-33.0); MEAN CORPUSCULAR HGB CONC 31.9 g/dL (32.0-36.0); MEAN CORPUSCULAR VOLUME 81.3 fL (79-99); RED BLOOD CELL COUNT(AUTO) 3.2 MIL/uL (4.50-6.20); RED CELL DISTRIBUTION WIDTH 22.2 % (11.0-15.5)
[2024-06-27 04:43] LABS: CREATININE 1.9 mg/dL (0.5-1.3); POTASSIUM 4.3 mmol/L (3.5-5.1)
[2024-06-27 08:00] VITALS: O2SAT 97
[2024-06-27 12:00] VITALS: BP 128/86; PULSE 66; RESP 19
[2024-06-27] MEDS ORDERED: PHARMACY COMMUNICATION MISC SCH (14:30)
[2024-06-27 16:00] VITALS: BP 126/82; PULSE 68; RESP 18
[2024-06-27] MEDS: CLINIMIX-E4.25%AA/D5+LYT2000ML 2,000 ML IV NR (16:03)
[2024-06-27 20:00] VITALS: BP 129/74; PULSE 60; RESP 18
[2024-06-28] VITALS (8 sets, daily range): BP systolic 123–143; BP diastolic 80–99; PULSE 64–87; RESP 18–22; O2SAT 97–99
[2024-06-28 04:44] LABS: HEMATOCRIT 24.9 % (42-54); MEAN CORPUSCULAR HEMOGLOBIN 25.1 pg (27.0-33.0); MEAN CORPUSCULAR HGB CONC 31.7 g/dL (32.0-36.0); RED BLOOD CELL COUNT(AUTO) 3.15 MIL/uL (4.50-6.20); RED CELL DISTRIBUTION WIDTH 21.6 % (11.0-15.5); WHITE BLOOD COUNT (AUTO) 8.7 K/uL (4.8-10.8)
[2024-06-28 05:14] LABS: ALBUMIN 2.3 g/dL (3.5-5.0); BILIRUBIN,TOTAL 0.2 mg/dL (0.2-1.0); CREATININE 1.7 mg/dL (0.5-1.3); MAGNESIUM 1.8 mg/dL (1.80-2.40); PHOSPHORUS 3.7 mg/dL (2.5-4.9); POTASSIUM 4.6 mmol/L (3.5-5.1); TOTAL PROTEIN, SERUM 6.2 g/dL (6.0-8.3)
[2024-06-28] MEDS: LORazepam 2 MG/ML 1 ML VIAL IVP PRN (10:27)
[2024-06-28] MEDS: LORazepam 2 MG/ML 1 ML VIAL IVP ONE (22:07)
[2024-06-29] VITALS (22 sets, daily range): BP systolic 106–145; BP diastolic 70–95; PULSE 66–92; RESP 15–24; O2SAT 98–99
[2024-06-29 05:28] LABS: HEMATOCRIT 29.1 % (42-54); MEAN CORPUSCULAR HEMOGLOBIN 25.1 pg (27.0-33.0); MEAN CORPUSCULAR VOLUME 78.4 fL (79-99); PLATELET COUNT (AUTO) 481 K/uL (130-400); RED BLOOD CELL COUNT(AUTO) 3.71 MIL/uL (4.50-6.20); WHITE BLOOD COUNT (AUTO) 8.4 K/uL (4.8-10.8)
[2024-06-29 05:47] LABS: INR 1.06 (0.85-1.15); PROTHROMBIN TIME 11.4 SEC (9.6-11.6)
[2024-06-29 05:48] LABS: PARTIAL THROMBOPLASTIN TIME 25.8 SEC (26.3-35.5)
[2024-06-29 05:54] LABS: CREATININE 1.8 mg/dL (0.5-1.3); POTASSIUM 4.7 mmol/L (3.5-5.1)
[2024-06-29] MEDS: MORPHINE 2 MG SYG IVP PRN (06:32)
[2024-06-29] MEDS ORDERED: FENTANYL CITRATE PF 50 MCG/1 ML 2ML VIAL ONE (08:33)
[2024-06-29] MEDS ORDERED: MIDAZOLAM HCL 1 MG/ML 2ML VIAL ONE (08:33)
[2024-06-29] MEDS: ONDANSETRON 4MG INJ ONE (09:21)
[2024-06-29] MEDS ORDERED: PROPOFOL 10 MG/ML 20ML VIAL IV ONE (10:28)
[2024-06-29] MEDS ORDERED: LIDOCAINE PF 100MG/5ML (2%) SYRINGE 5ML ONE (10:29)
[2024-06-29 13:38] LABS: INR 1.08 (0.85-1.15); PROTHROMBIN TIME 11.6 SEC (9.6-11.6)
[2024-06-29] MEDS: METOCLOPRAMIDE 10 MG TABLET PO SCH (16:51)
[2024-06-30] VITALS: BP 146/99; PULSE 104; RESP 24
[2024-06-30 04:00] VITALS: BP 146/93; PULSE 82; RESP 22
[2024-06-30 05:08] LABS: BASOPHILS # (AUTO) 0.14 K/uL (0.00-0.20); BASOPHILS % (AUTO) 1.5 % (0.0-5.0); EOSINOPHILS # (AUTO) 0.16 K/uL (0.00-0.70); EOSINOPHILS % (AUTO) 1.7 % (0.0-8.0); HEMATOCRIT 26.9 % (42-54); IMMATURE GRANULOCYTE ABSOLUTE 0.11 K/uL (0-1); LYMPHOCYTES # (AUTO) 1.5 K/uL (1.0-4.8); LYMPHOCYTES % (AUTO) 16.3 % (21.0-51.0); MEAN CORPUSCULAR HEMOGLOBIN 25.4 pg (27.0-33.0); MEAN CORPUSCULAR HGB CONC 33.1 g/dL (32.0-36.0); MEAN CORPUSCULAR VOLUME 76.9 fL (79-99); MONOCYTES # (AUTO) 1.2 K/uL (0.1-1.0); MONOCYTES % (AUTO) 12.7 % (3.0-13.0); NEUTROPHILS # (AUTO) 6.1 K/uL (1.8-7.7); NEUTROPHILS % (AUTO) 66.6 % (40.0-77.0); PLATELET COUNT (AUTO) 455 K/uL (130-400); WHITE BLOOD COUNT (AUTO) 9.2 K/uL (4.8-10.8)
[2024-06-30 05:25] LABS: CREATININE 2.1 mg/dL (0.5-1.3); POTASSIUM 4.6 mmol/L (3.5-5.1)
[2024-06-30 08:00] VITALS: BP 129/88; PULSE 83; RESP 18; O2SAT 99
[2024-06-30 12:00] VITALS: BP 129/86; PULSE 61; RESP 18
[2024-06-30 16:00] VITALS: BP 130/90; PULSE 84; RESP 18
[2024-06-30] MEDS ORDERED: PHARMACY COMMUNICATION MISC SCH (18:30)
[2024-06-30 20:00] VITALS: BP 130/94; PULSE 88; RESP 20; O2SAT 96
[2024-06-30] MEDS: HYDROXYZINE HCL 10MG/5ML SYRUP 5ML BOTTLE PO SCH (21:13)
[2024-06-30] MEDS: [UNRECOGNIZED DRUG - NUTRITION] IV ONE (21:55)
[2024-07-01] VITALS (8 sets, daily range): BP systolic 105–138; BP diastolic 66–87; PULSE 54–85; RESP 17–20; O2SAT 96
[2024-07-01 05:31] LABS: BASOPHILS # (AUTO) 0.11 K/uL (0.00-0.20); BASOPHILS % (AUTO) 1.5 % (0.0-5.0); EOSINOPHILS # (AUTO) 0.14 K/uL (0.00-0.70); HEMATOCRIT 23.3 % (42-54); LYMPHOCYTES # (AUTO) 1.4 K/uL (1.0-4.8); LYMPHOCYTES % (AUTO) 19.1 % (21.0-51.0); MEAN CORPUSCULAR HEMOGLOBIN 25.7 pg (27.0-33.0); MEAN CORPUSCULAR HGB CONC 31.8 g/dL (32.0-36.0); MEAN CORPUSCULAR VOLUME 80.9 fL (79-99); MONOCYTES # (AUTO) 1.1 K/uL (0.1-1.0); MONOCYTES % (AUTO) 14.7 % (3.0-13.0); NEUTROPHILS # (AUTO) 4.4 K/uL (1.8-7.7); NEUTROPHILS % (AUTO) 61.3 % (40.0-77.0); PLATELET COUNT (AUTO) 348 K/uL (130-400); RED BLOOD CELL COUNT(AUTO) 2.88 MIL/uL (4.50-6.20); RED CELL DISTRIBUTION WIDTH 20.3 % (11.0-15.5); WHITE BLOOD COUNT (AUTO) 7.1 K/uL (4.8-10.8)
[2024-07-01 06:04] LABS: CREATININE 1.8 mg/dL (0.5-1.3); POTASSIUM 4.4 mmol/L (3.5-5.1)
[2024-07-01] MEDS: 0.9%NACL 10ML VIAL IV SCH (09:14)
[2024-07-01] MEDS: [UNRECOGNIZED DRUG - NUTRITION] IV ONE (21:29)
[2024-07-02] VITALS (8 sets, daily range): BP systolic 110–125; BP diastolic 73–76; PULSE 63–82; RESP 17–21; O2SAT 96–98
[2024-07-02 04:53] LABS: BASOPHILS # (AUTO) 0.09 K/uL (0.00-0.20); BASOPHILS % (AUTO) 1.2 % (0.0-5.0); EOSINOPHILS # (AUTO) 0.21 K/uL (0.00-0.70); EOSINOPHILS % (AUTO) 2.8 % (0.0-8.0); HEMATOCRIT 22.5 % (42-54); IMMATURE GRANULOCYTE ABSOLUTE 0.09 K/uL (0-1); LYMPHOCYTES # (AUTO) 1.3 K/uL (1.0-4.8); LYMPHOCYTES % (AUTO) 17.8 % (21.0-51.0); MEAN CORPUSCULAR HEMOGLOBIN 25.3 pg (27.0-33.0); MEAN CORPUSCULAR VOLUME 78.9 fL (79-99); MONOCYTES % (AUTO) 13.7 % (3.0-13.0); NEUTROPHILS # (AUTO) 4.8 K/uL (1.8-7.7); NEUTROPHILS % (AUTO) 63.3 % (40.0-77.0); PLATELET COUNT (AUTO) 392 K/uL (130-400); RED BLOOD CELL COUNT(AUTO) 2.85 MIL/uL (4.50-6.20); RED CELL DISTRIBUTION WIDTH 20.4 % (11.0-15.5); WHITE BLOOD COUNT (AUTO) 7.5 K/uL (4.8-10.8)
[2024-07-02 05:12] LABS: ALBUMIN 2.2 g/dL (3.5-5.0); BILIRUBIN,TOTAL 0.2 mg/dL (0.2-1.0); CREATININE 1.4 mg/dL (0.5-1.3); POTASSIUM 4.5 mmol/L (3.5-5.1); TOTAL PROTEIN, SERUM 5.6 g/dL (6.0-8.3)
[2024-07-03 04:23] VITALS: BP 112/75; PULSE 76; RESP 21
[2024-07-03 08:00] VITALS: O2SAT 95
[2024-07-03 08:37] VITALS: BP 111/78; PULSE 63; RESP 17
[2024-07-03 11:19] VITALS: BP 112/78; PULSE 65; RESP 17
[2024-07-03 16:26] VITALS: BP 108/74; PULSE 68; RESP 17
[2024-07-03 20:00] VITALS: BP 131/61; PULSE 74; RESP 17; O2SAT 98
[2024-07-04] VITALS: BP 112/77; PULSE 75; RESP 16
[2024-07-04 04:00] VITALS: BP 103/74; PULSE 64; RESP 17
[2024-07-04 08:00] VITALS: BP 123/71; PULSE 66; RESP 18; O2SAT 98
[2024-07-04] MEDS: MORPHINE 2 MG SYG IVP PRN (11:31)
[2024-07-04 11:37] VITALS: BP 114/71; PULSE 75; RESP 18
[2024-07-04 16:05] VITALS: BP 109/76; PULSE 70; RESP 18
[2024-07-04 20:00] VITALS: BP 105/72; PULSE 66; RESP 17; O2SAT 98
[2024-07-04] MEDS: ONDANSETRON 4MG INJ IVP PRN (22:15)
[2024-07-05] VITALS (7 sets, daily range): BP systolic 102–111; BP diastolic 67–75; PULSE 63–105; RESP 16–17; O2SAT 97–99
[2024-07-05 05:27] LABS: BASOPHILS # (AUTO) 0.08 K/uL (0.00-0.20); EOSINOPHILS # (AUTO) 0.33 K/uL (0.00-0.70); EOSINOPHILS % (AUTO) 4.3 % (0.0-8.0); HEMATOCRIT 24.9 % (42-54); IMMATURE GRANULOCYTE ABSOLUTE 0.08 K/uL (0-1); LYMPHOCYTES # (AUTO) 1.6 K/uL (1.0-4.8); LYMPHOCYTES % (AUTO) 20.8 % (21.0-51.0); MEAN CORPUSCULAR HEMOGLOBIN 24.9 pg (27.0-33.0); MEAN CORPUSCULAR HGB CONC 30.9 g/dL (32.0-36.0); MEAN CORPUSCULAR VOLUME 80.6 fL (79-99); MONOCYTES % (AUTO) 12.9 % (3.0-13.0); NEUTROPHILS # (AUTO) 4.6 K/uL (1.8-7.7); PLATELET COUNT (AUTO) 343 K/uL (130-400); RED BLOOD CELL COUNT(AUTO) 3.09 MIL/uL (4.50-6.20); RED CELL DISTRIBUTION WIDTH 19.9 % (11.0-15.5); WHITE BLOOD COUNT (AUTO) 7.7 K/uL (4.8-10.8)
[2024-07-05 05:38] LABS: CREATININE 1.5 mg/dL (0.5-1.3); POTASSIUM 4.4 mmol/L (3.5-5.1)
[2024-07-05] MEDS: LACTULOSE 20 GM/30 ML UDCUP PO PRN (09:56)
[2024-07-05] MEDS: LACTULOSE 20 GM/30 ML UDCUP PO SCH (19:15)
[2024-07-05] MEDS ORDERED: LACTULOSE 20 GM/30 ML UDCUP PO SCH (21:00)
[2024-07-06] VITALS (9 sets, daily range): BP systolic 96–109; BP diastolic 59–77; PULSE 58–98; RESP 17–19; O2SAT 98
[2024-07-06] MEDS: PANTOPRAZOLE 40 MG/VIAL IVP SCH (12:28)
[2024-07-06] MEDS: MORPHINE 2 MG SYG IVP PRN (21:56)
[2024-07-07] VITALS (7 sets, daily range): BP systolic 105–114; BP diastolic 68–76; PULSE 61–71; RESP 18–19; O2SAT 98
[2024-07-07 04:44] LABS: BASOPHILS # (AUTO) 0.05 K/uL (0.00-0.20); BASOPHILS % (AUTO) 0.8 % (0.0-5.0); EOSINOPHILS # (AUTO) 0.16 K/uL (0.00-0.70); EOSINOPHILS % (AUTO) 2.4 % (0.0-8.0); HEMATOCRIT 23.9 % (42-54); IMMATURE GRANULOCYTE ABSOLUTE 0.05 K/uL (0-1); LYMPHOCYTES # (AUTO) 1.1 K/uL (1.0-4.8); LYMPHOCYTES % (AUTO) 16.3 % (21.0-51.0); MEAN CORPUSCULAR HEMOGLOBIN 24.7 pg (27.0-33.0); MEAN CORPUSCULAR HGB CONC 30.5 g/dL (32.0-36.0); MONOCYTES # (AUTO) 0.9 K/uL (0.1-1.0); MONOCYTES % (AUTO) 13.2 % (3.0-13.0); NEUTROPHILS # (AUTO) 4.4 K/uL (1.8-7.7); NEUTROPHILS % (AUTO) 66.5 % (40.0-77.0); PLATELET COUNT (AUTO) 296 K/uL (130-400); RED BLOOD CELL COUNT(AUTO) 2.95 MIL/uL (4.50-6.20); RED CELL DISTRIBUTION WIDTH 19.5 % (11.0-15.5); WHITE BLOOD COUNT (AUTO) 6.6 K/uL (4.8-10.8)
[2024-07-07 05:02] LABS: ALBUMIN 2.2 g/dL (3.5-5.0); BILIRUBIN,TOTAL 0.2 mg/dL (0.2-1.0); CREATININE 1.4 mg/dL (0.5-1.3); MAGNESIUM 1.2 mg/dL (1.80-2.40); POTASSIUM 4.1 mmol/L (3.5-5.1); TOTAL PROTEIN, SERUM 5.8 g/dL (6.0-8.3)
[2024-07-07] MEDS: MORPHINE 2 MG SYG IVP PRN (11:41)
[2024-07-07] MEDS ORDERED: COMPOUND IV REFRIGERATED 1 EACH IVSOLN MISC PRN (12:00)
[2024-07-07] MEDS: IRON SUCROSE COMPLEX 300 MG in 0.9% NACL 250ML 250 ML IV ONE (20:07)
[2024-07-08 04:19] VITALS: BP 114/76; PULSE 69; RESP 18
[2024-07-08 08:00] VITALS: BP 109/65; PULSE 74; RESP 16; O2SAT 100
[2024-07-08 12:00] VITALS: BP 106/76; PULSE 62; RESP 16
[2024-07-08 16:00] VITALS: BP 119/80; PULSE 56; RESP 16
[2024-07-08 20:44] VITALS: BP 127/77; PULSE 56; RESP 18
[2024-07-08 23:59] VITALS: BP 122/81; PULSE 51; RESP 18
[2024-07-09 04:37] VITALS: BP 108/71; PULSE 66; RESP 18
[2024-07-09 08:00] VITALS: BP 113/74; PULSE 64; RESP 18; O2SAT 95
[2024-07-09 11:53] VITALS: BP 118/78; PULSE 60; RESP 18
[2024-07-10] MEDS ORDERED: METO10L PO (07:15)
== END 2024-07-09 17:00 | disposition home or self-care (01) | DRG 326 ==
LOC: EDH 16:57 → EDHIP 16:58 → 4DH 06-05 01:28
PROVIDERS: ADMIT Internal Medicine; ATTEND Internal Medicine
PROC: 0DPDXUZ Removal of Feeding Device from Lower Intestinal Tract, External Approach (ICD-10-PCS; 2024-06-16)
PROC: 0DHA3UZ Insertion of Feeding Device into Jejunum, Percutaneous Approach (ICD-10-PCS; 2024-06-16)
PROC: 0DJ08ZZ Inspection of Upper Intestinal Tract, Via Natural or Artificial Opening Endoscopic (ICD-10-PCS; 2024-06-25)
PROC: 0D968ZZ Drainage of Stomach, Via Natural or Artificial Opening Endoscopic (ICD-10-PCS; principal; 2024-06-29)
PROC: 0D758ZZ Dilation of Esophagus, Via Natural or Artificial Opening Endoscopic (ICD-10-PCS; 2024-06-29)
PROC: 0DP6XUZ Removal of Feeding Device from Stomach, External Approach (ICD-10-PCS; 2024-06-29)
DX: K22.2 Esophageal obstruction (principal); K85.90 Acute pancreatitis without necrosis or infection, unspecified; E87.3 Alkalosis; N17.9 Acute kidney failure, unspecified; K92.0 Hematemesis; R45.851 Suicidal ideations; Z59.00 Homelessness unspecified; K31.1 Adult hypertrophic pyloric stenosis; E86.0 Dehydration; E83.52 Hypercalcemia; D63.1 Anemia in chronic kidney disease; E11.649 Type 2 diabetes mellitus with hypoglycemia without coma; E11.22 Type 2 diabetes mellitus with diabetic chronic kidney disease; D75.839 Thrombocytosis, unspecified; E83.42 Hypomagnesemia; K21.00 Gastro-esophageal reflux disease with esophagitis, without bleeding; N18.9 Chronic kidney disease, unspecified; I12.9 Hypertensive chronic kidney disease with stage 1 through stage 4 chronic kidney disease, or unspecified chronic kidney disease; E11.65 Type 2 diabetes mellitus with hyperglycemia; E11.43 Type 2 diabetes mellitus with diabetic autonomic (poly)neuropathy; F31.9 Bipolar disorder, unspecified; K31.84 Gastroparesis; K31.89 Other diseases of stomach and duodenum; K40.90 Unilateral inguinal hernia, without obstruction or gangrene, not specified as recurrent; K57.30 Diverticulosis of large intestine without perforation or abscess without bleeding; K59.00 Constipation, unspecified; N28.1 Cyst of kidney, acquired; R62.7 Adult failure to thrive; Z59.7 Insufficient social insurance and welfare support; Z91.199 Patient's noncompliance with other medical treatment and regimen due to unspecified reason; Z88.8 Allergy status to other drugs, medicaments and biological substances
CPT/HCPCS: 36415; 36430; 43200; 43249; 49452; 74018; 74176; 74220; 78278; 80048; 80053; 81001; 82140; 82570; 82948; 83540; 83550; 83605; 83690; 83735; 83880; 83935; 84100; 84145; 84300; 85014; 85018; 85025; 85027; 85610; 85730; 86850; 86900; 86901; 86923; 87040; 87086; 96365; 96372; 96375; 99152; 99156; 99157; A4606; A9512; C1726; C1769; C1894; G0378; J0696; J1644; J1756; J2001; J2060; J2250; J2270; J2405; J2470; J2543; J2704; J3010; J3410; J3475; J3480; J3490; J7030; J7050; P9016; Q9963; Q9967; A4215; A4222; A4223; A4620; A4657; B4087; C1750; G0500; G8980-CI; G8983-CI

== ENCOUNTER 2024-09-26 18:04 | Emergency (ER) | payer SELFPAY ==
[~2024-09-26] VITALS: Ht 172.7 cm; Wt 104.3 kg
[2024-09-26 18:43] LABS: BASOPHILS % (AUTO) 0.9 % (0.0-5.0); EOSINOPHILS # (AUTO) 0.13 K/uL (0.00-0.70); EOSINOPHILS % (AUTO) 1.2 % (0.0-8.0); HEMATOCRIT 28.3 % (42-54); IMMATURE GRANULOCYTE ABSOLUTE 0.07 K/uL (0-1); LYMPHOCYTES # (AUTO) 2.1 K/uL (1.0-4.8); LYMPHOCYTES % (AUTO) 19.9 % (21.0-51.0); MEAN CORPUSCULAR HEMOGLOBIN 23.3 pg (27.0-33.0); MEAN CORPUSCULAR HGB CONC 31.1 g/dL (32.0-36.0); MEAN CORPUSCULAR VOLUME 75.1 fL (79-99); MONOCYTES # (AUTO) 0.8 K/uL (0.1-1.0); MONOCYTES % (AUTO) 7.5 % (3.0-13.0); NEUTROPHILS # (AUTO) 7.5 K/uL (1.8-7.7); NEUTROPHILS % (AUTO) 69.8 % (40.0-77.0); PLATELET COUNT (AUTO) 313 K/uL (130-400); RED BLOOD CELL COUNT(AUTO) 3.77 MIL/uL (4.50-6.20); RED CELL DISTRIBUTION WIDTH 16.6 % (11.0-15.5); WHITE BLOOD COUNT (AUTO) 10.7 K/uL (4.8-10.8)
[2024-09-26 18:57] LABS: CREATININE 1.7 mg/dL (0.5-1.3); MAGNESIUM 1.9 mg/dL (1.80-2.40)
[2024-09-26 19:05] LABS: POTASSIUM 2.9 mmol/L (3.5-5.1)
[2024-09-26 19:22] LABS: APPEARANCE,URINE CLEAR (CLEAR); BILIRUBIN,URINE NEGATIVE (NEGATIVE); COLOR,URINE COLORLESS (YELLOW); GLUCOSE, URINE (UA) NEGATIVE (NEGATIVE); KETONES,URINE NEGATIVE (NEGATIVE); LEUKOCYTE ESTERASE ,URINE NEGATIVE Leu/uL (NEGATIVE); NITRATE,URINE NEGATIVE (NEGATIVE); OCCULT BLOOD,URINE NEGATIVE (NEGATIVE); PH,URINE 7.5 (5.0-8.0); PROTEIN,URINE NEGATIVE (NEGATIVE); UROBILINOGEN,URINE 0.2 mg/dL (0.2-1.0)
[2024-09-26 19:23] LABS: ADD UA MICROSCOPIC YES
[2024-09-26 19:24] LABS: RBC,URINE 0-1 /HPF (0-1); WBC,URINE 0-1 /HPF (0-1)
[2024-09-26 19:29] LABS: AMPHET/METH SCREEN,URINE NEGATIVE (NEGATIVE); BARBITURATE SCREEN, URINE NEGATIVE (NEGATIVE); BENZODIAZEPINES SCREEN,URINE NEGATIVE (NEGATIVE); CANNABINOID SCREEN,URINE NEGATIVE (NEGATIVE); COCAINE SCREEN,URINE NEGATIVE (NEGATIVE); OPIATE SCREEN,URINE NEGATIVE (NEGATIVE); PHENCYCLIDINE SCREEN,URINE NEGATIVE (NEGATIVE)
[2024-09-26] MEDS: PoTASSium BIcarbonate/CIT AC 25 MEQ TABLET.EFF PO SCH (19:41)
[2024-09-26] MEDS: ondanSETRON 4MG INJ IVP ONE (19:41)
[2024-09-26] MEDS: acetaMINOPHEN 325 MG TAB PO ONE (19:42)
[2024-09-26 22:14] VITALS: BP 110/70; PULSE 63; RESP 18; TEMP 98.3; O2SAT 97
== END 2024-09-26 22:46 | disposition home or self-care (01) ==
LOC: EDH 18:04
DX: F10.129 Alcohol abuse with intoxication, unspecified (principal); M54.2 Cervicalgia; R07.89 Other chest pain; I10 Essential (primary) hypertension; Z59.00 Homelessness unspecified; Z88.5 Allergy status to narcotic agent; W18.39XA Other fall on same level, initial encounter; Y93.89 Activity, other specified; Y92.89 Other specified places as the place of occurrence of the external cause; Y99.8 Other external cause status
CPT/HCPCS: 99285; 96374; 72125; 71045; 83735; 84484; 80048; 80305; 85025; 36415; 93005; 81001; J2405

== ENCOUNTER 2024-12-06 10:18 | Emergency (ER) | payer SELFPAY ==
[~2024-12-06] VITALS: Ht 177.8 cm; Wt 81.6 kg
[2024-12-06] MEDS: PANTOPrazole 40 MG/VIAL IVP ONE (10:55)
[2024-12-06] MEDS: ondanSETRON 4MG INJ IVP ONE (10:55)
[2024-12-06] MEDS: MAG/ALUM/SIMETH 30 ML UDCUP PO ONE (10:56)
[2024-12-06] MEDS: LIDOCAINE HCL 2% VISCOUS 15 ML UDCUP PO ONE (10:56)
[2024-12-06] MEDS: 0.9%NACL 1000ML 1,000 ML IV ONE (10:56)
[2024-12-06 10:59] LABS: BASOPHILS # (AUTO) 0.08 K/uL (0.00-0.20); BASOPHILS % (AUTO) 0.6 % (0.0-5.0); HEMATOCRIT 33.3 % (42-54); IMMATURE GRANULOCYTE ABSOLUTE 0.06 K/uL (0-1); LYMPHOCYTES # (AUTO) 1.1 K/uL (1.0-4.8); LYMPHOCYTES % (AUTO) 8.5 % (21.0-51.0); MEAN CORPUSCULAR HEMOGLOBIN 23.5 pg (27.0-33.0); MEAN CORPUSCULAR HGB CONC 30.3 g/dL (32.0-36.0); MEAN CORPUSCULAR VOLUME 77.4 fL (79-99); MONOCYTES % (AUTO) 7.5 % (3.0-13.0); NEUTROPHILS # (AUTO) 10.7 K/uL (1.8-7.7); NEUTROPHILS % (AUTO) 82.9 % (40.0-77.0); PLATELET COUNT (AUTO) 363 K/uL (130-400); RED CELL DISTRIBUTION WIDTH 23.4 % (11.0-15.5); WHITE BLOOD COUNT (AUTO) 12.8 K/uL (4.8-10.8)
[2024-12-06 11:11] LABS: POTASSIUM 3.8 mmol/L (3.5-5.1)
[2024-12-06 11:15] LABS: ALBUMIN 3.5 g/dL (3.5-5.0); BILIRUBIN,TOTAL 0.5 mg/dL (0.2-1.0); TOTAL PROTEIN, SERUM 8.3 g/dL (6.0-8.3)
[2024-12-06 12:43] LABS: APPEARANCE,URINE CLEAR (CLEAR); BILIRUBIN,URINE NEGATIVE (NEGATIVE); COLOR,URINE LIGHT-YELLOW (YELLOW); GLUCOSE, URINE (UA) NEGATIVE (NEGATIVE); KETONES,URINE NEGATIVE (NEGATIVE); LEUKOCYTE ESTERASE ,URINE NEGATIVE Leu/uL (NEGATIVE); NITRATE,URINE NEGATIVE (NEGATIVE); OCCULT BLOOD,URINE NEGATIVE (NEGATIVE); PH,URINE 7.5 (5.0-8.0); PROTEIN,URINE 30 mg/dL (NEGATIVE); UROBILINOGEN,URINE 0.2 mg/dL (0.2-1.0)
[2024-12-06 12:44] LABS: ADD UA MICROSCOPIC YES; RBC,URINE 0-1 /HPF (0-1)
[2024-12-06 12:50] LABS: AMPHET/METH SCREEN,URINE NEGATIVE (NEGATIVE); BARBITURATE SCREEN, URINE NEGATIVE (NEGATIVE); BENZODIAZEPINES SCREEN,URINE NEGATIVE (NEGATIVE); CANNABINOID SCREEN,URINE NEGATIVE (NEGATIVE); COCAINE SCREEN,URINE POSITIVE (NEGATIVE); OPIATE SCREEN,URINE NEGATIVE (NEGATIVE); PHENCYCLIDINE SCREEN,URINE NEGATIVE (NEGATIVE)
--- NOTE | 2024-12-06 13:36 | HMCIMG ---
CT ABDOMEN/PELVIS W/O CONTRAST INDICATION: ABD PAIN TECHNIQUE: CT ABDOMEN/PELVIS W/O CONTRAST. Oral contrast was not given. Coronal and sagittal reformats were performed. CT was performed with one or more of the following dose reduction techniques: Automated exposure control, adjustment of the mA and/or kV according to the patient's size, or use of the iterative reconstruction technique. Comparison: None. FINDINGS: The noncontrast nature this study limits evaluation of abdominal viscera. Mild atelectatic changes are seen in the lung bases. There is cardiomegaly. Small hiatal hernia is seen. There is low density of the blood suggesting anemia. Liver and gallbladder are within normal limits. The spleen, pancreas, and adrenal glands are within normal limits. Mild diffuse urinary bladder wall thickening concerning for cystitis. There is no hydronephrosis. Bilateral renal cysts. Some of the renal hypodensities are too small to characterize. Correlate with ultrasound in 3-6 months. Small nonobstructing bilateral intrarenal calculi are seen measuring 2 to 3 mm. There is constipation. Diverticulosis coli without evidence of acute diverticulitis. Reproductive organs are grossly within normal limits for patient's age. No bowel obstruction identified. Normal appendix. Small fat and small bowel containing right inguinal hernia. Atherosclerotic changes of the aorta with calcified plaques. Degenerative changes of the spine are seen. IMPRESSION: 1. Mild diffuse urinary bladder wall thickening concerning for cystitis. There is no hydronephrosis. 2. Bilateral renal cysts. Some of the renal hypodensities are too small to characterize. Correlate with ultrasound in 3-6 months. Small nonobstructing bilateral intrarenal calculi are seen measuring 2 to 3 mm. 3. There is constipation. Diverticulosis coli without evidence of acute diverticulitis. 4. Additional findings as described above.
--- NOTE | 2024-12-06 13:42 | ERN ---
General Chief Complaint: Abdominal Pain Stated Complaint: ABDOMINAL PAIN Time Seen by MD: 10:20 Source: patient History of Present Illness Initial Comments Patient is a 59-year-old gentleman with chronic abdominal pain. He states he has had a flare-up today decided to come in to be evaluated. He also states that the only thing that helps him for pain is morphine. He localizes the pain to the lower abdominal region. Allergies: Coded Allergies: tramadol (Unverified Allergy, Intermediate, 11/15/23) Home Meds No Active Prescriptions or Reported Meds Past Medical History Past Medical History: Hypertension Medical History Other: GATROPERISIS Past Surgical History: Appendectomy, Other Surgical History Other: HERNIA Family History Family History: Negative Social History Social History: ETOH, Negative ROS Dictation CONSTITUTIONAL: No chills, no fever, no weakness, no diaphoresis, no malaise. HEAD/FACE: No signs of trauma. EENT: No eye pain, no blurred vision, no tearing, no double vision, no ear pain, no ear discharge, no nose pain, no nasal congestion, no throat pain, no throat swelling, no mouth pain. RESPIRATORY: No cough, no orthopnea, no SOB, no stridor, no wheezing. CARDIOVASCULAR: No chest pain, no edema, no palpitations, no syncope. GASTROINTESTINAL/ABDOMINAL: abdominal pain, no constipation, no diarrhea, no nausea, no vomiting. GENITOURINARY: No abnormal discharge, no dysuria, no frequent urination, no hematuria. No complaints of pain in the genitals. MUSCULOSKELETAL: No back pain, no gout, no joint pain, no joint swelling, no muscle pain, no muscle stiffness, no neck pain. INTEGUMENTARY: No change in color, no change in hair/nails, no dryness, no lesion, no lumps, no rash. NEUROLOGICAL/PSYCH: No anxiety, not depressed, no emotional problem, no [place], no numbness, no pre-existing deficit, no history of seizures, no tremors, no weakness. HEMATOLOGIC/LYMPHATIC: Not anemic, no history of blood clots, no apparent bleeding, no bruising, glands not swollen. All Systems Negative, Except as Noted. Physical Exam Physical Exam Dictation VITAL SIGNS: Reviewed. GENERAL APPEARANCE: Alert, oriented x3, no acute distress, obese. HEAD AND FACE: Non-traumatic. EYES: PERRL, pink conjunctivas, eyelid no trauma, anterior chamber clear. EARS: Pinnas intact and no signs of trauma or erythema. Ear canals clear and no discharge. TMs no erythema. NOSE: No discharge, no bleeding. OROPHARYNX: Mouth normal, teeth no caries, tongue pink. Pharynx clear, no erythema. Tonsils no exudates, no abscesses noted. Mucous membrane moist. NECK: Supple, non-tender, no thyromegaly, no masses, no JVD, no bruits. BREAST: Deferred. CHEST: No tenderness, no crepitus, no paradoxical movement, no retractions. LUNGS: Clear, well-ventilated, symmetric, no rales, no wheezing, no rhonchi, no stridor, good breath sounds bilaterally. HEART: Regular rate, regular rhythm, no murmur, no gallops. VASCULAR: No peripheral edema. ABDOMEN: Soft, positive bowel sounds, nondistended, no guarding, lower abdominal tender, no rebound, no masses no hepatomegaly, no splenomegaly, no Zaldivar's sign, no hernias. RECTAL: Deferred. GENITAL: Deferred. NEUROLOGICAL: Normal speech, gross motor function intact, gross sensory function intact. MUSCULOSKELETAL: Neck nontender, full range of motion, back nontender, full range of motion. EXTREMITIES: Nontender, full range of motion. SKIN: Color pink, dry, no turgor, no rash, no lacerations, no abrasions, no contusions. LYMPHATICS: Deferred. Results Laboratory and Microbiology Lab and Micro Result Laboratory Tests Test 12/06/24 10:55 12/06/24 12:32 White Blood Count 12.8 K/uL (4.8-10.8) H Red Blood Count 4.30 MIL/uL (4.50-6.20) L Hemoglobin 10.1 g/dL (14.0-18.0) L Hematocrit 33.3 % (42-54) L Mean Corpuscular Volume 77.4 fL (79-99) L Mean Corpuscular Hemoglobin 23.5 pg (27.0-33.0) L Mean Corpuscular Hemoglobin Concent 30.3 g/dL (32.0-36.0) L Red Cell Distribution Width 23.4 % (11.0-15.5) H Platelet Count 363 K/uL (130-400) Mean Platelet Volume 8.4 fL (7.5-10.5) Immature Granulocyte % (Auto) 0.5 % (0-1) Neutrophils (%) (Auto) 82.9 % (40.0-77.0) H Lymphocytes (%) (Auto) 8.5 % (21.0-51.0) L Monocytes (%) (Auto) 7.5 % (3.0-13.0) Eosinophils (%) (Auto) 0.0 % (0.0-8.0) Basophils (%) (Auto) 0.6 % (0.0-5.0) Neutrophils # (Auto) 10.7 K/uL (1.8-7.7) H Lymphocytes # (Auto) 1.1 K/uL (1.0-4.8) Monocytes # (Auto) 1.0 K/uL (0.1-1.0) Eosinophils # (Auto) 0.00 K/uL (0.00-0.70) Basophils # (Auto) 0.08 K/uL (0.00-0.20) Absolute Immature Granulocyte (auto 0.06 K/uL (0-1) Nucleated Red Blood Cells 0.0 % (0.0-0.19) White Cell Morphology Comment See comments Red Blood Cell Morphology See comments Sodium Level 139 mmol/L (136-145) Potassium Level 3.8 mmol/L (3.5-5.1) Chloride Level 100 mmol/L (101-111) L Carbon Dioxide Level 31 mmol/L (21-32) Blood Urea Nitrogen 32 mg/dL (7-18) H Creatinine 2.0 mg/dL (0.5-1.3) H Glomerular Filtration Rate Calc 38 mL/min (>90) Random Glucose 96 mg/dL (70-105) Total Calcium 10.6 mg/dL (8.5-10.1) H Total Bilirubin 0.5 mg/dL (0.2-1.0) Aspartate Amino Transf (AST/SGOT) 8 U/L (10-37) L Alanine Aminotransferase (ALT/SGPT) 9 U/L (12-78) L Alkaline Phosphatase 100 U/L (50-136) Total Creatine Kinase 49 U/L (21-232) # Troponin I High Sensitivity 14 ng/L (4-75) Total Protein 8.3 g/dL (6.0-8.3) Albumin 3.5 g/dL (3.5-5.0) Lipase 22 U/L (16-77) Urine Color LIGHT-YELLOW (YELLOW) Urine Appearance CLEAR (CLEAR) Urine pH 7.5 (5.0-8.0) Urine Specific [place] 1.013 (1.001-1.031) Urine Protein 30 mg/dL (NEGATIVE) H Urine Glucose (UA) NEGATIVE mg/dL (NEGATIVE) Urine Ketones NEGATIVE mg/dL (NEGATIVE) Urine Occult Blood NEGATIVE (NEGATIVE) Urine Nitrate NEGATIVE (NEGATIVE) Urine Bilirubin NEGATIVE mg/dL (NEGATIVE) Urine Urobilinogen 0.2 mg/dL (0.2-1.0) Urine Leukocyte Esterase NEGATIVE [place]/uL Urine RBC 0-1 /HPF (0-1) Urine WBC 2-5 /HPF (0-1) H Urine Bacteria None /HPF (None Seen) Urine Opiates Screen NEGATIVE (NEGATIVE) Urine Barbiturates Screen NEGATIVE (NEGATIVE) Urine Phencyclidine Screen NEGATIVE (NEGATIVE) Urine Amphetamines Screen NEGATIVE (NEGATIVE) Urine Benzodiazepines Screen NEGATIVE (NEGATIVE) Urine Cocaine Screen POSITIVE (NEGATIVE) H Urine Marijuana (THC) Screen NEGATIVE (NEGATIVE) Labs Reviewed?: Yes EKG/XRAY/US/CT/MRI CT Scan Comment [address] [address] IMAGING REPORT Signed PATIENT: DENILSON WISE MR#: [id number] : 1965 SEX: M AGE: 59 LOCATION: [facility] ORDER [id number] STATUS: REG ER REPORT#: [id number] SERVICE 1251 REASON: ABD PAIN ORDERING PHYSICIAN: LISA WOODSON MD PROCEDURE: ABD PEL WO - CT ABDOMEN/PELVIS W/O CONTRAST CT ABDOMEN/PELVIS W/O CONTRAST INDICATION: ABD PAIN TECHNIQUE: CT ABDOMEN/PELVIS W/O CONTRAST. Oral contrast was not given. Coronal and sagittal reformats were performed. CT was performed with one or more of the following dose reduction techniques: Automated exposure control, adjustment of the mA and/or kV according to the patient's size, or use of the iterative reconstruction technique. Comparison: None. FINDINGS: The noncontrast nature this study limits evaluation of abdominal viscera. Mild atelectatic changes are seen in the lung bases. There is cardiomegaly. Small hiatal hernia is seen. There is low density of the blood suggesting anemia. Liver and gallbladder are within normal limits. The spleen, pancreas, and adrenal glands are within normal limits. Mild diffuse urinary bladder wall thickening concerning for cystitis. There is no hydronephrosis. Bilateral renal cysts. Some of the renal hypodensities are too small to characterize. Correlate with ultrasound in 3-6 months. Small nonobstructing bilateral intrarenal calculi are seen measuring 2 to 3 mm. There is constipation. Diverticulosis coli without evidence of acute diverticulitis. Reproductive organs are grossly within normal limits for patient's age. No bowel obstruction identified. Normal appendix. Small fat and small bowel containing right inguinal hernia. Atherosclerotic changes of the aorta with calcified plaques. Degenerative changes of the spine are seen. IMPRESSION: 1. Mild diffuse urinary bladder wall thickening concerning for cystitis. There is no hydronephrosis. 2. Bilateral renal cysts. Some of the renal hypodensities are too small to characterize. Correlate with ultrasound in 3-6 months. Small nonobstructing bilateral intrarenal calculi are seen measuring 2 to 3 mm. 3. There is constipation. Diverticulosis coli without evidence of acute diverticulitis. 4. Additional findings as described above. MDM MDM: Differential diagnosis: Abdominal pain, cystitis, nephrolithiasis, renal cyst, Patient is a 59-year-old gentleman coming in to be evaluated for lower abdominal pain. CT of the abdomen did not disclose acute findings that for a possible cystitis as well as constipation and cocaine abuse. Patient will be discharged with oral antibiotics. ED Course Orders Procedure Category Date Status Time Cbc With Differential LAB 12/06/24 Complete 10:25 Comprehensive LAB 12/06/24 Complete Metabolic Panel 10:25 Troponin I High LAB 12/06/24 Complete Sensitivity 10:25 Urinalysis Profile LAB 12/06/24 Complete 10:25 12 Lead Ekg Tracing- EKG 12/06/24 Logged Technical 10:25 0.9%Nacl 1000ml (Ns PHA 12/06/24 Complete 1000ml) 10:30 Ondansetron 4mg Inj PHA 12/06/24 Complete (Zofran 4mg Inj) 10:30 Lidocaine Hcl 2% PHA 12/06/24 Complete Viscous (Lidocaine Hcl 10:30 Mag/Alum/Simeth 30ml PHA 12/06/24 Complete (Maalox Plus 30ml) 10:30 Pantoprazole 40mg Inj PHA 12/06/24 Complete (Protonix 40mg Inj 10:30 Creatine Kinase, Total LAB 12/06/24 Complete 10:25 Lipase LAB 12/06/24 Complete 10:25 Drug Screen Urine LAB 12/06/24 Complete 10:25 Ct Abdomen/Pelvis W/O CT 12/06/24 Resulted Contrast 12:51 Current Medications Medications (Trade) Dose Ordered Sig/Gianna Route PRN Reason Start Time Stop Time Status Last Admin Dose Admin Al Hydroxide/Mg Hydroxide (MAALox PLUS 30ML) 30 ml ONCE ONCE PO 12/06/24 10:30 12/06/24 10:31 DC 12/06/24 10:56 Lidocaine HCl (Lidocaine HCl 2% Viscous) 10 ml ONCE ONCE PO 12/06/24 10:30 12/06/24 10:31 DC 12/06/24 10:56 Ondansetron HCl (zoFRAN 4MG INJ) 4 mg ONCE ONCE IVP 12/06/24 10:30 12/06/24 10:31 DC 12/06/24 10:55 Pantoprazole Sodium (PROTonix 40MG INJ) 40 mg ONCE ONCE IVP 12/06/24 10:30 12/06/24 10:31 DC 12/06/24 10:55 Sodium Chloride 1,000 ml @ 0 mls/hr ONCE ONCE IV 12/06/24 10:30 12/06/24 10:31 DC 12/06/24 10:56 Vital Signs Date Time Temp Pulse Resp B/P (MAP) Pulse Ox O2 Delivery O2 Flow Rate FiO2 12/06/24 10:20 97.7 64 20 156/96 99 Room Air* 0 21 12/06/24 10:20 97.7 64 20 156/96 99 Room Air DX & DISP Disposition: Discharge Departure Impression: Primary Impression: Constipation Additional Impressions: Cocaine abuse, Cystitis Condition: Stable Scripts Lactulose (Lactulose) 10 Gram/15 Ml Solution 30 ML PO BID for constipation, #500 ML 0 Refills Prov: LISA WOODSON MD 12/06/24 Cephalexin Monohydrate (Keflex) 500 Mg Cap 1 CAP PO TID for 10 Days, #30 CAP 0 Refills Prov: LISA WOODSON MD 12/06/24 Additional Instructions: FOLLOW-UP WITH PRIMARY CARE PROVIDER IN 1 TO 2 DAYS. TAKE MEDICATIONS DIRECTED HERE IN THE EMERGENCY ROOM. OKAY TO CONTINUE HOME MEDICATIONS UNLESS OTHERWISE DISCUSSED DURING YOUR VISIT IN THE EMERGENCY ROOM TODAY. RETURN TO YOUR NEAREST EMERGENCY ROOM IF SYMPTOMS WORSEN OR IF THERE IS NO IMPROVEMENT. CALL 911 IF YOU NEED IMMEDIATE ASSISTANCE. TAKE TYLENOL [id number] NEEDED AND IF NO CONTRAINDICATIONS ARE PRESENT. INCREASE ORAL HYDRATION. A WOUND CULTURE OR URINE CULTURE WAS ORDERED HERE IN THE EMERGENCY ROOM DEPARTMENT PLEASE FOLLOW-UP WITH PRIMARY CARE PROVIDER AND ADVISE THEM TO GET REPEAT PORTS FROM OUR FACILITY. IF YOU HAD ANY RUFINA WRAP/SPLINTS THAT WERE APPLIED HERE, PLEASE DO NOT REMOVE THEM UNTIL YOU SEE YOUR PRIMARY CARE OR SPECIALTY. Referrals: Referrals: DELMER GUILLEN MD (PCP) Time of Disposition: 13:44 LISA WOODSON MD Dec 06, 2024 13:42
[2024-12-06] MEDS ORDERED: LACT10SO85 PO (13:44)
[2024-12-06] MEDS ORDERED: CEPH500B PO (13:44)
[2024-12-06] MEDS: CEFTRIAXONE 2GM VIAL IM ONE (14:27)
[2024-12-06] MEDS: ketOROlac 15MG/ML VIAL (15MG/ML) IM ONE (14:28)
[2024-12-06 15:33] VITALS: BP 142/89; PULSE 66; RESP 18; TEMP 97.6; O2SAT 99
--- NOTE | 2024-12-06 15:43 | EKG ---
[facility] Test Date: 2024-12-06 Test Time: 10:29:03 Pat Name: DENILSON WISE Department: ED Room: Gender: Registered Private Duty Nurse: [id number] : 1965 Requested By: LISA WOODSON Order Number: [id number] Reading MD: Hesham Randall Measurements Intervals [place] Rate: 78 P: -29 SC: 170 QRS: -31 QRSD: 89 T: 4 QT: 427 QTc: 496 Interpretive Statements Sinus rhythm Short run Paroxysmal Atrial Tachycardia Ventricular premature complex Compared to ECG 09/26/2024 19:06:39 Ventricular premature complex(es) now present First degree AV block no longer present Left ventricular hypertrophy no longer present T-wave abnormality no longer present Prolonged QT interval no longer present Electronically Signed On 12-07-2024 21:37:22 ENFORCEMENT MANAGER by Hesham Randall Please click the below link to view image of tracing.
== END 2024-12-06 15:42 | disposition home or self-care (01) ==
LOC: EDH 10:18
DX: K59.00 Constipation, unspecified (principal); F14.10 Cocaine abuse, uncomplicated; N30.90 Cystitis, unspecified without hematuria; I10 Essential (primary) hypertension; Z88.5 Allergy status to narcotic agent; Z90.49 Acquired absence of other specified parts of digestive tract; Z79.899 Other long term (current) drug therapy
CPT/HCPCS: 99285; 74176; 96374; 96361; 96375; 82550; 84484; 80053; 80305; 83690; 85025; 36415; 93005; 96372 ×2; 81001; J1885; J7030; J0696; J2405; J2470